=== PATIENT | female | born 1970 | race Caucasian/White ===

== ENCOUNTER 2024-07-15 10:44 | Inpatient (IN) ==
[2024-07-15] MEDS ORDERED: VANCOMYCIN CONSULT ACTIVE PRN (10:53)
--- NOTE | 2024-07-15 10:59 | Emergency Department Note ---
Impression & Plan Sepsis, Hyperosmolar hyperglycemic state (HHS), AGUILAR (acute kidney injury), Pyelonephritis, Cerebral palsy ED Provider Note NAME: ZARINA BARCENAS AGE: 54 SEX: F : 1970 ARRIVES VIA: Ambulance INFORMANT: EMS report, prior records, nursing report ED PROVIDER(S): Manish Lawson MD CHIEF COMPLAINT: Increased work of breathing hypotensive, tachycardic MEDICAL DECISION MAKING: Limited history obtained but patient reportedly was coming from [place] to set her care recently. Reportedly full code. Patient reportedly did have elevated heart rate yesterday so they increased her metoprolol. Patient was hypotensive today. EMS was called. They checked blood sugar which is read as high. Patient reportedly will squeeze her hand or sometimes nod to questioning. Unknown baseline but EMS has not reported any verbal responses. Patient was noted to be tachypneic and working to breathe and they did place her on CPAP prior to arrival. Sepsis protocols initiated with broad-spectrum antibiotics and IV fluids. Swskm-fs-[id number] BMP obtained along with Givens catheter. CT angiography of the chest along with abdomen and pelvis ordered. After getting the initial [id number] blood sugar did speak with ED pharmacy and insulin drip was ordered. Patient's initial creat of 2.[address] chest abdomen pelvis ordered noncontrast. Bedside ultrasound was performed which shows a very flat IVC likely volume deficient. Clear lung sounds and the patient does not have any B-lines on exam. Patient was ordered a total of 4 L of IV fluids as I do believe that she would tolerated this. Patient likely has had symptoms since yesterday when the patient was tachycardic but the patient was not resuscitated at that time but only had an increase in her beta-vicki given. Patient's blood work does show a white count of 15 with normal hemoglobin platelet count is elevated 577. Patient sodium 155 initial [id number] glucose was 600 sugar of 689. Initial troponin 97 likely demand related. Urinalysis does show concerns for infection. Initial lactate of 3.8. VBG with a pH is 7-8 pCO2 of 39. Patient was reassessed numerous times. The patient did have improvement in the patient's heart rate blood pressure and fever. After the patient did receive just over 3 L hospitalist wanted to slow down hydration to maintenance until repeat labs drawn due to concern for possible osmolar shifts. Patient's chest x-ray does not show obvious pneumonia. The patient's CT chest abdomen pelvis shows mild right-sided hydroureteronephrosis with urothelial thickening. No stranding. May be secondary to infection versus recently passed calculus. No bowel obstruction G-tube in place. No acute intrathoracic abnormality noted. Repeat troponin of 88.1. Repeat lactate did downtrend from 3.8 to 3.5. Once repeat labs were obtained and the hospitalist agreed with continuing hydration. Patient's blood pressure at the time of admission had improved into the 100s over 70s and 80s. Critical Care: I have personally spent 185 minutes of critical care time in direct management of this patient. This includes bedside care, interpretation of diagnostic studies, and testing, discussion with consultants, patient, and family members, and other require inpatient management activities. This 185 minutes is in excess of all separately billable procedures. Procedures: Limited Point of Care Cardiac Ultrasound performed by Dr. Lawson Indication: Hypotension and tachycardia Findings: Limited echocardiography revealed no obvious pericardial fluid. Technically difficult study unable to visualize overall EF. HR 160s. Additional findings: IVC very flat. No B-lines in the bilateral lung blas. Impression: Concern for volume depletion, no evidence of obvious tamponade Discussion w/ other healthcare providers: Dr. Hayes inpatient hospitalist service Prior /Outside records reviewed: I reviewed part of any HPI that was brought from her packet. Per the patient Dr. Powell recently admitted and treated for altered mental status secondary to multifactorial call causes including UTI multifocal pneumonia. Was unable to provide care for PEG tube. Adult aging services got involved. Patient was not having her tube feeds completed at that time. Explained review of past medical history shows infantile cerebral palsy, neurogenic bladder, renal calculi, hypertension, hyperlipidemia and type 2 diabetes. Past surgical history CRUDS, colonoscopy bilateral foot surgery, bilateral leg surgery and bilateral cataract removal. No reported prior history of alcohol tobacco or drug use. Appears ago that this visit note was created from July 09. Differential diagnosis: Dehydration, UTI, pneumonia, metabolic derangment, electrolyte abnormalities, hypovolemia, anemia, cellulitis among others were considered. Diagnostics, as interpreted by me: ECG: Sinus tachycardia, rate 163, short UT, normal QRS duration, nonspecific ST abnormality noted. Cardiac monitoring: An order was placed for continuous cardiac monitoring. The monitor shows a rate of 165 with tachycardic and regular rhythm. Patient was placed on pulse oximetry Medical decision rules: None Imaging studies: I informally interpreted the patient's chest x-ray does not show obvious pneumonia or pneumothorax with formal report to follow. HPI: Patient presents from [facility] due to concern for worsening respiratory difficulty tachycardia and low blood pressure. Reportedly patient did have elevated heart rate yesterday and her metoprolol was increased. No reported cough. Patient reportedly is a type II diabetic. PAST MEDICAL HISTORY: infantile cerebral palsy, neurogenic bladder, renal calculi, hypertension, hyperlipidemia and type 2 diabetes. PAST SURGICAL HISTORY: CR UDS, colonoscopy bilateral foot surgery, bilateral leg surgery and bilateral cataract removal SOCIAL HISTORY: See Below HOME MEDICATIONS: Metoprolol, Lokelma, baclofen, empagliflozin, lisinopril, metoprolol, atorvastatin, insulin, Lovenox, Calmoseptine ALLERGIES: See Below VITALS: See Below PHYSICAL EXAMINATION: GENERAL: Significant distress, BiPAP in place, EYE EXAM: Normal conjunctiva. PERRL, no anisocoria and EOM's grossly intact w/o pain. OROPHARYNX: Dry mucous membranes, grossly normal dentition. NECK: Trachea midline, no stridor. LUNGS: Clear to auscultation. Normal chest wall mechanics. HEART: Tachycardic and regular, no MRG. ABDOMEN: Abdomen soft, G-tube noted in the mid abdomen, non-tender, no masses, no rebound or guarding. BACK: No CVA TTP. SKIN: No rashes and no bruising. UPPER EXTREMITIES: Upper extremities are grossly normal. LOWER EXTREMITIES: Grossly normal, no edema. NEURO EXAM: A&O x3, cranial nerves II-XII grossly intact, normal speech, moves all 4 extremities. Past Med/Surg History Problem List (Updated 07/17/24 @ 11:44 by Manish Lawson MD) Sepsis (Acute) Pyelonephritis (Acute) AGUILAR (acute kidney injury) (Acute) Septic shock Status post insertion of percutaneous endoscopic gastrostomy (PEG) tube Cerebral palsy (Acute) DM2 (diabetes mellitus, type 2) Hyperosmolar hyperglycemic state (HHS) (Acute) Medical History (Updated 07/17/24 @ 11:44 by Manish Lawson MD) Neurogenic bladder Aspiration into airway HLD (hyperlipidemia) HTN (hypertension) Social History Smoking Status: Never smoker Hx Alcohol Use: No Hx Substance Use: No Preferred Language: Latvian Communication Ability: Effective Professor Of Sociology Required: No Beliefs That Will Affect Care: None Current Living Situation: Personal Care Facility Assistive Devices: Mechanical Lift, Scooter/Electric Scooter and Other Allergies Allergies Allergy/AdvReac Type Severity Reaction Status Date / Time sulfamethoxazole Allergy Unknown Unknown Unverified 07/15/24 12:34 [From Bactrim] trimethoprim [From Bactrim] Allergy Unknown Unknown Unverified 07/15/24 12:34 Home Meds Home Medications Medication Instructions Recorded Confirmed Glucagon Emergency Kit 1 dose IM .15MINS PRN Hypoglycemia 07/15/24 07/15/24 baclofen 5 mg tablet 5 mg feeding tube Q8H PRN Muscle 07/15/24 07/15/24 Spasm bisacodyl 10 mg rectal suppository 10 mg UT DAILY PRN Constipation 07/15/24 07/15/24 (Dulcolax (bisacodyl)) empagliflozin 25 mg tablet 25 mg PO DAILY 07/15/24 07/15/24 (Jardiance) insulin glargine 100 unit/mL (3 30 unit subcut BID 07/15/24 07/15/24 mL) subcutaneous pen (Lantus Solostar U-100 Insulin) metformin 1,000 mg tablet 1,000 mg PO BID 07/15/24 07/15/24 metoprolol tartrate 50 mg tablet 50 mg PO BID 07/15/24 07/15/24 multivitamin 1 tab PO DAILY 07/15/24 07/15/24 omega 9-[id number]-[id number]-fish oil 1,000 mg 1 cap PO DAILY 07/15/24 07/15/24 (120 mg-180 mg) capsule (Fish Oil) sodium phosphates 19 gram-7 118 ml UT DAILY PRN Constipation 07/15/24 07/15/24 gram/118 mL enema (Enema) vibegron 75 mg tablet 75 mg PO DAILY 07/15/24 07/15/24 Results & Data (ED) Vital Signs Vital Signs - 24 hr 07/15/24 10:48 07/15/24 10:48 07/15/24 10:48 Pulse Rate 165 H Pulse Rate [Apical] Pulse Rhythm Regular Pulse Rhythm [Apical] Pulse Strength Bounding Pulse Strength [Apical] Respiratory Rate 54 H Respiratory Effort / Characteristics Labored Labored Respiratory Depth Shallow Respiratory Pattern Tachypnea Tachypnea Blood Pressure 103/72 Blood Pressure [Right Arm] Blood Pressure Mean 82 Blood Pressure Mean [Right Arm] Blood Pressure Position Lying Pulse Oximetry 98 Oxygen Delivery Method BiPAP BiPAP BiPAP Fraction of Inspired Oxygen 50 50 50 SaO2/FiO2 Ratio 196 Sepsis Recent Fever Within 48 Hours Yes Sepsis New/Unexplained Change in Mental Status No Sepsis Action Taken by Nursing Physician Notified Pulse Oximetry Post Tiitration 98 07/15/24 10:48 07/15/24 10:53 Pulse Rate 165 H Pulse Rate [Apical] 165 H Pulse Rhythm Regular Pulse Rhythm [Apical] Regular Pulse Strength Pulse Strength [Apical] Normal Respiratory Rate 57 H 57 H Respiratory Effort / Characteristics Labored Respiratory Depth Shallow Respiratory Pattern Tachypnea Blood Pressure Blood Pressure [Right Arm] 103/72 Blood Pressure Mean Blood Pressure Mean [Right Arm] 82 Blood Pressure Position Pulse Oximetry 99 99 Oxygen Delivery Method BiPAP BiPAP Fraction of Inspired Oxygen 50 50 SaO2/FiO2 Ratio 198 198 Sepsis Recent Fever Within 48 Hours Sepsis New/Unexplained Change in Mental Status Sepsis Action Taken by Nursing Pulse Oximetry Post Tiitration Home Medications Current Medication List: was personally reviewed by me Laboratory Data Attestation: I reviewed the patient's lab results. 07/15/24 10:50 07/17/24 05:36 Lab Results 07/15/24 07/15/24 07/15/24 Range/Units 10:50 10:54 11:07 WBC 15.28 H (4.8-10.8) K/ul RBC 4.29 (4.20-5.40) M/uL Hgb 13.1 (12.0-16.0) g/dl Hct 43.0 (37.0-47.0) % MCV 100.2 H (80.0-100.0) fL MCH 30.5 (25.0-34.0) pg MCHC 30.5 L (32.0-36.0) g/dL RDW Std Deviation 60.0 H (36.4-46.3) fL RDW Coeff of Vivien 16.5 H (11.5-14.5) % Plt Count 577 H (130-400) K/uL MPV 12.1 (9.4-12.4) fL Immature Gran % (Auto) 0.4 % Neut % (Auto) 86.4 % Lymph % (Auto) 5.2 % Wirt % (Auto) 7.7 % Eos % (Auto) 0.0 % Baso % (Auto) 0.3 % Neut # (Auto) 13.20 H (1.40-6.50) K/uL Lymph # (Auto) 0.79 L (1.20-3.40) K/uL Wirt # (Auto) 1.18 H (0.11-0.59) K/uL Eos # (Auto) 0.00 (0.00-0.50) K/uL Baso # (Auto) 0.05 (0.00-0.20) K/uL Immature Gran # (Auto) 0.06 (0.01-0.20) K/uL PT Cancelled INR Cancelled APTT Cancelled PTT Ratio Cancelled VBG pH (7.36-7.41) VBG pCO2 (38-50) mmHg VBG pO2 mmHg VBG HCO3 mmol/L VBG O2 Saturation % VBG Base Excess mEq/L Sodium 155 H (136-145) mmol/L Potassium 5.5 H (3.5-5.1) mmol/L Chloride 111 H (98-107) mmol/L Carbon Dioxide 23 (21-32) mmol/L Anion Gap 21 H (3-11) BUN 62 H (6-23) mg/dl Creatinine 2.12 H (0.6-1.2) mg/dl Est Cr Clr Drug Dosing 27.7 ml/min eGFR 26.84 BUN/Creatinine Ratio 29.2 H (10-20) Glucose 689 H* (70-99(Fasting)) mg/dl POC Glucose > 600 H* (70-99) mg/dl Osmolality 387 H* (280-300) mOsm/kg Lactate (0.4-2.0) mmol/L Calcium 10.2 (8.6-10.3) mg/dl Phosphorus 6.8 H (2.5-4.9) mg/dl Magnesium 2.6 H (1.7-2.4) mg/dl Total Bilirubin 0.3 (0.2-1.0) mg/dl Direct Bilirubin 0.0 (0-0.2) mg/dl AST 19 (13-39) U/L ALT 16 (7-52) U/L Alkaline Phosphatase 99 (34-104) U/L Troponin I High Sens 97.6 H* (0-14) pg/ml Total Protein 9.2 H (6.0-8.3) gm/dl Albumin 4.1 (3.4-5.0) gm/dl Procalcitonin 1.90 H (0-0.5) ng/ml Urine Color Yellow Urine Appearance Turbid A (Clear) Urine pH 5.0 (4.5-7.5) Ur Specific [place] 1.025 (1.000-1.030) Urine Protein 2+ H (Negative) Urine Glucose (UA) 3+ H (Negative) Urine Ketones Trace H (Negative) Urine Blood 3+ H (Negative) Urine Nitrite Negative (Negative) Urine Bilirubin Negative (Negative) Urine Urobilinogen Negative (Negative) Ur Leukocyte Esterase 3+ H (Negative) Urine WBC (Auto) >50 H (0-5) /hpf Urine RBC (Auto) >20 H (0-2) /hpf U Hyaline Cast (Auto) >20 H (0-2) /lpf U Epithel Cells (Auto) 6-10 H (0-2) /hpf Urine Bacteria (Auto) 3+ H (None Seen) Nasal Screen MRSA (PCR) (Negative) 07/15/24 07/15/24 07/15/24 Range/Units 11:14 11:32 11:56 WBC (4.8-10.8) K/ul RBC (4.20-5.40) M/uL Hgb (12.0-16.0) g/dl Hct (37.0-47.0) % MCV (80.0-100.0) fL MCH (25.0-34.0) pg MCHC (32.0-36.0) g/dL RDW Std Deviation (36.4-46.3) fL RDW Coeff of Vivien (11.5-14.5) % Plt Count (130-400) K/uL MPV (9.4-12.4) fL Immature Gran % (Auto) % Neut % (Auto) % Lymph % (Auto) % Wirt % (Auto) % Eos % (Auto) % Baso % (Auto) % Neut # (Auto) (1.40-6.50) K/uL Lymph # (Auto) (1.20-3.40) K/uL Wirt # (Auto) (0.11-0.59) K/uL Eos # (Auto) (0.00-0.50) K/uL Baso # (Auto) (0.00-0.20) K/uL Immature Gran # (Auto) (0.01-0.20) K/uL PT 11.4 INR 1.1 APTT 25 PTT Ratio 0.9 VBG pH (7.36-7.41) VBG pCO2 (38-50) mmHg VBG pO2 mmHg VBG HCO3 mmol/L VBG O2 Saturation % VBG Base Excess mEq/L Sodium (136-145) mmol/L Potassium (3.5-5.1) mmol/L Chloride (98-107) mmol/L Carbon Dioxide (21-32) mmol/L Anion Gap (3-11) BUN (6-23) mg/dl Creatinine (0.6-1.2) mg/dl Est Cr Clr Drug Dosing ml/min eGFR BUN/Creatinine Ratio (10-20) Glucose (70-99(Fasting)) mg/dl POC Glucose 583 H* (70-99) mg/dl Osmolality (280-300) mOsm/kg Lactate 3.8 H* (0.4-2.0) mmol/L Calcium (8.6-10.3) mg/dl Phosphorus (2.5-4.9) mg/dl Magnesium (1.7-2.4) mg/dl Total Bilirubin (0.2-1.0) mg/dl Direct Bilirubin (0-0.2) mg/dl AST (13-39) U/L ALT (7-52) U/L Alkaline Phosphatase (34-104) U/L Troponin I High Sens (0-14) pg/ml Total Protein (6.0-8.3) gm/dl Albumin (3.4-5.0) gm/dl Procalcitonin (0-0.5) ng/ml Urine Color Urine Appearance (Clear) Urine pH (4.5-7.5) Ur Specific [place] (1.000-1.030) Urine Protein (Negative) Urine Glucose (UA) (Negative) Urine Ketones (Negative) Urine Blood (Negative) Urine Nitrite (Negative) Urine Bilirubin (Negative) Urine Urobilinogen (Negative) Ur Leukocyte Esterase (Negative) Urine WBC (Auto) (0-5) /hpf Urine RBC (Auto) (0-2) /hpf U Hyaline Cast (Auto) (0-2) /lpf U Epithel Cells (Auto) (0-2) /hpf Urine Bacteria (Auto) (None Seen) Nasal Screen MRSA (PCR) (Negative) 07/15/24 07/15/24 07/15/24 Range/Units 12:23 12:27 13:14 WBC (4.8-10.8) K/ul RBC (4.20-5.40) M/uL Hgb (12.0-16.0) g/dl Hct (37.0-47.0) % MCV (80.0-100.0) fL MCH (25.0-34.0) pg MCHC (32.0-36.0) g/dL RDW Std Deviation (36.4-46.3) fL RDW Coeff of Vivien (11.5-14.5) % Plt Count (130-400) K/uL MPV (9.4-12.4) fL Immature Gran % (Auto) % Neut % (Auto) % Lymph % (Auto) % Wirt % (Auto) % Eos % (Auto) % Baso % (Auto) % Neut # (Auto) (1.40-6.50) K/uL Lymph # (Auto) (1.20-3.40) K/uL Wirt # (Auto) (0.11-0.59) K/uL Eos # (Auto) (0.00-0.50) K/uL Baso # (Auto) (0.00-0.20) K/uL Immature Gran # (Auto) (0.01-0.20) K/uL PT INR APTT PTT Ratio VBG pH 7.28 L (7.36-7.41) VBG pCO2 39 (38-50) mmHg VBG pO2 45 mmHg VBG HCO3 18 mmol/L VBG O2 Saturation 64.5 % VBG Base Excess -7.9 mEq/L Sodium (136-145) mmol/L Potassium (3.5-5.1) mmol/L Chloride (98-107) mmol/L Carbon Dioxide (21-32) mmol/L Anion Gap (3-11) BUN (6-23) mg/dl Creatinine (0.6-1.2) mg/dl Est Cr Clr Drug Dosing ml/min eGFR BUN/Creatinine Ratio (10-20) Glucose (70-99(Fasting)) mg/dl POC Glucose 492 H* (70-99) mg/dl Osmolality (280-300) mOsm/kg Lactate (0.4-2.0) mmol/L Calcium (8.6-10.3) mg/dl Phosphorus (2.5-4.9) mg/dl Magnesium (1.7-2.4) mg/dl Total Bilirubin (0.2-1.0) mg/dl Direct Bilirubin (0-0.2) mg/dl AST (13-39) U/L ALT (7-52) U/L Alkaline Phosphatase (34-104) U/L Troponin I High Sens 88.1 H* (0-14) pg/ml Total Protein (6.0-8.3) gm/dl Albumin (3.4-5.0) gm/dl Procalcitonin (0-0.5) ng/ml Urine Color Urine Appearance (Clear) Urine pH (4.5-7.5) Ur Specific [place] (1.000-1.030) Urine Protein (Negative) Urine Glucose (UA) (Negative) Urine Ketones (Negative) Urine Blood (Negative) Urine Nitrite (Negative) Urine Bilirubin (Negative) Urine Urobilinogen (Negative) Ur Leukocyte Esterase (Negative) Urine WBC (Auto) (0-5) /hpf Urine RBC (Auto) (0-2) /hpf U Hyaline Cast (Auto) (0-2) /lpf U Epithel Cells (Auto) (0-2) /hpf Urine Bacteria (Auto) (None Seen) Nasal Screen MRSA (PCR) (Negative) 07/15/24 07/15/24 07/15/24 Range/Units 13:19 13:24 13:54 WBC (4.8-10.8) K/ul RBC (4.20-5.40) M/uL Hgb (12.0-16.0) g/dl Hct (37.0-47.0) % MCV (80.0-100.0) fL MCH (25.0-34.0) pg MCHC (32.0-36.0) g/dL RDW Std Deviation (36.4-46.3) fL RDW Coeff of Vivien (11.5-14.5) % Plt Count (130-400) K/uL MPV (9.4-12.4) fL Immature Gran % (Auto) % Neut % (Auto) % Lymph % (Auto) % Wirt % (Auto) % Eos % (Auto) % Baso % (Auto) % Neut # (Auto) (1.40-6.50) K/uL Lymph # (Auto) (1.20-3.40) K/uL Wirt # (Auto) (0.11-0.59) K/uL Eos # (Auto) (0.00-0.50) K/uL Baso # (Auto) (0.00-0.20) K/uL Immature Gran # (Auto) (0.01-0.20) K/uL PT INR APTT PTT Ratio VBG pH 7.25 L (7.36-7.41) VBG pCO2 50 (38-50) mmHg VBG pO2 32 mmHg VBG HCO3 22 mmol/L VBG O2 Saturation < 60.0 % VBG Base Excess -5.6 mEq/L Sodium 157 H* (136-145) mmol/L Potassium 4.3 D (3.5-5.1) mmol/L Chloride 125 H (98-107) mmol/L Carbon Dioxide 21 (21-32) mmol/L Anion Gap 11 (3-11) BUN 54 H (6-23) mg/dl Creatinine 1.74 H D (0.6-1.2) mg/dl Est Cr Clr Drug Dosing 33.8 ml/min eGFR 34.02 BUN/Creatinine Ratio 31.0 H (10-20) Glucose 399 H* (70-99(Fasting)) mg/dl POC Glucose 393 H* (70-99) mg/dl Osmolality 363 H* (280-300) mOsm/kg Lactate 3.5 H* (0.4-2.0) mmol/L Calcium 7.4 L D (8.6-10.3) mg/dl Phosphorus 5.0 H D (2.5-4.9) mg/dl Magnesium 2.0 (1.7-2.4) mg/dl Total Bilirubin (0.2-1.0) mg/dl Direct Bilirubin (0-0.2) mg/dl AST (13-39) U/L ALT (7-52) U/L Alkaline Phosphatase (34-104) U/L Troponin I High Sens (0-14) pg/ml Total Protein (6.0-8.3) gm/dl Albumin (3.4-5.0) gm/dl Procalcitonin (0-0.5) ng/ml Urine Color Urine Appearance (Clear) Urine pH (4.5-7.5) Ur Specific [place] (1.000-1.030) Urine Protein (Negative) Urine Glucose (UA) (Negative) Urine Ketones (Negative) Urine Blood (Negative) Urine Nitrite (Negative) Urine Bilirubin (Negative) Urine Urobilinogen (Negative) Ur Leukocyte Esterase (Negative) Urine WBC (Auto) (0-5) /hpf Urine RBC (Auto) (0-2) /hpf U Hyaline Cast (Auto) (0-2) /lpf U Epithel Cells (Auto) (0-2) /hpf Urine Bacteria (Auto) (None Seen) Nasal Screen MRSA (PCR) Positive A (Negative) 07/15/24 Range/Units 14:04 WBC (4.8-10.8) K/ul RBC (4.20-5.40) M/uL Hgb (12.0-16.0) g/dl Hct (37.0-47.0) % MCV (80.0-100.0) fL MCH (25.0-34.0) pg MCHC (32.0-36.0) g/dL RDW Std Deviation (36.4-46.3) fL RDW Coeff of Vivien (11.5-14.5) % Plt Count (130-400) K/uL MPV (9.4-12.4) fL Immature Gran % (Auto) % Neut % (Auto) % Lymph % (Auto) % Wirt % (Auto) % Eos % (Auto) % Baso % (Auto) % Neut # (Auto) (1.40-6.50) K/uL Lymph # (Auto) (1.20-3.40) K/uL Wirt # (Auto) (0.11-0.59) K/uL Eos # (Auto) (0.00-0.50) K/uL Baso # (Auto) (0.00-0.20) K/uL Immature Gran # (Auto) (0.01-0.20) K/uL PT INR APTT PTT Ratio VBG pH (7.36-7.41) VBG pCO2 (38-50) mmHg VBG pO2 mmHg VBG HCO3 mmol/L VBG O2 Saturation % VBG Base Excess mEq/L Sodium (136-145) mmol/L Potassium (3.5-5.1) mmol/L Chloride (98-107) mmol/L Carbon Dioxide (21-32) mmol/L Anion Gap (3-11) BUN (6-23) mg/dl Creatinine (0.6-1.2) mg/dl Est Cr Clr Drug Dosing ml/min eGFR BUN/Creatinine Ratio (10-20) Glucose (70-99(Fasting)) mg/dl POC Glucose 358 H* (70-99) mg/dl Osmolality (280-300) mOsm/kg Lactate (0.4-2.0) mmol/L Calcium (8.6-10.3) mg/dl Phosphorus (2.5-4.9) mg/dl Magnesium (1.7-2.4) mg/dl Total Bilirubin (0.2-1.0) mg/dl Direct Bilirubin (0-0.2) mg/dl AST (13-39) U/L ALT (7-52) U/L Alkaline Phosphatase (34-104) U/L Troponin I High Sens (0-14) pg/ml Total Protein (6.0-8.3) gm/dl Albumin (3.4-5.0) gm/dl Procalcitonin (0-0.5) ng/ml Urine Color Urine Appearance (Clear) Urine pH (4.5-7.5) Ur Specific [place] (1.000-1.030) Urine Protein (Negative) Urine Glucose (UA) (Negative) Urine Ketones (Negative) Urine Blood (Negative) Urine Nitrite (Negative) Urine Bilirubin (Negative) Urine Urobilinogen (Negative) Ur Leukocyte Esterase (Negative) Urine WBC (Auto) (0-5) /hpf Urine RBC (Auto) (0-2) /hpf U Hyaline Cast (Auto) (0-2) /lpf U Epithel Cells (Auto) (0-2) /hpf Urine Bacteria (Auto) (None Seen) Nasal Screen MRSA (PCR) (Negative) Administered Medications Baclofen (Baclofen 10 Mg Tab) 5 mg PEG Q8H PRN PRN Reason: Muscle Spasm Stop: 08/14/24 17:23 Last Admin: 07/17/24 03:45 Dose: 5 mg Documented By: Admin: 07/16/24 08:19 Dose: 5 mg Documented By: Admin: 07/15/24 21:24 Dose: 5 mg Documented By: DEVIN Enteral Nutritional Formula (Peptamen 1.5 Ken 1,000 Ml Bag) 1,000 ml PEG UD [facility]; Protocol Stop: 08/15/24 11:29 Last Admin: 07/16/24 12:31 Dose: 1,000 ml Documented By: DUANE Heparin Sodium (Porcine) (Heparin Sod 5,000 Unit/0.5 Ml Vial) 5,000 units SQ Q8 [facility] Stop: 08/15/24 07:59 Last Admin: 07/17/24 04:57 Dose: 5,000 units Documented By: Admin: 07/16/24 21:31 Dose: 5,000 units Documented By: Admin: 07/16/24 16:14 Dose: 5,000 units Documented By: Admin: 07/16/24 08:19 Dose: 5,000 units Documented By: DUANE Thiamine HCl 100 mg/ Syringe 10 mls @ 2 mls/min IV QAM [facility] Stop: 08/15/24 08:59 Last Admin: 07/17/24 09:29 Dose: 2 mls/min Documented By: Admin: 07/16/24 08:19 Dose: 2 mls/min Documented By: DUANE Ceftriaxone Sodium (Rocephin) 1,000 mg in 50 mls @ 100 mls/hr IV Q24H [facility] Stop: 07/22/24 07:59 Last Infusion: 07/17/24 10:45 Dose: Infused Documented By: Admin: 07/17/24 09:29 Dose: 100 mls/hr Documented By: DUANE Insulin Aspart (Insulin Aspart Per Unit Charge) 0 units SC Q4 [facility] Stop: 08/15/24 00:29 Last Admin: 07/17/24 08:46 Dose: Not Given Documented By: Admin: 07/17/24 04:56 Dose: Not Given Documented By: Admin: 07/17/24 00:33 Dose: Not Given Documented By: Admin: 07/16/24 21:24 Dose: Not Given Documented By: Admin: 07/16/24 16:15 Dose: Not Given Documented By: Admin: 07/16/24 12:45 Dose: 1 units Documented By: DUANE Co-signed By: NANCY Admin: 07/16/24 08:22 Dose: 2 units Documented By: DUANE Co-signed By: JEY Admin: 07/16/24 04:13 Dose: 2 units Documented By: DUANE(2) Co-signed By: DEVIN Admin: 07/16/24 00:50 Dose: 1 units Documented By: DEVIN Co-signed By: DUANE(2) Insulin Glargine (Lantus Per Unit Charge) 0 units SQ BID ARIANA; Protocol Stop: 08/16/24 08:59 Last Admin: 07/17/24 08:47 Dose: Not Given Documented By: DUANE Sterile Water (Tube Feeding Water Flush) 400 ml GT Q4H ARIANA Stop: 08/15/24 07:29 Last Admin: 07/17/24 07:34 Dose: 400 ml Documented By: Admin: 07/17/24 03:00 Dose: 400 ml Documented By: Admin: 07/17/24 00:30 Dose: 400 ml Documented By: Admin: 07/16/24 21:23 Dose: 400 ml Documented By: Admin: 07/16/24 16:14 Dose: 400 ml Documented By: Admin: 07/16/24 11:43 Dose: 400 ml Documented By: Admin: 07/16/24 08:19 Dose: 400 ml Documented By: DUANE Vibegron (Vibegron 75 Mg Tab) 75 mg PO DAILY ARIANA Stop: 08/15/24 08:59 Last Admin: 07/17/24 09:29 Dose: 75 mg Documented By: Admin: 07/16/24 08:19 Dose: 75 mg Documented By: DUANE Discontinued Medications Heparin Sodium (Porcine) (Heparin Sod 5,000 Unit/0.5 Ml Vial) 5,000 units SQ Q12 ARIANA Stop: 08/14/24 20:59 Last Admin: 07/15/24 20:36 Dose: 5,000 units Documented By: DEVIN Sodium Chloride (Nss) 1,000 mls @ 999 mls/hr IV .Q1H1M ARIANA Stop: 07/15/24 13:00 Last Infusion: 07/15/24 17:47 Dose: Infused Documented By: Infusion: 07/15/24 13:36 Dose: 0 mls/hr Documented By: [facility] [place] Admin: 07/15/24 12:36 Dose: 999 mls/hr Documented By: [facility] [place] Infusion: 07/15/24 12:31 Dose: Infused Documented By: [facility] [facility] Admin: 07/15/24 11:30 Dose: 999 mls/hr Documented By: [facility] Vancomycin HCl 1,250 mg/ (Sodium Chloride) 500 mls @ 200 mls/hr IV NOW STA Stop: 07/15/24 13:22 Last Infusion: 07/15/24 15:52 Dose: Infused Documented By: Admin: 07/15/24 12:06 Dose: 200 mls/hr Documented By: [facility] Piperacillin Sod/Tazobactam Sod (Zosyn) 4.5 gm in 100 mls @ 200 mls/hr IV NOW ONE; Protocol Stop: 07/15/24 11:22 Last Infusion: 07/15/24 13:05 Dose: Infused Documented By: [facility] Admin: 07/15/24 11:52 Dose: 200 mls/hr Documented By: [facility] Insulin Human Regular 250 (units/ Sodium Chloride) 250 mls @ 0 mls/hr IV .Q0M [facility]; Protocol Stop: 08/14/24 11:14 Last Titration: 07/16/24 10:33 Dose: Infused Documented By: DUANE Co-signed By: [facility] Titration: 07/15/24 23:17 Dose: 0 unit/hr, 0 mls/hr Documented By: DEVIN Co-signed By: DUANE(2) Titration: 07/15/24 22:20 Dose: 1.7 unit/hr, 1.7 mls/hr Documented By: SG Co-signed By: DUANE(2) Titration: 07/15/24 21:20 Dose: 2.1 unit/hr, 2.1 mls/hr Documented By: SG Co-signed By: DUANE(2) Titration: 07/15/24 20:20 Dose: 2.6 unit/hr, 2.6 mls/hr Documented By: SG Co-signed By: DUANE(2) Titration: 07/15/24 19:35 Dose: 2.6 unit/hr, 2.6 mls/hr Documented By: DEVIN Co-signed By: AMS(2) Titration: 07/15/24 19:02 Dose: 3.2 unit/hr, 3.2 mls/hr Documented By: DEVIN Co-signed By: AMS Titration: 07/15/24 18:23 Dose: 3.2 unit/hr, 3.2 mls/hr Documented By: AMS Co-signed By: LAF Titration: 07/15/24 16:22 Dose: 4 unit/hr, 4 mls/hr Documented By: MARIA C Co-signed By: MNE Titration: 07/15/24 15:25 Dose: 4 unit/hr, 4 mls/hr Documented By: MARIA C Co-signed By: SNS Titration: 07/15/24 15:00 Dose: 4 unit/hr, 4 mls/hr Documented By: YORDAN Co-signed By: ASHISH Titration: 07/15/24 13:30 Dose: 0 unit/hr, 0 mls/hr Documented By: ASHISH Co-signed By: MARIA C Titration: 07/15/24 12:55 Dose: 4 unit/hr, 4 mls/hr Documented By: [facility] Co-signed By: MWS Titration: 07/15/24 12:33 Dose: 6.5 unit/hr, 6.5 mls/hr Documented By: [facility] Co-signed By: MNE Titration: 07/15/24 12:28 Dose: 7.8 unit/hr, 7.8 mls/hr Documented By: [facility] Co-signed By: THEO Admin: 07/15/24 11:24 Dose: 6.5 unit/hr, 6.5 mls/hr Documented By: [facility] Co-signed By: KAPIL Sodium Chloride (Nss) 1,000 mls @ 999 mls/hr IV .Q1H1M ONE Stop: 07/15/24 12:04 Last Infusion: 07/15/24 12:14 Dose: Infused Documented By: [facility] Admin: 07/15/24 11:11 Dose: 999 mls/hr Documented By: [facility] Acetaminophen (Ofirmev) 1,000 mg in 100 mls @ 400 mls/hr IV NOW STA Stop: 07/15/24 11:21 Last Infusion: 07/15/24 11:48 Dose: Infused Documented By: [facility] Admin: 07/15/24 11:28 Dose: 400 mls/hr Documented By: ASHISH Sodium Chloride (Nss) 1,000 mls @ 999 mls/hr IV .Q1H1M ONE Stop: 07/15/24 13:28 Last Infusion: 07/15/24 13:58 Dose: Infused Documented By: Admin: 07/15/24 12:57 Dose: 999 mls/hr Documented By: [facility] Piperacillin Sod/Tazobactam Sod (Zosyn) 4.5 gm in 100 mls @ 25 mls/hr IV Q8H [facility]; Protocol Stop: 07/25/24 16:59 Last Infusion: 07/17/24 04:52 Dose: Infused Documented By: Admin: 07/17/24 00:30 Dose: 25 mls/hr Documented By: Infusion: 07/16/24 21:54 Dose: Infused Documented By: Admin: 07/16/24 17:54 Dose: 25 mls/hr Documented By: Infusion: 07/16/24 12:35 Dose: Infused Documented By: Admin: 07/16/24 08:19 Dose: 25 mls/hr Documented By: Infusion: 07/16/24 05:00 Dose: Infused Documented By: DUANE(2) Admin: 07/16/24 01:00 Dose: 25 mls/hr Documented By: Infusion: 07/15/24 21:55 Dose: Infused Documented By: DUANE(2) Admin: 07/15/24 17:55 Dose: 25 mls/hr Documented By: DUANE Acetaminophen (Ofirmev) 1,000 mg in 100 mls @ 400 mls/hr IV Q8H PRN PRN Reason: pain/fever Stop: 07/18/24 18:59 Last Infusion: 07/15/24 23:16 Dose: Infused Documented By: Admin: 07/15/24 22:52 Dose: 400 mls/hr Documented By: AMS(2) Lactated Ringer's (Lr) 1,000 mls @ 999 mls/hr IV .Q1H1M ONE Stop: 07/15/24 15:34 Last Infusion: 07/15/24 15:42 Dose: Infused Documented By: Admin: 07/15/24 14:59 Dose: 999 mls/hr Documented By: YORDAN Lactated Ringer's (Lr) 1,000 mls @ 125 mls/hr IV .Q8H [facility] Stop: 07/16/24 15:29 Last Infusion: 07/15/24 17:48 Dose: Infused Documented By: Infusion: 07/15/24 16:12 Dose: 999 mls/hr Documented By: Admin: 07/15/24 15:39 Dose: 125 mls/hr Documented By: Potassium Chloride 40 meq/ (Dextrose/Sodium Chloride) 1,020 mls @ 175 mls/hr IV .Q5H50M [facility] Stop: 07/16/24 15:44 Last Admin: 07/16/24 11:59 Dose: Not Given Documented By: Infusion: 07/16/24 11:59 Dose: Infused Documented By: Admin: 07/16/24 05:45 Dose: 175 mls/hr Documented By: DUANE(2) Infusion: 07/16/24 05:45 Dose: Infused Documented By: DUANE(2) Admin: 07/15/24 23:59 Dose: 175 mls/hr Documented By: Infusion: 07/15/24 23:59 Dose: Infused Documented By: Infusion: 07/15/24 23:49 Dose: 175 mls/hr Documented By: Admin: 07/15/24 15:55 Dose: 125 mls/hr Documented By: MARIA C Potassium Chloride (K Jose Ramon / Wtr) 10 meq in 100 mls @ 100 mls/hr IV Q1H [facility] Stop: 07/15/24 20:59 Last Infusion: 07/15/24 21:36 Dose: Infused Documented By: DUANE(2) Admin: 07/15/24 20:36 Dose: 100 mls/hr Documented By: Infusion: 07/15/24 20:26 Dose: Infused Documented By: Admin: 07/15/24 19:26 Dose: 100 mls/hr Documented By: DEVIN Thiamine HCl 200 mg/ Sodium (Chloride) 52 mls @ 210 mls/hr IV NOW STA Stop: 07/15/24 19:27 Last Infusion: 07/15/24 20:02 Dose: Infused Documented By: DUANE(2) Admin: 07/15/24 19:47 Dose: 210 mls/hr Documented By: DEVIN Insulin Human Regular 4 units/ (Syringe) 4 mls @ 0 mls/hr IV NOW ONE Stop: 07/16/24 11:32 Last Admin: 07/16/24 11:48 Dose: 4 mls/hr Documented By: DUANE Co-signed By: ANTOINETTE Potassium Chloride 40 meq/ (Sodium Chloride) 1,020 mls @ 175 mls/hr IV .Q5H50M [facility] Stop: 07/17/24 11:59 Last Admin: 07/16/24 12:15 Dose: Not Given Documented By: DUANE Sodium Chloride (1/2 Nss) 1,000 mls @ 150 mls/hr IV .Q6H40M [facility] Stop: 08/15/24 12:14 Last Infusion: 07/17/24 07:26 Dose: Infused Documented By: Admin: 07/17/24 04:59 Dose: 150 mls/hr Documented By: Infusion: 07/17/24 04:03 Dose: Infused Documented By: Admin: 07/16/24 21:22 Dose: 150 mls/hr Documented By: Infusion: 07/16/24 21:04 Dose: Infused Documented By: Infusion: 07/16/24 18:23 Dose: 150 mls/hr Documented By: Admin: 07/16/24 12:31 Dose: 150 mls/hr Documented By: DUANE Insulin Aspart (Insulin Aspart Per Unit Charge) 0 units SC ACHS [facility] Stop: 08/14/24 11:29 Last Admin: 07/15/24 20:26 Dose: Not Given Documented By: Admin: 07/15/24 17:23 Dose: Not Given Documented By: Admin: 07/15/24 11:42 Dose: Not Given Documented By: [facility] Insulin Glargine (Lantus Per Unit Charge) 20 units SQ NOW STA Stop: 07/15/24 23:51 Last Admin: 07/16/24 00:00 Dose: 20 units Documented By: DEVIN Co-signed By: DUANE(2) Insulin Glargine (Lantus Per Unit Charge) 20 units SQ BID [facility] Stop: 08/15/24 20:59 Last Admin: 07/16/24 21:29 Dose: Not Given Documented By: KIMBERLEE Insulin Glargine (Lantus Per Unit Charge) 10 units SQ ONE ONE Stop: 07/16/24 11:27 Last Admin: 07/16/24 11:42 Dose: 10 units Documented By: DUANE Co-signed By: JEY Insulin Glargine (Lantus Per Unit Charge) 10 units SQ ONE ONE Stop: 07/16/24 21:31 Last Admin: 07/16/24 21:31 Dose: 10 units Documented By: KIMBERLEE Co-signed By: LOIS Arias (Dka Goal Range 150-250 Mg/Dl) 1 each N/A ONE ONE Stop: 07/15/24 11:06 Last Admin: 07/15/24 12:36 Dose: Not Given Documented By: HMS Miscellaneous (Hhs Goal Range 250-350 Mg/Dl) 1 each N/A ONE ONE Stop: 07/15/24 12:33 Last Admin: 07/15/24 17:23 Dose: 1 each Documented By: AMS Miscellaneous (Hhs Goal Range 250-350 Mg/Dl) 1 each N/A CONT ARIANA Stop: 08/14/24 19:44 Last Admin: 07/15/24 21:26 Dose: 1 each Documented By: DEVIN Potassium Chloride (Potassium Chloride 20 Meq/15 Ml Udc) 40 meq PO NOW STA Stop: 07/15/24 19:07 Last Admin: 07/15/24 19:47 Dose: 40 meq Documented By: SG Imaging Data Radiologist's Impression: Chest X-Ray 07/15/24 10:53 XR chest 1V portable HISTORY: 54 years-old Female Sepsis acute sepsis COMPARISON: None TECHNIQUE: AP view of the chest FINDINGS: Cardiomediastinal and hilar silhouettes are within normal limits. No pneumothorax, pleural effusion or airspace consolidation. Degenerative changes of the shoulders and spine. IMPRESSION: No acute process. ACT 112: Negative or not required by law. The above report was generated using voice recognition software. It may contain grammatical, syntax or spelling errors. Electronically signed by: Dmitry Moran M.D. 07/15/2024 12:05 PM Abdomen/Pelvis CT 07/15/24 11:04 CT chest diagnostic wo con, CT abd pelvis wo con CT DOSE: 2024.82 mGy.cm CLINICAL HISTORY: 54 years-old Female with sob. Acute shortness of breath with chest and abdominal pain TECHNIQUE: Multiaxial CT images of the chest, abdomen and pelvis were performed without contrast. A dose lowering technique was utilized adhering to the principles of ALARA. COMPARISON: None. FINDINGS: CT CHEST: Multinodular thyroid goiter extends into the mediastinum superiorly. No lymphadenopathy. Heart is normal in size without pericardial effusion. Moderate coronary artery calcifications. No thoracic aortic aneurysm. No pneumothorax, pleural effusion, airspace consolidation or pulmonary edema. Linear scarring of the superior segment right lower lobe. No suspicious pulmonary nodules or masses. Subcentimeter calcified granuloma the left lung on image 101 series 6. Unremarkable soft tissues. No acute fracture. CT ABDOMEN/PELVIS: No pneumatosis or pneumoperitoneum. Limited evaluation of the solid abdominal organs without IV contrast. The unenhanced spleen, pancreas, gallbladder, adrenal glands unenhanced liver appear unremarkable. Unremarkable left kidney. There is mild right-sided hydroureteronephrosis with perinephric stranding and urothelial thickening. No obstructing ureteral calculus or lesion identified on this exam. Urinary bladder wall thickening with Givens catheter in place. Air noted within the bladder lumen. Unremarkable uterus. Aorta is within normal limits. Subcentimeter retroperitoneal lymph nodes. Distal esophageal wall thickening with small hiatal hernia. Gastrostomy tube in place. Moderate fecal retention. No ascites or mesenteric pericolonic inflammation. Normal appendix. No acute fracture. IMPRESSION: 1. Mild right-sided hydroureteronephrosis with urothelial thickening and perinephric stranding. Findings may be secondary to an ascending infection versus recently passed calculus. Correlate with urinalysis. 2. No acute intrathoracic abnormality. 3. No bowel obstruction or bowel wall thickening. 4. Gastrostomy tube in place. ACT 112: Negative or not required by law. Electronically signed by: Dmitry Moran M.D. 07/15/2024 1:[address] 07/15/24 11:04 CT chest diagnostic wo con, CT abd pelvis wo con CT DOSE: 2024.82 mGy.cm CLINICAL HISTORY: 54 years-old Female with sob. Acute shortness of breath with chest and abdominal pain TECHNIQUE: Multiaxial CT images of the chest, abdomen and pelvis were performed without contrast. A dose lowering technique was utilized adhering to the principles of ALARA. COMPARISON: None. FINDINGS: CT CHEST: Multinodular thyroid goiter extends into the mediastinum superiorly. No lymphadenopathy. Heart is normal in size without pericardial effusion. Moderate coronary artery calcifications. No thoracic aortic aneurysm. No pneumothorax, pleural effusion, airspace consolidation or pulmonary edema. Linear scarring of the superior segment right lower lobe. No suspicious pulmonary nodules or masses. Subcentimeter calcified granuloma the left lung on image 101 series 6. Unremarkable soft tissues. No acute fracture. CT ABDOMEN/PELVIS: No pneumatosis or pneumoperitoneum. Limited evaluation of the solid abdominal organs without IV contrast. The unenhanced spleen, pancreas, gallbladder, adrenal glands unenhanced liver appear unremarkable. Unremarkable left kidney. There is mild right-sided hydroureteronephrosis with perinephric stranding and urothelial thickening. No obstructing ureteral calculus or lesion identified on this exam. Urinary bladder wall thickening with Givens catheter in place. Air noted within the bladder lumen. Unremarkable uterus. Aorta is within normal limits. Subcentimeter retroperitoneal lymph nodes. Distal esophageal wall thickening with small hiatal hernia. Gastrostomy tube in place. Moderate fecal retention. No ascites or mesenteric pericolonic inflammation. Normal appendix. No acute fracture. IMPRESSION: 1. Mild right-sided hydroureteronephrosis with urothelial thickening and perinephric stranding. Findings may be secondary to an ascending infection versus recently passed calculus. Correlate with urinalysis. 2. No acute intrathoracic abnormality. 3. No bowel obstruction or bowel wall thickening. 4. Gastrostomy tube in place. ACT 112: Negative or not required by law. Electronically signed by: Dmitry Moran M.D. 07/15/2024 1:22 PM Discharge Plan Visit Data Chief Complaint: Shortness of Breath/Dyspnea Stated Complaint: HYPERGLYCEMIA, SOB, HYPOTENSION, TACHYCARDIA ED Provider: Manish Lawson Discharge Problem: Sepsis, Hyperosmolar hyperglycemic state (HHS), AGUILRA (acute kidney injury), Pyelonephritis, Cerebral palsy Patient Disposition: Admitted As Inpatient Discharge Instructions Interventions: ED Discharge Assessment Last Done: 07/15/24 16:54 Discharge Problem: Sepsis Qualifiers: Sepsis type: sepsis due to unspecified organism Sepsis acute organ dysfunction status: with acute organ dysfunction Severe sepsis acute organ dysfunction type: acute renal failure Acute renal failure type: unspecified Severe sepsis shock status: unspecified Qualified Code(s): A41.9 - Sepsis, unspecified organism; R65.20 - Severe sepsis without septic shock; N17.9 - Acute kidney failure, unspecified Cerebral palsy Qualifiers: Cerebral palsy type: unspecified type Qualified Code(s): G80.9 - Cerebral palsy, unspecified
[2024-07-15] MEDS ORDERED: GLUCOSE 10 TAB/TUBE PO PRN (11:01)
[2024-07-15] MEDS ORDERED: GLUCAGON FOR INJ 1 MG VIAL SQ PRN (11:01)
[2024-07-15] MEDS ORDERED: DEXTROSE 50% 50 ML SYRINGE IV PRN (11:01)
[2024-07-15] MEDS ORDERED: STAT IV Infusion **Titration per Protocol STA (11:01)
[2024-07-15] MEDS ORDERED: GLUCOSE 40% GEL 15 GM TUBE PO PRN (11:01)
[2024-07-15] MEDS: SODIUM CHLORIDE 0.9% 1,000 ML IV ONE ×2 (11:11→12:57)
[2024-07-15] MEDS: INSULIN REGULAR 250 UNITS in SODIUM CHLORIDE 0.9% 247.5 ML IV SCH (11:24)
[2024-07-15 11:27] LABS: Hemoglobin 13.1 g/dl (12.0-16.0); Mean Corpuscular Hemoglobin 30.5 pg (25.0-34.0); Mean Corpuscular Hgb Conc 30.5 g/dL (32.0-36.0); Mean Corpuscular Volume 100.2 fL (80.0-100.0); Mean Platelet Volume 12.1 fL (9.4-12.4); Platelet Count 577 K/uL (130-400); RDW Coefficient of Variation 16.5 % (11.5-14.5); Red Blood Count 4.29 M/uL (4.20-5.40); White Blood Count 15.28 K/ul (4.8-10.8)
[2024-07-15 11:28] LABS: Appearance Urine Turbid (Clear); Bacteria Urine Automated 3+ (None Seen); Bilirubin Urine Negative (Negative); Blood Urine 3+ (Negative); Cast Urine Automated >20 /lpf (0-2); Color Urine Yellow; Glucose Urine UA 3+ (Negative); Ketones Urine Trace (Negative); Leukocyte Esterase Urine 3+ (Negative); Nitrite Urine Negative (Negative); Protein Urine 2+ (Negative); RBC Urine Automated >20 /hpf (0-2); Specific Gravity Urine 1.025 (1.000-1.030); Urobilinogen Urine Negative (Negative); WBC Urine Automated >50 /hpf (0-5)
[2024-07-15] MEDS: ACETAMINOPHEN 1,000 MG/100 ML VIAL IV STA (11:28)
[2024-07-15] MEDS: SODIUM CHLORIDE 0.9% 1,000 ML IV SCH (11:30)
[2024-07-15] MEDS: INSULIN ASPART PER UNIT CHARGE SC SCH (11:42)
[2024-07-15 11:44] LABS: BUN Creatinine Ratio 29.2 (10-20); Calcium 10.2 mg/dl (8.6-10.3); Creatinine Clr Calc Pharmacy 27.7 ml/min; Potassium 5.5 mmol/L (3.5-5.1)
[2024-07-15 11:45] LABS: Albumin Level 4.1 gm/dl (3.4-5.0); Bilirubin,Total 0.3 mg/dl (0.2-1.0); Magnesium 2.6 mg/dl (1.7-2.4); Phosphorus 6.8 mg/dl (2.5-4.9); Total Protein 9.2 gm/dl (6.0-8.3); Troponin I High Sensitivity 97.6 pg/ml (0-14)
[2024-07-15] MEDS: PIPERACILLIN/TAZOBACTAM 4.5 GM/100 ML BAG IV ONE (11:52)
[2024-07-15 11:54] LABS: Basophils # (auto) 0.05 K/uL (0.00-0.20); Basophils % (auto) 0.3 %; Immature Granulocytes # (auto) 0.06 K/uL (0.01-0.20); Immature Granulocytes % (auto) 0.4 %; Lymphocytes # (auto) 0.79 K/uL (1.20-3.40); Lymphocytes % (auto) 5.2 %; Monocytes # (auto) 1.18 K/uL (0.11-0.59); Monocytes % (auto) 7.7 %; Neutrophils % (auto) 86.4 %
[2024-07-15] MEDS: VANCOMYCIN HCL 1,250 MG in SODIUM CHLORIDE 0.9% 500 ML IV STA (12:06)
--- NOTE | 2024-07-15 12:06 | XRay Report ---
XR chest 1V portable HISTORY: 54 years-old Female Sepsis acute sepsis COMPARISON: None TECHNIQUE: AP view of the chest FINDINGS: Cardiomediastinal and hilar silhouettes are within normal limits. No pneumothorax, pleural effusion o r airspace consolidation. Degenerative changes of the shoulders and spine. IMPRESSION: No acute process. ACT 112: Negative or not required by law. The above report was generated using voice recognition software. It may contain grammatical, syntax o r spelling errors. Electronically signed by: Dmitry Moran M.D. 07/15/2024 12:05 PM
--- NOTE | 2024-07-15 12:23 | History & Physical Report ---
Date of Service July 15, 2024 Assessment & Plan (1) Hyperosmolar hyperglycemic state (HHS): Plan: 54-year-old female with history of cerebral palsy, type II DM, dysphagia with PEG tube placement who presents with severe volume contraction, HHS, and complicated UTI. She is critically ill on initial assessment. HHS treatment complicated by concurrent hypernatremia. HHS Profoundly volume completed with flat IVC on ER provider POCUS BSG 689, Phos 6.8, mag 2.6, potassium 5.5 Anion gap 21, bicarb 23 Lactate 3.8 VB.2 ///18. Trended. - BMP, Mg, Phos, VBG q4h - BMP q1h BSG trend on admission: 1050: 689 / 1114: 583 / 1223: 492 Target BG goal range HHS [id number]. Insulin dose decreased from 6.7 at tiem of assessment 4.0. Suspect both her volume and HHS are acute and precipitated by acute UTI. Was normal on discharge from [place] 5 days ago however unclear over what timeframe after this her blood sugar jamil and sodium dropped so will slow rate of correction to minimize osmotic stress. Initial osmolality added to 10am labs 387mOSm/kg. Repeat labs pending. - s/p 2L NSS bolus in ER - Switch to LR vs [id number] per protocol Hypernatremia Sodium 155, profoundly volume contracted. When corrected for glucose by this corrects to a true sodium of 110850 Last value from [facility] on 07/10 was normal at 140. -Concurrent rate of glucose correction slowed to minimize osmotic stress. Repeat BMP ordered. Monitor for signs of cerebral edema UTI - CT-C: naf - CT-A/P: 1. Mild right-sided hydroureteronephrosis with urothelial thickening and perinephric stranding. Findings may be secondary to an ascending infection versus recently passed calculus. Correlate with urinalysis.2. No acute intrathoracic abnormality.3. No bowel obstruction or bowel wall thickening.4. Gastrostomy tube in place. Leukocytosis of 15, Pro-Ken 1.9, lactic elevated. Tachypneic, hypotensive, febrile 39.1 on admission UA infected appearing with bacteria, leukocyte esterase UC, BC pending Zosyn/vancomycin given in the ER MRSA nare pending Zosyn continued on admission, narrow once clinically improved and/or deviations available DM2 RECYCLER on basal Lantus 30 units (was previously 55 units and decreased after recent admission [place]), metformin, Jardiance Home antiglycemic's held for HHS and while on insulin gtt. Management as otherwise noted, resume SQ basal bolus when able per protocol (pH, bicarb, BSG all within goal ranges) Elevated troponin, suspect demand ischemia Troponin 97.6, repeat pending. In the setting of tachycardia and profound volume contraction EKG on admission: Sinus tachycardia Heart rate improving to 120s following initial fluid bolus Suspect demand Cerebral palsy New PEG tube placed 06/29/2024. C/D/I on assessment. No abdominal tenderness Placed for dysphagia/ability to swallow Dietary consulted Contact/Social: - Reviewed case w/ [facility]. Per their stuff have only had her for a short time after discharge from [facility]. [facility] on arrival was verbal and a ble to ask some questions, but became nonverbal today. She is not nonverbal at baseline. - Scott smith asks for her mother, but they had no emergency contact information. She is DNR per their records but was a full code at [facility]. No POLST available. - Discussed w/ [facility] nurse. If any calls or they are able to locate any contact information at all will contact us via the switchboard at [facility] - Called [facility] to review/request contact information. Per their medical records chart was reviewed. POLST form was completed on their records and was signed only by physician and the patient. POLST was marked DNR. On review of their records and outside records from 2019 did not have any secondary contact information. They will continue to search their rercords and call provider's cell phone directly or [facility] switchboard if any additional info is able to be located DVT prophylaxis: Heparin due to AGUILAR Disposition: PCU CODE STATUS: DNR Diet: N.p.o. Advance PEG feeds once able to transition to SQ insulin per protocol (2) DM2 (diabetes mellitus, type 2): (3) Cerebral palsy: (4) Status post insertion of percutaneous endoscopic gastrostomy (PEG) tube: History of Present Illness Primary Care Provider: Emmett Kahn is a 54-year-old female with a past medical history of cerebral palsy, neurogenic bladder, renal calculi, hypertension, hyperlipidemia, type II DM who presents with sepsis and DKA. Presents from [facility] febrile, hypotensive, tachycardic with respiratory distress on BiPAP, tachycardia, hypotension, tachypnea and nonverbal but following commands on initial ER assessment. Patient was recently admitted and treated for altered mental status due to UTI and multifocal pneumonia. Adult services were involved as patient was unable to care for PEG tube and was not having PEG feeds completed. Limited history is available from patient due to level of illness. She does follow commands including squeezing fingers on command. Meds per facility: Baclofen, enteral feeds, gemtesa 75, Jardiance 25, metoprolol tartrate 50 mg twice daily, metformin 1 g twice daily, Lantus 30 units at bedtime. Compared to prior metoprolol dose was increased. Per last note review patient had been somewhat resistant to SNF placement with a goal of returning home to home and home health, but at time of last evaluation she was otherwise stable and was able to communicate and express preferences to providers. No contact information available. DNR/DNI CODE STATUS listed. Medical History: Reviewed on paperwork Medications: Reviewed on paperwork Surgical History: Reviewed on paperwork Family history: Reviewed on paperwork Allergies: Reviewed on paperwork Code Status: DNR per paperwork. On reassessment following CT scan completion patient is more alert. Continues to follow commands, tracks with eyes. Does not speak in sentences but nods and shakes head appropriately to give affirmation/deformations appropriately and consistently to questions. Nods to dysuria, shakes head no to fevers/chills, nods yes to feeling tired/sick. Denies pain at time of reassessment. Affirms that she knows she is in the hospital. Affirms DNR status. Shakes head no to whether she would like anyone called. Nods head to affirm that is feeling better on initial reassessment. Nods head no to indicate she does not have any vision change or headache. Reviewed case w/ [facility]. Per their stuff have only had her for a short time after discharge from [facility]. Scott maycolito on arrival was verbal and able to ask some questions, but became nonverbal today. She is not nonverbal at baseline. [facility] asks for her mother, but they had no emergency contact information. She is DNR per their records but was a full code at [facility]. No POLST available. - Discussed w/ [facility] nurse. If any calls or they are able to locate any contact information at all will contact us via the switchboard at [facility] - Called [facility] to review/request contact information. Per their medical records chart was reviewed. POLST form was completed on their records and was signed only by physician and the patient. POLST was marked DNR. On review of their records and outside records from 2019 did not have any secondary contat information. Allergies Allergy/AdvReac Type Severity Reaction Status Date / Time sulfamethoxazole Allergy Unknown Unknown Unverified 07/15/24 12:34 [From Bactrim] trimethoprim [From Bactrim] Allergy Unknown Unknown Unverified 07/15/24 12:34 Home Medications Medication Instructions Recorded Confirmed Type Glucagon Emergency Kit 1 dose IM .15MINS PRN Hypoglycemia 07/15/24 07/15/24 History baclofen 5 mg tablet 5 mg feeding tube Q8H PRN Muscle 07/15/24 07/15/24 History Spasm bisacodyl 10 mg rectal suppository 10 mg UT DAILY PRN Constipation 07/15/24 07/15/24 History (Dulcolax (bisacodyl)) empagliflozin 25 mg tablet 25 mg PO DAILY 07/15/24 07/15/24 History (Jardiance) insulin glargine 100 unit/mL (3 30 unit subcut DIRECTED 07/15/24 07/15/24 History mL) subcutaneous pen (Lantus Solostar U-100 Insulin) metformin 1,000 mg tablet 1,000 mg PO DIRECTED 07/15/24 07/15/24 History metoprolol tartrate 50 mg tablet 50 mg PO BID 07/15/24 07/15/24 History multivitamin 1 tab PO DAILY 07/15/24 07/15/24 History omega 1-bxm-dvb-fish oil 1,000 mg 1 cap PO DAILY 07/15/24 07/15/24 History (120 mg-180 mg) capsule (Fish Oil) sodium phosphates 19 gram-7 118 ml UT DAILY PRN Constipation 07/15/24 07/15/24 History gram/118 mL enema (Enema) vibegron 75 mg tablet 75 mg PO DAILY 07/15/24 07/15/24 History Past Med/Surg History Problem List Status post insertion of percutaneous endoscopic gastrostomy (PEG) tube Cerebral palsy DM2 (diabetes mellitus, type 2) Hyperosmolar hyperglycemic state (HHS) Social History Smoking Status: Unknown if ever smoked Physical Exam Physical Exam: General: Opens eyes and tracks around the room. Does not answer questions on BiPAP at time of assessment. Squeezes fingers on command. HEENT: Atraumatic, normocephalic. Mucous membranes dry. Pulm: Tachypneic. Lungs are clear and without wheezes/rales Cardiac: Regular, tachycardic. Abdominal: Nontender, nondistended, soft. PEG tube is in place, site without erythema/warmth/discharge. Extremities: Lower extremities with chronic cerebral palsy deformities Results & Data Results & Data Vital Signs (Past 12 Hours) Vital Signs Temp Pulse Pulse Resp BP BP Pulse Ox 07/15/24 12:15 142 H 38 H 105/75 100 07/15/24 12:10 100/62 07/15/24 12:10 100/62 07/15/24 12:05 107/74 07/15/24 12:00 97/73 L 07/15/24 11:57 39.1 C H 148 H 50 H 82/68 L 100 07/15/24 11:56 149 H 07/15/24 11:54 39.1 C H 150 H 42 H 88/69 L 100 07/15/24 11:45 39.4 C H 151 H 46 H 107/77 99 07/15/24 11:39 39.7 C H 154 H 52 H 93/72 L 100 07/15/24 11:31 39.9 C H 156 H 45 H 100 07/15/24 11:18 39.6 C H 163 H 56 H 100 07/15/24 11:15 167 H 51 H 97 07/15/24 10:53 165 H 57 H 99 07/15/24 10:48 165 H 57 H 103/72 99 07/15/24 10:48 07/15/24 10:48 07/15/24 10:48 165 H 54 H 103/72 98 O2 Del Method FiO2 07/15/24 12:15 BiPAP 50 07/15/24 12:10 07/15/24 12:10 07/15/24 12:05 07/15/24 12:00 07/15/24 11:57 BiPAP 50 07/15/24 11:56 07/15/24 11:54 BiPAP 50 07/15/24 11:45 BiPAP 50 07/15/24 11:39 BiPAP 50 07/15/24 11:31 BiPAP 50 07/15/24 11:18 BiPAP 50 07/15/24 11:15 50 07/15/24 10:53 BiPAP 50 07/15/24 10:48 BiPAP 50 07/15/24 10:48 BiPAP 50 07/15/24 10:48 BiPAP 50 07/15/24 10:48 BiPAP 50 PG Care Time/CCT Total # of Minutes Spent Total Time Spent with Patient: Total time spent is greater than 50% in coordination of care (as documented) at patient's floor/unit and/or counseling patient: Coding Level of Care Code 17001 INT INP/OBS CARE 3/75MIN Diagnoses Hyperosmolar hyperglycemic state (HHS) E11.00 DM2 (diabetes mellitus, type 2) E11.9 Cerebral palsy G80.9 Status post insertion of percutaneous endoscopic gastrostomy (PEG) tube Z93.1
[2024-07-15 12:31] LABS: Base Excess VBG -7.9 mEq/L; HCO3 VBG 18 mmol/L; Oxygen Saturation VBG 64.5 %; PCO2 VBG 39 mmHg (38-50); PO2 VBG 45 mmHg; pH VBG 7.28 (7.36-7.41)
[2024-07-15 12:35] LABS: INR 1.1 (0.9-1.1); Partial Thromboplastin Ratio 0.9; Partial Thromboplastin Time 25 Seconds (21-31); Prothrombin Time 11.4 Seconds (9.0-12.0)
[2024-07-15] MEDS: DKA GOAL RANGE 150-250 mg/dl ONE (12:36)
[2024-07-15 13:10] LABS: Adenovirus PCR Not Detected (NotDetected); Bordetella parapertussis PCR Not Detected (NotDetected); Bordetella pertussis PCR Not Detected (NotDetected); Chlamydia pneumoniae PCR Not Detected (NotDetected); Coronavirus 229E PCR Not Detected (NotDetected); Coronavirus CoV-2 (COVID19)PCR Not Detected (NotDetected); Coronavirus HKU1 PCR Not Detected (NotDetected); Coronavirus NL63 PCR Not Detected (NotDetected); Coronavirus OC43PCR Not Detected (NotDetected); Human Metapneumovirus PCR Not Detected (NotDetected); Influenza A PCR Not Detected (NotDetected); Influenza B PCR Not Detected (NotDetected); Mycoplasma pneumoniae PCR Not Detected (NotDetected); Parainfluenza Virus 1 PCR Not Detected (NotDetected); Parainfluenza Virus 2 PCR Not Detected (NotDetected); Parainfluenza Virus 3 PCR Not Detected (NotDetected); Parainfluenza Virus 4 PCR Not Detected (NotDetected); Respiratory Syncytial VirusPCR Not Detected (NotDetected); Rhinovirus/Enterovirus PCR Not Detected (NotDetected)
--- NOTE | 2024-07-15 13:25 | CT Scan Report ---
CT chest diagnostic wo con, CT abd pelvis wo con CT DOSE: 2024.82 mGy.cm CLINICAL HISTORY: 54 years-old Female with sob. Acute shortness of breath with chest and abdominal p ain TECHNIQUE: Multiaxial CT images of the chest, abdomen and pelvis were performed without contrast. A dose lowering technique was utilized adhering to the principles of ALARA. COMPARISON: None. FINDINGS: CT CHEST: Multinodular thyroid goiter extends into the mediastinum superiorly. No lymphadenopathy. He art is normal in size without pericardial effusion. Moderate coronary artery calcifications. No thora cic aortic aneurysm. No pneumothorax, pleural effusion, airspace consolidation or pulmonary edema. Li near scarring of the superior segment right lower lobe. No suspicious pulmonary nodules or masses. Watt bcentimeter calcified granuloma the left lung on image 101 series 6. Unremarkable soft tissues. No ac jude fracture. CT ABDOMEN/PELVIS: No pneumatosis or pneumoperitoneum. Limited evaluation of the solid abdominal orga ns without IV contrast. The unenhanced spleen, pancreas, gallbladder, adrenal glands unenhanced liver appear unremarkable. Unremarkable left kidney. There is mild right-sided hydroureteronephrosis with perinephric stranding and urothelial thickening. No obstructing ureteral calculus or lesion identifie d on this exam. Urinary bladder wall thickening with Givens catheter in place. Air noted within the bl adder lumen. Unremarkable uterus. Aorta is within normal limits. Subcentimeter retroperitoneal lymph nodes. Distal esophageal wall thickening with small hiatal hernia. Gastrostomy tube in place. Moderate fecal retention. No ascites or mesenteric pericolonic inflammation. Normal appendix. No acute fracture. IMPRESSION: 1. Mild right-sided hydroureteronephrosis with urothelial thickening and perinephric stranding. Findi ngs may be secondary to an ascending infection versus recently passed calculus. Correlate with urinal ysis. 2. No acute intrathoracic abnormality. 3. No bowel obstruction or bowel wall thickening. 4. Gastrostomy tube in place. ACT 112: Negative or not required by law. Electronically signed by: Dmitry Moran M.D. 07/15/2024 1:22 PM
[2024-07-15] MEDS ORDERED: PENDING D5 1/2NS+20mEq KCL IVF SCH (13:45)
[2024-07-15 14:01] LABS: Base Excess VBG -5.6 mEq/L; HCO3 VBG 22 mmol/L; Oxygen Saturation VBG < 60.0 %; PCO2 VBG 50 mmHg (38-50); PO2 VBG 32 mmHg; pH VBG 7.25 (7.36-7.41)
--- NOTE | 2024-07-15 14:02 | Billing Data ---
Date of Service July 15, 2024 Coding Level of Care Code 84315 CRITICAL CARE 1ST 30-74M Time Spent (min) 40 Comment Addendum July 15, 2024 13:59 BSG continues to decrease, insulin gtt. has been temporarily paused, bolus fluids paused. Repeat osmolality pending. Gtt. and fluids remain paused to prevent overly rapid osmotic shift. Will continue with [id number] glucose checks. On repeat labs osmolality within upper limit of goal change of 8mOsm/kg/hr. Fluids and gtt resumed. 40 minutes of additional critical care time has been spent in addition to separately billable time noted on H&P. Additional time spent including evaluation of the osmolality and electrolytes, and provider adjustment of insulin gtt + fluids.
[2024-07-15 14:30] LABS: Calcium 7.4 mg/dl (8.6-10.3); Creatinine Clr Calc Pharmacy 33.8 ml/min; Potassium 4.3 mmol/L (3.5-5.1)
[2024-07-15] MEDS: LACTATED RINGER'S 1,000 ML IV ONE (14:59)
[2024-07-15] MEDS: LACTATED RINGER'S 1,000 ML IV SCH (15:39)
[2024-07-15] MEDS ORDERED: POTASSIUM CHLORIDE 40 MEQ in SODIUM CHLORIDE 0.45 % 1,000 ML IV SCH (15:45)
[2024-07-15] MEDS: POTASSIUM CHLORIDE 40 MEQ in D5W AND 1/2NSS 1,000 ML IV SCH (15:55)
[2024-07-15 16:18] LABS: Base Excess VBG -3.7 mEq/L; HCO3 VBG 20 mmol/L; Oxygen Saturation VBG 98.6 %; PCO2 VBG 32 mmHg (38-50); PO2 VBG 181 mmHg; pH VBG 7.41 (7.36-7.41)
[2024-07-15] MEDS: HHS GOAL RANGE 250-350 mg/dl ONE (17:23)
[2024-07-15] MEDS: PIPERACILLIN/TAZOBACTAM 4.5 GM/100 ML BAG IV SCH (17:55)
[2024-07-15 18:16] LABS: Base Excess VBG -2.9 mEq/L; HCO3 VBG 23 mmol/L; Oxygen Saturation VBG < 60.0 %; PCO2 VBG 42 mmHg (38-50); PO2 VBG 26 mmHg; pH VBG 7.34 (7.36-7.41)
--- NOTE | 2024-07-15 18:37 | Critical Care Consultation ---
Date of Consultation July 15, 2024 Assessment & Plan (1) Hyperosmolar hyperglycemic state (HHS): (2) DM2 (diabetes mellitus, type 2): (3) Cerebral palsy: (4) Status post insertion of percutaneous endoscopic gastrostomy (PEG) tube: (5) Septic shock: (6) AGUILAR (acute kidney injury): Plan Reason Critically Ill: 54 YOF with cerebral palsy, presents with hypotension, tachycardia, hypoxia- found to be in HHS secondary to likely complicated UTI/pyelonephritis and septic shock. She is to the ICU for hemodynamic monitoring, continued support for HHNS and monitoring fluid volume/acid base/electrolyte disturbances. Neuro - CP, metabolic encephalopathy - Metabolic encephalopathy improved and patient now communicating appropriately- continue to follow with osmolar shifts - Will provide 200mg IV Thiamine now and then 100mg daily as unsure of her nutritional intake - re-assuring at this time that her neuroexam has improved - CP chronic problem- reports at baseline that she is able to walk with walker and perform ADLS with assistance Cardiac - Shock, Hx: HTN, HLD Shock- multifactorial to include but not limited to septic and hypovolemia secondary to HHS state - Septic shock- secondary to urinary source - She has received 4 liters of crystalloid in support of both sepsis and hyperosmolar state - Continue with hypotonic fluids at this time- she appears to be at this time intravascular replaced - Follow urine output, end organ perfusion labs, lactate and hemodynamics with NIBP and POCUS if needed - Hypovolemia as above see ENDO section for further delineation - Hold home metoprolol doses Respiratory - Hypoxia improved, HX of aspiration - imaging personally reviewed no opacities or mucous plugging noted - she has been weaned down to room air at this point - Hypoxia was likely perfusion related as well as hypoventilation from shock state GI - No acute needs, PEG in place - Use PEG tube at this time for electrolyte replacement and can likely add in free water in the morning RENAL/LYTES - AGUILAR, Metabolic Acidosis,, multiple electrolyte abnormalities, hyperosmolar hypernatremia, Likely pyelonephritis - AGUILAR at this time likely multifactorial to include ascending UTI as well as shock from sepsis and hypovolemia - continue with volume resuscitation and replacement - electrolytes replete for goal of K 4-4.5 while on insulin infusion and MG ~ 2.0 - HCO3 has remained stable with her volume replacement- Acidosis improved - now with likely hyperchloremic acidosis lingering as her GAP is now closed - Hyperosmolar hypernatremia- will follow her serum osmols expect her NA levels to increase initially as her tonicity is corrected -Complicated UTI see ID section - continue david while in ICU and 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 - HHS, HX: DMII - [facility]- received 4L of crystalloid in form of 0.9% saline and LR- at this time appears intravascular repleted - Continue with hypotonic fluids at this time current rate 125- follow q4 hour BMP and osmo and tonicity - Triggering event likely secondary to sepsis from UTI - Insulin infusion- 0.025--0.1 unit/kg/hour- currently her rate of correction has been <100mg/DL/hour- and is on 0.025units/kg- goal would be glucose 250-350 - If remains with glucose ranges at or below 200- can likely stop the infusion and cover with basal dose of SQ insulin HEME - No acute needs ID - Septic Shock, UTI/Pyelonephritis - Sepsis with source and with organ dysfunction - currently without need for vasopressors - has responded to volume - continue to trend BMP and lactate for end organ perfusion - Follow hemodynamics and urine output- consider POCUS evaluation as needed to further evaluate volume status - MRSA screen + - contact precautions, Has received Vancomycin IV load in ER- can change in AM if sensitives aren't resulted - Continue Zosyn for UTI and await sensitivities LINES/IV ACCESS - PIV, David Continue use of these lines DVT PROPHYLAXIS - SCDS, Heparin 5000 units subq q12 DISPO: ICU while on insulin infusion and until mental status and hemodynamics proven stable I have personally spent 40 minutes of critical care time in the direct management of this patient. This is a life/limb threatening event. This includes time spent evaluating patient, direct bedside care, chart review, placing orders, interpretation of diagnostic studies, discussion with consultants, patient, and family members, as well as other required patient management activities. This time is exclusive of all separately billable procedures, and teaching time and separate from and in addition to any other critical care service time. Thank you for allowing us to participate in the care of this patient. Please refer to my attending physician's documentation for any further recommendations. History of Present Illness Reason for Consultation: [facility] Requesting Physician: Jose Angel Hayes MD Attending Physician: Jose Angel Hayes MD History of Present Illness 54YOF with hx of: Cerebral palsy, PEG tube, Neurogenic bladder, kidney stones, HTN,, HLD, DMII. Patient is limited in history gathering secondary to her CP. Essentially via chart review, the patient presented from [facility] with fever, tachycardia, hypotension, and hypoxia, she was transported on CPAP to the EMD. Appears by review of EMD note that the tachycardia and fever may have been ongoing for a few days. She was brought to the ER for concerns of hypotension that developed this morning. Patient had routine labs performed to include HsCTNI, Blood cx, UA with culture, CT chest, abd/pelvis both without contrast was completed in the ER as well as CXR. Patient was given crystalloid resuscitation wtih 0.9% NSS x2 liters and appears 2 Liters of LR as well. She was initiated on broad spectrum abx for likely UTI with possible pyelonephritis. She was placed on insulin infusion per protocol and this was adjusted per the admitting team to slow her correction. At this time patient is awake and conversant in the ICU, she is on minimal NC. She is able to answer simple questions appropriately, she currently wishes to eat and drink. We will hold on this secondary to review of chart appears that she is chronic aspirator as well as her current HHS status. CODE Status: DNR/DNI Allergies Allergy/AdvReac Type Severity Reaction Status Date / Time sulfamethoxazole Allergy Unknown Unknown Unverified 07/15/24 12:34 [From Bactrim] trimethoprim [From Bactrim] Allergy Unknown Unknown Unverified 07/15/24 12:34 Home Medications Medication Instructions Recorded Confirmed Type Glucagon Emergency Kit 1 dose IM .15MINS PRN Hypoglycemia 07/15/24 07/15/24 History baclofen 5 mg tablet 5 mg feeding tube Q8H PRN Muscle 07/15/24 07/15/24 History Spasm bisacodyl 10 mg rectal suppository 10 mg HI DAILY PRN Constipation 07/15/24 07/15/24 History (Dulcolax (bisacodyl)) empagliflozin 25 mg tablet 25 mg PO DAILY 07/15/24 07/15/24 History (Jardiance) insulin glargine 100 unit/mL (3 30 unit subcut BID 07/15/24 07/15/24 History mL) subcutaneous pen (Lantus Solostar U-100 Insulin) metformin 1,000 mg tablet 1,000 mg PO BID 07/15/24 07/15/24 History metoprolol tartrate 50 mg tablet 50 mg PO BID 07/15/24 07/15/24 History multivitamin 1 tab PO DAILY 07/15/24 07/15/24 History omega 5-zwn-avm-fish oil 1,000 mg 1 cap PO DAILY 07/15/24 07/15/24 History (120 mg-180 mg) capsule (Fish Oil) sodium phosphates 19 gram-7 118 ml HI DAILY PRN Constipation 07/15/24 07/15/24 History gram/118 mL enema (Enema) vibegron 75 mg tablet 75 mg PO DAILY 07/15/24 07/15/24 History Patient History Medical History (Updated 07/15/24 @ 19:15 by YEYO Peace) Neurogenic bladder Aspiration into airway HLD (hyperlipidemia) HTN (hypertension) Social History Smoking Status: Never smoker Hx Alcohol Use: No Hx Substance Use: No Preferred Language: Montserratian Communication Ability: Impaired Roll 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 Required: No Beliefs That Will Affect Care: None Current Living Situation: Personal Care Facility Assistive Devices: Glasses Review of Systems Review of Systems: REVIEW OF SYSTEMS: Limited by chart review secondary to Patient's limited ability to present history of illness or symptoms- see previous notes Physical Exam Physical Exam: PHYSICAL EXAM: General: awake, alert, able to answer simple questions Head: Normocephalic, atraumatic ENT: PERRLA, EOMI, moist voice with upper airway secretions, mucous membranes- dry Neuro: AAO x 2, speech clear and appropriate, strength intact bilaterally 5/5, moves all extremities Chest: equal rise and fall of the chest, no accessory muscle use, clear in lung blas, upper airway secretions noted with moist voice Cardiac: Regular rate and rhythm, telemetry reviewed- sinus tachycardia, skin warm dry, cap refill <3 seconds, peripheral pulses +2 no JVD, no murmur GI: NABS x 4 quadrants, soft, nontender to palpation, no rebound, guarding or tenderness : David to gravity Results & Data Results & Data Vital Signs (Past 12 Hours) Vital Signs Temp Pulse Pulse Resp BP BP BP 07/15/24 18:24 37.4 C 128 H 21 113/53 L 07/15/24 18:00 92/57 L 07/15/24 18:00 92/57 L 07/15/24 18:00 92/57 L 07/15/24 18:00 92/57 L 07/15/24 18:00 37.4 C 128 H 20 07/15/24 17:40 07/15/24 17:27 37 C 128 H 18 101/70 07/15/24 16:21 07/15/24 15:45 37.5 C 130 H 31 H 103/74 07/15/24 15:09 37.8 C H 132 H 36 H 104/72 07/15/24 15:03 37.8 C H 133 H 30 H 106/86 07/15/24 14:51 37.9 C H 134 H 37 H 100/67 07/15/24 14:32 135 H 35 H 104/84 07/15/24 14:31 90/71 L 07/15/24 14:25 90/74 L 07/15/24 14:20 95/65 L 07/15/24 14:18 38.0 C H 135 H 33 H 07/15/24 14:15 38.0 C H 135 H 34 H 07/15/24 14:15 101/61 07/15/24 14:15 101/61 07/15/24 14:15 101/61 07/15/24 14:12 37.9 C H 135 H 35 H 07/15/24 14:10 95/71 L 07/15/24 14:10 37.9 C H 135 H 30 H 95/71 L 07/15/24 13:57 37.9 C H 135 H 28 H 97/69 L 07/15/24 13:57 137 H 36 H 07/15/24 13:39 37.8 C H 132 H 34 H 104/70 07/15/24 13:25 101/67 07/15/24 13:15 38.0 C H 133 H 40 H 106/71 07/15/24 13:09 38.1 C H 133 H 38 H 100/74 07/15/24 13:00 110/76 07/15/24 13:00 38.3 C H 135 H 38 H 110/76 07/15/24 12:36 38.5 C H 140 H 45 H 124/57 L 07/15/24 12:33 38.5 C H 141 H 45 H 101/66 07/15/24 12:27 38.5 C H 142 H 44 H 104/66 07/15/24 12:15 105/75 07/15/24 12:15 142 H 38 H 105/75 07/15/24 12:10 100/62 07/15/24 12:10 100/62 07/15/24 12:05 107/74 07/15/24 12:00 97/73 L 07/15/24 11:57 39.1 C H 148 H 50 H 82/68 L 07/15/24 11:56 149 H 07/15/24 11:54 39.1 C H 150 H 42 H 88/69 L 07/15/24 11:45 39.4 C H 151 H 46 H 107/77 07/15/24 11:39 39.7 C H 154 H 52 H 93/72 L 07/15/24 11:31 39.9 C H 156 H 45 H 07/15/24 11:18 39.6 C H 163 H 56 H 07/15/24 11:15 167 H 51 H 07/15/24 10:53 165 H 57 H 07/15/24 10:48 165 H 57 H 103/72 07/15/24 10:48 07/15/24 10:48 07/15/24 10:48 165 H 54 H 103/72 Pulse Ox O2 Del Method O2 Flow Rate FiO2 07/15/24 18:24 97 Room Air 07/15/24 18:00 07/15/24 18:00 07/15/24 18:00 07/15/24 18:00 07/15/24 18:00 99 07/15/24 17:40 Nasal Cannula 3 07/15/24 17:27 99 Nasal Cannula 3 07/15/24 16:21 30 07/15/24 15:45 99 BiPAP 07/15/24 15:09 98 BiPAP 40 07/15/24 15:03 94 BiPAP 40 07/15/24 14:51 93 BiPAP 40 07/15/24 14:32 98 BiPAP 07/15/24 14:31 07/15/24 14:25 07/15/24 14:20 07/15/24 14:18 100 07/15/24 14:15 100 07/15/24 14:15 07/15/24 14:15 07/15/24 14:15 07/15/24 14:12 100 07/15/24 14:10 07/15/24 14:10 100 BiPAP 50 07/15/24 13:57 100 BiPAP 50 07/15/24 13:57 100 50 07/15/24 13:39 100 BiPAP 50 07/15/24 13:25 07/15/24 13:15 94 BiPAP 50 07/15/24 13:09 96 BiPAP 50 07/15/24 13:00 07/15/24 13:00 97 BiPAP 50 07/15/24 12:36 100 BiPAP 50 07/15/24 12:33 100 BiPAP 50 07/15/24 12:27 100 BiPAP 50 07/15/24 12:15 07/15/24 12:15 100 BiPAP 50 07/15/24 12:10 07/15/24 12:10 07/15/24 12:05 07/15/24 12:00 07/15/24 11:57 100 BiPAP 50 07/15/24 11:56 07/15/24 11:54 100 BiPAP 50 07/15/24 11:45 99 BiPAP 50 07/15/24 11:39 100 BiPAP 50 07/15/24 11:31 100 BiPAP 50 07/15/24 11:18 100 BiPAP 50 07/15/24 11:15 97 50 07/15/24 10:53 99 BiPAP 50 07/15/24 10:48 99 BiPAP 50 07/15/24 10:48 BiPAP 50 07/15/24 10:48 BiPAP 50 07/15/24 10:48 98 BiPAP 50 Laboratory Results Abnormal lab results 07/15/24 07/15/24 07/15/24 Range/Units 10:50 10:54 11:07 WBC 15.28 H (4.8-10.8) K/ul MCV 100.2 H (80.0-100.0) fL MCHC 30.5 L (32.0-36.0) g/dL RDW Std Deviation 60.0 H (36.4-46.3) fL RDW Coeff of Vivien 16.5 H (11.5-14.5) % Plt Count 577 H (130-400) K/uL Neut # (Auto) 13.20 H (1.40-6.50) K/uL Lymph # (Auto) 0.79 L (1.20-3.40) K/uL [place] # (Auto) 1.18 H (0.11-0.59) K/uL VBG pH (7.36-7.41) VBG pCO2 (38-50) mmHg Sodium 155 H (136-145) mmol/L Potassium 5.5 H (3.5-5.1) mmol/L Chloride 111 H (98-107) mmol/L Anion Gap 21 H (3-11) BUN 62 H (6-23) mg/dl Creatinine 2.12 H (0.6-1.2) mg/dl BUN/Creatinine Ratio 29.2 H (10-20) Glucose 689 H* (70-99(Fasting)) mg/dl POC Glucose > 600 H* (70-99) mg/dl Osmolality 387 H* (280-300) mOsm/kg Lactate (0.4-2.0) mmol/L Calcium (8.6-10.3) mg/dl Phosphorus 6.8 H (2.5-4.9) mg/dl Magnesium 2.6 H (1.7-2.4) mg/dl Troponin I High Sens 97.6 H* (0-14) pg/ml Total Protein 9.2 H (6.0-8.3) gm/dl Procalcitonin 1.90 H (0-0.5) ng/ml Urine Appearance Turbid A (Clear) Urine Protein 2+ H (Negative) Urine Glucose (UA) 3+ H (Negative) Urine Ketones Trace H (Negative) Urine Blood 3+ H (Negative) Ur Leukocyte Esterase 3+ H (Negative) Urine WBC (Auto) >50 H (0-5) /hpf Urine RBC (Auto) >20 H (0-2) /hpf U Hyaline Cast (Auto) >20 H (0-2) /lpf U Epithel Cells (Auto) 6-10 H (0-2) /hpf Urine Bacteria (Auto) 3+ H (None Seen) Nasal Screen MRSA (PCR) (Negative) 03/02/25 03/02/25 03/02/25 Range/Units 11:14 11:32 12:23 WBC (4.8-10.8) K/ul MCV (80.0-100.0) fL MCHC (32.0-36.0) g/dL RDW Std Deviation (36.4-46.3) fL RDW Coeff of Vivien (11.5-14.5) % Plt Count (130-400) K/uL Neut # (Auto) (1.40-6.50) K/uL Lymph # (Auto) (1.20-3.40) K/uL [place] # (Auto) (0.11-0.59) K/uL VBG pH (7.36-7.41) VBG pCO2 (38-50) mmHg Sodium (136-145) mmol/L Potassium (3.5-5.1) mmol/L Chloride (98-107) mmol/L Anion Gap (3-11) BUN (6-23) mg/dl Creatinine (0.6-1.2) mg/dl BUN/Creatinine Ratio (10-20) Glucose (70-99(Fasting)) mg/dl POC Glucose 583 H* 492 H* (70-99) mg/dl Osmolality (280-300) mOsm/kg Lactate 3.8 H* (0.4-2.0) mmol/L Calcium (8.6-10.3) mg/dl Phosphorus (2.5-4.9) mg/dl Magnesium (1.7-2.4) mg/dl Troponin I High Sens (0-14) pg/ml Total Protein (6.0-8.3) gm/dl Procalcitonin (0-0.5) ng/ml Urine Appearance (Clear) Urine Protein (Negative) Urine Glucose (UA) (Negative) Urine Ketones (Negative) Urine Blood (Negative) Ur Leukocyte Esterase (Negative) Urine WBC (Auto) (0-5) /hpf Urine RBC (Auto) (0-2) /hpf U Hyaline Cast (Auto) (0-2) /lpf U Epithel Cells (Auto) (0-2) /hpf Urine Bacteria (Auto) (None Seen) Nasal Screen MRSA (PCR) (Negative) 07/15/24 07/15/24 07/15/24 Range/Units 12:27 13:14 13:19 WBC (4.8-10.8) K/ul MCV (80.0-100.0) fL MCHC (32.0-36.0) g/dL RDW Std Deviation (36.4-46.3) fL RDW Coeff of Vivien (11.5-14.5) % Plt Count (130-400) K/uL Neut # (Auto) (1.40-6.50) K/uL Lymph # (Auto) (1.20-3.40) K/uL [place] # (Auto) (0.11-0.59) K/uL VBG pH 7.28 L (7.36-7.41) VBG pCO2 (38-50) mmHg Sodium (136-145) mmol/L Potassium (3.5-5.1) mmol/L Chloride (98-107) mmol/L Anion Gap (3-11) BUN (6-23) mg/dl Creatinine (0.6-1.2) mg/dl BUN/Creatinine Ratio (10-20) Glucose (70-99(Fasting)) mg/dl POC Glucose (70-99) mg/dl Osmolality (280-300) mOsm/kg Lactate (0.4-2.0) mmol/L Calcium (8.6-10.3) mg/dl Phosphorus (2.5-4.9) mg/dl Magnesium (1.7-2.4) mg/dl Troponin I High Sens 88.1 H* (0-14) pg/ml Total Protein (6.0-8.3) gm/dl Procalcitonin (0-0.5) ng/ml Urine Appearance (Clear) Urine Protein (Negative) Urine Glucose (UA) (Negative) Urine Ketones (Negative) Urine Blood (Negative) Ur Leukocyte Esterase (Negative) Urine WBC (Auto) (0-5) /hpf Urine RBC (Auto) (0-2) /hpf U Hyaline Cast (Auto) (0-2) /lpf U Epithel Cells (Auto) (0-2) /hpf Urine Bacteria (Auto) (None Seen) Nasal Screen MRSA (PCR) Positive A (Negative) 07/15/24 07/15/24 07/15/24 Range/Units 13:24 13:54 14:04 WBC (4.8-10.8) K/ul MCV (80.0-100.0) fL MCHC (32.0-36.0) g/dL RDW Std Deviation (36.4-46.3) fL RDW Coeff of Vivien (11.5-14.5) % Plt Count (130-400) K/uL Neut # (Auto) (1.40-6.50) K/uL Lymph # (Auto) (1.20-3.40) K/uL [place] # (Auto) (0.11-0.59) K/uL VBG pH 7.25 L (7.36-7.41) VBG pCO2 (38-50) mmHg Sodium 157 H* (136-145) mmol/L Potassium (3.5-5.1) mmol/L Chloride 125 H (98-107) mmol/L Anion Gap (3-11) BUN 54 H (6-23) mg/dl Creatinine 1.74 H D (0.6-1.2) mg/dl BUN/Creatinine Ratio 31.0 H (10-20) Glucose 399 H* (70-99(Fasting)) mg/dl POC Glucose 393 H* 358 H* (70-99) mg/dl Osmolality 363 H* (280-300) mOsm/kg Lactate 3.5 H* (0.4-2.0) mmol/L Calcium 7.4 L D (8.6-10.3) mg/dl Phosphorus 5.0 H D (2.5-4.9) mg/dl Magnesium (1.7-2.4) mg/dl Troponin I High Sens (0-14) pg/ml Total Protein (6.0-8.3) gm/dl Procalcitonin (0-0.5) ng/ml Urine Appearance (Clear) Urine Protein (Negative) Urine Glucose (UA) (Negative) Urine Ketones (Negative) Urine Blood (Negative) Ur Leukocyte Esterase (Negative) Urine WBC (Auto) (0-5) /hpf Urine RBC (Auto) (0-2) /hpf U Hyaline Cast (Auto) (0-2) /lpf U Epithel Cells (Auto) (0-2) /hpf Urine Bacteria (Auto) (None Seen) Nasal Screen MRSA (PCR) (Negative) 07/15/24 07/15/24 07/15/24 Range/Units 15:12 16:13 16:16 WBC (4.8-10.8) K/ul MCV (80.0-100.0) fL MCHC (32.0-36.0) g/dL RDW Std Deviation (36.4-46.3) fL RDW Coeff of Vivien (11.5-14.5) % Plt Count (130-400) K/uL Neut # (Auto) (1.40-6.50) K/uL Lymph # (Auto) (1.20-3.40) K/uL [place] # (Auto) (0.11-0.59) K/uL VBG pH (7.36-7.41) VBG pCO2 32 L (38-50) mmHg Sodium (136-145) mmol/L Potassium (3.5-5.1) mmol/L Chloride (98-107) mmol/L Anion Gap (3-11) BUN (6-23) mg/dl Creatinine (0.6-1.2) mg/dl BUN/Creatinine Ratio (10-20) Glucose (70-99(Fasting)) mg/dl POC Glucose 334 H* 339 H* (70-99) mg/dl Osmolality (280-300) mOsm/kg Lactate (0.4-2.0) mmol/L Calcium (8.6-10.3) mg/dl Phosphorus (2.5-4.9) mg/dl Magnesium (1.7-2.4) mg/dl Troponin I High Sens (0-14) pg/ml Total Protein (6.0-8.3) gm/dl Procalcitonin (0-0.5) ng/ml Urine Appearance (Clear) Urine Protein (Negative) Urine Glucose (UA) (Negative) Urine Ketones (Negative) Urine Blood (Negative) Ur Leukocyte Esterase (Negative) Urine WBC (Auto) (0-5) /hpf Urine RBC (Auto) (0-2) /hpf U Hyaline Cast (Auto) (0-2) /lpf U Epithel Cells (Auto) (0-2) /hpf Urine Bacteria (Auto) (None Seen) Nasal Screen MRSA (PCR) (Negative) 07/15/24 07/15/24 07/15/24 Range/Units 16:19 17:19 18:11 WBC (4.8-10.8) K/ul MCV (80.0-100.0) fL MCHC (32.0-36.0) g/dL RDW Std Deviation (36.4-46.3) fL RDW Coeff of Vivien (11.5-14.5) % Plt Count (130-400) K/uL Neut # (Auto) (1.40-6.50) K/uL Lymph # (Auto) (1.20-3.40) K/uL [place] # (Auto) (0.11-0.59) K/uL VBG pH 7.34 L (7.36-7.41) VBG pCO2 (38-50) mmHg Sodium 158 H* (136-145) mmol/L Potassium 3.4 L D (3.5-5.1) mmol/L Chloride 124 H (98-107) mmol/L Anion Gap 12 H (3-11) BUN 45 H (6-23) mg/dl Creatinine 1.42 H D (0.6-1.2) mg/dl BUN/Creatinine Ratio 31.7 H (10-20) Glucose 256 H (70-99(Fasting)) mg/dl POC Glucose 298 H 258 H (70-99) mg/dl Osmolality 350 H (280-300) mOsm/kg Lactate (0.4-2.0) mmol/L Calcium 8.2 L (8.6-10.3) mg/dl Phosphorus (2.5-4.9) mg/dl Magnesium (1.7-2.4) mg/dl Troponin I High Sens (0-14) pg/ml Total Protein (6.0-8.3) gm/dl Procalcitonin (0-0.5) ng/ml Urine Appearance (Clear) Urine Protein (Negative) Urine Glucose (UA) (Negative) Urine Ketones (Negative) Urine Blood (Negative) Ur Leukocyte Esterase (Negative) Urine WBC (Auto) (0-5) /hpf Urine RBC (Auto) (0-2) /hpf U Hyaline Cast (Auto) (0-2) /lpf U Epithel Cells (Auto) (0-2) /hpf Urine Bacteria (Auto) (None Seen) Nasal Screen MRSA (PCR) (Negative) 07/15/24 Range/Units 18:17 WBC (4.8-10.8) K/ul MCV (80.0-100.0) fL MCHC (32.0-36.0) g/dL RDW Std Deviation (36.4-46.3) fL RDW Coeff of Vivien (11.5-14.5) % Plt Count (130-400) K/uL Neut # (Auto) (1.40-6.50) K/uL Lymph # (Auto) (1.20-3.40) K/uL [place] # (Auto) (0.11-0.59) K/uL VBG pH (7.36-7.41) VBG pCO2 (38-50) mmHg Sodium (136-145) mmol/L Potassium (3.5-5.1) mmol/L Chloride (98-107) mmol/L Anion Gap (3-11) BUN (6-23) mg/dl Creatinine (0.6-1.2) mg/dl BUN/Creatinine Ratio (10-20) Glucose (70-99(Fasting)) mg/dl POC Glucose 238 H (70-99) mg/dl Osmolality (280-300) mOsm/kg Lactate (0.4-2.0) mmol/L Calcium (8.6-10.3) mg/dl Phosphorus (2.5-4.9) mg/dl Magnesium (1.7-2.4) mg/dl Troponin I High Sens (0-14) pg/ml Total Protein (6.0-8.3) gm/dl Procalcitonin (0-0.5) ng/ml Urine Appearance (Clear) Urine Protein (Negative) Urine Glucose (UA) (Negative) Urine Ketones (Negative) Urine Blood (Negative) Ur Leukocyte Esterase (Negative) Urine WBC (Auto) (0-5) /hpf Urine RBC (Auto) (0-2) /hpf U Hyaline Cast (Auto) (0-2) /lpf U Epithel Cells (Auto) (0-2) /hpf Urine Bacteria (Auto) (None Seen) Nasal Screen MRSA (PCR) (Negative) Diagnostic Findings Chest X-Ray 07/15/24 10:53 XR chest 1V portable HISTORY: 54 years-old Female Sepsis acute sepsis COMPARISON: None TECHNIQUE: AP view of the chest FINDINGS: Cardiomediastinal and hilar silhouettes are within normal limits. No pneumothorax, pleural effusion or airspace consolidation. Degenerative changes of the shoulders and spine. IMPRESSION: No acute process. ACT 112: Negative or not required by law. The above report was generated using voice recognition software. It may contain grammatical, syntax or spelling errors. Electronically signed by: Dmitry Moran M.D. 07/15/2024 12:05 PM Abdomen/Pelvis CT 07/15/24 11:04 CT chest diagnostic wo con, CT abd pelvis wo con CT DOSE: 2024.82 mGy.cm CLINICAL HISTORY: 54 years-old Female with sob. Acute shortness of breath with chest and abdominal pain TECHNIQUE: Multiaxial CT images of the chest, abdomen and pelvis were performed without contrast. A dose lowering technique was utilized adhering to the principles of ALARA. COMPARISON: None. FINDINGS: CT CHEST: Multinodular thyroid goiter extends into the mediastinum superiorly. No lymphadenopathy. Heart is normal in size without pericardial effusion. Moderate coronary artery calcifications. No thoracic aortic aneurysm. No pneumothorax, pleural effusion, airspace consolidation or pulmonary edema. Linear scarring of the superior segment right lower lobe. No suspicious pulmonary nodules or masses. Subcentimeter calcified granuloma the left lung on image 101 series 6. Unremarkable soft tissues. No acute fracture. CT ABDOMEN/PELVIS: No pneumatosis or pneumoperitoneum. Limited evaluation of the solid abdominal organs without IV contrast. The unenhanced spleen, pancreas, gallbladder, adrenal glands unenhanced liver appear unremarkable. Unremarkable left kidney. There is mild right-sided hydroureteronephrosis with perinephric stranding and urothelial thickening. No obstructing ureteral calculus or lesion identified on this exam. Urinary bladder wall thickening with David catheter in place. Air noted within the bladder lumen. Unremarkable uterus. Aorta is within normal limits. Subcentimeter retroperitoneal lymph nodes. Distal esophageal wall thickening with small hiatal hernia. Gastrostomy tube in place. Moderate fecal retention. No ascites or mesenteric pericolonic inflammation. Normal appendix. No acute fracture. IMPRESSION: 1. Mild right-sided hydroureteronephrosis with urothelial thickening and perinephric stranding. Findings may be secondary to an ascending infection versus recently passed calculus. Correlate with urinalysis. 2. No acute intrathoracic abnormality. 3. No bowel obstruction or bowel wall thickening. 4. Gastrostomy tube in place. ACT 112: Negative or not required by law. Electronically signed by: Dmitry Moran M.D. 07/15/2024 1:[address] 07/15/24 11:04 CT chest diagnostic wo con, CT abd pelvis wo con CT DOSE: 2024.82 mGy.cm CLINICAL HISTORY: 54 years-old Female with sob. Acute shortness of breath with chest and abdominal pain TECHNIQUE: Multiaxial CT images of the chest, abdomen and pelvis were performed without contrast. A dose lowering technique was utilized adhering to the principles of ALARA. COMPARISON: None. FINDINGS: CT CHEST: Multinodular thyroid goiter extends into the mediastinum superiorly. No lymphadenopathy. Heart is normal in size without pericardial effusion. Moderate coronary artery calcifications. No thoracic aortic aneurysm. No pneumothorax, pleural effusion, airspace consolidation or pulmonary edema. Linear scarring of the superior segment right lower lobe. No suspicious pulmonary nodules or masses. Subcentimeter calcified granuloma the left lung on image 101 series 6. Unremarkable soft tissues. No acute fracture. CT ABDOMEN/PELVIS: No pneumatosis or pneumoperitoneum. Limited evaluation of the solid abdominal organs without IV contrast. The unenhanced spleen, pancreas, gallbladder, adrenal glands unenhanced liver appear unremarkable. Unremarkable left kidney. There is mild right-sided hydroureteronephrosis with perinephric stranding and urothelial thickening. No obstructing ureteral calculus or lesion identified on this exam. Urinary bladder wall thickening with David catheter in place. Air noted within the bladder lumen. Unremarkable uterus. Aorta is within normal limits. Subcentimeter retroperitoneal lymph nodes. Distal esophageal wall thickening with small hiatal hernia. Gastrostomy tube in place. Moderate fecal retention. No ascites or mesenteric pericolonic inflammation. Normal appendix. No acute fracture. IMPRESSION: 1. Mild right-sided hydroureteronephrosis with urothelial thickening and perinephric stranding. Findings may be secondary to an ascending infection versus recently passed calculus. Correlate with urinalysis. 2. No acute intrathoracic abnormality. 3. No bowel obstruction or bowel wall thickening. 4. Gastrostomy tube in place. ACT 112: Negative or not required by law. Electronically signed by: Dmitry Moran M.D. 07/15/2024 1:22 PM Medications Administered Insulin Human Regular 250 (units/ Sodium Chloride) 250 mls @ 3.2 mls/hr IV .Q24H ARIANA; Protocol Stop: 08/14/24 11:14 Last Titration: 07/15/24 19:02 Dose: 3.2 unit/hr, 3.2 mls/hr Documented By: SG Co-signed By: AMS Titration: 07/15/24 18:23 Dose: 3.2 unit/hr, 3.2 mls/hr Documented By: AMS Co-signed By: LAF Titration: 07/15/24 16:22 Dose: 4 unit/hr, 4 mls/hr Documented By: MARIA C Co-signed By: MNE Titration: 07/15/24 15:25 Dose: 4 unit/hr, 4 mls/hr Documented By: MH Co-signed By: SNS Titration: 07/15/24 15:00 Dose: 4 unit/hr, 4 mls/hr Documented By: YORDAN Co-signed By: [facility] Titration: 07/15/24 13:30 Dose: 0 unit/hr, 0 mls/hr Documented By: [facility] Co-signed By: Titration: 07/15/24 12:55 Dose: 4 unit/hr, 4 mls/hr Documented By: [facility] Co-signed By: MWS Titration: 07/15/24 12:33 Dose: 6.5 unit/hr, 6.5 mls/hr Documented By: [facility] Co-signed By: MNE Titration: 07/15/24 12:28 Dose: 7.8 unit/hr, 7.8 mls/hr Documented By: [facility] Co-signed By: THEO Admin: 07/15/24 11:24 Dose: 6.5 unit/hr, 6.5 mls/hr Documented By: [facility] Co-signed By: KAPIL Piperacillin Sod/Tazobactam Sod (Zosyn) 4.5 gm in 100 mls @ 25 mls/hr IV Q8H ARIANA; Protocol Stop: 07/25/24 16:59 Last Admin: 07/15/24 17:55 Dose: 25 mls/hr Documented By: AMS Potassium Chloride 40 meq/ (Dextrose/Sodium Chloride) 1,020 mls @ 125 mls/hr IV .Q8H10M ARIANA Stop: 07/16/24 15:44 Last Admin: 07/15/24 15:55 Dose: 125 mls/hr Documented By: MARIA C Insulin Aspart (Insulin Aspart Per Unit Charge) 0 units SC ACHS [facility] Stop: 08/14/24 11:29 Last Admin: 07/15/24 17:23 Dose: Not Given Documented By: [facility] Admin: 07/15/24 11:42 Dose: Not Given Documented By: [facility] Discontinued Medications Sodium Chloride (Nss) 1,000 mls @ 999 mls/hr IV .Q1H1M ARIANA Stop: 07/15/24 13:00 Last Infusion: 07/15/24 17:47 Dose: Infused Documented By: [facility] Infusion: 07/15/24 13:36 Dose: 0 mls/hr Documented By: [facility] Admin: 07/15/24 12:36 Dose: 999 mls/hr Documented By: [facility] Infusion: 07/15/24 12:31 Dose: Infused Documented By: [facility] Admin: 07/15/24 11:30 Dose: 999 mls/hr Documented By: [facility] Vancomycin HCl 1,250 mg/ (Sodium Chloride) 500 mls @ 200 mls/hr IV NOW STA Stop: 07/15/24 13:22 Last Infusion: 07/15/24 15:52 Dose: Infused Documented By: Admin: 07/15/24 12:06 Dose: 200 mls/hr Documented By: [facility] Piperacillin Sod/Tazobactam Sod (Zosyn) 4.5 gm in 100 mls @ 200 mls/hr IV NOW ONE; Protocol Stop: 07/15/24 11:22 Last Infusion: 07/15/24 13:05 Dose: Infused Documented By: [facility] Admin: 07/15/24 11:52 Dose: 200 mls/hr Documented By: [facility] Sodium Chloride (Nss) 1,000 mls @ 999 mls/hr IV .Q1H1M ONE Stop: 07/15/24 12:04 Last Infusion: 07/15/24 12:14 Dose: Infused Documented By: [facility] Admin: 07/15/24 11:11 Dose: 999 mls/hr Documented By: [facility] Acetaminophen (Ofirmev) 1,000 mg in 100 mls @ 400 mls/hr IV NOW STA Stop: 07/15/24 11:21 Last Infusion: 07/15/24 11:48 Dose: Infused Documented By: [facility] Admin: 07/15/24 11:28 Dose: 400 mls/hr Documented By: [facility] Sodium Chloride (Nss) 1,000 mls @ 999 mls/hr IV .Q1H1M ONE Stop: 07/15/24 13:28 Last Infusion: 07/15/24 13:58 Dose: Infused Documented By: Admin: 07/15/24 12:57 Dose: 999 mls/hr Documented By: ASHISH Lactated Ringer's (Lr) 1,000 mls @ 999 mls/hr IV .Q1H1M ONE Stop: 07/15/24 15:34 Last Infusion: 07/15/24 15:42 Dose: Infused Documented By: Admin: 07/15/24 14:59 Dose: 999 mls/hr Documented By: YORDAN Lactated Ringer's (Lr) 1,000 mls @ 125 mls/hr IV .Q8H ARIANA Stop: 07/16/24 15:29 Last Infusion: 07/15/24 17:48 Dose: Infused Documented By: Infusion: 07/15/24 16:12 Dose: 999 mls/hr Documented By: Admin: 07/15/24 15:39 Dose: 125 mls/hr Documented By: MARIA C Miscellaneous (Dka Goal Range 150-250 Mg/Dl) 1 each N/A ONE ONE Stop: 07/15/24 11:06 Last Admin: 07/15/24 12:36 Dose: Not Given Documented By: [facility] Miscellaneous (Hhs Goal Range 250-350 Mg/Dl) 1 each N/A ONE ONE Stop: 07/15/24 12:33 Last Admin: 07/15/24 17:23 Dose: 1 each Documented By: DUANE Coding Level of Care Code 20974 CRITICAL CARE 1ST 30-74M Diagnoses Hyperosmolar hyperglycemic state (HHS) E11.00 DM2 (diabetes mellitus, type 2) E11.9 Cerebral palsy G80.9 Status post insertion of percutaneous endoscopic gastrostomy (PEG) tube Z93.1 Septic shock A41.9; R65.21 AGUILAR (acute kidney injury) N17.9
[2024-07-15 18:49] LABS: BUN Creatinine Ratio 31.7 (10-20); Calcium 8.2 mg/dl (8.6-10.3); Creatinine Clr Calc Pharmacy 41.4 ml/min; Phosphorus 3.7 mg/dl (2.5-4.9); Potassium 3.4 mmol/L (3.5-5.1)
[2024-07-15] MEDS: POTASSIUM CHLORIDE / WTR 10 MEQ/100 ML PLCT IV SCH (19:26)
[2024-07-15] MEDS: THIAMINE HCL 200 MG in SODIUM CHLORIDE 0.9% 50 ML IV STA (19:47)
[2024-07-15] MEDS: POTASSIUM CHLORIDE 20 MEQ/15 ML UDC PO STA (19:47)
[2024-07-15] MEDS: HEPARIN SOD 5,000 UNIT/0.5 ML VIAL SQ SCH (20:36)
[2024-07-15] MEDS: BACLOFEN 10 MG TAB PEG PRN (21:24)
[2024-07-15] MEDS: HHS GOAL RANGE 250-350 mg/dl SCH (21:26)
[2024-07-15] MEDS: ACETAMINOPHEN 1,000 MG/100 ML VIAL IV PRN (22:52)
[2024-07-15] MEDS ORDERED: Nursing to Pharmacy Communication SCH (23:15)
[2024-07-15 23:19] LABS: Base Excess VBG -3.5 mEq/L; HCO3 VBG 23 mmol/L; Oxygen Saturation VBG < 60.0 %; PCO2 VBG 44 mmHg (38-50); PO2 VBG 33 mmHg; pH VBG 7.32 (7.36-7.41)
[2024-07-15 23:45] LABS: BUN Creatinine Ratio 33.6 (10-20); Calcium 8.3 mg/dl (8.6-10.3); Creatinine Clr Calc Pharmacy 50.7 ml/min; Magnesium 1.9 mg/dl (1.7-2.4); Phosphorus 2.7 mg/dl (2.5-4.9); Potassium 4.3 mmol/L (3.5-5.1)
[2024-07-16] MEDS: LANTUS PER UNIT CHARGE SQ STA
[2024-07-16] MEDS: INSULIN ASPART PER UNIT CHARGE SC SCH (00:50)
[2024-07-16 03:09] LABS: HCO3 VBG 23 mmol/L; Oxygen Saturation VBG < 60.0 %; PCO2 VBG 42 mmHg (38-50); PO2 VBG 26 mmHg; pH VBG 7.34 (7.36-7.41)
[2024-07-16 03:34] LABS: BUN Creatinine Ratio 31.5 (10-20); Calcium 8.2 mg/dl (8.6-10.3); Magnesium 1.8 mg/dl (1.7-2.4); Phosphorus 2.7 mg/dl (2.5-4.9); Potassium 4.1 mmol/L (3.5-5.1)
--- NOTE | 2024-07-16 07:25 | Critical Care Progress Note ---
Date of Service July 16, 2024 Assessment & Plan (1) Hyperosmolar hyperglycemic state (HHS): (2) AGUILAR (acute kidney injury): (3) Septic shock: (4) Pyelonephritis: Plan Impression: 54-year-old female with cerebral palsy admitted with unresponsive state and hyperosmolar nonketotic state with potential urosepsis after extensive stay at hospital in [place]. She is clinically improved. Recommendations: 1. Neurologic: Unresponsive state now resolved. Continue supportive care. No role for physical therapy or occupational therapy at this point time. Wound care for skin. Continue outpatient baclofen 2. Cardiovascular: Hypotension resolved. Likely secondary to profound hypovolemia in the setting of hyperosmolar nonketotic state. 3. Pulmonary: Continue pulmonary toilet and suctioning. Patient has effective cough. 4. Endocrine: Hyperosmolar nonketotic state: Anion gap closed. Off insulin drip. Continue subcutaneous insulin. Would hold off on metformin. 5. GI: PEG tube in place during last hospitalization in [place]. No records available. Recommend obtaining records from that hospitalization to determine rationale behind PEG tube. For now we will continue to use PEG tube. Dietary consultation for initiation of tube feeding. 6. Renal: Acute renal failure resolved. She remains hypernatremic. [place] free water replacement with 400 mL via PEG tube every 4 hours. 7. ID: Probable urosepsis. Gram-negative rods identified in urine culture. Blood cultures pending. Continue Zosyn. Discontinue vancomycin. 8. Heme-onc: Leukocytosis secondary to infection. Continue to trend. Patient's critical care issues. Resolved. She can transfer to the floor under the care of the hospitalist. Critical care services will sign off. Feel free to contact us with questions or concerns Admission and Anticipated Discharge Date Admission Date: July 15, 2024 Subjective Patient seen and examined. EMR reviewed. Discussed with overnight critical care FRED as well as with bedside critical care nurse and on multidisciplinary rounds. The patient is awake alert and conversant this morning. She has no recollection of the prior 24-hour events. Her biggest complaint currently is wanting to eat although apparently she has been n.p.o. since dysphagia evaluation in [facility]. Her medications and nutrition have been provided through PEG tube. She is very thirsty. She denies abdominal pain. No fevers chills or night sweats. Her insulin drip has been discontinued. Electrolytes are improved. Renal function back to normal Review of Systems Review of Systems: All systems reviewed & are unremarkable except as noted in Subjective Physical Exam Physical Exam: PHYSICAL EXAM: General: awake, alert, able to answer questions Head: Normocephalic, atraumatic ENT: PERRLA, EOMI, moist voice with upper airway secretions, mucous membranes- dry Neuro: AAO x 2, speech clear and appropriate, significant cerebral palsy with contractions Chest: equal rise and fall of the chest, no accessory muscle use, clear in lung blas, upper airway secretions noted with moist voice Cardiac: Regular rate and rhythm, telemetry reviewed- sinus tachycardia, skin warm dry, cap refill <3 seconds, peripheral pulses +2 no JVD, no murmur GI: NABS x 4 quadrants, soft, nontender to palpation, no rebound, guarding or tenderness. PEG site clean dry and intact : Givens to gravity Results & Data Results & Data Vital Signs (Past 12 Hours) Vital Signs Temp Pulse Resp BP Pulse Ox O2 Del Method 07/16/24 06:12 36.7 C 109 H 18 125/75 99 Room Air 07/16/24 05:00 36.7 C 115 H 18 132/69 97 Room Air 07/16/24 04:00 36.8 C 115 H 22 104/65 97 Room Air 07/16/24 03:00 37.0 C 124 H 21 113/63 100 Room Air 07/16/24 02:00 37.2 C 125 H 24 103/73 99 Room Air 07/16/24 01:00 37.4 C 127 H 20 115/71 98 Room Air 07/16/24 00:00 37.4 C 128 H 23 136/56 L 99 Room Air 07/15/24 23:45 37.4 C 128 H 23 102/61 99 Room Air 07/15/24 23:00 37.4 C 125 H 21 86/57 L 98 Room Air 07/15/24 22:00 37.4 C 128 H 18 97/61 L 98 Room Air 07/15/24 21:00 37.4 C 130 H 20 92/62 L 96 Room Air 07/15/24 20:02 37.5 C 130 H 26 H 123/58 L 92 Room Air 07/15/24 20:00 Room Air Critical Care Results & Data Vital Signs (Past 12 Hours) Vital Signs Temp Pulse Resp BP Pulse Ox O2 Del Method 07/16/24 06:12 36.7 C 109 H 18 125/75 99 Room Air 07/16/24 05:00 36.7 C 115 H 18 132/69 97 Room Air 07/16/24 04:00 36.8 C 115 H 22 104/65 97 Room Air 07/16/24 03:00 37.0 C 124 H 21 113/63 100 Room Air 07/16/24 02:00 37.2 C 125 H 24 103/73 99 Room Air 07/16/24 01:00 37.4 C 127 H 20 115/71 98 Room Air 07/16/24 00:00 37.4 C 128 H 23 136/56 L 99 Room Air 07/15/24 23:45 37.4 C 128 H 23 102/61 99 Room Air 07/15/24 23:00 37.4 C 125 H 21 86/57 L 98 Room Air 07/15/24 22:00 37.4 C 128 H 18 97/61 L 98 Room Air 07/15/24 21:00 37.4 C 130 H 20 92/62 L 96 Room Air 07/15/24 20:02 37.5 C 130 H 26 H 123/58 L 92 Room Air 07/15/24 20:00 Room Air Lab & Micro Results (Past 24 Hours) RBC 4.29 M/uL (4.20-5.40) 07/15/24 WBC 15.28 K/ul (4.8-10.8) H 07/15/24 Hgb 13.1 g/dl (12.0-16.0) 07/15/24 Hct 43.0 % (37.0-47.0) 07/15/24 MCV 100.2 fL (80.0-100.0) H 07/15/24 MCH 30.5 pg (25.0-34.0) 07/15/24 MCHC 30.5 g/dL (32.0-36.0) L 07/15/24 RDW Standard Deviation 60.0 fL (36.4-46.3) H 07/15/24 RDW Coefficient of Variation 16.5 % (11.5-14.5) H 07/15/24 Plt Count 577 K/uL (130-400) H 07/15/24 MPV 12.1 fL (9.4-12.4) 07/15/24 Neutrophils (%) (Auto) 86.4 % 07/15/24 Lymphocytes (%) (Auto) 5.2 % 07/15/24 Monocytes # (Auto) 1.18 K/uL (0.11-0.59) H 07/15/24 Eosinophils # (Auto) 0.00 K/uL (0.00-0.50) 07/15/24 Immature Granulocyte % (Auto) 0.4 % 07/15/24 Neutrophils # (Auto) 13.20 K/uL (1.40-6.50) H 07/15/24 Lymphocytes # (Auto) 0.79 K/uL (1.20-3.40) L 07/15/24 Monocytes # (Auto) 1.18 K/uL (0.11-0.59) H 07/15/24 Eosinophils # (Auto) 0.00 K/uL (0.00-0.50) 07/15/24 Basophils # (Auto) 0.05 K/uL (0.00-0.20) 07/15/24 Immature Granulocyte # (Auto) 0.06 K/uL (0.01-0.20) 5 Na 154 mmol/L (136-145) H 07/16/24 K 4.1 mmol/L (3.5-5.1) 07/16/24 Cl 127 mmol/L (98-107) H 07/16/24 CO2 24 mmol/L (21-32) 07/16/24 Anion Gap 3 (3-11) 07/16/24 BUN 35 mg/dl (6-23) H 07/16/24 Creatinine 1.11 mg/dl (0.6-1.2) 07/16/24 BUN/Creatinine Ratio 31.5 (10-20) H 07/16/24 Glu 245 mg/dl (70-99(Fasting)) H 07/16/24 Ca 8.2 mg/dl (8.6-10.3) L 07/16/24 Phosphorus Level 2.7 mg/dl (2.5-4.9) 07/16/24 Total Bilirubin 0.3 mg/dl (0.2-1.0) 07/15/24 Direct Bilirubin 0.0 mg/dl (0-0.2) 07/15/24 AST 19 U/L (13-39) 07/15/24 ALT 16 U/L (7-52) 07/15/24 Alkaline Phosphatase 99 U/L (34-104) 07/15/24 TP 9.2 gm/dl (6.0-8.3) H 07/15/24 Albumin 4.1 gm/dl (3.4-5.0) 07/15/24 Mg 1.8 mg/dl (1.7-2.4) 07/16/24 02:53 Calcium Level 8.2 mg/dl (8.6-10.3) L 07/16/24 02:53 Prothromb Time International Ratio 1.1 (0.9-1.1) 07/15/24 11:5 6 Venous Blood pH 7.34 (7.36-7.41) L 07/16/24 02:53 Venous Blood Partial Pressure CO2 42 mmHg (38-50) 07/16/24 02:5 3 Venous Blood Partial Pressure O2 26 mmHg 07/16/24 02:53 Venous Blood HCO3 23 mmol/L 07/16/24 02:53 Venous Blood Base Excess -3.0 mEq/L 07/16/24 02:53 Venous Blood Oxygen Saturation < 60.0 % 07/16/24 02:53 Microbiology 07/15/24 11:07 Urine Culture - Preliminary Urine,Clean Catch Gram negative bacilli Diagnostic Findings (Past 24 Hours) Chest X-Ray 07/15/24 10:53 XR chest 1V portable HISTORY: 54 years-old Female Sepsis acute sepsis COMPARISON: None TECHNIQUE: AP view of the chest FINDINGS: Cardiomediastinal and hilar silhouettes are within normal limits. No pneumothorax, pleural effusion or airspace consolidation. Degenerative changes of the shoulders and spine. IMPRESSION: No acute process. ACT 112: Negative or not required by law. The above report was generated using voice recognition software. It may contain grammatical, syntax or spelling errors. Electronically signed by: Dmitry Moran M.D. 07/15/2024 12:05 PM Abdomen/Pelvis CT 07/15/24 11:04 CT chest diagnostic wo con, CT abd pelvis wo con CT DOSE: 2024.82 mGy.cm CLINICAL HISTORY: 54 years-old Female with sob. Acute shortness of breath with chest and abdominal pain TECHNIQUE: Multiaxial CT images of the chest, abdomen and pelvis were performed without contrast. A dose lowering technique was utilized adhering to the principles of ALARA. COMPARISON: None. FINDINGS: CT CHEST: Multinodular thyroid goiter extends into the mediastinum superiorly. No lymphadenopathy. Heart is normal in size without pericardial effusion. Moderate coronary artery calcifications. No thoracic aortic aneurysm. No pneumothorax, pleural effusion, airspace consolidation or pulmonary edema. Linear scarring of the superior segment right lower lobe. No suspicious pulmonary nodules or masses. Subcentimeter calcified granuloma the left lung on image 101 series 6. Unremarkable soft tissues. No acute fracture. CT ABDOMEN/PELVIS: No pneumatosis or pneumoperitoneum. Limited evaluation of the solid abdominal organs without IV contrast. The unenhanced spleen, pancreas, gallbladder, adrenal glands unenhanced liver appear unremarkable. Unremarkable left kidney. There is mild right-sided hydroureteronephrosis with perinephric stranding and urothelial thickening. No obstructing ureteral calculus or lesion identified on this exam. Urinary bladder wall thickening with Givens catheter in place. Air noted within the bladder lumen. Unremarkable uterus. Aorta is within normal limits. Subcentimeter retroperitoneal lymph nodes. Distal esophageal wall thickening with small hiatal hernia. Gastrostomy tube in place. Moderate fecal retention. No ascites or mesenteric pericolonic inflammation. Normal appendix. No acute fracture. IMPRESSION: 1. Mild right-sided hydroureteronephrosis with urothelial thickening and perinephric stranding. Findings may be secondary to an ascending infection versus recently passed calculus. Correlate with urinalysis. 2. No acute intrathoracic abnormality. 3. No bowel obstruction or bowel wall thickening. 4. Gastrostomy tube in place. ACT 112: Negative or not required by law. Electronically signed by: Dmitry Moran M.D. 07/15/2024 1:[address] 07/15/24 11:04 CT chest diagnostic wo con, CT abd pelvis wo con CT DOSE: 2024. mGy.cm CLINICAL HISTORY: 54 years-old Female with sob. Acute shortness of breath with chest and abdominal pain TECHNIQUE: Multiaxial CT images of the chest, abdomen and pelvis were performed without contrast. A dose lowering technique was utilized adhering to the principles of ALARA. COMPARISON: None. FINDINGS: CT CHEST: Multinodular thyroid goiter extends into the mediastinum superiorly. No lymphadenopathy. Heart is normal in size without pericardial effusion. Moderate coronary artery calcifications. No thoracic aortic aneurysm. No pneumothorax, pleural effusion, airspace consolidation or pulmonary edema. Linear scarring of the superior segment right lower lobe. No suspicious pulmonar y nodules or masses. Subcentimeter calcified granuloma the left lung on image 101 series 6. Unremarkable soft tissues. No acute fracture. CT ABDOMEN/PELVIS: No pneumatosis or pneumoperitoneum. Limited evaluation of the solid abdominal organs without IV contrast. The unenhanced spleen, pancreas, gallbladder, adrenal glands unenhanced liver appear unremarkable. Unremarkable left kidney. There is mild right-sided hydroureteronephrosis with perinephric stranding and urothelial thickening. No obstructing ureteral calculus or lesion identified on this exam. Urinary bladder wall thickening with Givens catheter in place. Air noted within the bladder lumen. Unremarkable uterus. Aorta is within normal limits. Subcentimeter retroperitoneal lymph nodes. Distal esophageal wall thickening with small hiatal hernia. Gastrostomy tube in place. Moderate fecal retention. No ascites or mesenteric pericolonic inflammation. Normal appendix. No acute fracture. IMPRESSION: 1. Mild right-sided hydroureteronephrosis with urothelial thickening and perinephric stranding. Findings may be secondary to an ascending infection versus recently passed calculus. Correlate with urinalysis. 2. No acute intrathoracic abnormality. 3. No bowel obstruction or bowel wall thickening. 4. Gastrostomy tube in place. ACT 112: Negative or not required by law. Electronically signed by: Dmitry Moran M.D. 07/15/2024 1:22 PM I & O Totals 24 Hours 07/15/24 07/16/24 07/17/24 06:59 06:59 06:59 Intake Total 9314.772 / 9314.772 Output Total 2134 / 213 Balance 7179.772 / 7179.772 Cumulative 07/15/24 10:37 thru 07/16/24 06:00 Intake Total 9314.772 Output Total 5 Balance 7179.772 RT Ventilator Mngmt (Last Documented) Ventilator Ordered Settings Respiratory Rate 18 07/16/24 06:12 Fraction of Inspired Oxygen 30 07/15/24 16:21 Ventilator - PT Measurements Respiratory Rate 18 Coding Level of Care Code 00935 SUB INP/OBS CARE 3/50MIN Diagnoses Hyperosmolar hyperglycemic state (HHS) E11.00 AGUILAR (acute kidney injury) N17.9 Septic shock A41.9; R65.21 Pyelonephritis N12
[2024-07-16] MEDS: TUBE FEEDING WATER FLUSH GT SCH (08:19)
[2024-07-16] MEDS: THIAMINE HCL 100 MG in SYRINGE 9 ML IV SCH (08:19)
[2024-07-16] MEDS: VIBEGRON 75 MG TAB PO SCH (08:19)
[2024-07-16] MEDS: HEPARIN SOD 5,000 UNIT/0.5 ML VIAL SQ SCH (08:19)
--- NOTE | 2024-07-16 09:44 | Hospitalist Progress Note ---
Date of Service July 16, 2024 Assessment & Plan (1) Hyperosmolar hyperglycemic state (HHS): Plan: 54-year-old female with history of cerebral palsy, type II DM, dysphagia with PEG tube placement who presents with severe volume contraction, HHS, and complicated UTI. She is critically ill on initial assessment. HHS treatment complicated by concurrent hypernatremia. HHS, DM2 Improving Transitioning to subcu insulin. Lantus twice daily ordered. Per note review was on 30 units Lantus twice daily recently trialed on 20 units twice daily. Will continue 20 twice daily dosing and adjust as needed. 10 units Lantus x 1 ordered to bridge to twice daily dosing. Fluids adjusted to HNS. Add or subtract potassium based on serial BMP measurements Remains volume contracted but improving. Treatment of hyponatremia as noted Glucose checks every 4 hours, dietary following for tube feeds. 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 Concurrently treated for HHS which is resolving Hyponatremia is improving now 154. Acceptable rate of change. Improving not yet at goal continue half-normal saline with or without potassium supplementation depending on BMP UTI - CT-C: naf - CT-A/P: 1. Mild right-sided hydroureteronephrosis with urothelial thickening and perinephric stranding. Findings may be secondary to an ascending infection versus recently passed calculus. Correlate with urinalysis.2. No acute intrathoracic abnormality.3. No bowel obstruction or bowel wall thickening.4. Gastrostomy tube in place. Leukocytosis of 15, Pro-Ken 1.9, lactic elevated. Tachypneic, hypotensive, febrile 39.1 on admission UA infected appearing with bacteria, leukocyte esterase Urine culture pending. GNB prelim positive, vancomycin discontinued. Zosyn continued pending speciation Elevated troponin 2/2 demand ischemia, sinus tachycardia Troponin 97.6, EKG sinus tachycardia Downtrending. Suspect demand with severe volume depletion/HHS. No chest pain On review of prior records baseline heart rate appears to be around 110-130. Exacerbating by profound volume depletion now improving, but also like 2/2 underlying thyroid disorder. TSH is suppressed, free T4 pending. Cerebral palsy New PEG tube placed 06/29/2024. C/D/I on assessment. No abdominal tenderness Patient previously with assistive caregivers at home however she no longer has these. Reports she is wheelchair-bound but has had difficulty finding caregivers that can help manage her tube feeds. Adamant that she does not want to return to [facility], prefers to return home but is aware of her current care needs which without additional services at home preclude live safely. Case management consulted Dysphagia Oropharyngeal dysphagia worsened by thyroid mass with impingement on the esophagus. 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 intake and should be kept strict NPO. PEG tube is available for alternative route for nutrition. Long-term will need assessment of thyroid mass and surgery however has not been medically stable enough to pursue this and requires ongoing outpatient workup. S/p PEG tube placement 06/29 at [facility]. Dietary consulted for assistance. Was discharged on Jevity 1.5 goal 400 cc per bolus 3 times daily 1200 cc daily, 900 cc free water flushing total per day split up every 4 hours. Banatrol twice daily as needed via feeding tube suggested. Patient's home nursing team was unable to provide care for her PEG tube and was discharged to [facility] however patient rapidly declined at that facility. Patient refuses placement back, case management consulted to facilitate alternative options ? Thyroid mass/cancer Noted on prior imaging. Recommend for outpatient follow-up has not been medically stable enough to progress to this at time of admission TSH is significantly suppressed, free T4 pending. Thyroid ultrasound pending Will likely need FNA as next step for follow-up. Given obstructive symptoms and patient's desire to eat even if workup is benign would want to pursue resection for possible symptomatic improvement to her swallowing. Given her underlying multiple comorbidities, surgical risk, and frailty will need to follow-up ENT and should have this done at tertiary care center if possible Keep n.p.o., PEG tube is available for nutrition and meds Recent hospital records reviewed from [facility] documents: Speech pathology: Oropharyngeal phase dysphagia. Limited to no awareness of swallowing impairment. Patient is not appropriate for p.o. intake due to thyroid mass, inability to manage secretions, and immediate aspiration. PEG tube is in place as alternative route for nutrition. Was recommended for strict n.p.o. Palliative care consultation review: Patient frustrated by having lack of support at home. Values independence but due to ongoing needs has been told that she had to go to SNF. Frustrated due to bad experience at SNF's and felt like she would be stuck there. Also redirect frequently being thirsty although could not take p.o. due to being clearly unsafe to swallow. Ethics consultation reviewed: Patient did demonstrate decision-making capacity. No surrogate decision maker available. Patient has a sister with significant health challenges and not able to act as a surrogate/advocate. Recommendations at that time were that it was medically defensible to have an informed consent discussion about discharging her home without medical services but analogous to voluntary ceasing to eat and drink with a life expectancy of days and significant risk of . Ethics team at that time felt that this was not the unanimous opinion noting that could cause harm to medical providers who discharged her. Recommended that patient be placed in a correction facility with a goal of getting stronger to progress eventually to thyroid surgery and eventually progress back home with home health services. Likely timeframe for this would be weeks to months at best. If she had declined SNF placement it was felt to be ethical to pursue a limited mandate through courts to compel her to except SNF placement temporarily even if she did not wish to. Was noted that this did not honor her autonomy but was defensible through beneficence. Did personally discuss above with the patient and review. She does redirect to wanting to go home valuing her independence and did not want to go back to [facility], but also expresses that she does not want to focus on palliative/hospice goals of need and does want full treatment for all issues outside of being full code in the event of a cardiopulmonary arrest. Some incongruence between her expression of wanting to be independent full measures and extend her life even with a compromised quality, and expressing that she wants something such as to eat and drink which have a clear recurrent aspiration risk and wanting to return home without caregivers despite not being strong enough to transfer independently or perform activities of daily living. DVT prophylaxis: Heparin due to renal dysfunction Disposition: PCU CODE STATUS: DNR Diet: N.p.o. PEG feeds (2) DM2 (diabetes mellitus, type 2): (3) Cerebral palsy: (4) Status post insertion of percutaneous endoscopic gastrostomy (PEG) tube: Admission and Anticipated Discharge Date Admission Date: July 15, 2024 Subjective Greatly improved mentation and clinical appearance today. She is very communicative, remembers many of the previous events yesterday although notes the day prior that is fuzzy. Reports she will not go back to "[facility] "under any circumstances. Does express frustration over having very dry mouth and mucous membranes. She does have a history of thyroid nodules pending outpatient follow-up. She was seen at [facility] and was not able to swallow safely. She reports frustration with this and notes that she would like to eat and drink but is also aware that she has had immediate and obvious aspiration with any attempts to do so and is not safe to swallow safely. She reports she is not interested in quality based goals of care and is also frustrated by inability to eat. She notes that because of her PEG tube she no longer has caregivers at home as they are not able to manage this which is why she was referred to [facility]. Ultimately she would like to return home however she acknowledges that she is too weak to transfer on her own, and previously had limited caregiver use and now has none at home due to the changes with her PEG tube and requirements. She is adamant that she will not return to [facility], and while would like to return home if this is not an option would potentially consider other alternatives to have side. Did review palliative conversations with her as documented from [facility] to which she affirms DNR/DNI however does not want to in any way consider palliative/hospice. Physical Exam Physical Exam: General: Alert and oriented to name, hospital, town. Linear thought process. HEENT: Atraumatic, normocephalic. Mucous membranes remain dry but greatly improved from prior. Pulm: Lungs clear. Greatly improved work of breathing, normalized with respirations 19 this morning Cardiac: Regular, tachycardic. Improved from prior. Abdominal: Nontender, nondistended, soft. PEG tube is in place, site without erythema/warmth/discharge. Extremities: Lower extremities with chronic cerebral palsy deformities Results & Data Results & Data Vital Signs (Past 12 Hours) Vital Signs Temp Pulse Resp BP Pulse Ox O2 Del Method 07/16/24 08:46 Room Air 07/16/24 08:03 36.9 C 116 H 19 100 07/16/24 08:01 112/79 07/16/24 07:37 113 H 07/16/24 07:18 36.7 C 113 H 23 100 07/16/24 07:00 97/84 L 07/16/24 07:00 97/84 L 07/16/24 06:12 36.7 C 109 H 18 125/75 99 Room Air 07/16/24 05:00 36.7 C 115 H 18 132/69 97 Room Air 07/16/24 04:00 36.8 C 115 H 22 104/65 97 Room Air 07/16/24 03:00 37.0 C 124 H 21 113/63 100 Room Air 07/16/24 02:00 37.2 C 125 H 24 103/73 99 Room Air 07/16/24 01:00 37.4 C 127 H 20 115/71 98 Room Air 07/16/24 00:00 37.4 C 128 H 23 136/56 L 99 Room Air 07/15/24 23:45 37.4 C 128 H 23 102/61 99 Room Air 07/15/24 23:00 37.4 C 125 H 21 86/57 L 98 Room Air 07/15/24 22:00 37.4 C 128 H 18 97/61 L 98 Room Air PG Care Time/CCT Total # of Minutes Spent Total Time Spent with Patient: Total time spent is greater than 50% in coordination of care (as documented) at patient's floor/unit and/or counseling patient: Coding Level of Care Code 57013 SUB INP/OBS CARE 3/50MIN Diagnoses Hyperosmolar hyperglycemic state (HHS) E11.00 DM2 (diabetes mellitus, type 2) E11.9 Cerebral palsy G80.9 Status post insertion of percutaneous endoscopic gastrostomy (PEG) tube Z93.1
[2024-07-16] MEDS ORDERED: PHARMACY GLYCEMIC MGMT CONSULT PRN (10:28)
[2024-07-16 11:21] LABS: Anion Gap 3 (3-11); BUN Creatinine Ratio 27.7 (10-20); Blood Urea Nitrogen 26 mg/dl (6-23); Calcium 7.9 mg/dl (8.6-10.3); Carbon Dioxide 24 mmol/L (21-32); Chloride 124 mmol/L (98-107); Creatinine Clr Calc Pharmacy 62.6 ml/min; Glucose 352 mg/dl (70-99(Fasting)); Potassium 5.3 mmol/L (3.5-5.1); Sodium 151 mmol/L (136-145)
[2024-07-16] MEDS: LANTUS PER UNIT CHARGE SQ ONE ×2 (11:42→21:31)
[2024-07-16] MEDS: INSULIN HUMAN REGULAR PER UNIT 4 UNITS in SYRINGE 3.96 ML IV ONE (11:48)
[2024-07-16] MEDS: POTASSIUM CHLORIDE 40 MEQ in SODIUM CHLORIDE 0.45 % 1,000 ML IV SCH (12:15)
[2024-07-16] MEDS: PEPTAMEN 1.5 CAL 1,000 ML BAG PEG SCH (12:31)
[2024-07-16] MEDS: SODIUM CHLORIDE 0.45 % 1,000 ML IV SCH (12:31)
--- NOTE | 2024-07-16 13:26 | Pharmacy Report ---
Pharmacy Glycemic Short Note 2 - Date of Service July 16, 2024 - Glycemic Short BSG Results (Last 24 hours): 07/15/24 07/15/24 07/15/24 13:24 13:54 14:04 Glucose 399 H* POC Glucose 393 H* 358 H* 07/15/24 07/15/24 07/15/24 15:12 16:16 16:19 Glucose POC Glucose 334 H* 339 H* 298 H 07/15/24 07/15/24 07/15/24 17:19 18:11 18:17 Glucose 256 H POC Glucose 258 H 238 H 07/15/24 07/15/24 07/15/24 19:28 20:21 21:21 Glucose POC Glucose 221 H 226 H 215 H 07/15/24 07/15/24 07/15/24 22:18 23:09 23:11 Glucose 204 H POC Glucose 211 H 182 H 07/16/24 07/16/24 07/16/24 00:00 02:53 03:11 Glucose 245 H POC Glucose 195 H 224 H 07/16/24 07/16/24 07/16/24 04:07 08:14 10:37 Glucose 352 H* POC Glucose 235 H 225 H 07/16/24 12:34 Glucose POC Glucose 148 H OUTPATIENT ANTIDIABETIC REGIMEN: * Lantus 30 units SQ BID * metformin 1gm PO BID * empagliflozin 25mg PO daily HbA1C: ____ ASSESSMENT: * Pt is a 54 year old female with history of DM2 on insulin therapy at home admitted with HHS and UTI. Pharmacy consulted to assist with glycemic management. * Initiated on an insulin infusion yesterday per DKA/HHS protocol and transitioned to SQ insulin last night by provider. * BSGs today [phone]/dL. * Received 20 units of Lantus ~ midnight last night. Today, IVF adjusted to remove dextrose and tube feeds initiated this afternoon (PEG/TF dependent). * Lantus 10 units X 1 dose today around lunch (also received a 4 unit IV bolus per hospitalist for BSG 352 on 1100 BMP) and then begin 20 units BID tonight. Novolog q4 with coverage for tube feeds. PLAN FOR INPATIENT GLYCEMIC CONTROL: * Hold outpatient oral diabetes medications * Basal insulin * Lantus 10 units SQ X 1 dose today ~ noon and then 20 units BID * Bolus insulin * NovoLog per scale ACHS or Q6hrs while NPO * Goal Range: Low 110 mg/dL - High 140 mg/dL * Correction Factor: 25 mg/dL/unit * Nutritional / Prandial insulin per carb ratio of 1 unit per 13 grams CHO consumed
[2024-07-16 13:33] LABS: Thyroid Stimulating Hormone < 0.010 uIu/ml (0.300-4.500)
--- NOTE | 2024-07-16 15:31 | Ultrasound Report ---
US thyroid CLINICAL HISTORY: 54 years-old Female with thyroid mass. Follow-up study in a patient with thyroid g oiter COMPARISON: Chest CT July 15, 2024 TECHNIQUE: Multiple real time sonographic images of the thyroid were obtained accessing nazario scale ap pearance and color doppler flow. FINDINGS: MEASUREMENTS: Right lobe: 4.3 x 1.6 x 1.7 cm Left lobe: 1.5 x 5.3 x 5.5 cm Isthmus: 0.3 cm PARENCHYMA: The thyroid parenchymal echotexture is heterogeneous. NODULES: Subcentimeter low suspicion hypoechoic nodules of the right thyroid. The left lobe of the th yroid is diffusely heterogeneous, which appears to contain numerous nodules, individual nodule margin s not well visualized and therefore cannot be measured. IMPRESSION: Left thyroid lobe goiter. ACT 112: Negative or not required by law. The above report was generated using voice recognition software. It may contain grammatical, syntax o r spelling errors. Electronically signed by: Dmitry Moran M.D. 07/16/2024 3:29 PM
[2024-07-16 15:53] LABS: BUN Creatinine Ratio 31.6 (10-20); Calcium 8.4 mg/dl (8.6-10.3); Creatinine Clr Calc Pharmacy 77.4 ml/min
[2024-07-16] MEDS: LANTUS PER UNIT CHARGE SQ SCH (21:29)
[2024-07-16 21:58] LABS: BUN Creatinine Ratio 31.4 (10-20); Calcium 8.4 mg/dl (8.6-10.3); Potassium 4.2 mmol/L (3.5-5.1)
[2024-07-17 06:35] LABS: BUN Creatinine Ratio 27.5 (10-20); Calcium 7.9 mg/dl (8.6-10.3); Creatinine Clr Calc Pharmacy 85.2 ml/min
[2024-07-17 08:39] LABS: Estimated Average Glucose 151 mg/dl; Hemoglobin A1C 6.9 % (4.5-5.6)
[2024-07-17] MEDS: LANTUS PER UNIT CHARGE SQ SCH (08:47)
[2024-07-17] MEDS ORDERED: LANTUS PER UNIT CHARGE SQ SCH (09:00)
[2024-07-17] MEDS: cefTRIAXone SODIUM 1,000 MG/50 ML BAG IV SCH (09:29)
--- NOTE | 2024-07-17 11:00 | Pharmacy Report ---
Pharmacy Glycemic Short Note 2 - Date of Service July 17, 2024 - Glycemic Short BSG Results (Last 24 hours): 07/16/24 07/16/24 07/16/24 10:37 12:34 15:17 Glucose 352 H* 100 H POC Glucose 148 H 07/16/24 07/16/24 07/16/24 16:10 21:12 21:13 Glucose 88 POC Glucose 83 80 07/17/24 07/17/24 07/17/24 00:20 04:54 05:36 Glucose 120 H POC Glucose 114 H 114 H 07/17/24 07:13 Glucose POC Glucose 106 H OUTPATIENT ANTIDIABETIC REGIMEN: * Lantus 30 units SQ BID * metformin 1gm PO BID * empagliflozin 25mg PO daily HbA1C: 6.9% 07/17/24 ASSESSMENT: 07/17 * BSGs well controlled over last 24 hours. Many however less than 110 - will lessen both basal and prandial insulin doses * 25 units of SQ insulin given over last 24 hours. * Patient is receiving Peptamen 1.5 @30cc/hr this AM. 07/16 * Pt is a 54 year old female with history of DM2 on insulin therapy at home admitted with HHS and UTI. Pharmacy consulted to assist with glycemic management. * Initiated on an insulin infusion yesterday per DKA/HHS protocol and transitioned to SQ insulin last night by provider. * BSGs today [phone]/dL. * Received 20 units of Lantus ~ midnight last night. Today, IVF adjusted to remove dextrose and tube feeds initiated this afternoon (PEG/TF dependent). * Lantus 10 units X 1 dose today around lunch (also received a 4 unit IV bolus per hospitalist for BSG 352 on 1100 BMP) and then begin 20 units BID tonight. Novolog q4 with coverage for tube feeds. PLAN FOR INPATIENT GLYCEMIC CONTROL: * Hold outpatient oral diabetes medications * Basal insulin * Lantus SQ BID, dosed per scale given BSGs on the lower end of ICU goal: 0 units if BSG less than 110, 10 units if BSG great than 110 * Bolus insulin * NovoLog per scale Q 4 hrs while on continuous TFs via PEG * Goal Range: Low 110 mg/dL - High 140 mg/dL * Correction Factor: 35 mg/dL/unit * Nutritional / Prandial insulin per carb ratio of 1 unit per 15 grams CHO consumed
--- NOTE | 2024-07-17 15:51 | Hospitalist Progress Note ---
Date of Service July 17, 2024 Assessment & Plan (1) Hyperosmolar hyperglycemic state (HHS): Plan: 54-year-old female with history of cerebral palsy, type II DM, dysphagia with PEG tube placement who presents with severe volume contraction, HHS, and complicated UTI. She is critically ill on initial assessment. HHS treatment complicated by concurrent hypernatremia. HHS, DM2 Improving Continue basal bolus insulin. Pharmacy glycemic management following for a djustments. BSG checks every 4 hours with SSI Enteral feeds per nutrition Hypernatremia Profoundly volume contracted on admission. Concurrently treated for HHS which is resolving Normalized, stable UTI - CT-C: naf - CT-A/P: 1. Mild right-sided hydroureteronephrosis with urothelial thickening and perinephric stranding. Findings may be secondary to an ascending infection versus recently passed calculus. Correlate with urinalysis.2. No acute intrathoracic abnormality.3. No bowel obstruction or bowel wall thickening.4. Gastrostomy tube in place. Leukocytosis of 15, Pro-Ken 1.9, lactic elevated. Tachypneic, hypotensive, febrile 39.1 on admission UA infected appearing with bacteria, leukocyte esterase UCx speciated E. coli, Rocephin continued. Target 5-7-day total course of antibiotics Elevated troponin 2/2 demand ischemia, sinus tachycardia Troponin 97.6, EKG sinus tachycardia Downtrending. Suspect demand with severe volume depletion/HHS. No chest pain Now in the 90s, greatly improved. No evidence of elevated free T4, thyroid testing shows goiter Cerebral palsy New PEG tube placed 06/29/2024. C/D/I on assessment. No abdominal tenderness Patient previously with assistive caregivers at home however she no longer has these. Reports she is wheelchair-bound but has had difficulty finding caregivers that can help manage her tube feeds. Adamant that she does not want to return to [facility], prefers to return home but is aware of her current care needs which without additional services at home preclude live safely. Case management consulted Dysphagia Oropharyngeal dysphagia worsened by thyroid mass with impingement on the esophagus. 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 intake and should be kept strict NPO. PEG tube is available for alternative route for nutrition. Long-term will need assessment of thyroid mass and surgery however has not been medically stable enough to pursue this and requires ongoing outpatient workup. S/p PEG tube placement 06/29 at [facility]. Continue PEG feeds, nutrition following Patient's home nursing team was unable to provide care for her PEG tube and was discharged to [facility] however patient rapidly declined at that facility. Patient refuses placement back, case management consulted to facilitate alternat arianne options. Ultimately patient's long-term goals would be to have surgical intervention of her thyroid if there was any chance that she could swallow any type of food or liquid safely, and to arrange home caregivers that could manage a PEG tube if this is still required. ? Thyroid mass/cancer Noted on prior imaging. Recommend for outpatient follow-up has not been medically stable enough to progress to this at time of admission TSH is significantly suppressed, free T4 pending. Thyroid ultrasound consistent with goiter Patient strong preference to pursue surgical intervention if at all possible given her change and suspected contribution of this on her ability to swallow, although she is a increased surgical risk and this would likely need to be done at a tertiary care center. Discussed with case management, possible referrals to ENT at [facility] versus [facility]. Please see progress note from 07/16/2024 for complete summary of ethics consultation, palliative care consultation which was performed at [facility]. These records have also been scanned into the EMR DVT prophylaxis: Heparin due to renal dysfunction Disposition: PCU CODE STATUS: DNR Diet: N.p.o. PEG feeds (2) DM2 (diabetes mellitus, type 2): (3) Cerebral palsy: (4) Status post insertion of percutaneous endoscopic gastrostomy (PEG) tube: Admission and Anticipated Discharge Date Admission Date: July 15, 2024 Subjective She was bedside this morning. Near normal mentation. She feels greatly improved. She is alert oriented to name place her medical history and is active in participation in discussion around goals and future planning. She reports that ultimately her goal is to return home although recognizes that she does need additional care due to her limitations with transferring and daily activities and increased needs with her PEG tube. She does report she would prefer to return home but understands the need for likely temporary placement for this but expresses a clear desire that long-term she would like to return home with caregivers if possible, and if there was any hope that her swallowing could be improved by surgical intervention of her thyroid goiter would like to pursue this. Discussed with case management, possible referrals to either [facility] versus [facility]. Will attempt to facilitate appointment for this as best possible patient is aware that this is not an emergent referral and will likely take some time and stabilization and due to her perioperative risk would at minimum need to be done at a tertiary care system if a surgeon feels she is a appropriate surgical candidate. She is tearful, reporting that she understands the risks bu t as it is her high pressure goals of care would like to pursue this if possible. No other questions at time of bedside assessment. She appears clinically well Physical Exam Physical Exam: General: Alert and oriented x 3, no acute distress. Greatly improved and active in conversation. Appears near normal mentation with linear thought process HEENT: Atraumatic, normocephalic. Dukas membranes remain tacky Pulm: Clear to station bilaterally, no increased work of breathing Cardiac: Regular, tachycardic. Continue to improve and now less than 100 Abdominal: Nontender, nondistended, soft. PEG tube is in place, site without erythema/warmth/discharge. Extremities: Lower extremities with chronic cerebral palsy deformities Results & Data Results & Data Vital Signs (Past 12 Hours) Vital Signs Temp Pulse Pulse Resp BP BP Pulse Ox 07/17/24 15:41 97/65 L 07/17/24 11:36 36.8 C 93 H 18 102/67 99 07/17/24 08:08 07/17/24 08:00 83 07/17/24 07:37 36.9 C 93 H 18 97/60 L 100 07/17/24 06:30 80 8 L 100 07/17/24 05:00 88 12 99 07/17/24 04:03 85 9 L 98 07/17/24 04:00 106/74 07/17/24 03:57 35.8 C L 90 17 97 O2 Del Method 07/17/24 15:41 07/17/24 11:36 Room Air 07/17/24 08:08 Room Air 07/17/24 08:00 07/17/24 07:37 Room Air 07/17/24 06:30 07/17/24 05:00 07/17/24 04:03 07/17/24 04:00 07/17/24 03:57 PG Care Time/CCT Total # of Minutes Spent Total Time Spent with Patient: Total time spent is greater than 50% in coordination of care (as documented) at patient's floor/unit and/or counseling patient: Coding Level of Care Code 17553 SUB INP/OBS CARE 350MIN Diagnoses Hyperosmolar hyperglycemic state (HHS) E11.00 DM2 (diabetes mellitus, type 2) E11.9 Cerebral palsy G80.9 Cerebral palsy type: unspecified type Status post insertion of percutaneous endoscopic gastrostomy (PEG) tube Z93.1 (3) Cerebral palsy Cerebral palsy type: unspecified type Qualified Code(s): G80.9 - Cerebral palsy, unspecified
[2024-07-17] MEDS: LACTATED RINGER'S 1,000 ML IV SCH (16:46)
[2024-07-18 05:30] LABS: BUN Creatinine Ratio 27.3 (10-20); Calcium 8.4 mg/dl (8.6-10.3); Creatinine Clr Calc Pharmacy 133.6 ml/min; Magnesium 1.4 mg/dl (1.7-2.4); Phosphorus 3.4 mg/dl (2.5-4.9); Potassium 4.1 mmol/L (3.5-5.1)
[2024-07-18] MEDS: LANTUS PER UNIT CHARGE SQ SCH (08:56)
[2024-07-18] MEDS: MAGNESIUM SULFATE / D5W 1 GM/100 ML BAG IV SCH (11:01)
[2024-07-18] MEDS: SODIUM CHLORIDE 0.9% 1,000 ML IV ONE (11:02)
[2024-07-18] MEDS: TUBE FEEDING WATER FLUSH PEG SCH (11:15)
[2024-07-18] MEDS: FIBERSOURCE HN 1.2 CAL 1000 ML BAG GT SCH (16:07)
--- NOTE | 2024-07-18 16:08 | Hospitalist Progress Note ---
Date of Service July 18, 2024 Assessment & Plan (1) Hyperosmolar hyperglycemic state (HHS): (2) DM2 (diabetes mellitus, type 2): (3) Cerebral palsy: (4) Status post insertion of percutaneous endoscopic gastrostomy (PEG) tube: Plan 54-year-old woman with cerebral palsy, type II DM, dysphagia with PEG tube placement who was admitted with HHS and sepsis from complicated UTI. she was critically ill at the time she was admitted. HHS treatment was complicated by concurrent hypernatremia. HHS, DM2 Improving - she is tachycardic today and is likely volume depleted ordered normal saline 1 L bolus Continue basal bolus insulin. Pharmacy glycemic management following for a djustments. BSG checks every 4 hours with SSI Enteral feeds per nutrition via G-tube mental status seems to be at her baseline Replacing hypomagnesemia of 1.4 with 3g IV. Check K/Mag in am. K normal today. Hypernatremia Profoundly volume contracted on admission. Concurrently treated for HHS. Normalized, stable UTI/pyelonephritis, mild right hydroureteronephrosis UCx speciated E. coli, Rocephin continued. Target 5-7-day total course of antibiotics Elevated troponin 2/2 myocardial demand ischemia Cerebral palsy New PEG tube placed 06/29/2024. healing as expected, last examined 3/ Patient previously with assistive caregivers at home however she no longer has these. Reports she is wheelchair-bound but has had difficulty finding caregivers that can help manage her tube feeds. Adamant that she does not want to return to [facility], prefers to return home but is aware of her current care needs which without additional services at home preclude live safely. Case m anagement consulted Dysphagia Oropharyngeal dysphagia worsened by thyroid mass with impingement on the esophagus. 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 intake and should be kept strict NPO. PEG tube is available for alternative route for nutrition. Long-term will need assessment of thyroid mass and surgery however has not been medically stable enough to pursue this and requires ongoing outpatient workup. S/p PEG tube placement 06/29 at [facility]. Continue PEG feeds, nutrition following Patient's home nursing team was unable to provide care for her PEG tube and was discharged to [facility] however patient rapidly declined at that facility. Patient refuses placement back, case management consulted to facilitate alt ernative options. goiter Noted on prior imaging. Recommend for outpatient follow-up with ENT, has not been medically stable enough to progress to this at time of admission TSH is significantly suppressed, free T4 normal 1.5. Thyroid ultrasound consistent with goiter Patient strong preference to pursue surgical intervention if at all possible given her change and suspected contribution of this on her ability to swallow, although she is a increased surgical risk and this would likely need to be done at a tertiary care center. Discussed with case management, possible referrals to ENT at [facility] versus [place]. AGUILAR (present on admission) - resolved. Cr 0.44 Sepsis due to UTI/pyelonephritis (present on admission) - resolved Please see progress note from 07/16/2024 for complete summary of ethics consultation, palliative care consultation which was performed at [facility]. These records have also been scanned into the EMR DVT prophylaxis: Heparin due to renal dysfunction Ultimately patient's long-term goals are to have surgical intervention of her thyroid if there was any chance that she could swallow any type of food or liquid safely, and to arrange home caregivers that could manage a PEG tube if this is still required. Admission and Anticipated Discharge Date Admission Date: July 15, 2024 Subjective Criss is feeling much better than a few days ago, she does not have any abdominal pain or dysuria. She has mild consistent nausea and asks for some antiemetic, no vomiting she states that she wants to go home and that she wants to start eating. We had a discussion about why both of these things would be a poor idea right now that would put her at significant risk of complications, however it is good to have long-term goals. we discussed the goiter and how it is affecting her swallowing Physical Exam Physical Exam: PHYSICAL EXAMINATION Last 24h vital signs reviewed, see documentation in flowsheet General: comfortable appearing, no distress, resting in bed HEENT: Normocephalic, atraumatic, pupils round and equal, sclerae anicteric, no conjunctival injection, moist mucus membranes Lungs: Normal respiratory effort. Clear to auscultation bilaterally. No RRW Heart: Regular rate and rhythm, no murmurs. No JVD Abdomen: Soft, nontender, nondistended. Bowel sounds present. G-tube site left upper quadrant some minor discharge no surrounding erythema does not appear infected Extremities: lower extremities are both cool but upper extremities are warm. No extremity edema. Neuro: Alert and oriented x 4, though seems to have limited understanding of the implications of her current medical problems, impaired insight and judgment. 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 - has not been ambulatory for many years Psych: Normal affect and behavior Results & Data Results & Data Vital Signs (Past 12 Hours) Vital Signs Temp Pulse Pulse Resp BP BP Pulse Ox 07/18/24 11:10 109/74 07/18/24 11:06 99 H 18 109/74 98 07/18/24 10:06 103 H 30 H 07/18/24 08:23 07/18/24 08:00 102 H 07/18/24 07:00 07/18/24 07:00 36.5 C 78 20 96/79 L 99 O2 Del Method 07/18/24 11:10 07/18/24 11:06 07/18/24 10:06 07/18/24 08:23 Room Air 07/18/24 08:00 07/18/24 07:00 Room Air 07/18/24 07:00 Room Air Laboratory Results magnesium is 1.4 which is low, potassium normal at 4.1, creatinine 0.44 I reviewed the blood glucoses which are much improved in the past 24 hours, [place] from [id number] PG Care Time/CCT Total # of Minutes Spent Total Time Spent with Patient: Total time spent is greater than 50% in coordination of care (as documented) at patient's floor/unit and/or counseling patient: Coding Level of Care Code 23236 SUB INP/OBS CARE 3/50MIN Diagnoses Hyperosmolar hyperglycemic state (HHS) E11.00 DM2 (diabetes mellitus, type 2) E11.9 Cerebral palsy G80.9 Cerebral palsy type: unspecified type Status post insertion of percutaneous endoscopic gastrostomy (PEG) tube Z93.1 (3) Cerebral palsy Cerebral palsy type: unspecified type Qualified Code(s): G80.9 - Cerebral palsy, unspecified
--- NOTE | 2024-07-18 16:42 | Electrocardiogram Report ---
Test Reason : Blood Pressure : */* mmHG Vent. Rate : 163 BPM Atrial Rate : 163 BPM P-R Int : 96 ms QRS Dur : 54 ms QT Int : 274 ms P-R-T Axes : 62 69 75 degrees QTcB Int : 451 ms Sinus tachycardia with short [place] Nonspecific ST abnormality Abnormal ECG No previous ECGs available Confirmed by Jimmy Arroyo ([id number]) on 07/18/2024 4:41:28 PM Referred By: Heide Heartzander Confirmed By: Jimmy Arroyo
[2024-07-18] MEDS: BANATROL TF 60 ML LIQUID PKT PEG SCH (21:25)
[2024-07-19 08:21] LABS: BUN Creatinine Ratio 14.6 (10-20); Calcium 9.1 mg/dl (8.6-10.3); Creatinine Clr Calc Pharmacy 143.4 ml/min; Magnesium 1.8 mg/dl (1.7-2.4); Phosphorus 3.6 mg/dl (2.5-4.9); Potassium 4.2 mmol/L (3.5-5.1)
[2024-07-19] MEDS: THIAMINE HCL 100 MG TAB PEG SCH (08:35)
--- NOTE | 2024-07-19 14:02 | Hospitalist Progress Note ---
Date of Service July 19, 2024 Assessment & Plan (1) Hyperosmolar hyperglycemic state (HHS): (2) DM2 (diabetes mellitus, type 2): (3) Cerebral palsy: (4) Status post insertion of percutaneous endoscopic gastrostomy (PEG) tube: Plan 54-year-old woman with cerebral palsy, type II DM, dysphagia with PEG tube placement who was admitted from SNF with HHS and sepsis from complicated UTI. she was critically ill at the time she was admitted. HHS treatment was complicated by concurrent hypernatremia. HHS, DM2 HHS resolved Continue basal bolus insulin. Pharmacy glycemic management following for adjustments. BSG checks every 4 hours because of TFs. Reviewed BG's currently at goal Enteral feeds per nutrition via G-tube mental status seems to be at her baseline diarrhea - tube feeds + antibiotics -cont banana flakes -try to add probiotic and prn imodum but unclear if these can be given via peg -interfering with wound care hypomagnesemia - improved to 1.8 today Hypernatremia Profoundly volume contracted on admission. Concurrently treated for HHS. Normalized, 142 UTI/pyelonephritis, mild right hydroureteronephrosis UCx rivas-sensitive Klebsiella d3 ceftriaxone - change to cephalexin via gtube through 07/26 Elevated troponin 2/2 myocardial demand ischemia Cerebral palsy New PEG tube placed 06/29/2024. healing as expected, last examined / Patient previously with assistive caregivers at home however she no longer has these. Reports she is wheelchair-bound but has had difficulty finding caregivers that can help manage her tube feeds. Adamant that she does not want to return to [facility], prefers to return home but is aware of her current care needs which without additional services at home preclude live safely. Case management consulted Dysphagia Oropharyngeal dysphagia worsened by thyroid mass with impingement on the esophagus. 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 intake and should be kept strict NPO. PEG tube is available for alternative route for nutrition. Long-term will need assessment of thyroid mass and surgery however has not been medically stable enough to pursue this and requires ongoing outpatient workup. S/p PEG tube placement 06/29 at [facility]. Continue PEG feeds, nutrition following Patient's home nursing team was unable to provide care for her PEG tube and was discharged to [facility] however patient rapidly declined at that facility. Patient refuses placement back, case management consulted to facilitate alternative options. goiter Noted on prior imaging. Recommend for outpatient follow-up with ENT, has not been medically stable enough to progress to this at time of admission TSH is significantly suppressed, free T4 normal 1.5. Thyroid ultrasound consistent with goiter Patient strong preference to pursue surgical intervention if at all possible given her change and suspected contribution of this on her ability to swallow, although she is a increased surgical risk and this would likely need to be done at a tertiary care center. Discussed with case management, possible referrals to ENT at [facility] versus [place]. AGUILAR (present on admission) - resolved. Cr 0.44 Sepsis due to UTI/pyelonephritis (present on admission) - resolved Please see progress note from 07/16/2024 for complete summary of ethics consultation, palliative care consultation which was performed at [facility]. These records have also been scanned into the EMR DVT prophylaxis: Heparin due to renal dysfunction Ultimately patient's long-term goals are to have surgical intervention of her thyroid if there was any chance that she could swallow any type of food or liquid safely, and to arrange home caregivers that could manage a PEG tube if this is still required. Admission and Anticipated Discharge Date Admission Date: July 15, 2024 Subjective Criss having loose BM's currently getting cleaned up by nursing. c/o burning pain with current barrier cream sacral ulcers have been there awhile she says (predates [facility] - per report she was only there <24h) has roho cushion for her wc Physical Exam 2 Physical Exam: PHYSICAL EXAMINATION Last 24h vital signs reviewed, see documentation in flowsheet General: christiane on side, irritable, getting cleaned up by RNs HEENT: moist mucus membranes Lungs: Normal respiratory effort. Heart: deferred Abdomen: Soft, nondistended. gtube LUQ brown loose stool. multiple sacral decubitus ulcers, do not appear infected Extremities: LE wwp no edema Neuro: Alert and oriented x 4, though seems to have limited understanding of the implications of her current medical problems, impaired insight and judgment. 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 unchanged Psych: Normal affect and behavior Results & Data Results & Data Vital Signs (Past 12 Hours) Vital Signs Temp Pulse Pulse Resp BP BP Pulse Ox 07/19/24 11:33 36.5 C 106 H 20 108/71 97 07/19/24 07:50 36.0 C L 98 H 20 109/64 99 07/19/24 07:00 96 H 07/19/24 03:08 36.4 C L 106 H 18 110/66 96 O2 Del Method 07/19/24 11:33 Room Air 07/19/24 07:50 Room Air 07/19/24 07:00 07/19/24 03:08 Room Air Laboratory Results 07/15/24 10:50 07/19/24 07:25 PG Care Time/CCT Total # of Minutes Spent Total Time Spent with Patient: Total time spent is greater than 50% in coordination of care (as documented) at patient's floor/unit and/or counseling patient: Coding Level of Care Code 13776 SUB INP/OBS CARE 235MIN Diagnoses Hyperosmolar hyperglycemic state (HHS) E11.00 DM2 (diabetes mellitus, type 2) E11.9 Cerebral palsy G80.9 Cerebral palsy type: unspecified type Status post insertion of percutaneous endoscopic gastrostomy (PEG) tube Z93.1 (3) Cerebral palsy Cerebral palsy type: unspecified type Qualified Code(s): G80.9 - Cerebral palsy, unspecified
[2024-07-19] MEDS ORDERED: bisacodyL 10 MG SUPP PR PRN (16:46)
[2024-07-19] MEDS: METOPROLOL TARTRATE 50 MG TAB PO SCH (20:31)
--- NOTE | 2024-07-20 11:32 | Pharmacy Report ---
Pharmacy Glycemic Short Note 2 - Date of Service July 20, 2024 - Glycemic Short BSG Results (Last 24 hours): 07/19/24 07/19/24 07/19/24 12:19 15:46 19:57 POC Glucose 159 H 120 H 153 H 07/19/24 07/20/24 07/20/24 23:47 03:49 08:06 POC Glucose 145 H 142 H 209 H OUTPATIENT ANTIDIABETIC REGIMEN: * Lantus 30 units SQ BID * metformin 1gm PO BID * empagliflozin 25mg PO daily HbA1C: 6.9% 07/17/24 ASSESSMENT: 07/20: * Criss received a total of 20 units of insulin yesterday (10 were basal and 10 were bolus). BSGs were pretty well controlled ([phone]/dL) so current basal insulin regimen will be continued without change. * BSGs jaiml this morning to 209 and then 195mg/dL so the CR was tightened some. * She continues on Fibersource HN tube feeding (currently at 40ml/hr) with q 4 hour BSG checks. 07/17 * BSGs well controlled over last 24 hours. Many however less than 110 - will lessen both basal and prandial insulin doses * 25 units of SQ insulin given over last 24 hours. * Patient is receiving Peptamen 1.5 @30cc/hr this AM. 07/16 * Pt is a 54 year old female with history of DM2 on insulin therapy at home admitted with HHS and UTI. Pharmacy consulted to assist with glycemic management. * Initiated on an insulin infusion yesterday per DKA/HHS protocol and transitioned to SQ insulin last night by provider. * BSGs today [phone]/dL. * Received 20 units of Lantus ~ midnight last night. Today, IVF adjusted to remove dextrose and tube feeds initiated this afternoon (PEG/TF dependent). * Lantus 10 units X 1 dose today around lunch (also received a 4 unit IV bolus per hospitalist for BSG 352 on 1100 BMP) and then begin 20 units BID tonight. Novolog q4 with coverage for tube feeds. PLAN FOR INPATIENT GLYCEMIC CONTROL: * Hold outpatient oral diabetes medications * Basal insulin * Lantus 5 units SQ BID * Bolus insulin * NovoLog per scale Q 4 hrs while on continuous TFs via PEG * Goal Range: Low 110 mg/dL - High 140 mg/dL * Correction Factor: 35 mg/dL/unit * Nutritional / Prandial insulin per carb ratio of 1 unit per 12 grams CHO consumed
--- NOTE | 2024-07-20 12:57 | Hospitalist Progress Note ---
Date of Service July 20, 2024 Assessment & Plan (1) Hyperosmolar hyperglycemic state (HHS): (2) DM2 (diabetes mellitus, type 2): (3) Cerebral palsy: (4) Status post insertion of percutaneous endoscopic gastrostomy (PEG) tube: Plan 54-year-old woman with cerebral palsy, type II DM, dysphagia with PEG tube placement who was admitted from SNF with HHS and sepsis from complicated UTI. she was critically ill at the time she was admitted. HHS treatment was complicated by concurrent hypernatremia. HHS, DM2 HHS resolved Continue basal bolus insulin. Pharmacy glycemic management following for adjustments. BSG checks every 4 hours because of TFs. Reviewed BG's currently at goal Enteral feeds per nutrition via G-tube mental status seems to be at her baseline diarrhea - tube feeds + antibiotics -cont banana flakes -try to add probiotic and prn imodum but unclear if these can be given via peg -interfering with wound care Hypernatremia Profoundly volume contracted on admission. Concurrently treated for HHS. Normalized, 142 Spot check labs as needed UTI/pyelonephritis, mild right hydroureteronephrosis UCx rivas-sensitive Klebsiella d3 ceftriaxone - change to cephalexin via gtube through 07/26 Elevated troponin: 2/ myocardial demand ischemia Cerebral palsy New PEG tube placed 06/29/2024. healing as expected, last examined 07/18 Patient previously with assistive caregivers at home however she no longer has these. Reports she is wheelchair-bound but has had difficulty finding caregivers that can help manage her tube feeds. Adamant that she does not want to return to [facility], prefers to return home but is aware of her current care needs which without additional services at home preclude live safely. Case management consulted Dysphagia Oropharyngeal dysphagia worsened by thyroid mass with impingement on the esophagus. 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 intake and should be kept strict NPO. PEG tube is available for alternative route for nutrition. Long-term will need assessment of thyroid mass and surgery however has not been medically stable enough to pursue this and requires ongoing outpatient workup. S/p PEG tube placement 06/29 at [facility]. Continue PEG feeds, nutrition following Patient's home nursing team was unable to provide care for her PEG tube and was discharged to [facility] however patient rapidly declined at that facility. Patient refuses placement back, case management consulted to facilitate alternative options. goiter Noted on prior imaging. Recommend for outpatient follow-up with ENT, has not been medically stable enough to progress to this at time of admission TSH is significantly suppressed, free T4 normal 1.5. Thyroid ultrasound consistent with goiter Patient strong preference to pursue surgical intervention if at all possible given her change and suspected contribution of this on her ability to swallow, although she is a increased surgical risk and this would likely need to be done at a tertiary care center. Discussed with case management. Patient can follow- up with Dr. Joel [facility] as an outpatient, referral for this will be placed. AGUILAR (present on admission) - resolved. Cr 0.44 Sepsis due to UTI/pyelonephritis (present on admission) - resolved Please see progress note from 07/16/2024 for complete summary of ethics consultation, palliative care consultation which was performed at [facility]. These records have also been scanned into the EMR DVT prophylaxis: Heparin due to renal dysfunction Ultimately patient's long-term goals are to have surgical intervention of her thyroid if there was any chance that she could swallow any type of food or liquid safely, and to arrange home caregivers that could manage a PEG tube if this is still required. Placement is pending, patient provide number for an additional home health agency today otherwise multiple referrals to SNF facilities are pending. CM following, she is medically stable to discharge when placement is available Admission and Anticipated Discharge Date Admission Date: July 15, 2024 Subjective This is seen at the bedside. She reports that she was given the number of a home health service that may be able to meet some of her needs at [phone]. No other questions or concerns at bedside. Number passed along to case management. Also did discuss her case with ENT at [facility]. Dr. Joel may be able to see her nonemergency as an outpatient. If her goiter is truly contributing to her dysphagia then may benefit from evaluation and treatment for this, although it is not emergent as she has an alternative form of nutrition and her PEG tube and did not appear malignant on prior workup. Referral placed. No fevers chills or sweats. Mentating at her baseline and appears well at bedside. Physical Exam Physical Exam: General: Alert and oriented x 3, no acute distress. Comfortable in bed HEENT: Atraumatic, normocephalic. Dukas membranes moist Pulm: Clear to auscultation bilaterally, no increased work of breathing Cardiac: Regular, mildly tachycardic in the 90s Abdominal: Nontender, nondistended, soft. PEG tube is in place, site without erythema/warmth/discharge. Extremities: Lower extremities with chronic cerebral palsy deformities Results & Data Results & Data Vital Signs (Past 12 Hours) Vital Signs Temp Pulse Resp BP Pulse Ox O2 Del Method 07/20/24 07:49 36.4 C L 96 H 15 122/82 98 Room Air 07/20/24 07:35 Room Air PG Care Time/CCT Total # of Minutes Spent Total Time Spent with Patient: Total time spent is greater than 50% in coordination of care (as documented) at patient's floor/unit and/or counseling patient: Coding Level of Care Code 97755 SUB INP/OBS CARE 2/35MIN Diagnoses Hyperosmolar hyperglycemic state (HHS) E11.00 DM2 (diabetes mellitus, type 2) E11.9 Cerebral palsy G80.9 Cerebral palsy type: unspecified type Status post insertion of percutaneous endoscopic gastrostomy (PEG) tube Z93.1 (3) Cerebral palsy Cerebral palsy type: unspecified type Qualified Code(s): G80.9 - Cerebral palsy, unspecified
[2024-07-21] MEDS: LIDOCAINE 2% JELLY 5 ML TUBE EXT PRN (08:17)
[2024-07-21] MEDS ORDERED: LANTUS PER UNIT CHARGE SQ SCH (09:00)
--- NOTE | 2024-07-21 14:20 | Hospitalist Progress Note ---
Date of Service July 21, 2024 Assessment & Plan (1) Hyperosmolar hyperglycemic state (HHS): (2) DM2 (diabetes mellitus, type 2): (3) Cerebral palsy: (4) Status post insertion of percutaneous endoscopic gastrostomy (PEG) tube: Plan 54-year-old woman with cerebral palsy, type II DM, dysphagia with PEG tube placement who was admitted from SNF with HHS and sepsis from complicated UTI. she had only been at the SNF for 36 hours. she was critically ill at the time she was admitted. HHS treatment was complicated by concurrent hypernatremia. HHS, DM2 HHS resolved Continue basal bolus insulin. Pharmacy glycemic management following for adjustments. BSG checks every 4 hours because of TFs. Reviewed BG's currently Above goal, reviewed pharmacy notes EF: CR was tightened up yesterday afternoon Enteral feeds per nutrition via G-tube mental status resolved to baseline diarrhea - tube feeds + antibiotics -cont banana flakes -try to add probiotic and prn imodum but unclear if these can be given via peg -interfering with wound care sinus tachycardia, mild, has recurred - trial normal saline IV x 1 L to see if this is related to hypovolemia, seems probable since she had diarrhea yesterday - continue oral metoprolol - a.m. BMP Hypernatremia - resolved Profoundly volume contracted on admission. Concurrently treated for HHS. a.m. BMP UTI/pyelonephritis, mild right hydroureteronephrosis UCx rivas-sensitive Klebsiella initially treated with ceftriaxone - changed to cephalexin via gtube through 07/26 Elevated troponin: 2/2 myocardial demand ischemia Cerebral palsy, dysphagia, limited decisional capacity New PEG tube placed 06/29/2024. healing as expected, last examined 07/18 Dysphagia Oropharyngeal dysphagia worsened by thyroid mass with impingement on the esophagus. 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 intake and should be kept strict NPO. PEG tube is available for alternative route for nutrition. Long-term will need assessment of thyroid mass and surgery however has not been medically stable enough to pursue this and requires ongoing outpatient workup. S/p PEG tube placement 06/29 at [facility]. Continue PEG feeds, nutrition following Patient's goiter Noted on prior imaging. Recommend for outpatient follow-up with ENT, has not been medically stable enough to progress to this at time of admission TSH is significantly suppressed, free T4 normal 1.5. Thyroid ultrasound consistent with goiter Patient strong preference to pursue surgical intervention if at all possible given her change and suspected contribution of this on her ability to swallow, although she is a increased surgical risk and this would likely need to be done at a tertiary care center. Discussed with case management. Patient can follow- up with Dr. Joel [facility] as an outpatient, referral for this will be placed. AGUILAR (present on admission) - resolved. Cr 0.44 Sepsis due to UTI/pyelonephritis (present on admission) - resolved Please see progress note from 07/16/2024 for complete summary of ethics consultation, palliative care consultation which was performed at [facility]. These records have also been scanned into the EMR DVT prophylaxis: Heparin due to renal dysfunction Ultimately Criss's long-term goals are to have surgical intervention of her thyroid if there was any chance that she could swallow any type of food or liquid safely, and to arrange home caregivers that could manage a PEG tube if this is still required. Placement is pending, patient provide number for an additional home health agency today otherwise multiple referrals to SNF facilities are pending. CM following, she is medically stable to discharge when placement is available. I had a long discussion with her today, she wants to make clear that her goal is to discharge home not to nursing facility, I stated that we do not have a safe home discharge plan in place at this time so if she chose to leave for home rather than to discharge to SNF it would be AGAINST MEDICAL ADVICE, excepting if she were to discharge with home hospice and caregivers. She again asked about goiter surgery and timeline for that I told her we had made referral to a tertiary care surgeon for outpatient evaluation and that this process would likely take some time at least a few months and would not be a short-term plan. It is not an emergency surgery since she is safely fed by PEG tube, it is not completely clear whether surgery would improve her dysphagia very much or whether she is a surgical candidate, she would need to have improvement in her current medical conditions including healing of her sacral ulcers prior to semielective surgery Admission and Anticipated Discharge Date Admission Date: July 15, 2024 Subjective Criss states that her goal is to go home and she does not understand why she cannot go home she asks for Calmoseptine cream for her bottom, lidocaine gel is only helping a little bit no diarrhea recorded past 24 hours vital signs notable for recurrent mild sinus tachycardia Physical Exam Physical Exam: PHYSICAL EXAMINATION Last 24h vital signs reviewed, see documentation in flowsheet General: awake alert lying in bed HEENT: moist mucus membranes Lungs: normal work of breathing clear to auscultation bilaterally Heart: regular mildly tachycardic no murmurs rubs or gallops Abdomen: Soft, nondistended. gtube LUQ reviewed photos of multiple sacral decubitus ulcers and wound nurse note from 07/20, there is maceration but they do not appear infected Extremities: LE wwp no edema, significant atrophy of musculature bilaterally Neuro: Alert and oriented x 4, reasoning remains circular with impaired insight and judgment. 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 unchanged Psych: Normal affect and behavior Results & Data Results & Data Vital Signs (Past 12 Hours) Vital Signs Temp Pulse Resp BP Pulse Ox O2 Del Method 07/21/24 08:59 Room Air 07/21/24 06:55 36.5 C 104 H 18 102/73 95 Room Air PG Care Time/CCT Total # of Minutes Spent Total Time Spent with Patient: Total time spent is greater than 50% in coordination of care (as documented) at patient's floor/unit and/or counseling patient: Coding Level of Care Code 63620 SUB INP/OBS CARE 2/35MIN Diagnoses Hyperosmolar hyperglycemic state (HHS) E11.00 DM2 (diabetes mellitus, type 2) E11.9 Cerebral palsy G80.9 Cerebral palsy type: unspecified type Status post insertion of percutaneous endoscopic gastrostomy (PEG) tube Z93.1 (3) Cerebral palsy Cerebral palsy type: unspecified type Qualified Code(s): G80.9 - Cerebral palsy, unspecified
[2024-07-21] MEDS: SODIUM CHLORIDE 0.9% 1,000 ML IV SCH (14:45)
[2024-07-21] MEDS: LANTUS PER UNIT CHARGE SQ SCH (21:16)
[2024-07-22 05:46] LABS: Hematocrit (blood only) 29.3 % (37.0-47.0); Hemoglobin 9.1 g/dl (12.0-16.0); Mean Corpuscular Hemoglobin 30.2 pg (25.0-34.0); Mean Corpuscular Hgb Conc 31.1 g/dL (32.0-36.0); Mean Corpuscular Volume 97.3 fL (80.0-100.0); Mean Platelet Volume 11.7 fL (9.4-12.4); Platelet Count 277 K/uL (130-400); RDW Coefficient of Variation 15.7 % (11.5-14.5); RDW Standard Deviation 53.7 fL (36.4-46.3); Red Blood Count 3.01 M/uL (4.20-5.40); White Blood Count 7.97 K/ul (4.8-10.8)
[2024-07-22 06:03] LABS: Calcium 8.6 mg/dl (8.6-10.3); Creatinine Clr Calc Pharmacy 143.4 ml/min; Potassium 4.1 mmol/L (3.5-5.1)
[2024-07-22] MEDS: LOPERAMIDE HCL 2 MG CAP PO PRN (14:51)
--- NOTE | 2024-07-22 16:41 | Hospitalist Progress Note ---
Date of Service July 22, 2024 Assessment & Plan (1) Hyperosmolar hyperglycemic state (HHS): (2) DM2 (diabetes mellitus, type 2): (3) Cerebral palsy: (4) Status post insertion of percutaneous endoscopic gastrostomy (PEG) tube: Plan 54-year-old woman with cerebral palsy, type II DM, dysphagia with PEG tube placement who was admitted from SNF with HHS and sepsis from complicated UTI. she had only been at the SNF for 36 hours. she was critically ill at the time she was admitted. HHS treatment was complicated by concurrent hypernatremia. HHS, DM2 HHS resolved, mental status is at baseline Continue basal bolus insulin. Pharmacy glycemic management following for adjustments. BSG checks every 4 hours because of TFs. CF: CR was tightened up yesterday, blood glucoses currently at goal Enteral feeds per nutrition via G-tube diarrhea - tube feeds + antibiotics -cont banana flakes - she had 2 loose stools this morning, discussed with CORRINA Sommer who will administer Imodium. Criss says she has chronic loose stools since she was a child and does use Imodium as needed with good effect -interfering with wound care sinus tachycardia, mild, has recurred. - a little bit improved after normal saline - continue oral metoprolol - suspect there is a chronic component to this - T4 was normal, we will check a T3 in a.m. Hypernatremia - resolved Profoundly volume contracted on admission. Concurrently treated for HHS. sodium normal at 139 today UTI/pyelonephritis, mild right hydroureteronephrosis UCx rivas-sensitive Klebsiella initially treated with ceftriaxone - changed to cephalexin via gtube through 07/26 Elevated troponin: 2/2 myocardial demand ischemia Cerebral palsy, dysphagia, limited decisional capacity New PEG tube placed 06/29/2024. healing as expected, last examined 07/18 Dysphagia Oropharyngeal dysphagia worsened by thyroid mass with impingement on the esophagus. 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 intake and should be kept strict NPO. PEG tube is available for alternative route for nutrition. Long-term will need assessment of thyroid mass and surgery however has not been medically stable enough to pursue this and requires ongoing outpatient workup. S/p PEG tube placement 06/29 at [facility]. Continue PEG feeds, nutrition following goiter Noted on prior imaging. Recommend for outpatient follow-up with ENT, has not been medically stable enough to progress to this at time of admission TSH is significantly suppressed, free T4 normal 1.5. Thyroid ultrasound consistent with goiter Patient strong preference to pursue surgical intervention if at all possible given her change and suspected contribution of this on her ability to swallow, although she is a increased surgical risk and this would likely need to be done at a tertiary care center. Discussed with case management. Patient can follow- up with Dr. Joel [facility] as an outpatient, referral for this will be placed. AGUILAR (present on admission) - resolved. Cr 0.4 unchanged Sepsis due to UTI/pyelonephritis (present on admission) - resolved Please see progress note from 07/16/2024 for complete summary of ethics consultation, palliative care consultation which was performed at [facility]. These records have also been scanned into the EMR DVT prophylaxis: Heparin due to renal dysfunction Ultimately Criss's long-term goals are to have surgical intervention of her thyroid if there was any chance that she could swallow any type of food or liquid safely, and to arrange home caregivers that could manage a PEG tube if this is still required. Placement is pending, patient provide number for an additional home health agency today otherwise multiple referrals to SNF facilities are pending. CM following, she is medically stable to discharge when placement is available. Admission and Anticipated Discharge Date Admission Date: July 15, 2024 Subjective leases complaint today is that her butt hurts, she wants to lie down, and she wants us to use Calmoseptine cream like she uses at home I explained to her that head of the bed needs to be elevated at 30 degrees to prevent aspiration with tube feeding, in the also we do not use Calmoseptine because it could worsen her current problem with irritation and maceration of the skin on her bottom. the RNs on the unit and the nursing staff development coordinator have already explained the same thing to her several times today Physical Exam 2 Physical Exam: PHYSICAL EXAMINATION Last 24h vital signs reviewed, see documentation in flowsheet no change to exam 07/22 General: awake alert lying in bed HEENT: moist mucus membranes Lungs: normal work of breathing clear to auscultation bilaterally Heart: regular mildly tachycardic no murmurs rubs or gallops Abdomen: Soft, nondistended. gtube LUQ Extremities: LE wwp no edema, significant atrophy of musculature bilaterally Neuro: Alert and oriented x 4, reasoning remains circular with impaired insight and judgment. 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 unchanged Psych: Normal affect and behavior Results & Data Results & Data Vital Signs (Past 12 Hours) Vital Signs Temp Pulse Resp BP BP Pulse Ox O2 Del Method 07/22/24 15:27 Room Air 07/22/24 14:26 36.4 C L 90 18 103/69 99 Room Air 07/22/24 07:31 36.6 C 94 H 18 106/75 96 Room Air Laboratory Results 07/22/24 05:25 07/22/24 05:25 PG Care Time/CCT Total # of Minutes Spent Total Time Spent with Patient: Total time spent is greater than 50% in coordination of care (as documented) at patient's floor/unit and/or counseling patient: Coding Level of Care Code 32471 SUB INP/OBS CARE 2/35MIN Diagnoses Hyperosmolar hyperglycemic state (HHS) E11.00 DM2 (diabetes mellitus, type 2) E11.9 Cerebral palsy G80.9 Cerebral palsy type: unspecified type Status post insertion of percutaneous endoscopic gastrostomy (PEG) tube Z93.1 (3) Cerebral palsy Cerebral palsy type: unspecified type Qualified Code(s): G80.9 - Cerebral palsy, unspecified
[2024-07-23 06:13] LABS: Hematocrit (blood only) 29.9 % (37.0-47.0); Hemoglobin 9.2 g/dl (12.0-16.0); Mean Corpuscular Hemoglobin 30.1 pg (25.0-34.0); Mean Corpuscular Hgb Conc 30.8 g/dL (32.0-36.0); Mean Corpuscular Volume 97.7 fL (80.0-100.0); Mean Platelet Volume 11.9 fL (9.4-12.4); Platelet Count 300 K/uL (130-400); RDW Standard Deviation 55.7 fL (36.4-46.3); Red Blood Count 3.06 M/uL (4.20-5.40); Reticulocyte % 3.91 % (0.50-2.00)
[2024-07-23 06:32] LABS: Ferritin 72.3 ng/ml (8-388)
[2024-07-23] MEDS: LANTUS PER UNIT CHARGE SQ SCH (08:59)
--- NOTE | 2024-07-23 10:34 | Pharmacy Report ---
Pharmacy Glycemic Short Note 2 - Date of Service July 23, 2024 - Glycemic Short BSG Results (Last 24 hours): 07/22/24 07/22/24 07/22/24 11:53 17:01 19:38 POC Glucose 173 H 134 H 150 H 07/22/24 07/23/24 07/23/24 23:19 03:58 07:35 POC Glucose 166 H 190 H 202 H OUTPATIENT ANTIDIABETIC REGIMEN: * Lantus 30 units SQ BID * metformin 1gm PO BID * empagliflozin 25mg PO daily HbA1C: 6.9% 07/17/24 ASSESSMENT: 07/23: * Patient received a total of 37 units of insulin yesterday. (14 units were basal and 23 units were bolus). Most BSGs were above goal yesterday ([phone]/dL) despite tightening CF and increasing Lantus doses. This is most likely due to increasing rate of tube feeds. * AM BSG was 202mg/dL this morning. Lantus was increased to 10units SQ BID. Will continue parameters of bolus insulin without change. 07/20: * Criss received a total of 20 units of insulin yesterday (10 were basal and 10 were bolus). BSGs were pretty well controlled ([phone]/dL) so current basal insulin regimen will be continued without change. * BSGs jamil this morning to 209 and then 195mg/dL so the CR was tightened some. * She continues on Fibersource HN tube feeding (currently at 40ml/hr) with q 4 hour BSG checks. 07/17 * BSGs well controlled over last 24 hours. Many however less than 110 - will lessen both basal and prandial insulin doses * 25 units of SQ insulin given over last 24 hours. * Patient is receiving Peptamen 1.5 @30cc/hr this AM. 07/16 * Pt is a 54 year old female with history of DM2 on insulin therapy at home admitted with HHS and UTI. Pharmacy consulted to assist with glycemic management. * Initiated on an insulin infusion yesterday per DKA/HHS protocol and transitioned to SQ insulin last night by provider. * BSGs today [phone]/dL. * Received 20 units of Lantus ~ midnight last night. Today, IVF adjusted to remove dextrose and tube feeds initiated this afternoon (PEG/TF dependent). * Lantus 10 units X 1 dose today around lunch (also received a 4 unit IV bolus per hospitalist for BSG 352 on 1100 BMP) and then begin 20 units BID tonight. Novolog q4 with coverage for tube feeds. PLAN FOR INPATIENT GLYCEMIC CONTROL: * Hold outpatient oral diabetes medications * Basal insulin * Lantus 10 units SQ BID * Bolus insulin * NovoLog per scale Q 4 hrs while on continuous TFs via PEG * Goal Range: Low 110 mg/dL - High 140 mg/dL * Correction Factor: 35 mg/dL/unit * Nutritional / Prandial insulin per carb ratio of 1 unit per 12 grams CHO consumed
[2024-07-23] MEDS: LACTOBACILLUS ACIDOPHILUS 1 GM PACK GT SCH (16:06)
--- NOTE | 2024-07-23 16:33 | Hospitalist Progress Note ---
Date of Service July 23, 2024 Assessment & Plan (1) Hyperosmolar hyperglycemic state (HHS): (2) DM2 (diabetes mellitus, type 2): (3) Cerebral palsy: (4) Status post insertion of percutaneous endoscopic gastrostomy (PEG) tube: Plan 54-year-old woman with cerebral palsy, type II DM, dysphagia with PEG tube placement who was admitted from SNF with HHS and sepsis from complicated UTI. she had only been at the SNF for 36 hours. prior to that I think she was in the hospital at [facility]. she was critically ill at the time she was admitted. HHS treatment was complicated by concurrent hypernatremia. HHS, DM2 HHS resolved, mental status is at baseline Continue basal bolus insulin. Pharmacy glycemic management following for adjustments. BSG checks every 4 hours because of TFs. Reviewed blood glucoses which are at goal Enteral feeds per nutrition via G-tube diarrhea - tube feeds + antibiotics -cont banana flakes - as needed Imodium - discussed with clinical pharmacist and figured out what probiotic we can use through G-tube, ordered - no stools today thus far sinus tachycardia, mild, has recurred. - a little bit improved after normal saline - continue oral metoprolol - BP too soft for increase - suspect there is a chronic component to this - T4 was normal, free T3 was normal, total T3 is said to be best except this is a send out Hypernatremia - resolved Profoundly volume contracted on admission. Concurrently treated for HHS. sodium remains normal at 139 today UTI/pyelonephritis, mild right hydroureteronephrosis UCx rivas-sensitive Klebsiella initially treated with ceftriaxone - changed to cephalexin via gtube through 07/26 Elevated troponin: 2/2 myocardial demand ischemia Cerebral palsy, dysphagia, limited decisional capacity New PEG tube placed 06/29/2024. healing as expected, last examined 07/18 Dysphagia Oropharyngeal dysphagia worsened by thyroid mass with impingement on the esophagus. 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 intake and should be kept strict NPO. PEG tube is available for alternative route for nutrition. Long-term will need assessment of thyroid mass and surgery however has not been medically stable enough to pursue this and requires ongoing outpatient workup. S/p PEG tube placement 06/29 at [facility]. Continue PEG feeds, nutrition following goiter Noted on prior imaging. Recommend for outpatient follow-up with ENT, has not been medically stable enough to progress to this at time of admission TSH is significantly suppressed, free T4 normal 1.5. Thyroid ultrasound consistent with goiter Patient strong preference to pursue surgical intervention if at all possible given her change and suspected contribution of this on her ability to swallow, although she is a increased surgical risk and this would likely need to be done at a tertiary care center. Discussed with case management. Patient can follow- up with Dr. Joel [facility] as an outpatient, referral for this will be placed. AGUILAR (present on admission) - resolved. creatinine remains 0.4 today Sepsis due to UTI/pyelonephritis (present on admission) - resolved Please see progress note from 07/16/2024 for complete summary of ethics consultation, palliative care consultation which was performed at [facility]. These records have also been scanned into the EMR Sacral decubitus ulcers (present on admission) -WON consulting, continue wound care - her main complaint over this weekend was pain from her sacral ulcers, added viscous lidocaine as needed, she consistently asks for Calmoseptine cream which she says she uses at home however we do not use that since it can cause increased irritation which I explained to her several times, offered acetaminophen or other pain medicine and she declined DVT prophylaxis: Heparin due to renal dysfunction Criss has been refusing to return to [facility] though she was only there for 36 hours, she plans to return home however there has been significant difficulties locating any caregivers who would be able to take care of her and administer tube feeding. APS is involved. Discussed with case management Admission and Anticipated Discharge Date Admission Date: July 15, 2024 Subjective Criss seems to be in pretty good spirits today she says she has not had any diarrhea today and that she is working on plans to return home she is having pain from her buttock wounds, I offered scheduled acetaminophen and pain medicine if that was not effective she said it "was not that bad" and that she does not like to take anything Physical Exam 2 Physical Exam: PHYSICAL EXAMINATION Last 24h vital signs reviewed, see documentation in flowsheet no change to exam 07/23 General: lying a little propped on left side in bed HEENT: moist mucus membranes Lungs: normal work of breathing clear to auscultation bilaterally Heart: regular no murmurs rubs or gallops Abdomen: Soft, nondistended. gtube LUQ Extremities:significant atrophy of musculature bilaterally, both lower extremities remain warm Neuro: Alert and oriented x 4, reasoning remains circular with impaired insight and judgment. 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 unchanged Psych: Normal affect and behavior Results & Data Results & Data Vital Signs (Past 12 Hours) Vital Signs Temp Pulse Pulse Resp BP BP Pulse Ox 07/23/24 15:43 36.6 C 97 H 18 91/60 L 97 07/23/24 14:33 101/60 07/23/24 12:35 36.6 C 94 H 18 96/68 L 100 07/23/24 08:34 07/23/24 07:26 36.8 C 101 H 17 112/66 96 O2 Del Method 07/23/24 15:43 Room Air 07/23/24 14:33 07/23/24 12:35 Room Air 07/23/24 08:34 Room Air 07/23/24 07:26 Room Air Laboratory Results 07/23/24 05:29 07/22/24 05:25 PG Care Time/CCT Total # of Minutes Spent Total Time Spent with Patient: Total time spent is greater than 50% in coordination of care (as documented) at patient's floor/unit and/or counseling patient: Coding Level of Care Code 00201 SUB INP/OBS CARE 2/35MIN Diagnoses Hyperosmolar hyperglycemic state (HHS) E11.00 DM2 (diabetes mellitus, type 2) E11.9 Cerebral palsy G80.9 Cerebral palsy type: unspecified type Status post insertion of percutaneous endoscopic gastrostomy (PEG) tube Z93.1 (3) Cerebral palsy Cerebral palsy type: unspecified type Qualified Code(s): G80.9 - Cerebral palsy, unspecified
--- NOTE | 2024-07-24 11:49 | Hospitalist Progress Note ---
Date of Service July 24, 2024 Assessment & Plan (1) Hyperosmolar hyperglycemic state (HHS): (2) DM2 (diabetes mellitus, type 2): (3) Cerebral palsy: (4) Status post insertion of percutaneous endoscopic gastrostomy (PEG) tube: Plan 54-year-old woman with cerebral palsy, type II DM, dysphagia with PEG tube placement who was admitted from SNF with HHS and sepsis from complicated UTI. she had only been at the SNF for 36 hours. prior to that [facility] she was critically ill at the time she was admitted. HHS treatment was complicated by concurrent hypernatremia. HHS, DM2 HHS resolved, mental status is at baseline Continue basal bolus insulin. Pharmacy glycemic management following for adjustments. BSG checks every 4 hours because of TFs. Enteral feeds per nutrition via G-tube Diarrhea could be from tube feeds + antibiotics -seems to have resolved, no diarrhea today sinus tachycardia, mild, has recurred. - continue oral metoprolol - BP too soft for increase - suspect there is a chronic component to this - T4 was normal, free T3 was normal, total T3 is said to be best except this is a send out UTI/pyelonephritis, mild right hydroureteronephrosis UCx rivas-sensitive Klebsiella initially treated with ceftriaxone - changed to cephalexin via gtube through 07/26 Elevated troponin: 2/2 myocardial demand ischemia Cerebral palsy, dysphagia, New PEG tube placed 06/29/2024. healing as expected, last examined 07/18 Dysphagia Oropharyngeal dysphagia worsened by thyroid mass with impingement on the esophagus. Recent hospital records reviewed, based on necessitation by [employer]ERIFF [employer]ER she is unsafe for any p.o. intake and should be kept strict NPO. PEG tube is available for alternative route for nutrition. Long-term will need assessment of thyroid mass and surgery however has not been medically stable enough to pursue this and requires ongoing outpatient workup. S/p PEG tube placement 06/29 at [facility]. Continue PEG feeds, nutrition following goiter Noted on prior imaging. Recommend for outpatient follow-up with ENT, has not been medically stable enough to progress to this at time of admission TSH is significantly suppressed, free T4 normal 1.5. Thyroid ultrasound consistent with goiter Patient strong preference to pursue surgical intervention if at all possible given her change and suspected contribution of this on her ability to swallow, although she is a increased surgical risk and this would likely need to be done at a tertiary care center. Discussed with case management. Patient can follow- up with Dr. Joel [facility] as an [place], referral for this will be placed. AGUILAR (present on admission) - resolved. Sepsis due to UTI/pyelonephritis (present on admission) - resolved Please see progress note from 07/16/2024 for complete summary of ethics consulta tion, palliative care consultation which [facility] These records have also been scanned into the EMR Sacral decubitus ulcers (present on admission) -WON consulting, continue wound care DVT prophylaxis: Heparin due to renal dysfunction Criss has been refusing to return to [facility] though she was only there for 36 hours, she plans to return home however there has been significant difficulties locating any caregivers who would be able to take care of her and administer tube feeding. APS is involved. Discussed with case management. Although she is aware that there is nobody who will take care of her PEG tube feeding for her. Her fear of losing her home is unfounded because [facility] [employer] has already paid her rent for the month. Admission and Anticipated Discharge Date Admission Date: July 15, 2024 Subjective Patient examined today, she is still insistent that she wants to go home instead of going back to her side. Although she is aware that there is nobody who will take care of her PEG tube feeding for her. Her fear of losing her home is unfounded because [facility] [employer] has already paid her rent for the month. Review of Systems Review of Systems: All systems reviewed are negative, apart from the ones contained in the history. Physical Exam Physical Exam: The patient is awake, alert and oriented 3, well developed and well nourished, normocephalic and atraumatic, lying in bed and in no acute distress. HEENT--PERRL, EOMI, mucous membranes and oropharynx mildly dry Neck--supple. No JVD. No bruits. Thyroid normal, trachea midline, no adenopathy. Heart--normal S1 and S2. No murmurs, rubs or gallops. Lungs--clear bilaterally, no respiratory distress, no accessory muscle use. Abdomen--normal bowel sounds and soft. Extremities--no cyanosis or clubbing. No edema. Dermatologic--normal skin turgor, normal color, no abnormal lymph nodes, no rash. Neurologic--cranial nerves II through XII grossly intact. Rheumatologic--atrophic lower extremities, poor muscle tone Psychiatric--normal affect. Results & Data Results & Data Vital Signs (Past 12 Hours) Vital Signs Temp Pulse Resp BP Pulse Ox O2 Del Method 07/24/24 08:11 Room Air 07/24/24 07:39 98.1 F 100 H 18 111/72 94 Room Air PG Care Time/CCT Total # of Minutes Spent Total Time Spent with Patient: Total time spent is greater than 50% in coordination of care (as documented) at patient's floor/unit and/or counseling patient: Coding Level of Care Code 13401 SUB INP/OBS CARE 2/35MIN Diagnoses Hyperosmolar hyperglycemic state (HHS) E11.00 DM2 (diabetes mellitus, type 2) E11.9 Cerebral palsy G80.9 Cerebral palsy type: unspecified type Status post insertion of percutaneous endoscopic gastrostomy (PEG) tube Z93.1 Time Spent (min) 35 (3) Cerebral palsy Cerebral palsy type: unspecified type Qualified Code(s): G80.9 - Cerebral palsy, unspecified
[2024-07-25 08:13] LABS: Hematocrit (blood only) 31.7 % (37.0-47.0); Hemoglobin 10.2 g/dl (12.0-16.0); Mean Corpuscular Hemoglobin 30.5 pg (25.0-34.0); Mean Corpuscular Hgb Conc 32.2 g/dL (32.0-36.0); Mean Corpuscular Volume 94.9 fL (80.0-100.0); Mean Platelet Volume 11.3 fL (9.4-12.4); Platelet Count 335 K/uL (130-400); RDW Coefficient of Variation 16.3 % (11.5-14.5); RDW Standard Deviation 54.8 fL (36.4-46.3); Red Blood Count 3.34 M/uL (4.20-5.40); White Blood Count 8.38 K/ul (4.8-10.8)
[2024-07-25 08:24] LABS: BUN Creatinine Ratio 27.3 (10-20); Calcium 9.5 mg/dl (8.6-10.3); Creatinine Clr Calc Pharmacy 133.6 ml/min; Potassium 4.3 mmol/L (3.5-5.1)
[2024-07-25] MEDS: LANTUS PER UNIT CHARGE SQ SCH ×2 (08:41→20:05)
--- NOTE | 2024-07-25 11:48 | Hospitalist Progress Note ---
Date of Service July 25, 2024 Assessment & Plan (1) Hyperosmolar hyperglycemic state (HHS): (2) DM2 (diabetes mellitus, type 2): (3) Cerebral palsy: (4) Status post insertion of percutaneous endoscopic gastrostomy (PEG) tube: Plan 54-year-old woman with cerebral palsy, type II DM, dysphagia with PEG tube placement who was admitted from SNF with HHS and sepsis from complicated UTI. she had only been at the SNF for 36 hours. prior to that I think she was in the hospital at [facility]. she was critically ill at the time she was admitted. HHS treatment was complicated by concurrent hypernatremia. HHS, DM2 HHS resolved, mental status is at baseline Continue basal bolus insulin. Pharmacy glycemic management following for adjustments. BSG checks every 4 hours because of TFs. Enteral feeds per nutrition via G-tube Diarrhea could be from tube feeds + antibiotics -still some diarrhea today -wants her PEG tube formula adjusted sinus tachycardia, mild, has recurred. - continue oral metoprolol - BP too soft for increase - suspect there is a chronic component to this - T4 was normal, free T3 was normal, total T3 is said to be best except this is a send out UTI/pyelonephritis, mild right hydroureteronephrosis UCx rivas-sensitive Klebsiella initially treated with ceftriaxone - changed to cephalexin via gtube through 07/26 Elevated troponin: 2/ myocardial demand ischemia trop trended down Cerebral palsy, dysphagia, New PEG tube placed 06/29/2024. healing as expected, Dysphagia Oropharyngeal dysphagia worsened by thyroid mass with impingement on the esophagus. Recent hospital records reviewed, based on necessitation by [employer] C[employer] she is unsafe for any p.o. intake and should be kept strict NPO. PEG tube is available for alternative route for nutrition. Long-term will need assessment of thyroid mass and surgery however has not been medically stable enough to pursue this and requires ongoing outpatient workup. S/p PEG tube placement 06/29 at [facility]. Continue PEG feeds, nutrition following goiter Noted on prior imaging. Recommend for outpatient follow-up with ENT, has not been medically stable enough to progress to this at time of admission TSH is significantly suppressed, free T4 normal 1.5. Thyroid ultrasound consistent with goiter Patient strong preference to pursue surgical intervention if at all possible given her change and suspected contribution of this on her ability to swallow, although she is a increased surgical risk and this would likely need to be done at a tertiary care center. Discussed with case management. Patient can follow- up with Dr. Joel [facility] as an outpatient, referral for this will be placed. AGUILAR (present on admission) - resolved. Sepsis due to UTI/pyelonephritis (present on admission) - resolved Please see progress note from 07/16/2024 for complete summary of ethics consultation, palliative care consultation which was performed at [facility]. These records have also been scanned into the EMR Sacral decubitus ulcers (present on admission) -WON consulting, continue wound care DVT prophylaxis: Heparin due to renal dysfunction Criss has been refusing to return to [facility] though she was only there for 36 hours, she plans to return home however there has been significant difficulties locating any caregivers who would be able to take care of her and administer tube feeding. APS is involved. Discussed with case management. Although she is aware that there is nobody who will take care of her PEG tube feeding for her. Her fear of losing her home is unfounded because [facility] has already paid her rent for the month. Admission and Anticipated Discharge Date Admission Date: July 15, 2024 Subjective Patient examined today, still having some diarrhea, wants her PEG tube formula adjusted Review of Systems Review of Systems: All systems reviewed are negative, apart from the ones contained in the history. Physical Exam Physical Exam: The patient is awake, alert and oriented 3, well developed and well nourished, normocephalic and atraumatic, lying in bed and in no acute distress. HEENT--PERRL, EOMI, mucous membranes and oropharynx mildly dry Neck--supple. No JVD. No bruits. Thyroid normal, trachea midline, no adenopathy. Heart--normal S1 and S2. No murmurs, rubs or gallops. Lungs--clear bilaterally, no respiratory distress, no accessory muscle use. Abdomen--normal bowel sounds and soft. Extremities--no cyanosis or clubbing. No edema. Dermatologic--normal skin turgor, normal color, no abnormal lymph nodes, no rash. Neurologic--cranial nerves II through XII grossly intact. Rheumatologic--atrophic lower extremities, poor muscle tone Psychiatric--normal affect. Results & Data Results & Data Vital Signs (Past 12 Hours) Vital Signs Temp Pulse Resp BP Pulse Ox O2 Del Method 07/25/24 08:14 Room Air 07/25/24 07:42 98.1 F 107 H 18 101/64 98 Room Air PG Care Time/CCT Total # of Minutes Spent Total Time Spent with Patient: Total time spent is greater than 50% in coordination of care (as documented) at patient's floor/unit and/or counseling patient: Coding Level of Care Code 60429 SUB INP/OBS CARE 2/35MIN Diagnoses Hyperosmolar hyperglycemic state (HHS) E11.00 DM2 (diabetes mellitus, type 2) E11.9 Cerebral palsy G80.9 Cerebral palsy type: unspecified type Status post insertion of percutaneous endoscopic gastrostomy (PEG) tube Z93.1 Time Spent (min) 35 (3) Cerebral palsy Cerebral palsy type: unspecified type Qualified Code(s): G80.9 - Cerebral palsy, unspecified
[2024-07-25] MEDS: [UNRECOGNIZED DRUG - REMARK] ONE (12:53)
--- NOTE | 2024-07-25 14:31 | Pharmacy Report ---
Pharmacy Glycemic Short Note 2 - Date of Service July 25, 2024 - Glycemic Short BSG Results (Last 24 hours): 07/24/24 07/24/24 07/24/24 16:33 20:27 23:48 Glucose POC Glucose 198 H 146 H 194 H 07/25/24 07/25/24 07/25/24 03:45 07:34 07:47 Glucose 217 H POC Glucose 127 H 215 H 07/25/24 12:03 Glucose POC Glucose 235 H OUTPATIENT ANTIDIABETIC REGIMEN: * Lantus 30 units SQ BID * metformin 1gm PO BID * empagliflozin 25mg PO daily HbA1C: 6.9% 07/17/24 ASSESSMENT: 07/25: * Criss received 45 units of insulin yesterday (20 were basal) * Some BSGs still elevated with FIbersource tube feeds, planed to increase basal by ~30% to help cover. Tube feeds switched to more concentrated Nutren 2.0 bolus (titrating up to goal 220mL QID over next 24 Hours) due to patient preference and overnight diarrhea. Will adjust basal to a scale at bedtime based on BSGs aiming for yesterday's basal dose. * Tightened carbohydrate ratio to also try and prevent BSG rises. 07/23: * Patient received a total of 37 units of insulin yesterday. (14 units were basal and 23 units were bolus). Most BSGs were above goal yesterday ([phone]/dL) despite tightening CF and increasing Lantus doses. This is most likely due to increasing rate of tube feeds. * AM BSG was 202mg/dL this morning. Lantus was increased to 10units SQ BID. Will continue parameters of bolus insulin without change. 07/20: * Criss received a total of 20 units of insulin yesterday (10 were basal and 10 were bolus). BSGs were pretty well controlled ([phone]/dL) so current basal insulin regimen will be continued without change. * BSGs jamil this morning to 209 and then 195mg/dL so the CR was tightened some. * She continues on Fibersource HN tube feeding (currently at 40ml/hr) with q 4 hour BSG checks. 07/17 * BSGs well controlled over last 24 hours. Many however less than 110 - will lessen both basal and prandial insulin doses * 25 units of SQ insulin given over last 24 hours. * Patient is receiving Peptamen 1.5 @30cc/hr this AM. 07/16 * Pt is a 54 year old female with history of DM2 on insulin therapy at home admitted with HHS and UTI. Pharmacy consulted to assist with glycemic management. * Initiated on an insulin infusion yesterday per DKA/HHS protocol and transitioned to SQ insulin last night by provider. * BSGs today [phone]/dL. * Received 20 units of Lantus ~ midnight last night. Today, IVF adjusted to remove dextrose and tube feeds initiated this afternoon (PEG/TF dependent). * Lantus 10 units X 1 dose today around lunch (also received a 4 unit IV bolus per hospitalist for BSG 352 on 1100 BMP) and then begin 20 units BID tonight. Novolog q4 with coverage for tube feeds. PLAN FOR INPATIENT GLYCEMIC CONTROL: * Hold outpatient oral diabetes medications * Basal insulin * Lantus 10 units SQ BID * Bolus insulin * NovoLog per scale Q 4 hrs while on continuous TFs via PEG * Goal Range: Low 110 mg/dL - High 140 mg/dL * Correction Factor: 35 mg/dL/unit * Nutritional / Prandial insulin per carb ratio of 1 unit per 10 grams CHO consumed PLEASE COVER TUBE FEEDS BOLUS WHEN GIVEN Nutren 2.0 dianne = 216 g CHO/L 120 mL = 25 g CHO 180 mL = 39 g CHO 220 mL = 48 g CHO
[2024-07-25] MEDS ORDERED: NUTREN LIQD 2.0 1,000 ML BAG GT SCH (16:00)
[2024-07-25] MEDS: TUBE FEEDING WATER FLUSH PEG SCH ×2 (16:18→16:56)
[2024-07-25] MEDS: NUTREN LIQD 2.0 1,000 ML BAG GT SCH (16:19)
[2024-07-25] MEDS: INSULIN ASPART PER UNIT CHARGE SC SCH ×2 (17:03→20:05)
[2024-07-25] MEDS ORDERED: LANTUS PER UNIT CHARGE SQ SCH (21:00)
[2024-07-26 07:44] LABS: BUN Creatinine Ratio 23.4 (10-20); Calcium 9.7 mg/dl (8.6-10.3); Creatinine Clr Calc Pharmacy 125.1 ml/min; Magnesium 1.5 mg/dl (1.7-2.4); Phosphorus 4.8 mg/dl (2.5-4.9); Potassium 3.9 mmol/L (3.5-5.1)
[2024-07-26] MEDS: MAGNESIUM SULFATE / D5W 1 GM/100 ML BAG IV SCH (08:34)
[2024-07-26] MEDS: NUTREN LIQD 2.0 1,000 ML BAG GT SCH ×2 (08:57→12:10)
[2024-07-26] MEDS: LANTUS PER UNIT CHARGE SQ SCH ×2 (09:17→19:52)
--- NOTE | 2024-07-26 11:23 | Hospitalist Progress Note ---
Date of Service July 26, 2024 Assessment & Plan (1) Hyperosmolar hyperglycemic state (HHS): (2) DM2 (diabetes mellitus, type 2): (3) Cerebral palsy: (4) Status post insertion of percutaneous endoscopic gastrostomy (PEG) tube: Plan 54-year-old woman with cerebral palsy, type II DM, dysphagia with PEG tube placement who was admitted from SNF with HHS and sepsis from complicated UTI. she had only been at the SNF for 36 hours. prior to that I think she was in the hospital at [facility]. she was critically ill at the time she was admitted. HHS treatment was complicated by concurrent hypernatremia. HHS, DM2 HHS resolved, mental status is at baseline Continue basal bolus insulin. Pharmacy glycemic management following for adjustments. BSG checks every 4 hours because of TFs. Enteral feeds per nutrition via G-tube Diarrhea could be from tube feeds + antibiotics -still some diarrhea today, but improved following change of PEG tube to bolus feeds sinus tachycardia, mild, has recurred. - continue oral metoprolol - BP too soft for increase - suspect there is a chronic component to this - T4 was normal, free T3 was normal, total T3 is said to be best except this is a send out UTI/pyelonephritis, mild right hydroureteronephrosis UCx rivas-sensitive Klebsiella initially treated with ceftriaxone - changed to cephalexin via gtube through 07/26 Elevated troponin: 2/ myocardial demand ischemia trop trended down Cerebral palsy, dysphagia, New PEG tube placed 06/29/2024. healing as expected, Dysphagia Oropharyngeal dysphagia worsened by thyroid mass with impingement on the esophagus. 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 intake and should be kept strict NPO. PEG tube is available for alternative route for nutrition. Long-term will need assessment of thyroid mass and surgery however has not been medically stable enough to pursue this and requires ongoing outpatient workup. S/p PEG tube placement 06/29 at [facility]. Continue PEG feeds, nutrition following goiter Noted on prior imaging. Recommend for outpatient follow-up with ENT, has not been medically stable enough to progress to this at time of admission TSH is significantly suppressed, free T4 normal 1.5. Thyroid ultrasound consistent with goiter Patient strong preference to pursue surgical intervention if at all possible given her change and suspected contribution of this on her ability to swallow, although she is a increased surgical risk and this would likely need to be done at a tertiary care center. Discussed with case management. Patient can follow- up with Dr. Joel [facility] as an outpatient, referral for this will be placed. AGUILAR (present on admission) - resolved. Sepsis due to UTI/pyelonephritis (present on admission) - resolved Please see progress note from 07/16/2024 for complete summary of ethics consultation, palliative care consultation which was performed at [facility]. These records have also been scanned into the EMR Sacral decubitus ulcers (present on admission) -WON consulting, continue wound care Hypomagnesemia Replace DVT prophylaxis: Heparin due to renal dysfunction Criss has been refusing to return to [facility] though she was only there for 36 hours, she plans to return home however there has been significant difficulties locating any caregivers who would be able to take care of her and administer tube feeding. APS is involved. Discussed with case management. Although she is aware that there is nobody who will take care of her PEG tube feeding for her. Her fear of losing her home is unfounded because [place] [facility] has already paid her rent for the month. Admission and Anticipated Discharge Date Admission Date: July 15, 2024 Subjective Patient examined today, says diarrhea has improved, after PEG tube formula was adjusted Review of Systems Review of Systems: All systems reviewed are negative, apart from the ones contained in the history. Physical Exam Physical Exam: The patient is awake, alert and oriented 3, well developed and well nourished, normocephalic and atraumatic, lying in bed and in no acute distress. HEENT--PERRL, EOMI, mucous membranes and oropharynx mildly dry Neck--supple. No JVD. No bruits. Thyroid normal, trachea midline, no adenopathy. Heart--normal S1 and S2. No murmurs, rubs or gallops. Lungs--clear bilaterally, no respiratory distress, no accessory muscle use. Abdomen--normal bowel sounds and soft. Extremities--no cyanosis or clubbing. No edema. Dermatologic--normal skin turgor, normal color, no abnormal lymph nodes, no rash. Neurologic--cranial nerves II through XII grossly intact. Rheumatologic--atrophic lower extremities, poor muscle tone Psychiatric--normal affect. Results & Data Results & Data Vital Signs (Past 12 Hours) Vital Signs Temp Pulse Resp BP Pulse Ox O2 Del Method 07/26/24 10:49 97.9 F 98 H 16 101/69 95 Room Air 07/26/24 08:26 97.7 F 112 H 18 100/58 L 93 Room Air PG Care Time/CCT Total # of Minutes Spent Total Time Spent with Patient: Total time spent is greater than 50% in coordination of care (as documented) at patient's floor/unit and/or counseling patient: Coding Level of Care Code 73749 SUB INP/OBS CARE 2/35MIN Diagnoses Hyperosmolar hyperglycemic state (HHS) E11.00 DM2 (diabetes mellitus, type 2) E11.9 Cerebral palsy G80.9 Cerebral palsy type: unspecified type Status post insertion of percutaneous endoscopic gastrostomy (PEG) tube Z93.1 Time Spent (min) 35 (3) Cerebral palsy Cerebral palsy type: unspecified type Qualified Code(s): G80.9 - Cerebral palsy, unspecified
--- NOTE | 2024-07-26 12:13 | Pharmacy Report ---
Pharmacy Glycemic Short Note 2 - Date of Service July 26, 2024 - Glycemic Short BSG Results (Last 24 hours): 07/25/24 07/25/24 07/26/24 16:09 19:41 06:32 Glucose 168 H POC Glucose 85 158 H 07/26/24 07/26/24 07/26/24 08:01 11:43 11:45 Glucose POC Glucose 179 H 326 H* 313 H* OUTPATIENT ANTIDIABETIC REGIMEN: * Lantus 30 units SQ BID * metformin 1gm PO BID * empagliflozin 25mg PO daily HbA1C: 6.9% 07/17/24 ASSESSMENT: 07/26: * Criss received 40 units of insulin yesterday (20 were basal) * Fasting BSG this AM slightly elevated, bolus Nutren feeds will be at goal with lunchtime, will continue with 30% increase in basal insulin today. * BSG over 300 today with lunch, carbohydrate ratio adjusted yesterday, will tighten further tomorrow if BSGs continue to trend up with increase in basal insulin. 07/25: * Criss received 45 units of insulin yesterday (20 were basal) * Some BSGs still elevated with Fibersource tube feeds, planed to increase basal by ~30% to help cover. Tube feeds switched to more concentrated Nutren 2.0 bolus (titrating up to goal 220mL QID over next 24 Hours) due to patient preference and overnight diarrhea. Will adjust basal to a scale at bedtime based on BSGs aiming for yesterday's basal dose. * Tightened carbohydrate ratio to also try and prevent BSG rises. 07/23: * Patient received a total of 37 units of insulin yesterday. (14 units were basal and 23 units were bolus). Most BSGs were above goal yesterday ([phone]/dL) despite tightening CF and increasing Lantus doses. This is most likely due to increasing rate of tube feeds. * AM BSG was 202mg/dL this morning. Lantus was increased to 10units SQ BID. Will continue parameters of bolus insulin without change. 07/20: * Criss received a total of 20 units of insulin yesterday (10 were basal and 10 were bolus). BSGs were pretty well controlled ([phone]/dL) so current basal insulin regimen will be continued without change. * BSGs jamil this morning to 209 and then 195mg/dL so the CR was tightened some. * She continues on Fibersource HN tube feeding (currently at 40ml/hr) with q 4 hour BSG checks. 07/17 * BSGs well controlled over last 24 hours. Many however less than 110 - will lessen both basal and prandial insulin doses * 25 units of SQ insulin given over last 24 hours. * Patient is receiving Peptamen 1.5 @30cc/hr this AM. 07/16 * Pt is a 54 year old female with history of DM2 on insulin therapy at home admitted with HHS and UTI. Pharmacy consulted to assist with glycemic management. * Initiated on an insulin infusion yesterday per DKA/HHS protocol and transit ioned to SQ insulin last night by provider. * BSGs today [phone]/dL. * Received 20 units of Lantus ~ midnight last night. Today, IVF adjusted to remove dextrose and tube feeds initiated this afternoon (PEG/TF dependent). * Lantus 10 units X 1 dose today around lunch (also received a 4 unit IV bolus per hospitalist for BSG 352 on 1100 BMP) and then begin 20 units BID tonight. Novolog q4 with coverage for tube feeds. PLAN FOR INPATIENT GLYCEMIC CONTROL: * Hold outpatient oral diabetes medications * Basal insulin * Lantus 15 units SQ BID * Bolus insulin * NovoLog per scale QID@ 08,12,16,20 with 220mL Nutren bolus feeds * Goal Range: Low 110 mg/dL - High 140 mg/dL * Correction Factor: 30 mg/dL/unit * Nutritional / Prandial insulin per carb ratio of 1 unit per 10 grams CHO consumed PLEASE COVER TUBE FEEDS BOLUS WHEN GIVEN Nutren 2.0 dianne = 216 g CHO/L 120 mL = 25 g CHO 180 mL = 39 g CHO 220 mL = 48 g CHO
[2024-07-26] MEDS: ONDANSETRON INJ 2 MG/ML 2 ML VIAL IV PRN (16:37)
--- NOTE | 2024-07-27 10:49 | Hospitalist Progress Note ---
Date of Service July 27, 2024 Assessment & Plan (1) Hyperosmolar hyperglycemic state (HHS): (2) DM2 (diabetes mellitus, type 2): (3) Cerebral palsy: (4) Status post insertion of percutaneous endoscopic gastrostomy (PEG) tube: Plan 54-year-old woman with cerebral palsy, type II DM, dysphagia with PEG tube placement who was admitted from SNF with HHS and sepsis from complicated UTI. she was critically ill at the time she was admitted. HHS treatment was complicated by concurrent hypernatremia. HHS, DM2 HHS resolved Continue basal bolus insulin. Pharmacy glycemic management following for adjustments. BSG checks every 4 hours because of TFs. Reviewed BG's currently at goal Enteral feeds per nutrition via G-tube mental status seems to be at her baseline diarrhea - tube feeds + antibiotics -Resolving -cont banana flakes -try to add probiotic and prn imodum but unclear if these can be given via peg -interfering with wound care Hypernatremia Resolved UTI/pyelonephritis, mild right hydroureteronephrosis UCx rivas-sensitive Klebsiella completed antibiotics Elevated troponin: 2/2 myocardial demand ischemia Cerebral palsy New PEG tube placed 06/29/2024. Patient previously with assistive caregivers at home however she no longer has these. Reports she is wheelchair-bound but has had difficulty finding caregivers that can help manage her tube feeds. Adamant that she does not want to return to [facility], prefers to return home but is aware of her current care needs which without additional services at home preclude live safely. Case management consulted Dysphagia Oropharyngeal dysphagia worsened by thyroid mass with impingement on the esophagus. 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 intake and should be kept strict NPO. PEG tube is available for alternative route for nutrition. Long-term will need assessment of thyroid mass and surgery however has not been medically stable enough to pursue this and requires ongoing outpatient workup. S/p PEG tube placement 06/29 at [facility]. Continue PEG feeds, nutrition following Patient's home nursing team was unable to provide care for her PEG tube and was discharged to [facility] however patient rapidly declined at that facility. Patient refuses placement back, case management consulted to facilitate alternative options. goiter Noted on prior imaging. Recommend for outpatient follow-up with ENT, has not been medically stable enough to progress to this at time of admission TSH is significantly suppressed, free T4 normal 1.5. Thyroid ultrasound consistent with goiter Patient strong preference to pursue surgical intervention if at all possible given her change and suspected contribution of this on her ability to swallow, although she is a increased surgical risk and this would likely need to be done at a tertiary care center. Discussed with case management. Patient can follow- up with Dr. Joel [facility] as an outpatient, referral for this will be placed. AGUILAR (present on admission) - resolved. Cr 0.44 Sepsis due to UTI/pyelonephritis (present on admission) - resolved Please see progress note from 07/16/2024 for complete summary of ethics consultation, palliative care consultation which was performed at [facility]. These records have also been scanned into the EMR DVT prophylaxis: Heparin due to renal dysfunction Ultimately patient's long-term goals are to have surgical intervention of her thyroid if there was any chance that she could swallow any type of food or liquid safely, and to arrange home caregivers that could manage a PEG tube if this is still required. Placement is pending, patient provide number for an additional home health agency today otherwise multiple referrals to SNF facilities are pending. CM following, she is medically stable to discharge when placement is available Admission and Anticipated Discharge Date Admission Date: July 15, 2024 Subjective Patient examined today, says diarrhea has improved, after PEG tube formula was adjusted, still wants to go home Review of Systems Review of Systems: All systems reviewed are negative, apart from the ones contained in the history. Physical Exam Physical Exam: The patient is awake, alert and oriented 3, well developed and well nourished, normocephalic and atraumatic, lying in bed and in no acute distress. HEENT--PERRL, EOMI, mucous membranes and oropharynx mildly dry Neck--supple. No JVD. No bruits. Thyroid normal, trachea midline, no adenopathy. Heart--normal S1 and S2. No murmurs, rubs or gallops. Lungs--clear bilaterally, no respiratory distress, no accessory muscle use. Abdomen--normal bowel sounds and soft. Extremities--no cyanosis or clubbing. No edema. Dermatologic--normal skin turgor, normal color, no abnormal lymph nodes, no rash. Neurologic--cranial nerves II through XII grossly intact. Rheumatologic--atrophic lower extremities, poor muscle tone Psychiatric--normal affect. Results & Data Results & Data Vital Signs (Past 12 Hours) Vital Signs Temp Pulse Resp BP Pulse Ox O2 Del Method 07/27/24 07:29 97.9 F 107 H 16 123/80 95 Room Air PG Care Time/CCT Total # of Minutes Spent Total Time Spent with Patient: Total time spent is greater than 50% in coordination of care (as documented) at patient's floor/unit and/or counseling patient: Coding Level of Care Code 26189 SUB INP/OBS CARE 2/35MIN Diagnoses Hyperosmolar hyperglycemic state (HHS) E11.00 DM2 (diabetes mellitus, type 2) E11.9 Cerebral palsy G80.9 Cerebral palsy type: unspecified type Status post insertion of percutaneous endoscopic gastrostomy (PEG) tube Z93.1 Time Spent (min) 35 (3) Cerebral palsy Cerebral palsy type: unspecified type Qualified Code(s): G80.9 - Cerebral palsy, unspecified
--- NOTE | 2024-07-27 13:59 | Pharmacy Report ---
Pharmacy Glycemic Short Note 2 - Date of Service July 27, 2024 - Glycemic Short BSG Results (Last 24 hours): 07/26/24 07/26/24 07/27/24 16:08 19:33 11:38 POC Glucose 157 H 179 H 219 H OUTPATIENT ANTIDIABETIC REGIMEN: * Lantus 30 units SQ BID * metformin 1gm PO BID * empagliflozin 25mg PO daily HbA1C: 6.9% 07/17/24 ASSESSMENT: 07/27 * Criss received 62 units of insulin yesterday (20 were basal) * Fasting BSG this AM acceptable, continue current regimen * Nutren TF at goal, post-prandials still increasing, tighten carbohydrate ratio 07/26: * Criss received 40 units of insulin yesterday (20 were basal) * Fasting BSG this AM slightly elevated, bolus Nutren feeds will be at goal with lunchtime, will continue with 30% increase in basal insulin today. * BSG over 300 today with lunch, carbohydrate ratio adjusted yesterday, will tighten further tomorrow if BSGs continue to trend up with increase in basal insulin. 07/25: * Criss received 45 units of insulin yesterday (20 were basal) * Some BSGs still elevated with Fibersource tube feeds, planed to increase basal by ~30% to help cover. Tube feeds switched to more concentrated Nutren 2.0 bolus (titrating up to goal 220mL QID over next 24 Hours) due to patient preference and overnight diarrhea. Will adjust basal to a scale at bedtime based on BSGs aiming for yesterday's basal dose. * Tightened carbohydrate ratio to also try and prevent BSG rises. 07/23: * Patient received a total of 37 units of insulin yesterday. (14 units were basal and 23 units were bolus). Most BSGs were above goal yesterday ([phone]/dL) despite tightening CF and increasing Lantus doses. This is most likely due to increasing rate of tube feeds. * AM BSG was 202mg/dL this morning. Lantus was increased to 10units SQ BID. Will continue parameters of bolus insulin without change. 07/20: * Criss received a total of 20 units of insulin yesterday (10 were basal and 10 were bolus). BSGs were pretty well controlled ([phone]/dL) so current basal insulin regimen will be continued without change. * BSGs jamil this morning to 209 and then 195mg/dL so the CR was tightened some. * She continues on Fibersource HN tube feeding (currently at 40ml/hr) with q 4 hour BSG checks. 07/17 * BSGs well controlled over last 24 hours. Many however less than 110 - will lessen both basal and prandial insulin doses * 25 units of SQ insulin given over last 24 hours. * Patient is receiving Peptamen 1.5 @30cc/hr this AM. 07/16 * Pt is a 54 year old female with history of DM2 on insulin therapy at home admitted with HHS and UTI. Pharmacy consulted to assist with glycemic management. * Initiated on an insulin infusion yesterday per DKA/HHS protocol and transitioned to SQ insulin last night by provider. * BSGs today [phone]/dL. * Received 20 units of Lantus ~ midnight last night. Today, IVF adjusted to remove dextrose and tube feeds initiated this afternoon (PEG/TF dependent). * Lantus 10 units X 1 dose today around lunch (also received a 4 unit IV bolus per hospitalist for BSG 352 on 1100 BMP) and then begin 20 units BID tonight. Novolog q4 with coverage for tube feeds. PLAN FOR INPATIENT GLYCEMIC CONTROL: * Hold outpatient oral diabetes medications * Basal insulin * Lantus 15 units SQ BID * Bolus insulin * NovoLog per scale QID@ 08,12,16,20 with 220mL Nutren bolus feeds * Goal Range: Low 110 mg/dL - High 140 mg/dL * Correction Factor: 30 mg/dL/unit * Nutritional / Prandial insulin per carb ratio of 1 unit per 9 grams CHO consumed PLEASE COVER TUBE FEEDS BOLUS WHEN GIVEN Nutren 2.0 dianne = 216 g CHO/L 120 mL = 25 g CHO 180 mL = 39 g CHO 220 mL = 48 g CHO
[2024-07-28] MEDS: LANTUS PER UNIT CHARGE SQ SCH (09:10)
--- NOTE | 2024-07-28 09:30 | Hospitalist Progress Note ---
Date of Service July 28, 2024 Assessment & Plan (1) Hyperosmolar hyperglycemic state (HHS): (2) DM2 (diabetes mellitus, type 2): (3) Cerebral palsy: (4) Status post insertion of percutaneous endoscopic gastrostomy (PEG) tube: Plan 54-year-old woman with cerebral palsy, type II DM, dysphagia with PEG tube placement who was admitted from SNF with HHS and sepsis from complicated UTI. she was critically ill at the time she was admitted. HHS treatment was complicated by concurrent hypernatremia. HHS, DM2 HHS resolved Continue basal bolus insulin. currently on Glargine 17 units BID and correction Pharmacy glycemic management following for adjustments. BSG checks every 4 hours because of TFs. Reviewed BG's currently at goal Enteral feeds per nutrition via G-tube mental status seems to be at her baseline diarrhea - tube feeds + antibiotics -Resolving -cont banana flakes -try to add probiotic and prn imodum but unclear if these can be given via peg -interfering with wound care Hypernatremia Resolved UTI/pyelonephritis, mild right hydroureteronephrosis UCx rivas-sensitive Klebsiella completed antibiotics Elevated troponin: 2/ myocardial demand ischemia Cerebral palsy New PEG tube placed 06/29/2024. Patient previously with assistive caregivers at home however she no longer has these. Reports she is wheelchair-bound but has had difficulty finding caregivers that can help manage her tube feeds. Adamant that she does not want to return to [facility], prefers to return home but is aware of her current care needs which without additional services at home preclude live safely. Case management consulted Dysphagia Oropharyngeal dysphagia worsened by thyroid mass with impingement on the esophagus. 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 intake and should be kept strict NPO. PEG tube is available for alternative route for nutrition. Long-term will need assessment of thyroid mass and surgery however has not been medically stable enough to pursue this and requires ongoing outpatient workup. S/p PEG tube placement 06/29 at [facility]. Continue PEG feeds, nutrition following Patient's home nursing team was unable to provide care for her PEG tube and was discharged to [facility] however patient rapidly declined at that facility. Patient refuses placement back, case management consulted to facilitate alternative options. goiter Noted on prior imaging. Recommend for outpatient follow-up with ENT, has not been medically stable enough to progress to this at time of admission TSH is significantly suppressed, free T4 normal 1.5. Thyroid ultrasound c onsistent with goiter Patient strong preference to pursue surgical intervention if at all possible given her change and suspected contribution of this on her ability to swallow, although she is a increased surgical risk and this would likely need to be done at a tertiary care center. Discussed with case management. Patient can follow- up with Dr. Joel [facility] as an outpatient, referral for this will be placed. AGUILAR (present on admission) - resolved. Cr 0.44 Sepsis due to UTI/pyelonephritis (present on admission) - resolved Please see progress note from 07/16/2024 for complete summary of ethics consultation, palliative care consultation which was performed at [facility]. These records have also been scanned into the EMR DVT prophylaxis: Heparin due to renal dysfunction Ultimately patient's long-term goals are to have surgical intervention of her thyroid if there was any chance that she could swallow any type of food or liquid safely, and to arrange home caregivers that could manage a PEG tube if this is still required. Placement is pending, patient provide number for an additional home health agency today otherwise multiple referrals to SNF facilities are pending. CM following, she is medically stable to discharge when placement is available Admission and Anticipated Discharge Date Admission Date: July 15, 2024 Subjective Patient examined today, says diarrhea has improved, after PEG tube formula was adjusted, still wants to go home Review of Systems Review of Systems: All systems reviewed are negative, apart from the ones contained in the history. Physical Exam Physical Exam: The patient is awake, alert and oriented 3, well developed and well nourished, normocephalic and atraumatic, lying in bed and in no acute distress. HEENT--PERRL, EOMI, mucous membranes and oropharynx mildly dry Neck--supple. No JVD. No bruits. Thyroid normal, trachea midline, no adenopathy. Heart--normal S1 and S2. No murmurs, rubs or gallops. Lungs--clear bilaterally, no respiratory distress, no accessory muscle use. Abdomen--normal bowel sounds and soft. Extremities--no cyanosis or clubbing. No edema. Dermatologic--normal skin turgor, normal color, no abnormal lymph nodes, no rash. Neurologic--cranial nerves II through XII grossly intact. Rheumatologic--atrophic lower extremities, poor muscle tone Psychiatric--normal affect. Results & Data Results & Data Vital Signs (Past 12 Hours) Vital Signs Temp Pulse Resp BP Pulse Ox O2 Del Method 07/28/24 07:35 98.2 F 108 H 16 111/75 95 Room Air PG Care Time/CCT Total # of Minutes Spent Total Time Spent with Patient: Total time spent is greater than 50% in coordination of care (as documented) at patient's floor/unit and/or counseling patient: Coding Level of Care Code 72493 SUB INP/OBS CARE 2/35MIN Diagnoses Hyperosmolar hyperglycemic state (HHS) E11.00 DM2 (diabetes mellitus, type 2) E11.9 Cerebral palsy G80.9 Cerebral palsy type: unspecified type Status post insertion of percutaneous endoscopic gastrostomy (PEG) tube Z93.1 Time Spent (min) 35 (3) Cerebral palsy Cerebral palsy type: unspecified type Qualified Code(s): G80.9 - Cerebral palsy, unspecified
[2024-07-29 06:57] LABS: Hematocrit (blood only) 32.5 % (37.0-47.0); Hemoglobin 10.5 g/dl (12.0-16.0); Mean Corpuscular Hgb Conc 32.3 g/dL (32.0-36.0); Mean Corpuscular Volume 95.9 fL (80.0-100.0); Mean Platelet Volume 10.7 fL (9.4-12.4); Platelet Count 333 K/uL (130-400); RDW Coefficient of Variation 15.8 % (11.5-14.5); RDW Standard Deviation 55.4 fL (36.4-46.3); Red Blood Count 3.39 M/uL (4.20-5.40); White Blood Count 7.26 K/ul (4.8-10.8)
[2024-07-29 07:25] LABS: BUN Creatinine Ratio 26.5 (10-20); Calcium 9.6 mg/dl (8.6-10.3)
--- NOTE | 2024-07-29 10:18 | Hospitalist Progress Note ---
Date of Service July 29, 2024 Assessment & Plan (1) Hyperosmolar hyperglycemic state (HHS): (2) DM2 (diabetes mellitus, type 2): (3) Cerebral palsy: (4) Status post insertion of percutaneous endoscopic gastrostomy (PEG) tube: Plan 54-year-old woman with cerebral palsy, type II DM, dysphagia with PEG tube placement who was admitted from SNF with HHS and sepsis from complicated UTI. she was critically ill at the time she was admitted. HHS treatment was complicated by concurrent hypernatremia. HHS, DM2 HHS resolved Continue basal bolus insulin. currently on Glargine 17 units BID and correction -Pharmacy glycemic management following for adjustments. BSG checks every 4 hours because of TFs. Reviewed BG's currently at goal Enteral feeds per nutrition via G-tube mental status seems to be at her baseline diarrhea - tube feeds + antibiotics -Resolving -cont banana flakes -try to add probiotic and prn imodum but unclear if these can be given via peg -interfering with wound care Hypernatremia Resolved UTI/pyelonephritis, mild right hydroureteronephrosis UCx rivas-sensitive Klebsiella completed antibiotics Elevated troponin: 2/ myocardial demand ischemia Cerebral palsy New PEG tube placed 06/29/2024. Patient previously with assistive caregivers at home however she no longer has these. Reports she is wheelchair-bound but has had difficulty finding caregivers that can help manage her tube feeds. Adamant that she does not want to return to [facility], prefers to return home but is aware of her current care needs which without additional services at home preclude live safely. Case management consulted Dysphagia Oropharyngeal dysphagia worsened by thyroid mass with impingement on the esophagus. 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 intake and should be kept strict NPO. PEG tube is available for alternative route for nutrition. Long-term will need assessment of thyroid mass and surgery however has not been medically stable enough to pursue this and requires ongoing outpatient workup. S/p PEG tube placement 06/[address] [facility]. Continue PEG feeds, nutrition following Patient's home nursing team was unable to provide care for her PEG tube and was discharged to [facility] however patient rapidly declined at that facility. Patient refuses placement back, case management consulted to facilitate alternative options. goiter Noted on prior imaging. Recommend for outpatient follow-up with ENT, has not been medically stable enough to progress to this at time of admission TSH is significantly suppressed, free T4 normal 1.5. Thyroid ultrasound consistent with goiter Patient strong preference to pursue surgical intervention if at all possible given her change and suspected contribution of this on her ability to swallow, although she is a increased surgical risk and this would likely need to be done at a tertiary care center. Discussed with case management. Patient can follow- up with Dr. Joel [facility] as an outpatient, referral for this will be placed. AGUILAR (present on admission) - resolved. Cr 0.44 Sepsis due to UTI/pyelonephritis (present on admission) - resolved Please see progress note from 07/16/2024 for complete summary of ethics consultation, palliative care consultation which was performed at [facility]. These records have also been scanned into the EMR DVT prophylaxis: Heparin due to renal dysfunction Ultimately patient's long-term goals are to have surgical intervention of her thyroid if there was any chance that she could swallow any type of food or liquid safely, and to arrange home caregivers that could manage a PEG tube if this is still required. Placement is pending, patient provide number for an additional home health agency today otherwise multiple referrals to SNF facilities are pending. CM following, she is medically stable to discharge when placement is available Admission and Anticipated Discharge Date Admission Date: July 15, 2024 Subjective Patient examined today,, still wants to go home Review of Systems Review of Systems: All systems reviewed are negative, apart from the ones contained in the history. Physical Exam Physical Exam: The patient is awake, alert and oriented 3, well developed and well nourished, normocephalic and atraumatic, lying in bed and in no acute distress. HEENT--PERRL, EOMI, mucous membranes and oropharynx mildly dry Neck--supple. No JVD. No bruits. Thyroid normal, trachea midline, no adenopathy. Heart--normal S1 and S2. No murmurs, rubs or gallops. Lungs--clear bilaterally, no respiratory distress, no accessory muscle use. Abdomen--normal bowel sounds and soft. Extremities--no cyanosis or clubbing. No edema. Dermatologic--normal skin turgor, normal color, no abnormal lymph nodes, no rash. Neurologic--cranial nerves II through XII grossly intact. Rheumatologic--atrophic lower extremities, poor muscle tone Psychiatric--normal affect. Results & Data Results & Data Vital Signs (Past 12 Hours) Vital Signs Temp Pulse Resp BP Pulse Ox O2 Del Method 07/29/24 08:30 98.6 F 102 H 20 109/76 95 Room Air PG Care Time/CCT Total # of Minutes Spent Total Time Spent with Patient: Total time spent is greater than 50% in coordination of care (as documented) at patient's floor/unit and/or counseling patient: Coding Level of Care Code 39583 SUB INP/OBS CARE 2/35MIN Diagnoses Hyperosmolar hyperglycemic state (HHS) E11.00 DM2 (diabetes mellitus, type 2) E11.9 Cerebral palsy G80.9 Cerebral palsy type: unspecified type Status post insertion of percutaneous endoscopic gastrostomy (PEG) tube Z93.1 Time Spent (min) 35 (3) Cerebral palsy Cerebral palsy type: unspecified type Qualified Code(s): G80.9 - Cerebral palsy, unspecified
--- NOTE | 2024-07-30 09:43 | Hospitalist Progress Note ---
Date of Service July 30, 2024 Assessment & Plan (1) Hyperosmolar hyperglycemic state (HHS): (2) DM2 (diabetes mellitus, type 2): (3) Cerebral palsy: (4) Status post insertion of percutaneous endoscopic gastrostomy (PEG) tube: Plan 54-year-old woman with cerebral palsy, type II DM, dysphagia with PEG tube placement who was admitted from SNF with HHS and sepsis from complicated UTI. she was critically ill at the time she was admitted. HHS treatment was complicated by concurrent hypernatremia. HHS, DM2 HHS resolved Continue basal bolus insulin. currently on Glargine 17 units BID and correction -Pharmacy glycemic management following for adjustments. BSG checks every 4 hours because of TFs. Reviewed BG's currently at goal Enteral feeds per nutrition via G-tube mental status seems to be at her baseline diarrhea - tube feeds + antibiotics -Resolving -cont banana flakes -try to add probiotic and prn imodum but unclear if these can be given via peg -interfering with wound care Hypernatremia Resolved UTI/pyelonephritis, mild right hydroureteronephrosis UCx rivas-sensitive Klebsiella completed antibiotics Elevated troponin: 2/ myocardial demand ischemia Cerebral palsy New PEG tube placed 06/29/2024. Patient previously with assistive caregivers at home however she no longer has these. Reports she is wheelchair-bound but has had difficulty finding caregivers that can help manage her tube feeds. Adamant that she does not want to return to [facility], prefers to return home but is aware of her current care needs which without additional services at home preclude live safely. Case management consulted Dysphagia Oropharyngeal dysphagia worsened by thyroid mass with impingement on the esophagus. 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 intake and should be kept strict NPO. PEG tube is available for alternative route for nutrition. Long-term will need assessment of thyroid mass and surgery however has not been medically stable enough to pursue this and requires ongoing outpatient workup. S/p PEG tube placement 06/[address] [facility]. Continue PEG feeds, nutrition following Patient's home nursing team was unable to provide care for her PEG tube and was discharged to [facility] however patient rapidly declined at that facility. Patient refuses placement back, case management consulted to facilitate alternative options. goiter Noted on prior imaging. Recommend for outpatient follow-up with ENT, has not been medically stable enough to progress to this at time of admission TSH is significantly suppressed, free T4 normal 1.5. Thyroid ultrasound consistent with goiter Patient strong preference to pursue surgical intervention if at all possible given her change and suspected contribution of this on her ability to swallow, although she is a increased surgical risk and this would likely need to be done at a tertiary care center. Discussed with case management. Patient can follow- up with Dr. Joel [facility] as an outpatient, referral for this will be placed. AGUILAR (present on admission) - resolved. Cr 0.44 Sepsis due to UTI/pyelonephritis (present on admission) - resolved Please see progress note from 07/16/2024 for complete summary of ethics consultation, palliative care consultation which was performed at [facility]. These records have also been scanned into the EMR DVT prophylaxis: Heparin due to renal dysfunction Disposition: Placement is pending, . CM following, she is medically stable to discharge when placement is available, however, seems she is vehemently opposed to placement in a penitentiary, she would rather go home, but she does not have anyone to take care of her PEG tube needs at home Admission and Anticipated Discharge Date Admission Date: July 15, 2024 Subjective Patient examined today,, still wants to go home, very worried about losing her home Review of Systems Review of Systems: All systems reviewed are negative, apart from the ones contained in the history. Physical Exam Physical Exam: The patient is awake, alert and oriented 3, well developed and well nourished, normocephalic and atraumatic, lying in bed and in no acute distress. HEENT--PERRL, EOMI, mucous membranes and oropharynx mildly dry Neck--supple. No JVD. No bruits. Thyroid normal, trachea midline, no adeno li. Heart--normal S1 and S2. No murmurs, rubs or gallops. Lungs--clear bilaterally, no respiratory distress, no accessory muscle use. Abdomen--normal bowel sounds and soft. Extremities--no cyanosis or clubbing. No edema. Dermatologic--normal skin turgor, normal color, no abnormal lymph nodes, no rash. Neurologic--cranial nerves II through XII grossly intact. Rheumatologic--atrophic lower extremities, poor muscle tone Psychiatric--normal affect. Results & Data Results & Data Vital Signs (Past 12 Hours) Vital Signs Temp Pulse Resp BP Pulse Ox O2 Del Method 07/30/24 09:26 98.2 F 92 H 18 108/72 94 Room Air 07/30/24 00:14 Room Air PG Care Time/CCT Total # of Minutes Spent Total Time Spent with Patient: Total time spent is greater than 50% in coordination of care (as documented) at patient's floor/unit and/or counseling patient: Coding Level of Care Code 54694 SUB INP/OBS CARE 2/35MIN Diagnoses Hyperosmolar hyperglycemic state (HHS) E11.00 DM2 (diabetes mellitus, type 2) E11.9 Cerebral palsy G80.9 Cerebral palsy type: unspecified type Status post insertion of percutaneous endoscopic gastrostomy (PEG) tube Z93.1 Time Spent (min) 35 (3) Cerebral palsy Cerebral palsy type: unspecified type Qualified Code(s): G80.9 - Cerebral palsy, unspecified
--- NOTE | 2024-07-30 14:32 | Pharmacy Report ---
Pharmacy Glycemic Short Note 2 - Date of Service July 30, 2024 - Glycemic Short BSG Results (Last 24 hours): 07/29/24 07/29/24 07/30/24 16:41 20:53 08:06 POC Glucose 163 H 163 H 179 H 07/30/24 11:34 POC Glucose 102 H OUTPATIENT ANTIDIABETIC REGIMEN: * Lantus 30 units SQ BID * metformin 1gm PO BID * empagliflozin 25mg PO daily HbA1C: 6.9% 07/17/24 ASSESSMENT: 07/30 * Criss received 57 units of insulin yesterday (34 were basal) * Fasting BSG this AM acceptable, continue current basal regimen * Post-prandials ok, NovoLog adjusted yesterday will continue with those parameters 07/27 * Criss received 62 units of insulin yesterday (20 were basal) * Fasting BSG this AM acceptable, continue current regimen * Nutren TF at goal, post-prandials still increasing, tighten carbohydrate ratio 07/26: * Criss received 40 units of insulin yesterday (20 were basal) * Fasting BSG this AM slightly elevated, bolus Nutren feeds will be at goal with lunchtime, will continue with 30% increase in basal insulin today. * BSG over 300 today with lunch, carbohydrate ratio adjusted yesterday, will tighten further tomorrow if BSGs continue to trend up with increase in basal insulin. 07/25: * Criss received 45 units of insulin yesterday (20 were basal) * Some BSGs still elevated with Fibersource tube feeds, planed to increase basal by ~30% to help cover. Tube feeds switched to more concentrated Nutren 2.0 bolus (titrating up to goal 220mL QID over next 24 Hours) due to patient preference and overnight diarrhea. Will adjust basal to a scale at bedtime based on BSGs aiming for yesterday's basal dose. * Tightened carbohydrate ratio to also try and prevent BSG rises. 07/23: * Patient received a total of 37 units of insulin yesterday. (14 units were basal and 23 units were bolus). Most BSGs were above goal yesterday ([phone]/dL) despite tightening CF and increasing Lantus doses. This is most likely due to increasing rate of tube feeds. * AM BSG was 202mg/dL this morning. Lantus was increased to 10units SQ BID. Will continue parameters of bolus insulin without change. 07/20: * Criss received a total of 20 units of insulin yesterday (10 were basal and 10 were bolus). BSGs were pretty well controlled ([phone]/dL) so current basal insulin regimen will be continued without change. * BSGs jamil this morning to 209 and then 195mg/dL so the CR was tightened some. * She continues on Fibersource HN tube feeding (currently at 40ml/hr) with q 4 hour BSG checks. 07/17 * BSGs well controlled over last 24 hours. Many however less than 110 - will lessen both basal and prandial insulin doses * 25 units of SQ insulin given over last 24 hours. * Patient is receiving Peptamen 1.5 @30cc/hr this AM. 07/16 * Pt is a 54 year old female with history of DM2 on insulin therapy at home admi tted with HHS and UTI. Pharmacy consulted to assist with glycemic management. * Initiated on an insulin infusion yesterday per DKA/HHS protocol and transitioned to SQ insulin last night by provider. * BSGs today [phone]/dL. * Received 20 units of Lantus ~ midnight last night. Today, IVF adjusted to remove dextrose and tube feeds initiated this afternoon (PEG/TF dependent). * Lantus 10 units X 1 dose today around lunch (also received a 4 unit IV bolus per hospitalist for BSG 352 on 1100 BMP) and then begin 20 units BID tonight. Novolog q4 with coverage for tube feeds. PLAN FOR INPATIENT GLYCEMIC CONTROL: * Hold outpatient oral diabetes medications * Basal insulin * Lantus 17 units SQ BID * Bolus insulin * NovoLog per scale QID@ 08,12,16,20 with 220mL Nutren bolus feeds * Goal Range: Low 110 mg/dL - High 140 mg/dL * Correction Factor: 25 mg/dL/unit * Nutritional / Prandial insulin per carb ratio of 1 unit per 9 grams CHO consumed PLEASE COVER TUBE FEEDS BOLUS WHEN GIVEN Nutren 2.0 dianne = 216 g CHO/L 120 mL = 25 g CHO 180 mL = 39 g CHO 220 mL = 48 g CHO
[2024-07-31] MEDS: MENTHOL-ZINC OXIDE 360 APPLN/120 GM TUBE EXT SCH (08:41)
--- NOTE | 2024-07-31 13:34 | Hospitalist Progress Note ---
Date of Service July 31, 2024 Assessment & Plan (1) Hyperosmolar hyperglycemic state (HHS): (2) DM2 (diabetes mellitus, type 2): (3) Cerebral palsy: (4) Status post insertion of percutaneous endoscopic gastrostomy (PEG) tube: (5) Neurogenic bladder: (6) Goiter: Plan 54-year-old female with past medical history of cerebral palsy, insulin- dependent type 2 diabetes mellitus, dysphagia secondary to goiter with PEG tube placement at [facility] with recent hospitalization at [facility] was admitted from care home facility with HHS and sepsis related to urinary tract infection/pyelonephritis. She was critically ill and monitored in the ICU with AGUILAR/hyponatremia. These have all resolved and she has finished a full course of antibiotics for her sepsis and is currently under the care of the hospitalist team awaiting a safe discharge plan. #Type 2 diabetes mellitus A1c 6.9 Pharmacy is managing diabetes management/glycemic control HHS has resolved #Sepsis secondary to UTI/pyelonephritis with mild right hydro ureteric nephro sis: Resolved #AGUILAR: Resolved Renal function is at baseline Patient is finish full course of antibiotics #Cerebral palsy #Neurogenic bladder Patient has Givens catheter She needs full-time care nurse and does not wish to go to SNF. Patient is unable to care for herself on her own Concern from case management that patient does not have capacity to sign out AMA and are requesting psychiatry consult I spoke with the psychiatrist Dr. Alicia Gaytan via secure chat and psychiatry has been consulted: Await psychiatry consult for recommendations #Thyroid goiter #Dysphagia Noted at [facility] during hospital stay Thyroid ultrasound consistent with goiter causing obstructive symptoms leading to dysphagia PEG tube was inserted at [facility] on 06/29/2024 Patient will need follow-up with ENT at [facility] (Dr. Joel at [facility]) Please see progress note from 07/16/[address] Jose Angel Hayes for complete summary of ethics consultation, palliative care consultation which was performed at [facility] CODE STATUS: DNR/DNI DVT prophylaxis: Heparin subcutaneous Care plan discussed with patient, nursing staff and case management Admission and Anticipated Discharge Date Admission Date: July 15, 2024 Subjective Patient seen and examined She denies any new complaints She really wants to go home but is unable to arrange for caregivers. As per nursing staff, she has been threatening on and off leave AMA but is unable to arrange transportation Physical Exam Physical Exam: General: No acute distress Psych: Awake and alert, oriented to place and person HEENT: Anicteric sclera, moist oral mucosa CVS: Regular rate and rhythm Lungs: Bilateral air entry, no wheezing noted Abdomen: Soft, nontender, no rebound, no guarding, PEG tube in place Ext: No lower extremity edema, no calf tenderness Results & Data Results & Data Vital Signs (Past 12 Hours) Vital Signs Temp Pulse Resp BP Pulse Ox O2 Del Method 07/31/24 07:34 36.8 C 96 H 18 118/80 97 Room Air Laboratory Results Laboratory Results - last 24 hr 07/30/24 07/30/24 07/31/24 16:08 20:24 07:33 POC Glucose 178 H 103 H 163 H 07/31/24 11:26 POC Glucose 216 H PG Care Time/CCT Total # of Minutes Spent Total Time Spent with Patient: Total time spent is greater than 50% in coordination of care (as documented) at patient's floor/unit and/or counseling patient: Coding Level of Care Code 18211 SUB INP/OBS CARE 2/35MIN Diagnoses Hyperosmolar hyperglycemic state (HHS) E11.00 DM2 (diabetes mellitus, type 2) E11.9 Cerebral palsy G80.9 Cerebral palsy type: unspecified type Status post insertion of percutaneous endoscopic gastrostomy (PEG) tube Z93.1 Neurogenic bladder N31.9 Goiter E04.9 Time Spent (min) 40 (3) Cerebral palsy Cerebral palsy type: unspecified type Qualified Code(s): G80.9 - Cerebral palsy, unspecified
[2024-08-01] MEDS: CYANOCOBALAMIN 1000 MCG/ML VIAL IM SCH (09:21)
--- NOTE | 2024-08-01 10:24 | Hospitalist Progress Note ---
Date of Service August 01, 2024 Assessment & Plan (1) Hyperosmolar hyperglycemic state (HHS): (2) DM2 (diabetes mellitus, type 2): (3) Cerebral palsy: (4) Status post insertion of percutaneous endoscopic gastrostomy (PEG) tube: (5) Neurogenic bladder: (6) Goiter: Plan 54-year-old female with past medical history of cerebral palsy, insulin- dependent type 2 diabetes mellitus, dysphagia secondary to goiter with PEG tube placement at [facility] with recent hospitalization at [facility] was [facility] with HHS and sepsis related to urinary tract infection/pyelonephritis. She was critically ill and monitored in the ICU with AGUILAR/hyponatremia. These have all resolved and she has finished a full course of antibiotics for her sepsis and is currently under the care of the hospitalist team awaiting a safe discharge plan. 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 Patient is unable to care for herself on her own Concern from case management that patient does not have capacity to sign out AMA and are requesting psychiatry consult Psychiatry to see patient today for recommendations regarding capacity/AMA Trial without catheter as discussed with patient #Thyroid goiter #Dysphagia Noted at [facility] during hospital stay Thyroid ultrasound consistent with goiter causing obstructive symptoms leading to dysphagia PEG tube was inserted at [facility] on 06/29/2024 Patient will need follow-up with ENT at [facility] (Dr. [place] [facility] [place] Please see progress note from 07/16/[address] Jose Angel Hayes for complete summary of ethics consultation, palliative care consultation which was performed at [facility] CODE STATUS: DNR/DNI DVT prophylaxis: Heparin subcutaneous Care plan discussed with patient, nursing staff and case management Admission and Anticipated Discharge Date Admission Date: July 15, 2024 Subjective Patient seen and examined She met with the psych liaison nurse radha Warren She is going to meet with the psychiatrist this afternoon She is concerned about losing her apartment and wants to get back home as soon as possible. She is having a difficult time finding caregivers and has trying to find paid caregivers through help of some family friends She denies any chest pain, shortness of breath, nausea, vomiting, diarrhea, abdominal pain She is agreeable to removing her Givens catheter. Patient states she did not woodall ve a cold Givens catheter at [facility] and Givens catheter was placed here and she is willing to do a trial without catheter to see if she can urinate on her own as she was doing so prior to admission at [facility] Patient had labs done 20 minutes ago, results are still pending: Will follow-up Physical Exam Physical Exam: General: No acute distress Psych: Awake and alert, oriented to place and person HEENT: Anicteric sclera, moist oral mucosa CVS: Regular rate and rhythm Lungs: Bilateral air entry, no wheezing noted Abdomen: Soft, nontender, no rebound, no guarding, PEG tube in place Ext: No lower extremity edema, no calf tenderness : Indwelling Givens catheter in place with clear yellow urine Results & Data Results & Data Vital Signs (Past 12 Hours) Vital Signs Temp Pulse Resp BP Pulse Ox O2 Del Method 08/01/24 09:36 Room Air 08/01/24 08:08 36.7 C 95 H 18 128/78 94 Room Air PG Care Time/CCT Total # of Minutes Spent Total Time Spent with Patient: Total time spent is greater than 50% in coordination of care (as documented) at patient's floor/unit and/or counseling patient: Coding Level of Care Code 21726 SUB INP/OBS CARE 2/35MIN Diagnoses Hyperosmolar hyperglycemic state (HHS) E11.00 DM2 (diabetes mellitus, type 2) E11.9 Cerebral palsy G80.9 Cerebral palsy type: unspecified type Status post insertion of percutaneous endoscopic gastrostomy (PEG) tube Z93.1 Neurogenic bladder N31.9 Goiter E04.9 (3) Cerebral palsy Cerebral palsy type: unspecified type Qualified Code(s): G80.9 - Cerebral palsy, unspecified
[2024-08-01 11:06] LABS: Hematocrit (blood only) 33.5 % (37.0-47.0); Hemoglobin 10.5 g/dl (12.0-16.0); Mean Corpuscular Hemoglobin 30.2 pg (25.0-34.0); Mean Corpuscular Hgb Conc 31.3 g/dL (32.0-36.0); Mean Corpuscular Volume 96.3 fL (80.0-100.0); Mean Platelet Volume 11.4 fL (9.4-12.4); Platelet Count 304 K/uL (130-400); RDW Coefficient of Variation 15.9 % (11.5-14.5); RDW Standard Deviation 55.7 fL (36.4-46.3); Red Blood Count 3.48 M/uL (4.20-5.40)
[2024-08-01 11:30] LABS: BUN Creatinine Ratio 28.8 (10-20); Calcium 9.8 mg/dl (8.6-10.3); Creatinine Clr Calc Pharmacy 113.1 ml/min; Magnesium 1.5 mg/dl (1.7-2.4)
--- NOTE | 2024-08-01 14:56 | Psychiatric Consultation ---
Date of Consultation August 01, 2024 Impression / Recommendations Impression Diagnostically no evidence for any major mood symptoms nor acute psychiatric symptoms. She does have some baseline irritability and sounds like possible cluster B traits/PD given reports of chronic interpersonal challenges with care aids outside of the hospital. From a decision making capacity standpoint I feel she does have decision making capacity to leave AMA and return home should she continue to desire this. This decision seems unwise, especially given her recent decompensation and potential for without appropriate care in place (which currently is the main limitation of returning home to her apartment) but she is allowed to make unwise decisions if a rationale process is used and her ability to speak to her decision, risks/benefits/alternatives, accurately repeated information provided by case management and her preference for autonomy above safety of being in a usp. In terms of decision making capacity it is foremost critical to emphasis that this assessment is task specific, dimensional and DOES NOT REPRESENT NOR CAN IT BE USED A MEANS OF ASSESSING GLOBAL LEGAL COMPETENCY OR NEED FOR GUARDIANSHIP. A LEGAL COMPETENCY ASSESSMENT IS SEPARATE, DISTINCT AND REQUIRES E XTENSIVE EVALUATION TYPICALLY TO INCLUDE FORMAL COGNITIVE ASSESSMENTS INCLUDING NEUROPSYCHOLOGICAL and IQ TESTING, DISCUSSION WITH LONGITUDINAL ASSOCIATES AND PROVIDERS WHO HAVE KNOWN A PATIENT OVER A PERIOD OF MONTHS OR YEARS, COMPREHENSIVE INTERVIEWS AND GENERALLY INVOLVEMENT OF SPECIALIZED FORENSIC PSYCHOLOGISTS OR PSYCHIATRISTS. Assessment of Decision-Making Capacity Criterion Patient Task A YES Communicates a choice Patient is able to clearly indicate preferred treatment option in a clear and consistent manner YES Understands information provided Patient understands their condition and treatment options YES Appreciates consequences Patient shows appropriately nuanced appreciation for the risks & benefits associated with available treatment options, including no treatment YES Manipulates relevant information Patient able to rationally weigh risks & benefits, as well as offer reasons for their decision It is important to note that a patient's decision can be unwise as long as a rational process was used to arrive at it. Decision making capacity determinations are decision and time specific. This patient has capacity with respect to this particular decision-making task at this time. They are able to articulate reasons for their decision and shows no signs of cognitive impairment, delirium, psychosis, or severe depression that could otherwise interfere with their ability to meaningfully understand information and appreciate the risks of refusing treatment. The patient's decision making capacity could change in the future given that their mental status and various other factors can certainly fluctuate over time. Overall, I spent a total of 80 minutes with this case including review of chart records, review of labwork, direct evaluation of the patient at bedside, counseling the patient, discussion of the patient with the hospitalist provider, discussion with the psychiatric liason during clinical rounds, and documentation in the electronic health record. (1) Status post insertion of percutaneous endoscopic gastrostomy (PEG) tube: (2) Cerebral palsy: Cerebral palsy type: unspecified type Qualified Code(s): G80.9 - Cerebral palsy, unspecified (3) Encounter for assessment of decision-making capacity: Plan -At this time felt to have decision making capacity to leave AMA and return home without care aids in place if she continues to desire this -Encourage ongoing efforts to establish some type of care in the home, potentially via private pay if this is possible (she feels it is, unclear if this is realistic) and/or potential to extend her lease/ability to be in the hospital if needed without risk of losing her apartment -Encourage reversal of PEG tube as quickly as possible if this is a feasible option in the future as this seems to be a major barrier to functioning independently at home Psych History Identifying Data Criss is a cerebral palsy, neurogenic bladder, renal calculi, hypertension, hyperlipidemia, type II DM who presents with sepsis and DKA admitted due in part to lack of PEG tube feeds being completed. Psychiatry consulted for decision making capacity for leaving the hospital AMA and returning to her apartment vs usp with constant support. Chief Complaint "I'd rather at home than be sad at a usp". History of Present Illness Criss was seen for psychiatric evaluation to assess decision-making capacity regarding post-discharge placement. She expresses a strong and consistent desire to return to her apartment of 30 years, stating she has 'less than a month to get back.' She is resistant to the recommendation of going to a usp, asserting that 'they eventually take all your money.' and that she feels if she goes there she will be sad and that is no way to live. She states understanding that the team is recommending this to allow for care and PEG tube care but she feels she can find a way to privately pay for care givers to come into her home if home health cannot find anyone. She views risks of going home as "" but states she prefers this to being in a usp where she loses her independence and apartment. She can discuss primary team's concerns about caregiver availability, mentioning a 'lack of caregivers.' She perceives care as primarily benefiting the caregiver, not the patient, and has had issues with caregivers not taking their job seriously. She acknowledges needing caregiver support for PEG tube feedings three times a day but does not want constant care, stating, 'I don't want anybody in there all day.' The patient reports a history of inadequate home care, stating she hasn't 'had good care in years.' She expresses confidence in her ability to arrange for providers upon discharge, saying, 'There will be providers, one way or the other.' She also mentions the possibility of her PEG tube being reversed in the future. Regarding her housing situation, she reports that her lease allows for a 3-month absence due to illness. She believes the lease terms are strict and non- negotiable, despite paying rent. She states that she is personally responsible for paying her rent and does not require assistance. She expresses urgency about returning to her apartment by the end of August to maintain her housing, stating, 'By the end of August, I'll find a way to get back.' She denies any psychiatric symptoms including no major mood symptoms nor SI. Allergies Allergy/AdvReac Type Severity Reaction Status Date / Time sulfamethoxazole Allergy Unknown Unknown Unverified 07/15/24 12:34 [From Bactrim] trimethoprim [From Bactrim] Allergy Unknown Unknown Unverified 07/15/24 12:34 Home Medications Medication Instructions Recorded Confirmed Type Glucagon Emergency Kit 1 dose IM .15MINS PRN Hypoglycemia 07/15/24 07/15/24 History baclofen 5 mg tablet 5 mg feeding tube Q8H PRN Muscle 07/15/24 07/15/24 History Spasm bisacodyl 10 mg rectal suppository 10 mg WI DAILY PRN Constipation 07/15/24 07/15/24 History (Dulcolax (bisacodyl)) empagliflozin 25 mg tablet 25 mg PO DAILY 07/15/24 07/15/24 History (Jardiance) insulin glargine 100 unit/mL (3 30 unit subcut BID 07/15/24 07/15/24 History mL) subcutaneous pen (Lantus Solostar U-100 Insulin) metformin 1,000 mg tablet 1,000 mg PO BID 07/15/24 07/15/24 History metoprolol tartrate 50 mg tablet 50 mg PO BID 07/15/24 07/15/24 History multivitamin 1 tab PO DAILY 07/15/24 07/15/24 History omega 1-hhy-yps-fish oil 1,000 mg 1 cap PO DAILY 07/15/24 07/15/24 History (120 mg-180 mg) capsule (Fish Oil) sodium phosphates 19 gram-7 118 ml WI DAILY PRN Constipation 07/15/24 07/15/24 History gram/118 mL enema (Enema) vibegron 75 mg tablet 75 mg PO DAILY 07/15/24 07/15/24 History Patient History Medical History Neurogenic bladder Aspiration into airway HLD (hyperlipidemia) HTN (hypertension) Social History Smoking Status: Never smoker Hx Alcohol Use: No Hx Substance Use: No Preferred Language: Uzbek Communication Ability: Effective Clay Miller Required: No Beliefs That Will Affect Care: None Current Living Situation: Personal Care Facility Assistive Devices: Mechanical Lift, Scooter/Electric Scooter and Other Physical Exam Psychiatric: Orientation: alert and oriented x 3 Apperance: appropriately dressed Eye Contact: good eye contact Speech: normal rate/rhythm/volume of speech Affect: + irritable affect Mood: + irritable mood Thought Process: goal directed thought process Thought Content: reality based without delusions Suicidal Thoughts: denies suicidal thoughts Homicidal Thoughts: denies homicidal thoughts Hallucinations: no auditory hallucinations and no visual hallucinations Cognition: recent memory grossly intact (she declined to participate with MOCA ), remote memory grossly intact, attention grossly intact and language grossly intact Insight: + fair insight Judgment: + limited judgement Vital Signs (Past 24 Hours): Last Vital Signs Temp 36.8 C 08/01/24 11:28 Pulse 85 08/01/24 11:28 Resp 16 08/01/24 11:28 BP 101/69 08/01/24 11:28 Pulse Ox 94 08/01/24 11:28 O2 Del Method Room Air 08/01/24 11:28 O2 Flow Rate 3 07/15/24 17:40 FiO2 30 07/15/24 16:21 Results & Data (PSY) Medications Administered Baclofen (Baclofen 10 Mg Tab) 5 mg PEG Q8H PRN PRN Reason: Muscle Spasm Stop: 08/14/24 17:23 Last Admin: 08/01/24 08:30 Dose: 5 mg Documented By: Admin: 08/01/24 00:54 Dose: 5 mg Documented By: Admin: 07/31/24 16:53 Dose: 5 mg Documented By: Admin: 07/31/24 08:41 Dose: 5 mg Documented By: Admin: 07/30/24 22:29 Dose: 5 mg Documented By: Admin: 07/29/24 21:14 Dose: 5 mg Documented By: Admin: 07/29/24 13:42 Dose: 5 mg Documented By: Admin: 07/28/24 22:32 Dose: 5 mg Documented By: Admin: 07/27/24 20:54 Dose: 5 mg Documented By: Admin: 07/25/24 00:46 Dose: 5 mg Documented By: Admin: 07/23/24 12:30 Dose: 5 mg Documented By: Admin: 07/22/24 20:11 Dose: 5 mg Documented By: Admin: 07/21/24 20:23 Dose: 5 mg Documented By: Admin: 07/19/24 18:40 Dose: 5 mg Documented By: Admin: 07/17/24 12:31 Dose: 5 mg Documented By: Admin: 07/17/24 03:45 Dose: 5 mg Documented By: Admin: 07/16/24 08:19 Dose: 5 mg Documented By: Admin: 07/15/24 21:24 Dose: 5 mg Documented By: SG Banana Based Medical Food (Banatrol Tf 60 Ml Liquid Pkt) 60 ml PEG BID ARIANA Stop: 08/17/24 20:59 Last Admin: 08/01/24 08:29 Dose: 60 ml Documented By: Admin: 07/31/24 21:03 Dose: 60 ml Documented By: Admin: 07/31/24 08:40 Dose: 60 ml Documented By: Admin: 07/30/24 21:06 Dose: 60 ml Documented By: Admin: 07/30/24 08:11 Dose: 60 ml Documented By: Admin: 07/29/24 21:24 Dose: 60 ml Documented By: Admin: 07/29/24 09:57 Dose: 60 ml Documented By: Admin: 07/28/24 20:52 Dose: 60 ml Documented By: Admin: 07/28/24 09:11 Dose: 60 ml Documented By: Admin: 07/27/24 20:00 Dose: 60 ml Documented By: Admin: 07/27/24 07:47 Dose: 60 ml Documented By: Admin: 07/26/24 20:33 Dose: 60 ml Documented By: Admin: 07/26/24 08:57 Dose: 60 ml Documented By: Admin: 07/25/24 21:03 Dose: 60 ml Documented By: Admin: 07/25/24 08:42 Dose: 60 ml Documented By: Admin: 07/24/24 21:38 Dose: 60 ml Documented By: Admin: 07/24/24 08:38 Dose: 60 ml Documented By: Admin: 07/23/24 22:31 Dose: 60 ml Documented By: Admin: 07/23/24 09:07 Dose: 60 ml Documented By: Admin: 07/22/24 20:11 Dose: 60 ml Documented By: Admin: 07/22/24 09:49 Dose: 60 ml Documented By: Admin: 07/21/24 20:23 Dose: 60 ml Documented By: Admin: 07/21/24 08:18 Dose: 60 ml Documented By: Admin: 07/20/24 20:53 Dose: 60 ml Documented By: Admin: 07/20/24 07:49 Dose: 60 ml Documented By: Admin: 07/19/24 20:31 Dose: 60 ml Documented By: Admin: 07/19/24 08:35 Dose: 60 ml Documented By: Admin: 07/18/24 21:25 Dose: 60 ml Documented By: REYES Calamine/Phenol (Menthol-Zinc Oxide 360 Appln/120 Gm Tube) 1 appln EXT TID ARIANA Stop: 08/30/24 08:59 Last Admin: 08/01/24 13:42 Dose: 1 appln Documented By: Admin: 08/01/24 08:28 Dose: 1 appln Documented By: Admin: 07/31/24 21:04 Dose: 1 appln Documented By: Admin: 07/31/24 14:02 Dose: 1 appln Documented By: Admin: 07/31/24 08:41 Dose: 1 appln Documented By: MUKUND Heparin Sodium (Porcine) (Heparin Sod 5,000 Unit/0.5 Ml Vial) 5,000 units SQ Q8 ARIANA Stop: 08/15/24 07:59 Last Admin: 08/01/24 13:42 Dose: Not Given Documented By: Admin: 08/01/24 06:01 Dose: Not Given Documented By: Admin: 07/31/24 21:04 Dose: 5,000 units Documented By: Admin: 07/31/24 14:01 Dose: Not Given Documented By: Admin: 07/31/24 06:35 Dose: Not Given Documented By: Admin: 07/30/24 21:00 Dose: 5,000 units Documented By: Admin: 07/30/24 14:06 Dose: 5,000 units Documented By: Admin: 07/30/24 05:37 Dose: 5,000 units Documented By: Admin: 07/29/24 21:15 Dose: 5,000 units Documented By: Admin: 07/29/24 13:01 Dose: 5,000 units Documented By: Admin: 07/29/24 05:57 Dose: 5,000 units Documented By: Admin: 07/28/24 21:09 Dose: 5,000 units Documented By: Admin: 07/28/24 16:07 Dose: 5,000 units Documented By: Admin: 07/28/24 05:05 Dose: 5,000 units Documented By: Admin: 07/27/24 21:33 Dose: 5,000 units Documented By: Admin: 07/27/24 16:54 Dose: 5,000 units Documented By: Admin: 07/27/24 05:38 Dose: 5,000 units Documented By: Admin: 07/26/24 22:29 Dose: 5,000 units Documented By: Admin: 07/26/24 13:23 Dose: 5,000 units Documented By: Admin: 07/26/24 05:59 Dose: 5,000 units Documented By: Admin: 07/25/24 22:15 Dose: 5,000 units Documented By: Admin: 07/25/24 13:45 Dose: 5,000 units Documented By: Admin: 07/25/24 06:08 Dose: 5,000 units Documented By: Admin: 07/24/24 21:38 Dose: 5,000 units Documented By: Admin: 07/24/24 13:54 Dose: 5,000 units Documented By: Admin: 07/24/24 06:17 Dose: Not Given Documented By: Admin: 07/23/24 22:29 Dose: 5,000 units Documented By: Admin: 07/23/24 13:36 Dose: 5,000 units Documented By: Admin: 07/23/24 05:58 Dose: 5,000 units Documented By: Admin: 07/22/24 20:12 Dose: 5,000 units Documented By: Admin: 07/22/24 13:23 Dose: 5,000 units Documented By: Admin: 07/22/24 04:45 Dose: 5,000 units Documented By: MJOliver Admin: 07/21/24 20:23 Dose: 5,000 units Documented By: Admin: 07/21/24 13:49 Dose: 5,000 units Documented By: Admin: 07/21/24 06:03 Dose: 5,000 units Documented By: Admin: 07/20/24 20:53 Dose: 5,000 units Documented By: Admin: 07/20/24 13:00 Dose: 5,000 units Documented By: Admin: 07/20/24 06:00 Dose: 5,000 units Documented By: Admin: 07/19/24 21:24 Dose: 5,000 units Documented By: Admin: 07/19/24 15:12 Dose: 5,000 units Documented By: Admin: 07/19/24 06:14 Dose: 5,000 units Documented By: Admin: 07/18/24 21:35 Dose: 5,000 units Documented By: Admin: 07/18/24 15:07 Dose: 5,000 units Documented By: Admin: 07/18/24 05:59 Dose: 5,000 units Documented By: Admin: 07/17/24 22:13 Dose: 5,000 units Documented By: Admin: 07/17/24 14:42 Dose: 5,000 units Documented By: Admin: 07/17/24 04:57 Dose: 5,000 units Documented By: Admin: 07/16/24 21:31 Dose: 5,000 units Documented By: Admin: 07/16/24 16:14 Dose: 5,000 units Documented By: Admin: 07/16/24 08:19 Dose: 5,000 units Documented By: AMS Insulin Aspart (Insulin Aspart Per Unit Charge) 0 units SC QID@0800,1200,1600,2000 ARIANA Stop: 08/24/24 15:59 Last Admin: 08/01/24 12:10 Dose: 7 units Documented By: MUKUND Co-signed By: MART Admin: 08/01/24 08:27 Dose: 6 units Documented By: MUKUND Co-signed By: MERY(2) Admin: 07/31/24 21:13 Dose: 9 units Documented By: DESTINY Co-signed By: ERIC Admin: 07/31/24 16:53 Dose: 6 units Documented By: MUKUND Co-signed By: [facility] Admin: 07/31/24 12:15 Dose: 9 units Documented By: MUKUND Co-signed By: [facility] Admin: 07/31/24 08:37 Dose: 6 units Documented By: MUKUND Co-signed By: MART Admin: 07/30/24 21:21 Dose: 6 units Documented By: DESTINY Co-signed By: PRIMITIVO Admin: 07/30/24 16:17 Dose: 7 units Documented By: KHALIDA Co-signed By: [facility] Admin: 07/30/24 12:02 Dose: 4 units Documented By: KHALIDA Co-signed By: [facility] Admin: 07/30/24 08:26 Dose: 5 units Documented By: KHALIDA Co-signed By: AA Admin: 07/29/24 21:13 Dose: 3 units Documented By: HUSSAIN Co-signed By: EDGARDO Admin: 07/29/24 17:16 Dose: 6 units Documented By: MERY Co-signed By: MARIZA Admin: 07/29/24 12:47 Dose: 8 units Documented By: MERY Co-signed By: CRISTIANA Admin: 07/29/24 09:02 Dose: 6 units Documented By: MERY Co-signed By: CRISTIANA Admin: 07/28/24 21:08 Dose: 6 units Documented By: LUCILA Co-signed By: EDGARDO Admin: 07/28/24 17:37 Dose: 8 units Documented By: MERY Co-signed By: CRISTIANA Admin: 07/28/24 12:25 Dose: 6 units Documented By: MERY Co-signed By: CRISTIANA Admin: 07/28/24 09:11 Dose: 6 units Documented By: MERY Co-signed By: CRISTIANA Admin: 07/27/24 20:19 Dose: 6 units Documented By: LUCILA Co-signed By: MELQUIADES Admin: 07/27/24 16:54 Dose: 6 units Documented By: MART Co-signed By: KAREN Admin: 07/27/24 11:45 Dose: 8 units Documented By: MART Co-signed By: JOSE LUIS Admin: 07/27/24 08:13 Dose: 6 units Documented By: MART Co-signed By: JUNIE Admin: 07/26/24 19:53 Dose: 7 units Documented By: SADI Co-signed By: PRIMITIVO Admin: 07/26/24 16:31 Dose: 6 units Documented By: ROSA Co-signed By: VADIM Admin: 07/26/24 12:30 Dose: 11 units Documented By: ROSA Co-signed By: KAREN Admin: 07/26/24 09:17 Dose: 7 units Documented By: ROSA Co-signed By: KAREN Admin: 07/25/24 20:05 Dose: 4 units Documented By: SADI Co-signed By: TEMO Insulin Glargine (Lantus Per Unit Charge) 17 units SQ BID@0800,2000 [facility] Stop: 08/27/24 07:59 Last Admin: 08/01/24 08:28 Dose: 17 units Documented By: MUKUND Co-signed By: MERY(2) Admin: 07/31/24 21:14 Dose: 17 units Documented By: DESTINY Co-signed By: ERIC Admin: 07/31/24 08:37 Dose: 17 units Documented By: MUKUND Co-signed By: MART Admin: 07/30/24 21:20 Dose: 17 units Documented By: DESTINY Co-signed By: PRIMITIVO Admin: 07/30/24 08:26 Dose: 17 units Documented By: KHALIDA Co-signed By: SARIKA Admin: 07/29/24 21:14 Dose: 17 units Documented By: HUSSAIN Co-signed By: EDGARDO Admin: 07/29/24 09:01 Dose: 17 units Documented By: MERY Co-signed By: CRISTIANA Admin: 07/28/24 21:08 Dose: 17 units Documented By: LUCILA Co-signed By: EDGARDO Admin: 07/28/24 09:10 Dose: 17 units Documented By: MERY Co-signed By: CRISTIANA Lactobacillus Acidophilus (Lactobacillus Acidophilus 1 Gm Pack) 1 packet GT BID ARIANA Stop: 08/22/24 14:09 Last Admin: 08/01/24 08:29 Dose: 1 packet Documented By: Admin: 07/31/24 21:03 Dose: 1 packet Documented By: Admin: 07/31/24 08:40 Dose: 1 packet Documented By: Admin: 07/30/24 21:06 Dose: 1 packet Documented By: Admin: 07/30/24 08:13 Dose: 1 packet Documented By: Admin: 07/29/24 21:24 Dose: 1 packet Documented By: Admin: 07/29/24 09:57 Dose: 1 packet Documented By: Admin: 07/28/24 20:52 Dose: 1 packet Documented By: Admin: 07/28/24 09:12 Dose: 1 packet Documented By: Admin: 07/27/24 20:00 Dose: 1 packet Documented By: Admin: 07/27/24 07:47 Dose: 1 packet Documented By: Admin: 07/26/24 20:33 Dose: 1 packet Documented By: Admin: 07/26/24 09:05 Dose: 1 packet Documented By: Admin: 07/25/24 21:03 Dose: 1 packet Documented By: Admin: 07/25/24 08:42 Dose: 1 packet Documented By: Admin: 07/24/24 21:38 Dose: 1 packet Documented By: Admin: 07/24/24 08:39 Dose: 1 packet Documented By: Admin: 07/23/24 22:30 Dose: 1 packet Documented By: Admin: 07/23/24 16:06 Dose: 1 packet Documented By: ROSA Lidocaine HCl (Lidocaine 2% Jelly 5 Ml Tube) 5 ml EXT BID PRN PRN Reason: sacral pain Stop: 08/18/24 18:14 Last Admin: 07/31/24 21:54 Dose: 5 ml Documented By: Admin: 07/30/24 20:58 Dose: 5 ml Documented By: Admin: 07/30/24 11:13 Dose: 5 ml Documented By: Admin: 07/29/24 21:15 Dose: 5 ml Documented By: Admin: 07/29/24 15:45 Dose: 5 ml Documented By: Admin: 07/27/24 19:36 Dose: 5 ml Documented By: Admin: 07/26/24 17:26 Dose: 5 ml Documented By: Admin: 07/25/24 08:46 Dose: 5 ml Documented By: Admin: 07/25/24 04:22 Dose: 5 ml Documented By: Admin: 07/24/24 10:45 Dose: 5 ml Documented By: Admin: 07/23/24 22:37 Dose: 5 ml Documented By: Admin: 07/22/24 14:46 Dose: 5 ml Documented By: Admin: 07/21/24 08:17 Dose: 5 ml Documented By: STACIE Loperamide HCl (Loperamide Hcl 2 Mg Cap) 2 mg PO BID PRN PRN Reason: diarrhea Stop: 08/18/24 16:45 Last Admin: 07/31/24 21:03 Dose: 2 mg Documented By: Admin: 07/30/24 20:57 Dose: 2 mg Documented By: Admin: 07/30/24 09:39 Dose: 2 mg Documented By: Admin: 07/29/24 21:15 Dose: 2 mg Documented By: Admin: 07/29/24 12:42 Dose: 2 mg Documented By: Admin: 07/28/24 16:03 Dose: 2 mg Documented By: Admin: 07/27/24 20:54 Dose: 2 mg Documented By: Admin: 07/27/24 16:46 Dose: 2 mg Documented By: Admin: 07/27/24 09:43 Dose: 2 mg Documented By: Admin: 07/26/24 09:18 Dose: 2 mg Documented By: Admin: 07/25/24 21:02 Dose: 2 mg Documented By: Admin: 07/24/24 21:52 Dose: 2 mg Documented By: Admin: 07/22/24 14:51 Dose: 2 mg Documented By: VADIM Metoprolol Tartrate (Metoprolol Tartrate 50 Mg Tab) 50 mg PO BID ARIANA Stop: 08/18/24 20:59 Last Admin: 08/01/24 08:29 Dose: 50 mg Documented By: Admin: 07/31/24 21:03 Dose: 50 mg Documented By: Admin: 07/31/24 08:40 Dose: 50 mg Documented By: Admin: 07/30/24 21:06 Dose: 50 mg Documented By: Admin: 07/30/24 08:13 Dose: 50 mg Documented By: Admin: 07/29/24 21:15 Dose: 50 mg Documented By: Admin: 07/29/24 09:57 Dose: 50 mg Documented By: Admin: 07/28/24 20:52 Dose: 50 mg Documented By: Admin: 07/28/24 09:11 Dose: 50 mg Documented By: Admin: 07/27/24 20:03 Dose: Not Given Documented By: Admin: 07/27/24 07:46 Dose: 50 mg Documented By: Admin: 07/26/24 20:27 Dose: Not Given Documented By: Admin: 07/26/24 09:08 Dose: 50 mg Documented By: Admin: 07/25/24 21:04 Dose: 50 mg Documented By: Admin: 07/25/24 08:42 Dose: 50 mg Documented By: Admin: 07/24/24 21:38 Dose: 50 mg Documented By: Admin: 07/24/24 08:39 Dose: 50 mg Documented By: Admin: 07/23/24 22:30 Dose: 50 mg Documented By: Admin: 07/23/24 09:13 Dose: 50 mg Documented By: Admin: 07/22/24 20:11 Dose: 50 mg Documented By: Admin: 07/22/24 09:30 Dose: 50 mg Documented By: Admin: 07/21/24 20:23 Dose: 50 mg Documented By: Admin: 07/21/24 08:18 Dose: 50 mg Documented By: Admin: 07/20/24 20:53 Dose: Not Given Documented By: Admin: 07/20/24 07:52 Dose: 50 mg Documented By: Admin: 07/19/24 20:31 Dose: 50 mg Documented By: TOBY Nutritional Formula (Nutren Liqd 2.0 1,000 Ml Bag) 220 ml GT TODAY@0800 ,1200,1600,2000 ARIANA; Protocol Stop: 08/25/24 11:59 Last Admin: 08/01/24 12:10 Dose: 220 ml Documented By: Admin: 08/01/24 08:28 Dose: 220 ml Documented By: Admin: 07/31/24 21:04 Dose: 220 ml Documented By: Admin: 07/31/24 16:54 Dose: 220 ml Documented By: Admin: 07/31/24 12:16 Dose: 220 ml Documented By: Admin: 07/31/24 08:37 Dose: 220 ml Documented By: Admin: 07/30/24 20:58 Dose: 220 ml Documented By: Admin: 07/30/24 15:29 Dose: 220 ml Documented By: Admin: 07/30/24 12:05 Dose: 220 ml Documented By: Admin: 07/30/24 07:47 Dose: 220 ml Documented By: Admin: 07/29/24 21:35 Dose: 220 ml Documented By: Admin: 07/29/24 17:17 Dose: 220 ml Documented By: Admin: 07/29/24 12:45 Dose: 220 ml Documented By: Admin: 07/29/24 10:04 Dose: 220 ml Documented By: Admin: 07/28/24 20:53 Dose: 220 ml Documented By: Admin: 07/28/24 17:45 Dose: 220 ml Documented By: Admin: 07/28/24 12:23 Dose: 220 ml Documented By: Admin: 07/28/24 09:36 Dose: 220 ml Documented By: Admin: 07/27/24 20:09 Dose: 220 ml Documented By: Admin: 07/27/24 16:49 Dose: 220 ml Documented By: Admin: 07/27/24 11:46 Dose: 220 ml Documented By: Admin: 07/27/24 08:16 Dose: 220 ml Documented By: Admin: 07/26/24 19:43 Dose: 220 ml Documented By: Admin: 07/26/24 16:19 Dose: 220 ml Documented By: Admin: 07/26/24 12:10 Dose: 220 ml Documented By: RSOA Ondansetron HCl (Ondansetron Inj 2 Mg/Ml 2 Ml Vial) 4 mg IV Q6H PRN PRN Reason: Nausea Stop: 08/17/24 14:35 Last Admin: 07/26/24 16:37 Dose: 4 mg Documented By: ROSA Sterile Water (Tube Feeding Water Flush) 135 ml PEG 0730,1130,1530,1930 ARIANA Stop: 08/24/24 15:29 Last Admin: 08/01/24 12:10 Dose: 135 ml Documented By: Admin: 08/01/24 08:28 Dose: 135 ml Documented By: Admin: 07/31/24 20:00 Dose: 135 ml Documented By: Admin: 07/31/24 16:54 Dose: 135 ml Documented By: Admin: 07/31/24 12:16 Dose: 135 ml Documented By: Admin: 07/31/24 08:37 Dose: 135 ml Documented By: Admin: 07/30/24 19:45 Dose: 135 ml Documented By: Admin: 07/30/24 15:19 Dose: 135 ml Documented By: Admin: 07/30/24 11:18 Dose: 135 ml Documented By: Admin: 07/30/24 07:47 Dose: 135 ml Documented By: Admin: 07/29/24 21:14 Dose: 135 ml Documented By: Admin: 07/29/24 17:17 Dose: 135 ml Documented By: Admin: 07/29/24 12:45 Dose: 135 ml Documented By: Admin: 07/29/24 10:05 Dose: 135 ml Documented By: Admin: 07/28/24 19:29 Dose: 135 ml Documented By: Admin: 07/28/24 17:45 Dose: 135 ml Documented By: Admin: 07/28/24 12:23 Dose: 135 ml Documented By: Admin: 07/28/24 08:59 Dose: 135 ml Documented By: Admin: 07/27/24 20:03 Dose: 135 ml Documented By: Admin: 07/27/24 16:46 Dose: 135 ml Documented By: Admin: 07/27/24 11:46 Dose: 135 ml Documented By: Admin: 07/27/24 07:56 Dose: 135 ml Documented By: Admin: 07/26/24 19:37 Dose: 135 ml Documented By: Admin: 07/26/24 16:19 Dose: 135 ml Documented By: Admin: 07/26/24 12:10 Dose: 135 ml Documented By: Admin: 07/26/24 08:37 Dose: 135 ml Documented By: Admin: 07/25/24 19:52 Dose: 135 ml Documented By: Admin: 07/25/24 16:18 Dose: 135 ml Documented By: ROSA Sterile Water (Tube Feeding Water Flush) 135 ml PEG 0830,1230,1630,2030 ARIANA Stop: 08/24/24 16:29 Last Admin: 08/01/24 12:10 Dose: 135 ml Documented By: Admin: 08/01/24 08:28 Dose: 135 ml Documented By: Admin: 07/31/24 21:04 Dose: 135 ml Documented By: Admin: 07/31/24 16:54 Dose: 135 ml Documented By: Admin: 07/31/24 12:16 Dose: 135 ml Documented By: Admin: 07/31/24 08:40 Dose: 135 ml Documented By: Admin: 07/30/24 20:57 Dose: 135 ml Documented By: Admin: 07/30/24 16:19 Dose: 135 ml Documented By: Admin: 07/30/24 12:06 Dose: 135 ml Documented By: Admin: 07/30/24 07:48 Dose: 135 ml Documented By: Admin: 07/29/24 21:14 Dose: 135 ml Documented By: Admin: 07/29/24 17:17 Dose: 135 ml Documented By: Admin: 07/29/24 12:57 Dose: 135 ml Documented By: Admin: 07/29/24 10:05 Dose: 135 ml Documented By: Admin: 07/28/24 21:34 Dose: 135 ml Documented By: Admin: 07/28/24 17:45 Dose: 135 ml Documented By: Admin: 07/28/24 12:24 Dose: 135 ml Documented By: Admin: 07/28/24 09:00 Dose: 135 ml Documented By: Admin: 07/27/24 20:46 Dose: 135 ml Documented By: Admin: 07/27/24 17:37 Dose: 135 ml Documented By: Admin: 07/27/24 12:46 Dose: 135 ml Documented By: Admin: 07/27/24 09:07 Dose: 135 ml Documented By: Admin: 07/26/24 20:27 Dose: 135 ml Documented By: Admin: 07/26/24 17:02 Dose: 135 ml Documented By: Admin: 07/26/24 12:56 Dose: 135 ml Documented By: Admin: 07/26/24 09:50 Dose: 135 ml Documented By: Admin: 07/25/24 20:21 Dose: 135 ml Documented By: Admin: 07/25/24 16:56 Dose: 135 ml Documented By: ROSA Thiamine HCl (Thiamine Hcl 100 Mg Tab) 100 mg PEG DAILY ARIANA Stop: 08/18/24 08:59 Last Admin: 08/01/24 08:29 Dose: 100 mg Documented By: Admin: 07/31/24 08:40 Dose: 100 mg Documented By: Admin: 07/30/24 08:13 Dose: 100 mg Documented By: Admin: 07/29/24 09:57 Dose: 100 mg Documented By: Admin: 07/28/24 09:11 Dose: 100 mg Documented By: Admin: 07/27/24 07:46 Dose: 100 mg Documented By: Admin: 07/26/24 09:06 Dose: 100 mg Documented By: Admin: 07/25/24 08:42 Dose: 100 mg Documented By: Admin: 07/24/24 08:39 Dose: 100 mg Documented By: Admin: 07/23/24 09:13 Dose: 100 mg Documented By: Admin: 07/22/24 09:30 Dose: 100 mg Documented By: Admin: 07/21/24 08:18 Dose: 100 mg Documented By: Admin: 07/20/24 07:50 Dose: 100 mg Documented By: Admin: 07/19/24 08:35 Dose: 100 mg Documented By: SWATI Vibegron (Vibegron 75 Mg Tab) 75 mg PO DAILY ARIANA Stop: 08/15/24 08:59 Last Admin: 08/01/24 08:29 Dose: 75 mg Documented By: Admin: 07/31/24 08:40 Dose: 75 mg Documented By: Admin: 07/30/24 08:13 Dose: 75 mg Documented By: Admin: 07/29/24 09:57 Dose: 75 mg Documented By: Admin: 07/28/24 09:11 Dose: 75 mg Documented By: Admin: 07/27/24 07:46 Dose: 75 mg Documented By: Admin: 07/26/24 09:07 Dose: 75 mg Documented By: JMichaelaM Admin: 07/25/24 08:42 Dose: 75 mg Documented By: JMichaelaM Admin: 07/24/24 08:39 Dose: 75 mg Documented By: JMichaelaM Admin: 07/23/24 09:13 Dose: 75 mg Documented By: JMichaelaM Admin: 07/22/24 09:30 Dose: 75 mg Documented By: Admin: 07/21/24 08:18 Dose: 75 mg Documented By: Admin: 07/20/24 07:50 Dose: 75 mg Documented By: Admin: 07/19/24 08:35 Dose: 75 mg Documented By: Admin: 07/18/24 11:58 Dose: 75 mg Documented By: Admin: 07/17/24 09:29 Dose: 75 mg Documented By: Admin: 07/16/24 08:19 Dose: 75 mg Documented By: DUANE Coding Level of Care Code 23027 IN/OBS CONSULT LVL 5,80M Diagnoses Status post insertion of percutaneous endoscopic gastrostomy (PEG) tube Z93.1 Cerebral palsy G80.9 Cerebral palsy type: unspecified type Encounter for assessment of decision-making capacity Z00.8
[2024-08-01] MEDS: MAGNESIUM SULFATE / D5W 1 GM/100 ML BAG IV SCH (18:07)
[2024-08-02] MEDS: LANTUS PER UNIT CHARGE SQ SCH (08:24)
[2024-08-02] MEDS: CYANOCOBALAMIN (B-12) 500 MCG TABLET PEG SCH (08:33)
--- NOTE | 2024-08-02 10:12 | Pharmacy Report ---
Pharmacy Glycemic Short Note 2 - Date of Service August 02, 2024 - Glycemic Short BSG Results (Last 24 hours): 08/01/24 08/01/24 08/01/24 09:44 11:39 16:45 Glucose 250 H POC Glucose 181 H 120 H 08/01/24 08/02/24 20:01 07:49 Glucose POC Glucose 212 H 174 H OUTPATIENT ANTIDIABETIC REGIMEN: * Lantus 30 units SQ BID * metformin 1gm PO BID * empagliflozin 25mg PO daily HbA1C: 6.9% 07/17/24 ASSESSMENT: 08/02 * Criss received 60 units of SC insulin yesterday (34 units basal, 26 units bolus) * Fasting BSG trending up. Tube feeds have been at goal since 07/26. Will increase Lantus by ~20%. * Variable post prandial BSG control. Slightly tighten correction factor and carb coverage. 07/30 * Criss received 57 units of insulin yesterday (34 were basal) * Fasting BSG this AM acceptable, continue current basal regimen * Post-prandials ok, NovoLog adjusted yesterday will continue with those parameters 07/27 * Criss received 62 units of insulin yesterday (20 were basal) * Fasting BSG this AM acceptable, continue current regimen * Nutren TF at goal, post-prandials still increasing, tighten carbohydrate ratio 07/26: * Criss received 40 units of insulin yesterday (20 were basal) * Fasting BSG this AM slightly elevated, bolus Nutren feeds will be at goal with lunchtime, will continue with 30% increase in basal insulin today. * BSG over 300 today with lunch, carbohydrate ratio adjusted yesterday, will tighten further tomorrow if BSGs continue to trend up with increase in basal insulin. 07/25: * Criss received 45 units of insulin yesterday (20 were basal) * Some BSGs still elevated with Fibersource tube feeds, planed to increase basal by ~30% to help cover. Tube feeds switched to more concentrated Nutren 2.0 bolus (titrating up to goal 220mL QID over next 24 Hours) due to patient preference and overnight diarrhea. Will adjust basal to a scale at bedtime based on BSGs aiming for yesterday's basal dose. * Tightened carbohydrate ratio to also try and prevent BSG rises. 07/23: * Patient received a total of 37 units of insulin yesterday. (14 units were basal and 23 units were bolus). Most BSGs were above goal yesterday ([phone]/dL) despite tightening CF and increasing Lantus doses. This is most likely due to increasing rate of tube feeds. * AM BSG was 202mg/dL this morning. Lantus was increased to 10units SQ BID. Will continue parameters of bolus insulin without change. See previous reports for additional background PLAN FOR INPATIENT GLYCEMIC CONTROL: * Hold outpatient oral diabetes medications * Basal insulin * Lantus 20 units SQ BID * Bolus insulin * NovoLog per scale QID@ 08,12,16,20 with 220mL Nutren bolus feeds * Goal Range: Low 110 mg/dL - High 140 mg/dL * Correction Factor: 20 mg/dL/unit * Nutritional / Prandial insulin per carb ratio of 1 unit per 8 grams CHO consumed PLEASE COVER TUBE FEEDS BOLUS WHEN GIVEN Nutren 2.0 dianne = 216 g CHO/L 120 mL = 25 g CHO 180 mL = 39 g CHO 220 mL = 48 g CHO
[2024-08-02] MEDS: MULTI VIT W/MINERALS LIQUID 15 ML UDC PEG SCH (12:17)
--- NOTE | 2024-08-02 12:44 | Hospitalist Progress Note ---
Date of Service August 02, 2024 Assessment & Plan (1) Hyperosmolar hyperglycemic state (HHS): (2) DM2 (diabetes mellitus, type 2): (3) Cerebral palsy: (4) Status post insertion of percutaneous endoscopic gastrostomy (PEG) tube: (5) Neurogenic bladder: (6) Goiter: Plan 54-year-old female with past medical history of cerebral palsy, insulin- dependent type 2 diabetes mellitus, dysphagia secondary to goiter with PEG tube placement at [facility] with recent hospitalization at [facility] with HHS and sepsis related to urinary tract infection/pyelonephritis. She was critically ill and monitored in the ICU with AGUILAR/hyponatremia. These have all resolved and she has finished a full course of antibiotics for her sepsis and is currently under the care of the hospitalist team awaiting a safe discharge plan. 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 Patient is unable to care for herself on her own Patient was seen by psychiatry and she has capacity to sign out AMA Trial without catheter as discussed with patient #Thyroid goiter #Dysphagia Noted at [facility] during hospital stay Thyroid ultrasound consistent with goiter causing obstructive symptoms leading to dysphagia PEG tube was inserted at [facility] on 06/29/2024 Patient will need follow-up with ENT at [facility] (Dr. Joel at [facility] [place]) Please see progress note from 07/16/[address] Jose Angel Hayes for complete summary of ethics consultation, palliative care consultation which was performed at [facility] CODE STATUS: DNR/DNI DVT prophylaxis: Heparin subcutaneous Care plan discussed with patient, nursing staff and case management Ongoing discharge planning issues. No accepting facility. Also having a hard time finding care as outpatient. Case management working on a safe discharge plan Admission and Anticipated Discharge Date Admission Date: July 15, 2024 Subjective Patient seen and examined Patient refused Givens cath removed yesterday but is agreeable to getting her Givens catheter out this afternoon She denies any chest pain or shortness of breath She is happy about getting a modified barium swallow tomorrow as she would like to attempt to eat again She denies any nausea, vomiting or abdominal pain Physical Exam Physical Exam: General: No acute distress Psych: Awake and alert, oriented to place and person HEENT: Anicteric sclera, moist oral mucosa CVS: Regular rate and rhythm Lungs: Bilateral air entry, no wheezing noted Abdomen: Soft, nontender, no rebound, no guarding, PEG tube in place Ext: No lower extremity edema, no calf tenderness : Indwelling Givens catheter in place with clear yellow urine Results & Data Results & Data Vital Signs (Past 12 Hours) Vital Signs Temp Pulse Resp BP Pulse Ox O2 Del Method 08/02/24 07:51 36.6 C 104 H 18 118/78 98 Room Air Laboratory Results Laboratory Results - last 24 hr 08/01/24 08/01/24 08/02/24 16:45 20:01 07:49 POC Glucose 120 H 212 H 174 H 08/02/24 11:54 POC Glucose 216 H PG Care Time/CCT Total # of Minutes Spent Total Time Spent with Patient: Total time spent is greater than 50% in coordination of care (as documented) at patient's floor/unit and/or counseling patient: Coding Level of Care Code 25013 SUB INP/OBS CARE 06/09MIN Diagnoses Hyperosmolar hyperglycemic state (HHS) E11.00 DM2 (diabetes mellitus, type 2) E11.9 Cerebral palsy G80.9 Cerebral palsy type: unspecified type Status post insertion of percutaneous endoscopic gastrostomy (PEG) tube Z93.1 Neurogenic bladder N31.9 Goiter E04.9 (3) Cerebral palsy Cerebral palsy type: unspecified type Qualified Code(s): G80.9 - Cerebral palsy, unspecified
[2024-08-02] MEDS: MAGNESIUM SULFATE / D5W 1 GM/100 ML BAG IV ONE (18:32)
--- NOTE | 2024-08-03 10:25 | Fluoroscopy Report ---
FL video swallow CLINICAL HISTORY: r/o aspiration. TECHNIQUE: Video fluoroscopic evaluation of swallowing was performed in the AP and lateral projection s by the speech pathology staff. The patient is fed nectar-thick and thin liquid barium, a barium coa chelsy wafer, and barium pudding. FLUOROSCOPY TIME: 2 minutes. COMPARISON: None FINDINGS: There is trace aspiration with thin liquid. IMPRESSION: Trace aspiration with thin liquid. ACT 112: Negative or not required by law. Electronically signed by: Bo Paige M.D. 08/03/2024 10:23 AM
--- NOTE | 2024-08-03 10:56 | Hospitalist Progress Note ---
Date of Service August 03, 2024 Assessment & Plan (1) Hyperosmolar hyperglycemic state (HHS): (2) DM2 (diabetes mellitus, type 2): (3) Cerebral palsy: (4) Status post insertion of percutaneous endoscopic gastrostomy (PEG) tube: (5) Neurogenic bladder: (6) Goiter: Plan 54-year-old female with past medical history of cerebral palsy, insulin- dependent type 2 diabetes mellitus, dysphagia secondary to goiter with PEG tube placement at [facility] with recent hospitalization at [facility] was [facility] with HHS and sepsis related to urinary tract infection/pyelonephritis. She was critically ill and monitored in the ICU with AGUILAR/hyponatremia. These have all resolved and she has finished a full course of antibiotics for her sepsis and is currently under the care of the hospitalist team awaiting a safe discharge plan. #Type 2 diabetes mellitus A1c 6.9 Pharmacy is managing diabetes management/glycemic control HHS has resolved #Sepsis secondary to UTI/pyelonephritis with mild right hydro ureteric nephro sis: Resolved #AGUILAR: Resolved Renal function is at baseline Patient is finish full course of antibiotics #Cerebral palsy #Neurogenic bladder Patient needs cares at home and is unable to find care so far Patient was seen by psychiatry and she has capacity to sign out AMA Givens catheter was removed on 08/02/2024 #Thyroid goiter #Dysphagia Noted at [facility] during hospital stay Thyroid ultrasound consistent with goiter causing obstructive symptoms leading to dysphagia PEG tube was inserted at [facility] on 06/29/2024 Patient will need follow-up with ENT at [facility] (Dr. Joel at [facility]) Patient had a modified barium swallow today and was cleared for diet by speech therapy Start with full liquid diet and advance as tolerated with the view of weaning off tube feeds Please see progress note from 07/16/[address] Jose Angel Hayes for complete summary of ethics consultation, palliative care consultation which was performed at [facility] CODE STATUS: DNR/DNI DVT prophylaxis: Heparin subcutaneous Care plan discussed with patient, nursing staff and case management Ongoing discharge planning issues. No accepting facility. Also having a hard time finding care as outpatient. Case management working on a safe discharge plan: PT/OT consults to see patient's ability to transfer herself in a wheelchair and on the toilet Admission and Anticipated Discharge Date Admission Date: July 15, 2024 Subjective Patient seen and examined She had modified barium swallow today and was cleared for diet by speech therapy After discussion with speech therapy is decided to start patient on a full liquid diet and advance as tolerated while weaning off tube feeds She denies any chest pain or shortness of breath She is pleased about eating She still having a difficult time finding caregivers Givens catheter is out and she is using a pure wick She denies any fever or chills Physical Exam Physical Exam: General: No acute distress Psych: Awake and alert, oriented to place and person HEENT: Anicteric sclera, moist oral mucosa CVS: Regular rate and rhythm Lungs: Bilateral air entry, no wheezing noted Abdomen: Soft, nontender, no rebound, no guarding, PEG tube in place Ext: No lower extremity edema, no calf tenderness Results & Data Results & Data Vital Signs (Past 12 Hours) Vital Signs Temp Pulse Resp BP Pulse Ox O2 Del Method 08/03/24 09:57 Room Air 08/03/24 08:10 35.7 C L 90 16 112/76 94 Room Air PG Care Time/CCT Total # of Minutes Spent Total Time Spent with Patient: Total time spent is greater than 50% in coordination of care (as documented) at patient's floor/unit and/or counseling patient: Coding Level of Care Code 31751 SUB INP/OBS CARE 06/09MIN Diagnoses Hyperosmolar hyperglycemic state (HHS) E11.00 DM2 (diabetes mellitus, type 2) E11.9 Cerebral palsy G80.9 Cerebral palsy type: unspecified type Status post insertion of percutaneous endoscopic gastrostomy (PEG) tube Z93.1 Neurogenic bladder N31.9 Goiter E04.9 (3) Cerebral palsy Cerebral palsy type: unspecified type Qualified Code(s): G80.9 - Cerebral palsy, unspecified
--- NOTE | 2024-08-03 12:13 | Pharmacy Report ---
Pharmacy Glycemic Short Note 2 - Date of Service August 03, 2024 - Glycemic Short BSG Results (Last 24 hours): 08/02/24 08/02/24 08/03/24 16:29 20:03 07:51 POC Glucose 166 H 135 H 188 H 08/03/24 11:46 POC Glucose 187 H OUTPATIENT ANTIDIABETIC REGIMEN: * Lantus 30 units SQ BID * metformin 1gm PO BID * empagliflozin 25mg PO daily HbA1C: 6.9% 07/17/24 ASSESSMENT: 08/03: * BSGs [phone]/dL the last 24h. Received 40 units of basal and 31 units of bolus insulin yesterday. * Nutren modified from QID to BID (@ 0600,2000 per dietary) today and diet advanced to full liquid. * Given elevated fasting BSG (and advancing diet), Lantus increased ~ 15% to 23 units BID starting this evening. Novolog tightened slightly. 08/02 * Criss received 60 units of SC insulin yesterday (34 units basal, 26 units grecia osvaldo) * Fasting BSG trending up. Tube feeds have been at goal since 07/26. Will increase Lantus by ~20%. * Variable post prandial BSG control. Slightly tighten correction factor and carb coverage. 07/30 * Criss received 57 units of insulin yesterday (34 were basal) * Fasting BSG this AM acceptable, continue current basal regimen * Post-prandials ok, NovoLog adjusted yesterday will continue with those p arameters 07/27 * Criss received 62 units of insulin yesterday (20 were basal) * Fasting BSG this AM acceptable, continue current regimen * Nutren TF at goal, post-prandials still increasing, tighten carbohydrate ratio 07/26: * Criss received 40 units of insulin yesterday (20 were basal) * Fasting BSG this AM slightly elevated, bolus Nutren feeds will be at goal with lunchtime, will continue with 30% increase in basal insulin today. * BSG over 300 today with lunch, carbohydrate ratio adjusted yesterday, will tighten further tomorrow if BSGs continue to trend up with increase in basal insulin. 07/25: * Criss received 45 units of insulin yesterday (20 were basal) * Some BSGs still elevated with Fibersource tube feeds, planed to increase basal by ~30% to help cover. Tube feeds switched to more concentrated Nutren 2.0 bolus (titrating up to goal 220mL QID over next 24 Hours) due to patient preference and overnight diarrhea. Will adjust basal to a scale at bedtime based on BSGs aiming for yesterday's basal dose. * Tightened carbohydrate ratio to also try and prevent BSG rises. 07/23: * Patient received a total of 37 units of insulin yesterday. (14 units were basal and 23 units were bolus). Most BSGs were above goal yesterday ([phone]/dL) despite tightening CF and increasing Lantus doses. This is most likely due to increasing rate of tube feeds. * AM BSG was 202mg/dL this morning. Lantus was increased to 10units SQ BID. Will continue parameters of bolus insulin without change. See previous reports for additional background PLAN FOR INPATIENT GLYCEMIC CONTROL: * Hold outpatient oral diabetes medications * Basal insulin * Lantus 23 units SQ BID * Bolus insulin * NovoLog per scale q6 (to cover liquids + Nutren bolus feeds BID) * Goal Range: Low 110 mg/dL - High 140 mg/dL * Correction Factor: 18 mg/dL/unit * Nutritional / Prandial insulin per carb ratio of 1 unit per 7 grams CHO consumed PLEASE COVER TUBE FEEDS BOLUS WHEN GIVEN Nutren 2.0 dianne = 216 g CHO/L 120 mL = 25 g CHO 180 mL = 39 g CHO 220 mL = 48 g CHO
[2024-08-03] MEDS: INSULIN ASPART PER UNIT CHARGE SC SCH (13:04)
[2024-08-03] MEDS ORDERED: LANTUS PER UNIT CHARGE SQ SCH ×2 (18:00→21:00)
[2024-08-03] MEDS ORDERED: NUTREN LIQD 2.0 1,000 ML BAG GT SCH ×2 (20:00)
[2024-08-03] MEDS ORDERED: TUBE FEEDING WATER FLUSH GT SCH ×3 (20:00)
[2024-08-03] MEDS: NUTREN LIQD 2.0 1,000 ML BAG GT SCH (20:57)
[2024-08-03] MEDS: TUBE FEEDING WATER FLUSH GT SCH (20:58)
[2024-08-03] MEDS: LANTUS PER UNIT CHARGE SQ SCH (21:56)
[2024-08-04 06:28] LABS: Hematocrit (blood only) 36.8 % (37.0-47.0); Mean Corpuscular Hemoglobin 30.8 pg (25.0-34.0); Mean Corpuscular Hgb Conc 32.6 g/dL (32.0-36.0); Mean Corpuscular Volume 94.4 fL (80.0-100.0); Platelet Count 283 K/uL (130-400); RDW Coefficient of Variation 15.4 % (11.5-14.5); White Blood Count 5.89 K/ul (4.8-10.8)
[2024-08-04 07:03] LABS: Albumin Globulin Ratio 1.1 (0.9-2); Albumin Level 3.7 gm/dl (3.4-5.0); BUN Creatinine Ratio 26.9 (10-20); Bilirubin,Total 0.4 mg/dl (0.2-1.0); Calcium 10.2 mg/dl (8.6-10.3); Creatinine Clr Calc Pharmacy 113.1 ml/min; Globulin 3.3 gm/dl (2.5-4.0); Magnesium 1.4 mg/dl (1.7-2.4)
[2024-08-04] MEDS: INSULIN ASPART PER UNIT CHARGE SC SCH ×2 (08:52→21:28)
[2024-08-04] MEDS: LANTUS PER UNIT CHARGE SQ SCH ×2 (08:52→21:27)
[2024-08-04] MEDS ORDERED: LANTUS PER UNIT CHARGE SQ SCH (09:00)
--- NOTE | 2024-08-04 11:23 | Hospitalist Progress Note ---
Date of Service August 04, 2024 Assessment & Plan (1) Hyperosmolar hyperglycemic state (HHS): (2) DM2 (diabetes mellitus, type 2): (3) Cerebral palsy: (4) Status post insertion of percutaneous endoscopic gastrostomy (PEG) tube: (5) Neurogenic bladder: (6) Goiter: Plan 54-year-old female with past medical history of cerebral palsy, insulin- dependent type 2 diabetes mellitus, dysphagia secondary to goiter with PEG tube placement at [facility] with recent hospitalization at [facility] with [facility] and sepsis related to urinary tract infection/pyelonephritis. She was critically ill and monitored in the ICU with AGUILAR/hyponatremia. These have all resolved and she has finished a full course of antibiotics for her sepsis and is currently under the care of the hospitalist team awaiting a safe discharge plan. #Type 2 diabetes mellitus A1c 6.9 Pharmacy is managing diabetes management/glycemic control HHS has resolved #Sepsis secondary to UTI/pyelonephritis with mild right hydro ureteric nephro sis: Resolved #AGUILAR: Resolved Renal function is at baseline Patient is finish full course of antibiotics #Cerebral palsy #Neurogenic bladder Patient needs cares at home and is unable to find care so far Patient was seen by psychiatry and she has capacity to sign out AMA Givens catheter was removed on 08/02/2024 #Thyroid goiter #Dysphagia Noted at [facility] during hospital stay Thyroid ultrasound consistent with goiter causing obstructive symptoms leading to dysphagia PEG tube was inserted at [facility] on 06/29/2024 Patient will need follow-up with ENT at [facility]/tertiary [facility] (Dr. oJel at [facility] [place]) Patient had a modified barium swallow today and was cleared for diet by speech therapy Start with full liquid diet and advance as tolerated with the view of weaning off tube feeds Sacral ulcer, stage 2 Present on admission continue wound care Dysphagia Now resolved Repeat barium swallow cleared her for diet Gradually wean her off G tube feeds Please see progress note from 07/16/[address] Jose Angel Hayes for complete summary of ethics consultation, palliative care consultation which was performed at [facility] CODE STATUS: DNR/DNI DVT prophylaxis: Heparin subcutaneous Care plan discussed with patient, nursing staff and case management Ongoing discharge planning issues. No accepting facility. Also having a hard time finding care as outpatient. Case management working on a safe discharge plan: PT/OT consults to see patient's ability to transfer herself in a wheelchair and on the toilet Admission and Anticipated Discharge Date Admission Date: July 15, 2024 Subjective Patient seen and examined, still adamant about leaving and going home however she has not found a caregiver Review of Systems Review of Systems: All systems reviewed are negative, apart from the ones contained in the history. Physical Exam Physical Exam: The patient is awake, alert and oriented 3, well developed and well nourished, normocephalic and atraumatic, lying in bed and in no acute distress. HEENT--PERRL, EOMI, mucous membranes and oropharynx mildly dry Neck--supple. No JVD. No bruits. Thyroid normal, trachea midline, no adenopathy. Heart--normal S1 and S2. No murmurs, rubs or gallops. Lungs--clear bilaterally, no respiratory distress, no accessory muscle use. Abdomen--normal bowel sounds and soft. Extremities--no cyanosis or clubbing. No edema. Dermatologic--normal skin turgor, normal color, no abnormal lymph nodes, no rash. Neurologic--cranial nerves II through XII grossly intact. Rheumatologic--atrophic lower extremities, poor muscle tone Psychiatric--normal affect. Results & Data Results & Data Vital Signs (Past 12 Hours) Vital Signs Temp Pulse Resp BP BP Pulse Ox O2 Del Method 08/04/24 09:03 96 H 127/87 08/04/24 07:45 Room Air 08/04/24 07:14 97.9 F 100 H 16 128/86 96 Room Air PG Care Time/CCT Total # of Minutes Spent Total Time Spent with Patient: Total time spent is greater than 50% in coordination of care (as documented) at patient's floor/unit and/or counseling patient: Coding Level of Care Code 45261 SUB INP/OBS CARE 2/35MIN Diagnoses Hyperosmolar hyperglycemic state (HHS) E11.00 DM2 (diabetes mellitus, type 2) E11.9 Cerebral palsy G80.9 Cerebral palsy type: unspecified type Status post insertion of percutaneous endoscopic gastrostomy (PEG) tube Z93.1 Neurogenic bladder N31.9 Goiter E04.9 Time Spent (min) 35 (3) Cerebral palsy Cerebral palsy type: unspecified type Qualified Code(s): G80.9 - Cerebral palsy, unspecified
[2024-08-04] MEDS: MAGNESIUM SULFATE / D5W 1 GM/100 ML BAG IV SCH (11:33)
--- NOTE | 2024-08-04 13:05 | Communication Note ---
Date of Service: August 04, 2024 Responded to Code Purple @ 1230, patient aspirating food from lunch upon arrival to the room. Patient promptly suctioned and proceeded to productively cough up particles of food and phlegm. Vital signs stabilized and oxygen saturations remained > 95%. Ordered STAT CXR for evaluation of aspiration. Advised that patient should return to NPO and have speech evaluation, patient firmly declined recommendation for further care/evaluation. No additional laboratories ordered by this physician. Contacted patient's rounding hospitalist regarding the case who will manage the imaging and continue further care. Resident Activity Tracking Resident Involvement: Resident Care Provided Care Provided: Adult Hospital Medicine
--- NOTE | 2024-08-04 13:17 | XRay Report ---
XR chest 1V portable CLINICAL HISTORY: Aspiration. COMPARISON STUDY: Chest radiograph and chest CT July 15, 2024. FINDINGS: Lung volumes are normal. Lungs are clear. There is no pneumothorax or pleural effusion. Car diac size is normal. Left upper mediastinal widening is due to a large thyroid goiter with associated rightward displacement of the trachea dimension and CT of July 15, 2024. There is no evidence for pu lmonary edema. IMPRESSION: 1. No acute cardiopulmonary findings. 2. Redemonstration of a large left lobe thyroid goiter. ACT 112: Negative or not required by law. Electronically signed by: Renzo Jarrett M.D. 08/04/2024 1:15 PM
[2024-08-04] MEDS ORDERED: Nursing to Pharmacy Communication SCH ×2 (13:30→15:45)
[2024-08-04] MEDS ORDERED: INSULIN ASPART PER UNIT CHARGE SC SCH (18:00)
[2024-08-05] MEDS: LANTUS PER UNIT CHARGE SQ SCH (09:10)
--- NOTE | 2024-08-05 10:17 | Hospitalist Progress Note ---
Date of Service August 05, 2024 Assessment & Plan (1) Hyperosmolar hyperglycemic state (HHS): (2) DM2 (diabetes mellitus, type 2): (3) Cerebral palsy: (4) Status post insertion of percutaneous endoscopic gastrostomy (PEG) tube: (5) Neurogenic bladder: (6) Goiter: Plan 54-year-old female with past medical history of cerebral palsy, insulin- dependent type 2 diabetes mellitus, dysphagia secondary to goiter with PEG tube placement at [facility] with recent hospitalization at [facility] was admitted from [facility] facility with HHS and sepsis related to urinary tract infection/pyelonephritis. She was critically ill and monitored in the ICU with AGUILAR/hyponatremia. These have all resolved and she has finished a full course of antibiotics for her sepsis and is currently under the care of the hospitalist team awaiting a safe discharge plan. Aspiration A code was called 08/04 for aspiration after she was found choking on her food Per speech, patient did not follow aspiration precaution as she was instructed to she was made NPO and x ray did not show any evidence of aspiration PNA she has been cleared to resume oral feeds, provided she observes aspiration precautions #Type 2 diabetes mellitus A1c 6.9 Pharmacy is managing diabetes management/glycemic control HHS has resolved #Sepsis secondary to UTI/pyelonephritis with mild right hydro ureteric nephrosis: Resolved #AGUILAR: Resolved Renal function is at baseline Patient is finish full course of antibiotics #Cerebral palsy #Neurogenic bladder Patient needs cares at home and is unable to find care so far Patient was seen by psychiatry and she has capacity to sign out AMA Givens catheter was removed on 08/02/2024 #Thyroid goiter #Dysphagia Noted at [facility] during hospital stay Thyroid ultrasound consistent with goiter causing obstructive symptoms leading to dysphagia PEG tube was inserted at [facility] on 06/29/2024 Patient will need follow-up with ENT at [facility]/tertiary [facility] (Dr. Joel at [facility] [place]) Patient had a modified barium swallow today and was cleared for diet by speech therapy Start with full liquid diet and advance as tolerated with the view of weaning off tube feeds Sacral ulcer, stage 2 Present on admission continue wound care Dysphagia Now resolved Repeat barium swallow cleared her for diet Gradually wean her off G tube feeds Please see progress note from 07/16/[address] Jose Angel Hayes for complete summary of ethics consultation, palliative care consultation which was performed at [facility] CODE STATUS: DNR/DNI DVT prophylaxis: Heparin subcutaneous Care plan discussed with patient, nursing staff and case management Ongoing discharge planning issues. No accepting facility. Also having a hard time finding care as outpatient. Case management working on a safe discharge plan: PT/OT consults to see patient's ability to transfer herself in a wheel chair and on the toilet Admission and Anticipated Discharge Date Admission Date: July 15, 2024 Subjective Patient seen and examined, a [place] was called for aspiration yesterday Review of Systems Review of Systems: All systems reviewed are negative, apart from the ones contained in the history. Physical Exam Physical Exam: The patient is awake, alert and oriented 3, well developed and well nourished, normocephalic and atraumatic, lying in bed and in no acute distress. HEENT--PERRL, EOMI, mucous membranes and oropharynx mildly dry Neck--supple. No JVD. No bruits. Thyroid normal, trachea midline, no adenopathy. Heart--normal S1 and S2. No murmurs, rubs or gallops. Lungs--clear bilaterally, no respiratory distress, no accessory muscle use. Abdomen--normal bowel sounds and soft. Extremities--no cyanosis or clubbing. No edema. Dermatologic--normal skin turgor, normal color, no abnormal lymph nodes, no rash. Neurologic--cranial nerves II through XII grossly intact. Rheumatologic--atrophic lower extremities, poor muscle tone Psychiatric--normal affect. Results & Data Results & Data Vital Signs (Past 12 Hours) Vital Signs Temp Pulse Resp BP Pulse Ox O2 Del Method 08/05/24 07:55 97.7 F 98 H 16 119/86 99 Room Air PG Care Time/CCT Total # of Minutes Spent Total Time Spent with Patient: Total time spent is greater than 50% in coordination of care (as documented) at patient's floor/unit and/or counseling patient: Coding Level of Care Code 33839 SUB INP/OBS CARE 2/35MIN Diagnoses Hyperosmolar hyperglycemic state (HHS) E11.00 DM2 (diabetes mellitus, type 2) E11.9 Cerebral palsy G80.9 Cerebral palsy type: unspecified type Status post insertion of percutaneous endoscopic gastrostomy (PEG) tube Z93.1 Neurogenic bladder N31.9 Goiter E04.9 Time Spent (min) 35 (3) Cerebral palsy Cerebral palsy type: unspecified type Qualified Code(s): G80.9 - Cerebral palsy, unspecified
--- NOTE | 2024-08-05 13:08 | Pharmacy Report ---
Pharmacy Glycemic Short Note 2 - Date of Service August 05, 2024 - Glycemic Short BSG Results (Last 24 hours): 08/04/24 08/04/24 08/05/24 16:26 21:34 07:33 POC Glucose 127 H 150 H 133 H 08/05/24 11:43 POC Glucose 141 H OUTPATIENT ANTIDIABETIC REGIMEN: * Lantus 30 units SQ BID * metformin 1gm PO BID * empagliflozin 25mg PO daily HbA1C: 6.9% 07/17/24 ASSESSMENT: 08/05/24 * Blood sugars well-controlled yesterday, ranging 122-150 mg/dL * Received 18 units of insulin (15 units of which were basal) * Blood sugars had been trending down overall so insulin dosing was adjusted to minimize hypoglycemia risk * Code purple in the afternoon due to aspiration event, made NPO for short time, but diet ultimately reordered * Nutren 220 mL bolus tube feed at HS 08/03: * BSGs 176-128-488-187mg/dL the last 24h. Received 40 units of basal and 31 units of bolus insulin yesterday. * Nutren modified from QID to BID (@ 0600,2000 per dietary) today and diet advanced to full liquid. * Given elevated fasting BSG (and advancing diet), Lantus increased ~ 15% to 23 units BID starting this evening. Novolog tightened slightly. 08/02 * Criss received 60 units of SC insulin yesterday (34 units basal, 26 units bolus) * Fasting BSG trending up. Tube feeds have been at goal since 07/26. Will increase Lantus by ~20%. * Variable post prandial BSG control. Slightly tighten correction factor and carb coverage. 07/30 * Criss received 57 units of insulin yesterday (34 were basal) * Fasting BSG this AM acceptable, continue current basal regimen * Post-prandials ok, NovoLog adjusted yesterday will continue with those parameters 07/27 * Criss received 62 units of insulin yesterday (20 were basal) * Fasting BSG this AM acceptable, continue current regimen * Nutren TF at goal, post-prandials still increasing, tighten carbohydrate ratio 07/26: * Criss received 40 units of insulin yesterday (20 were basal) * Fasting BSG this AM slightly elevated, bolus Nutren feeds will be at goal with lunchtime, will continue with 30% increase in basal insulin today. * BSG over 300 today with lunch, carbohydrate ratio adjusted yesterday, will tighten further tomorrow if BSGs continue to trend up with increase in basal insulin. 07/25: * Criss received 45 units of insulin yesterday (20 were basal) * Some BSGs still elevated with [employer]ersource tube feeds, planed to increase basal by ~30% to help cover. Tube feeds switched to more concentrated Nutren 2.0 bolus (titrating up to goal 220mL QID over next 24 Hours) due to patient preference and overnight diarrhea. Will adjust basal to a scale at bedtime based on BSGs aiming for yesterday's basal dose. * Tightened carbohydrate ratio to also try and prevent BSG rises. 07/23: * Patient received a total of 37 units of insulin yesterday. (14 units were basal and 23 units were bolus). Most BSGs were above goal yesterday ([phone]/dL) despite tightening CF and increasing Lantus doses. This is most likely due to increasing rate of tube feeds. * AM BSG was 202mg/dL this morning. Lantus was increased to 10units SQ BID. Will continue parameters of bolus insulin without change. See previous reports for additional background PLAN FOR INPATIENT GLYCEMIC CONTROL: * Hold outpatient oral diabetes medications * Basal insulin * Lantus 10 units SC BID * Bolus insulin * NovoLog per scale q6 (to cover liquids + Nutren bolus feeds BID) * Goal Range: Low 110 mg/dL - High 140 mg/dL * Correction Factor: 25 mg/dL/unit * Nutritional / Prandial insulin per carb ratio of 1 unit per 9 grams CHO consumed PLEASE COVER TUBE FEEDS BOLUS WHEN GIVEN Nutren 2.0 dianne = 216 g CHO/L 120 mL = 25 g CHO 180 mL = 39 g CHO 220 mL = 48 g CHO
[2024-08-06 07:40] LABS: BUN Creatinine Ratio 28.3 (10-20); Calcium 10.5 mg/dl (8.6-10.3)
--- NOTE | 2024-08-06 12:07 | Hospitalist Progress Note ---
Date of Service August 06, 2024 Assessment & Plan (1) Hyperosmolar hyperglycemic state (HHS): (2) DM2 (diabetes mellitus, type 2): (3) Cerebral palsy: (4) Status post insertion of percutaneous endoscopic gastrostomy (PEG) tube: (5) Neurogenic bladder: (6) Goiter: Plan 54-year-old female with past medical history of cerebral palsy, insulin- dependent type 2 diabetes mellitus, dysphagia secondary to goiter with PEG tube placement at [facility] with recent hospitalization at [facility] was admitted from assisted facility with HHS and sepsis related to urinary tract infection/pyelonephritis. She was critically ill and monitored in the ICU with AGUILAR/hyponatremia. These have all resolved and she has finished a full course of antibiotics for her sepsis and is currently under the care of the hospitalist team awaiting a safe discharge plan. Aspiration A code was called 08/04 for aspiration after she was found choking on her food Per speech, patient did not follow aspiration precaution as she was instructed to she was made NPO and x ray did not show any evidence of aspiration PNA she has been cleared to resume oral feeds, provided she observes aspiration precautions #Type 2 diabetes mellitus A1c 6.9 Pharmacy is managing diabetes management/glycemic control HHS has resolved #Sepsis secondary to UTI/pyelonephritis with mild right hydro ureteric nephrosis: Resolved #AGUILAR: Resolved Renal function is at baseline Patient is finish full course of antibiotics #Cerebral palsy #Neurogenic bladder Patient needs cares at home and is unable to find care so far Patient was seen by psychiatry and she has capacity to sign out AMA Givens catheter was removed on 08/02/2024 #Thyroid goiter #Dysphagia Noted at [facility] during hospital stay Thyroid ultrasound consistent with goiter causing obstructive symptoms leading to dysphagia PEG tube was inserted at [facility] on 06/29/2024 Patient will need follow-up with ENT at [facility]/tertiary [facility] (Dr. Joel at [facility] [place]) Patient had a modified barium swallow today and was cleared for diet by speech therapy Start with full liquid diet and advance as tolerated with the view of weaning off tube feeds Sacral ulcer, stage 2 Present on admission continue wound care Dysphagia Now resolved Repeat barium swallow cleared her for diet Gradually wean her off G tube feeds Please see progress note from 07/16/[address] Jose Angel Hayes for complete summary of ethics consultation, palliative care [facility] CODE STATUS: DNR/DNI DVT prophylaxis: Heparin subcutaneous Care plan discussed with patient, nursing staff and case management Ongoing discharge planning issues. No accepting facility. Also having a hard time finding care as outpatient. Case management working on a safe discharge plan: PT/OT consults to see patient's ability to transfer herself in a wheel chair and on the toilet Admission and Anticipated Discharge Date Admission Date: July 15, 2024 Subjective Patient seen and examined, wants her diet changed to only diabetic diet Review of Systems Review of Systems: All systems reviewed are negative, apart from the ones contained in the history. Physical Exam Physical Exam: The patient is awake, alert and oriented 3, well developed and well nourished, normocephalic and atraumatic, lying in bed and in no acute distress. HEENT--PERRL, EOMI, mucous membranes and oropharynx mildly dry Neck--supple. No JVD. No bruits. Thyroid normal, trachea midline, no adenopathy. Heart--normal S1 and S2. No murmurs, rubs or gallops. Lungs--clear bilaterally, no respiratory distress, no accessory muscle use. Abdomen--normal bowel sounds and soft. Extremities--no cyanosis or clubbing. No edema. Dermatologic--normal skin turgor, normal color, no abnormal lymph nodes, no rash. Neurologic--cranial nerves II through XII grossly intact. Rheumatologic--atrophic lower extremities, poor muscle tone Psychiatric--normal affect. Results & Data Results & Data Vital Signs (Past 12 Hours) Vital Signs Temp Pulse Resp BP Pulse Ox O2 Del Method 08/06/24 07:43 97.9 F 91 H 18 133/80 97 Room Air PG Care Time/CCT Total # of Minutes Spent Total Time Spent with Patient: Total time spent is greater than 50% in coordination of care (as documented) at patient's floor/unit and/or counseling patient: Coding Level of Care Code 86494 SUB INP/OBS CARE 2/35MIN Diagnoses Hyperosmolar hyperglycemic state (HHS) E11.00 DM2 (diabetes mellitus, type 2) E11.9 Cerebral palsy G80.9 Cerebral palsy type: unspecified type Status post insertion of percutaneous endoscopic gastrostomy (PEG) tube Z93.1 Neurogenic bladder N31.9 Goiter E04.9 Time Spent (min) 35 (3) Cerebral palsy Cerebral palsy type: unspecified type Qualified Code(s): G80.9 - Cerebral palsy, unspecified
[2024-08-07] MEDS: LANTUS PER UNIT CHARGE SQ SCH ×2 (08:05→21:32)
--- NOTE | 2024-08-07 11:00 | Hospitalist Progress Note ---
Date of Service August 07, 2024 Assessment & Plan (1) Hyperosmolar hyperglycemic state (HHS): (2) DM2 (diabetes mellitus, type 2): (3) Cerebral palsy: (4) Status post insertion of percutaneous endoscopic gastrostomy (PEG) tube: (5) Neurogenic bladder: (6) Goiter: Plan 54-year-old female with past medical history of cerebral palsy, insulin- dependent type 2 diabetes mellitus, dysphagia secondary to goiter with PEG tube placement at [facility] with recent hospitalization at [facility] was [facility] with HHS and sepsis related to urinary tract infection/pyelonephritis. She was critically ill and monitored in the ICU with AGUILAR/hyponatremia. These have all resolved and she has finished a full course of antibiotics for her sepsis and is currently under the care of the hospitalist team awaiting a safe discharge plan. Aspiration A code was called 08/04 for aspiration after she was found choking on her food Per speech, patient did not follow aspiration precaution as she was instructed to she was made NPO and x ray did not show any evidence of aspiration PNA she has been cleared to resume oral feeds, provided she observes aspiration precautions #Type 2 diabetes mellitus A1c 6.9 Pharmacy is managing diabetes management/glycemic control HHS has resolved #Sepsis secondary to UTI/pyelonephritis with mild right hydro ureteric nephrosis: Resolved #AGUILAR: Resolved Renal function is at baseline Patient is finish full course of antibiotics #Cerebral palsy #Neurogenic bladder Patient needs cares at home and is unable to find care so far Patient was seen by psychiatry and she has capacity to sign out AMA Givens catheter was removed on 08/02/2024 #Thyroid goiter #Dysphagia Noted at [facility] during hospital stay Thyroid ultrasound consistent with goiter causing obstructive symptoms leading to dysphagia PEG tube was inserted at [facility] on 06/29/2024 Patient will need follow-up with ENT at [facility] (Dr. Joel at [facility] [place] Patient had a modified barium swallow today and was cleared for diet by speech therapy Start with full liquid diet and advance as tolerated with the view of weaning off tube feeds Sacral ulcer, stage 2 Present on admission continue wound care Dysphagia Now resolved Repeat barium swallow cleared her for diet Gradually wean her off G tube feeds Please see progress note from 07/16/[address] Jose Angel Hayes for complete summary of ethics consultation, palliative care [facility] CODE STATUS: DNR/DNI DVT prophylaxis: Heparin subcutaneous Care plan discussed with patient, nursing staff and case management Ongoing discharge planning issues. No accepting facility. Also having a hard time finding care as outpatient. Case management working on a safe discharge plan: PT/OT consults to see patient's ability to transfer herself in a wheel chair and on the toilet. She is now more open to the idea of SNF Admission and Anticipated Discharge Date Admission Date: July 15, 2024 Subjective Patient seen and examined, wants her diet changed to only regular diabetic diet Review of Systems Review of Systems: All systems reviewed are negative, apart from the ones contained in the history. Physical Exam Physical Exam: The patient is awake, alert and oriented 3, well developed and well nourished, normocephalic and atraumatic, lying in bed and in no acute distress. HEENT--PERRL, EOMI, mucous membranes and oropharynx mildly dry Neck--supple. No JVD. No bruits. Thyroid normal, trachea midline, no adenopathy. Heart--normal S1 and S2. No murmurs, rubs or gallops. Lungs--clear bilaterally, no respiratory distress, no accessory muscle use. Abdomen--normal bowel sounds and soft. Extremities--no cyanosis or clubbing. No edema. Dermatologic--normal skin turgor, normal color, no abnormal lymph nodes, no rash. Neurologic--cranial nerves II through XII grossly intact. Rheumatologic--atrophic lower extremities, poor muscle tone Psychiatric--normal affect. Results & Data Results & Data Vital Signs (Past 12 Hours) Vital Signs Temp Pulse Resp BP Pulse Ox O2 Del Method 08/07/24 07:28 98.4 F 107 H 18 115/77 99 Room Air 08/06/24 23:14 98.2 F 92 H 19 128/85 97 Room Air PG Care Time/CCT Total # of Minutes Spent Total Time Spent with Patient: Total time spent is greater than 50% in coordination of care (as documented) at patient's floor/unit and/or counseling patient: Coding Level of Care Code 65855 SUB INP/OBS CARE 2/35MIN Diagnoses Hyperosmolar hyperglycemic state (HHS) E11.00 DM2 (diabetes mellitus, type 2) E11.9 Cerebral palsy G80.9 Cerebral palsy type: unspecified type Status post insertion of percutaneous endoscopic gastrostomy (PEG) tube Z93.1 Neurogenic bladder N31.9 Goiter E04.9 Time Spent (min) 35 (3) Cerebral palsy Cerebral palsy type: unspecified type Qualified Code(s): G80.9 - Cerebral palsy, unspecified
[2024-08-08] MEDS: LANTUS PER UNIT CHARGE SQ SCH (09:00)
--- NOTE | 2024-08-08 10:48 | Hospitalist Progress Note ---
Date of Service August 08, 2024 Assessment & Plan (1) Hyperosmolar hyperglycemic state (HHS): (2) DM2 (diabetes mellitus, type 2): (3) Cerebral palsy: (4) Status post insertion of percutaneous endoscopic gastrostomy (PEG) tube: (5) Neurogenic bladder: (6) Goiter: Plan 54-year-old female with past medical history of cerebral palsy, insulin- dependent type 2 diabetes mellitus, dysphagia secondary to goiter with PEG tube placement at [facility] with recent hospitalization at [facility] was admitted from long-term facility with HHS and sepsis related to urinary tract infection/pyelonephritis. She was critically ill and monitored in the ICU with AGUILAR/hyponatremia. These have all resolved and she has finished a full course of antibiotics for her sepsis and is currently under the care of the hospitalist team awaiting a safe discharge plan. Aspiration A code was called 08/04 for aspiration after she was found choking on her food Per speech, patient did not follow aspiration precaution as she was instructed to she was made NPO and x ray did not show any evidence of aspiration PNA she has been cleared to resume oral feeds, provided she observes aspiration precautions However, she is refusing her speech approved diet will reconsult speech to re evaluate her, she only wants regular diet #Type 2 diabetes mellitus A1c 6.9 Pharmacy is managing diabetes management/glycemic control HHS has resolved #Sepsis secondary to UTI/pyelonephritis with mild right hydro ureteric nephrosis: Resolved #AGUILAR: Resolved Renal function is at baseline Patient is finish full course of antibiotics #Cerebral palsy #Neurogenic bladder Patient needs cares at home and is unable to find care so far Patient was seen by psychiatry and she has capacity to sign out AMA Givens catheter was removed on 08/02/2024 #Thyroid goiter #Dysphagia Noted at [facility] during hospital stay Thyroid ultrasound consistent with goiter causing obstructive symptoms leading t o dysphagia PEG tube was inserted at [facility] on 06/29/2024 Patient will need follow-up with ENT at [facility] (Dr. Joel at [facility] [place]) Patient had a modified barium swallow today and was cleared for diet by speech therapy Start with full liquid diet and advance as tolerated with the view of weaning off tube feeds Sacral ulcer, stage 2 Present on admission continue wound care Dysphagia Now resolved Repeat barium swallow cleared her for diet Gradually wean her off G tube feeds Please see progress note from 07/16/[address] Jose Angel Hayes for complete summary of ethics consultation, [facility] CODE STATUS: DNR/DNI DVT prophylaxis: Heparin subcutaneous Care plan discussed with patient, nursing staff and case management Ongoing discharge planning issues. No accepting facility. Also having a hard time finding care as outpatient. Case management working on a safe discharge plan: PT/OT consults to see patient's ability to transfer herself in a wheelchair and on the toilet. She is now more open to the idea of SNF Admission and Anticipated Discharge Date Admission Date: July 15, 2024 Subjective Patient seen and examined, wants her diet changed to only regular diabetic diet, will re consult speech to re evaluate her Review of Systems Review of Systems: All systems reviewed are negative, apart from the ones contained in the history. Physical Exam Physical Exam: The patient is awake, alert and oriented 3, well developed and well nourished, normocephalic and atraumatic, lying in bed and in no acute distress. HEENT--PERRL, EOMI, mucous membranes and oropharynx mildly dry Neck--supple. No JVD. No bruits. Thyroid normal, trachea midline, no adenopathy. Heart--normal S1 and S2. No murmurs, rubs or gallops. Lungs--clear bilaterally, no respiratory distress, no accessory muscle use. Abdomen--normal bowel sounds and soft. Extremities--no cyanosis or clubbing. No edema. Dermatologic--normal skin turgor, normal color, no abnormal lymph nodes, no rash. Neurologic--cranial nerves II through XII grossly intact. Rheumatologic--atrophic lower extremities, poor muscle tone Psychiatric--normal affect. Results & Data Results & Data Vital Signs (Past 12 Hours) Vital Signs Temp Pulse Resp BP Pulse Ox O2 Del Method 08/08/24 08:30 97.9 F 98 H 17 124/88 99 Room Air PG Care Time/CCT Total # of Minutes Spent Total Time Spent with Patient: Total time spent is greater than 50% in coordination of care (as documented) at patient's floor/unit and/or counseling patient: Coding Level of Care Code 55604 SUB INP/OBS CARE 2/35MIN Diagnoses Hyperosmolar hyperglycemic state (HHS) E11.00 DM2 (diabetes mellitus, type 2) E11.9 Cerebral palsy G80.9 Cerebral palsy type: unspecified type Status post insertion of percutaneous endoscopic gastrostomy (PEG) tube Z93.1 Neurogenic bladder N31.9 Goiter E04.9 Time Spent (min) 35 (3) Cerebral palsy Cerebral palsy type: unspecified type Qualified Code(s): G80.9 - Cerebral palsy, unspecified
--- NOTE | 2024-08-08 14:56 | Pharmacy Report ---
Pharmacy Glycemic Short Note 2 - Date of Service August 08, 2024 - Glycemic Short BSG Results (Last 24 hours): 08/07/24 08/07/24 08/08/24 16:35 20:15 07:43 POC Glucose 142 H 91 143 H 08/08/24 11:30 POC Glucose 154 H OUTPATIENT ANTIDIABETIC REGIMEN: * Lantus 30 units SQ BID * metformin 1gm PO BID * empagliflozin 25mg PO daily HbA1C: 6.9% 07/17/24 ASSESSMENT: 08/08: * Criss received a total of 23 units of insulin yesterday (18 were basal and 5 were bolus) * BSG were mostly in goal range yesterday but then dropped at HS ([phone]/dL). Am Lantus was decreased to help prevent the lower glucose levels towards the evening. Will leave the HS Lantus dose as is to help cover the evening tube feeds (Nutren 2.0 220ml at HS) * No change to bolus insulin parameters at this time. 08/05/24 * Blood sugars well-controlled yesterday, ranging 122-150 mg/dL * Received 18 units of insulin (15 units of which were basal) * Blood sugars had been trending down overall so insulin dosing was adjusted to minimize hypoglycemia risk * Code purple in the afternoon due to aspiration event, made NPO for short time, but diet ultimately reordered * Nutren 220 mL bolus tube feed at HS 08/03: * BSGs [phone]/dL the last 24h. Received 40 units of basal and 31 units of bolus insulin yesterday. * Nutren modified from QID to BID (@ 0600,2000 per dietary) today and diet advanced to full liquid. * Given elevated fasting BSG (and advancing diet), Lantus increased ~ 15% to 23 units BID starting this evening. Novolog tightened slightly. 08/02 * Criss received 60 units of SC insulin yesterday (34 units basal, 26 units bolus) * Fasting BSG trending up. Tube feeds have been at goal since 07/26. Will increase Lantus by ~20%. * Variable post prandial BSG control. Slightly tighten correction factor and carb coverage. 07/30 * Criss received 57 units of insulin yesterday (34 were basal) * Fasting BSG this AM acceptable, continue current basal regimen * Post-prandials ok, NovoLog adjusted yesterday will continue with those parameters 07/27 * Criss received 62 units of insulin yesterday (20 were basal) * Fasting BSG this AM acceptable, continue current regimen * Nutren TF at goal, post-prandials still increasing, tighten carbohydrate ratio 07/26: * Criss received 40 units of insulin yesterday (20 were basal) * Fasting BSG this AM slightly elevated, bolus Nutren feeds will be at goal with lunchtime, will continue with 30% increase in basal insulin today. * BSG over 300 today with lunch, carbohydrate ratio adjusted yesterday, will tighten further tomorrow if BSGs continue to trend up with increase in basal insulin. 07/25: * Criss received 45 units of insulin yesterday (20 were basal) * Some BSGs still elevated with [employer]ers[employer] tube feeds, planed to increase basal by ~30% to help cover. Tube feeds switched to more concentrated Nutren 2.0 bolus (titrating up to goal 220mL QID over next 24 Hours) due to patient preference and overnight diarrhea. Will adjust basal to a scale at bedtime based on BSGs aiming for yesterday's basal dose. * Tightened carbohydrate ratio to also try and prevent BSG rises. 07/23: * Patient received a total of 37 units of insulin yesterday. (14 units were basal and 23 units were bolus). Most BSGs were above goal yesterday ([phone]/dL) despite tightening CF and increasing Lantus doses. This is most likely due to increasing rate of tube feeds. * AM BSG was 202mg/dL this morning. Lantus was increased to 10units SQ BID. Will continue parameters of bolus insulin without change. See previous reports for additional background PLAN FOR INPATIENT GLYCEMIC CONTROL: * Hold outpatient oral diabetes medications * Basal insulin * Lantus 5 units SQ QAM and 10 units SQ Q HS * Bolus insulin * NovoLog per scale q6 (to cover liquids + Nutren bolus feeds BID) * Goal Range: Low 110 mg/dL - High 140 mg/dL * Correction Factor: 25 mg/dL/unit * Nutritional / Prandial insulin per carb ratio of 1 unit per 9 grams CHO consumed PLEASE COVER TUBE FEEDS BOLUS WHEN GIVEN Nutren 2.0 dianne = 216 g CHO/L 120 mL = 25 g CHO 180 mL = 39 g CHO 220 mL = 48 g CHO
[2024-08-08] MEDS: ACETAMINOPHEN 325 MG TAB PO PRN (21:40)
[2024-08-09 09:56] LABS: Calcium 10.4 mg/dl (8.6-10.3); Potassium 3.9 mmol/L (3.5-5.1)
[2024-08-09 10:02] LABS: BUN Creatinine Ratio 19.3 (10-20); Creatinine Clr Calc Pharmacy 103.2 ml/min
--- NOTE | 2024-08-09 10:16 | Hospitalist Progress Note ---
Date of Service August 09, 2024 Assessment & Plan (1) Hyperosmolar hyperglycemic state (HHS): (2) DM2 (diabetes mellitus, type 2): (3) Cerebral palsy: (4) Status post insertion of percutaneous endoscopic gastrostomy (PEG) tube: (5) Neurogenic bladder: (6) Goiter: Plan 54-year-old female with past medical history of cerebral palsy, insulin- dependent type 2 diabetes mellitus, dysphagia secondary to goiter with PEG tube placement at [facility] with recent hospitalization at [facility] was [facility] from [facility] with HHS and sepsis related to urinary tract infection/pyelonephritis. She was critically ill and monitored in the ICU with AGUILAR/hyponatremia. These have all resolved and she has finished a full course of antibiotics for her sepsis and is currently under the care of the hospitalist team awaiting a safe discharge plan. Aspiration A code was called 08/04 for aspiration after she was found choking on her food Per speech, patient did not follow aspiration precaution as she was instructed to she was made NPO and x ray did not show any evidence of aspiration PNA she has been cleared to resume oral feeds, provided she observes aspiration precautions However, she is refusing her speech approved diet will reconsult speech to re evaluate her, she only wants regular diet #Type 2 diabetes mellitus A1c 6.9 Pharmacy is managing diabetes management/glycemic control HHS has resolved #Sepsis secondary to UTI/pyelonephritis with mild right hydro ureteric nephrosis: Resolved #AGUILAR: Resolved Renal function is at baseline Patient is finish full course of antibiotics #Cerebral palsy #Neurogenic bladder Patient needs cares at home and is unable to find care so far Patient was seen by psychiatry and she has capacity to sign out AMA Givens catheter was removed on 08/02/2024 #Thyroid goiter #Dysphagia Noted at [facility] during hospital stay Thyroid ultrasound consistent with goiter causing obstructive symptoms leading t o dysphagia PEG tube was inserted at [facility] on 06/29/2024 Patient will need follow-up with ENT at [facility] (Dr. Joel at [facility] [place]) Patient had a modified barium swallow today and was cleared for diet by speech therapy Start with full liquid diet and advance as tolerated with the view of weaning off tube feeds Sacral ulcer, stage 2 Present on admission continue wound care Dysphagia Now resolved Repeat barium swallow cleared her for diet Gradually wean her off G tube feeds Please see progress note from 07/16/[address] Jose Angel Hayes for complete summary of ethics consultation, [facility] CODE STATUS: DNR/DNI DVT prophylaxis: Heparin subcutaneous Care plan discussed with patient, nursing staff and case management Ongoing discharge planning issues. No accepting facility. Also having a hard time finding care as outpatient. Case management working on a safe discharge plan: PT/OT consults to see patient's ability to transfer herself in a wheelchair and on the toilet. She is now more open to the idea of SNF Admission and Anticipated Discharge Date Admission Date: July 15, 2024 Subjective Patient seen and examined, still pending placement Review of Systems Review of Systems: All systems reviewed are negative, apart from the ones contained in the history. Physical Exam Physical Exam: The patient is awake, alert and oriented 3, well developed and well nourished, normocephalic and atraumatic, lying in bed and in no acute distress. HEENT--PERRL, EOMI, mucous membranes and oropharynx mildly dry Neck--supple. No JVD. No bruits. Thyroid normal, trachea midline, no adenopathy. Heart--normal S1 and S2. No murmurs, rubs or gallops. Lungs--clear bilaterally, no respiratory distress, no accessory muscle use. Abdomen--normal bowel sounds and soft. Extremities--no cyanosis or clubbing. No edema. Dermatologic--normal skin turgor, normal color, no abnormal lymph nodes, no rash. Neurologic--cranial nerves II through XII grossly intact. Rheumatologic--atrophic lower extremities, poor muscle tone Psychiatric--normal affect. Results & Data Results & Data Vital Signs (Past 12 Hours) Vital Signs Temp Pulse Resp BP Pulse Ox O2 Del Method 08/09/24 08:30 Room Air 08/09/24 07:24 98.6 F 83 18 116/81 100 Room Air PG Care Time/CCT Total # of Minutes Spent Total Time Spent with Patient: Total time spent is greater than 50% in coordination of care (as documented) at patient's floor/unit and/or counseling patient: Coding Level of Care Code 31421 SUB INP/OBS CARE 2/35MIN Diagnoses Hyperosmolar hyperglycemic state (HHS) E11.00 DM2 (diabetes mellitus, type 2) E11.9 Cerebral palsy G80.9 Cerebral palsy type: unspecified type Status post insertion of percutaneous endoscopic gastrostomy (PEG) tube Z93.1 Neurogenic bladder N31.9 Goiter E04.9 Time Spent (min) 35 (3) Cerebral palsy Cerebral palsy type: unspecified type Qualified Code(s): G80.9 - Cerebral palsy, unspecified
--- NOTE | 2024-08-10 13:34 | Hospitalist Progress Note ---
Date of Service August 10, 2024 Assessment & Plan (1) Hyperosmolar hyperglycemic state (HHS): (2) DM2 (diabetes mellitus, type 2): (3) Cerebral palsy: (4) Status post insertion of percutaneous endoscopic gastrostomy (PEG) tube: (5) Neurogenic bladder: (6) Goiter: Plan 54-year-old female with past medical history of cerebral palsy, insulin- dependent type 2 diabetes mellitus, dysphagia secondary to goiter with PEG tube placement at [facility] with recent hospitalization at [facility] with HHS and sepsis related to urinary tract infection/pyelonephritis. She was critically ill and monitored in the ICU with AGUILAR/hyponatremia. These have all resolved and she has finished a full course of antibiotics for her sepsis and is currently under the care of the hospitalist team awaiting a safe discharge plan. Aspiration A code was called 08/04 for aspiration after she was found choking on her food Per speech, patient did not follow aspiration precaution as she was instructed to she was made NPO and x ray did not show any evidence of aspiration PNA she has been cleared to resume oral feeds, provided she observes aspiration precautions However, she is refusing her speech approved diet will reconsult speech to re evaluate her, she only wants regular diet #Type 2 diabetes mellitus A1c 6.9 Pharmacy is managing diabetes management/glycemic control HHS has resolved #Sepsis secondary to UTI/pyelonephritis with mild right hydro ureteric nephrosis: Resolved #AGUILAR: Resolved Renal function is at baseline Patient is finish full course of antibiotics #Cerebral palsy #Neurogenic bladder Patient needs cares at home and is unable to find care so far Patient was seen by psychiatry and she has capacity to sign out AMA Givens catheter was removed on 08/02/2024 #Thyroid goiter #Dysphagia Noted at [facility] during hospital stay Thyroid ultrasound consistent with goiter causing obstructive symptoms leading t o dysphagia PEG tube was inserted at [facility] on 06/29/2024 Patient will need follow-up with ENT at [facility] (Dr. Joel at [facility] [place]) Patient had a modified barium swallow today and was cleared for diet by speech therapy Start with full liquid diet and advance as tolerated with the view of weaning off tube feeds Sacral ulcer, stage 2 Present on admission continue wound care Dysphagia Now resolved Repeat barium swallow cleared her for diet Gradually wean her off G tube feeds Please see progress note from 07/16/[address] Jose Angel Hayes for complete summary of ethics consultation, palliative care consultation which was performed at [facility] CODE STATUS: DNR/DNI DVT prophylaxis: Heparin subcutaneous Care plan discussed with patient, nursing staff and case management Ongoing discharge planning issues. No accepting facility. Also having a hard time finding care as outpatient. Case management working on a safe discharge plan: PT/OT consults to see patient's ability to transfer herself in a wheelchair and on the toilet. She is now more open to the idea of SNF Admission and Anticipated Discharge Date Admission Date: July 15, 2024 Subjective Patient seen and examined, still pending placement, said she called a transport company to come pick her up from the hospital and take her to [place] Review of Systems Review of Systems: All systems reviewed are negative, apart from the ones contained in the history. Physical Exam Physical Exam: The patient is awake, alert and oriented 3, well developed and well nourished, normocephalic and atraumatic, lying in bed and in no acute distress. HEENT--PERRL, EOMI, mucous membranes and oropharynx mildly dry Neck--supple. No JVD. No bruits. Thyroid normal, trachea midline, no adenopathy. Heart--normal S1 and S2. No murmurs, rubs or gallops. Lungs--clear bilaterally, no respiratory distress, no accessory muscle use. Abdomen--normal bowel sounds and soft. Extremities--no cyanosis or clubbing. No edema. Dermatologic--normal skin turgor, normal color, no abnormal lymph nodes, no rash. Neurologic--cranial nerves II through XII grossly intact. Rheumatologic--atrophic lower extremities, poor muscle tone Psychiatric--normal affect. Results & Data Results & Data Vital Signs (Past 12 Hours) Vital Signs Temp Pulse Resp BP BP Pulse Ox O2 Del Method 08/10/24 11:51 97.7 F 90 16 106/68 99 Room Air 08/10/24 09:48 Room Air 08/10/24 07:28 97.9 F 92 H 16 138/82 96 Room Air PG Care Time/CCT Total # of Minutes Spent Total Time Spent with Patient: Total time spent is greater than 50% in coordination of care (as documented) at patient's floor/unit and/or counseling patient: Coding Level of Care Code 37885 SUB INP/OBS CARE 2/35MIN Diagnoses Hyperosmolar hyperglycemic state (HHS) E11.00 DM2 (diabetes mellitus, type 2) E11.9 Cerebral palsy G80.9 Cerebral palsy type: unspecified type Status post insertion of percutaneous endoscopic gastrostomy (PEG) tube Z93.1 Neurogenic bladder N31.9 Goiter E04.9 Time Spent (min) 35 (3) Cerebral palsy Cerebral palsy type: unspecified type Qualified Code(s): G80.9 - Cerebral palsy, unspecified
[2024-08-11 07:30] LABS: Hematocrit (blood only) 37.7 % (37.0-47.0); Hemoglobin 12.3 g/dl (12.0-16.0); Mean Corpuscular Hemoglobin 30.9 pg (25.0-34.0); Mean Corpuscular Hgb Conc 32.6 g/dL (32.0-36.0); Mean Corpuscular Volume 94.7 fL (80.0-100.0); Mean Platelet Volume 11.6 fL (9.4-12.4); Platelet Count 275 K/uL (130-400); RDW Coefficient of Variation 14.7 % (11.5-14.5); RDW Standard Deviation 50.6 fL (36.4-46.3); Red Blood Count 3.98 M/uL (4.20-5.40); White Blood Count 5.58 K/ul (4.8-10.8)
[2024-08-11 07:38] LABS: BUN Creatinine Ratio 35.4 (10-20); Calcium 9.9 mg/dl (8.6-10.3); Creatinine Clr Calc Pharmacy 122.5 ml/min; Potassium 4.1 mmol/L (3.5-5.1)
--- NOTE | 2024-08-11 11:11 | Hospitalist Progress Note ---
Date of Service August 11, 2024 Assessment & Plan (1) Hyperosmolar hyperglycemic state (HHS): (2) DM2 (diabetes mellitus, type 2): (3) Cerebral palsy: (4) Status post insertion of percutaneous endoscopic gastrostomy (PEG) tube: (5) Neurogenic bladder: (6) Goiter: Plan 54-year-old female with past medical history of cerebral palsy, insulin- dependent type 2 diabetes mellitus, dysphagia secondary to goiter with PEG tube placement at [facility] with recent hospitalization at [facility] was admitted from [facility] facility with HHS and sepsis related to urinary tract infection/pyelonephritis. She was critically ill and monitored in the ICU with AGUILAR/hyponatremia. These have all resolved and she has finished a full course of antibiotics for her sepsis and is currently under the care of the hospitalist team awaiting a safe discharge plan. Aspiration A code was called 08/04 for aspiration after she was found choking on her food Per speech, patient did not follow aspiration precaution as she was instructed to she was made NPO and x ray did not show any evidence of aspiration PNA she has been cleared to resume oral feeds, provided she observes aspiration precautions #Type 2 diabetes mellitus A1c 6.9 Pharmacy is managing diabetes management/glycemic control HHS has resolved #Sepsis secondary to UTI/pyelonephritis with mild right hydro ureteric nephrosis: Resolved #AGUILAR: Resolved Renal function is at baseline Patient is finish full course of antibiotics #Cerebral palsy #Neurogenic bladder Patient needs cares at home and is unable to find care so far Patient was seen by psychiatry and she has capacity to sign out AMA Givens catheter was removed on 08/02/2024 #Thyroid goiter #Dysphagia Noted at [facility] during hospital stay Thyroid ultrasound consistent with goiter causing obstructive symptoms leading to dysphagia PEG tube was inserted at [facility] on 06/29/2024 Patient will need follow-up with ENT at [facility] (Dr. Joel at [facility] [place]) Has been weaned off tube feeds, now tolerating regular diet Sacral ulcer, stage 2 Present on admission continue wound care Dysphagia Now resolved Repeat barium swallow cleared her for diet Gradually wean her off G tube feeds Please see progress note from 07/16/[address] Jose Angel Hayes for complete summary of ethics consultation, palliative care consultation which was performed at [facility] CODE STATUS: DNR/DNI DVT prophylaxis: Heparin subcutaneous Care plan discussed with patient, nursing staff and case management Ongoing discharge planning issues. No accepting facility. Also having a hard time finding care as outpatient. Case management working on a safe discharge plan: PT/OT consults to see patient's ability to transfer herself in a wheelchair and on the toilet. She is now more open to the idea of SNF Admission and Anticipated Discharge Date Admission Date: July 15, 2024 Subjective Patient seen and examined, still pending placement, said she called a transport company to come pick her up from the hospital and take her to [place] Review of Systems Review of Systems: All systems reviewed are negative, apart from the ones contained in the history. Physical Exam Physical Exam: The patient is awake, alert and oriented 3, well developed and well nourished, normocephalic and atraumatic, lying in bed and in no acute distress. HEENT--PERRL, EOMI, mucous membranes and oropharynx mildly dry Neck--supple. No JVD. No bruits. Thyroid normal, trachea midline, no adenopathy. Heart--normal S1 and S2. No murmurs, rubs or gallops. Lungs--clear bilaterally, no respiratory distress, no accessory muscle use. Abdomen--normal bowel sounds and soft. Extremities--no cyanosis or clubbing. No edema. Dermatologic--normal skin turgor, normal color, no abnormal lymph nodes, no rash. Neurologic--cranial nerves II through XII grossly intact. Rheumatologic--atrophic lower extremities, poor muscle tone Psychiatric--normal affect. Results & Data Results & Data Vital Signs (Past 12 Hours) Vital Signs Temp Pulse Resp BP Pulse Ox O2 Del Method 08/11/24 07:58 97.7 F 98 H 18 130/75 97 Room Air PG Care Time/CCT Total # of Minutes Spent Total Time Spent with Patient: Total time spent is greater than 50% in coordination of care (as documented) at patient's floor/unit and/or counseling patient: Coding Level of Care Code 82030 SUB INP/OBS CARE 2/35MIN Diagnoses Hyperosmolar hyperglycemic state (HHS) E11.00 DM2 (diabetes mellitus, type 2) E11.9 Cerebral palsy G80.9 Cerebral palsy type: unspecified type Status post insertion of percutaneous endoscopic gastrostomy (PEG) tube Z93.1 Neurogenic bladder N31.9 Goiter E04.9 Time Spent (min) 35 (3) Cerebral palsy Cerebral palsy type: unspecified type Qualified Code(s): G80.9 - Cerebral palsy, unspecified
--- NOTE | 2024-08-12 10:20 | Hospitalist Progress Note ---
Date of Service August 12, 2024 Assessment & Plan (1) Hyperosmolar hyperglycemic state (HHS): (2) DM2 (diabetes mellitus, type 2): (3) Cerebral palsy: (4) Status post insertion of percutaneous endoscopic gastrostomy (PEG) tube: (5) Neurogenic bladder: (6) Goiter: Plan 54-year-old female with past medical history of cerebral palsy, insulin- dependent type 2 diabetes mellitus, dysphagia secondary to goiter with PEG tube placement at [facility] with recent hospitalization at [facility] was admitted from senior living facility with HHS and sepsis related to urinary tract infection/pyelonephritis. She was critically ill and monitored in the ICU with AGUILAR/hyponatremia. These have all resolved and she has finished a full course of antibiotics for her sepsis and is currently under the care of the hospitalist team awaiting a safe discharge plan. Aspiration A code was called 08/04 for aspiration after she was found choking on her food Per speech, patient did not follow aspiration precaution as she was instructed to she was made NPO and x ray did not show any evidence of aspiration PNA she has been cleared to resume oral feeds, provided she observes aspiration precautions #Type 2 diabetes mellitus A1c 6.9 Pharmacy is managing diabetes management/glycemic control HHS has resolved #Sepsis secondary to UTI/pyelonephritis with mild right hydro ureteric nephrosis: Resolved #AGUILAR: Resolved Renal function is at baseline Patient is finish full course of antibiotics #Cerebral palsy #Neurogenic bladder Patient needs cares at home and is unable to find care so far Patient was seen by psychiatry and she has capacity to sign out AMA Givens catheter was removed on 08/02/2024 #Thyroid goiter #Dysphagia Noted at [facility] during hospital stay Thyroid ultrasound consistent with goiter causing obstructive symptoms leading to dysphagia PEG tube was inserted at [facility] on 06/29/2024 Patient will need follow-up with ENT at [facility] (Dr. Joel at [facility] [place]) Has been weaned off tube feeds, now tolerating regular diet Sacral ulcer, stage 2 Present on admission continue wound care Dysphagia Now resolved Repeat barium swallow cleared her for diet Gradually wean her off G tube feeds Please see progress note from 07/16/[address] Jose Angel Hayes for complete summary of ethics consultation, palliative care consultation which was performed at [facility] CODE STATUS: DNR/DNI DVT prophylaxis: Heparin subcutaneous Care plan discussed with patient, nursing staff and case management Ongoing discharge planning issues. No accepting facility. Also having a hard time finding care as outpatient. Case management working on a safe discharge plan: PT/OT consults to see patient's ability to transfer herself in a wheelchair and on the toilet. She is now more open to the idea of SNF, also worried about losing her accommodation Admission and Anticipated Discharge Date Admission Date: July 15, 2024 Subjective Patient seen and examined, still pending placement, worried about losing her accommodation Review of Systems Review of Systems: All systems reviewed are negative, apart from the ones contained in the history. Physical Exam Physical Exam: The patient is awake, alert and oriented 3, well developed and well nourished, normocephalic and atraumatic, lying in bed and in no acute distress. HEENT--PERRL, EOMI, mucous membranes and oropharynx mildly dry Neck--supple. No JVD. No bruits. Thyroid normal, trachea midline, no adenopathy. Heart--normal S1 and S2. No murmurs, rubs or gallops. Lungs--clear bilaterally, no respiratory distress, no accessory muscle use. Abdomen--normal bowel sounds and soft. Extremities--no cyanosis or clubbing. No edema. Dermatologic--normal skin turgor, normal color, no abnormal lymph nodes, no rash. Neurologic--cranial nerves II through XII grossly intact. Rheumatologic--atrophic lower extremities, poor muscle tone Psychiatric--normal affect. Results & Data Results & Data Vital Signs (Past 12 Hours) Vital Signs Pulse Resp BP Pulse Ox O2 Del Method 08/12/24 07:27 86 16 109/73 97 Room Air PG Care Time/CCT Total # of Minutes Spent Total Time Spent with Patient: Total time spent is greater than 50% in coordination of care (as documented) at patient's floor/unit and/or counseling patient: Coding Level of Care Code 43860 SUB INP/OBS CARE 2/35MIN Diagnoses Hyperosmolar hyperglycemic state (HHS) E11.00 DM2 (diabetes mellitus, type 2) E11.9 Cerebral palsy G80.9 Cerebral palsy type: unspecified type Status post insertion of percutaneous endoscopic gastrostomy (PEG) tube Z93.1 Neurogenic bladder N31.9 Goiter E04.9 Time Spent (min) 35 (3) Cerebral palsy Cerebral palsy type: unspecified type Qualified Code(s): G80.9 - Cerebral palsy, unspecified
--- NOTE | 2024-08-13 09:30 | Pharmacy Report ---
Pharmacy Glycemic Short Note 2 - Date of Service August 13, 2024 - Glycemic Short BSG Results (Last 24 hours): 08/12/24 08/12/24 08/12/24 11:40 16:36 20:37 POC Glucose 140 H 216 H 121 H 08/13/24 07:26 POC Glucose 163 H OUTPATIENT ANTIDIABETIC REGIMEN: * Lantus 30 units SQ BID * metformin 1gm PO BID * empagliflozin 25mg PO daily HbA1C: 6.9% 07/17/24 ASSESSMENT: 08/13: * She received a total of 34 units of insulin yesterday (15 units were basal and 19 units were bolus). BSGs were mostly within goal range ([phone]/dL). * Fasting BSG was 163mg/dL this morning. * Basal and bolus insulin regimens to be continue as ordered. * Patient continues on diet and evening tube feeding. 08/08: * Criss received a total of 23 units of insulin yesterday (18 were basal and 5 were bolus) * BSG were mostly in goal range yesterday but then dropped at HS ([phone]/dL). Am Lantus was decreased to help prevent the lower glucose levels towards the evening. Will leave the HS Lantus dose as is to help cover the evening tube feeds (Nutren 2.0 220ml at HS) * No change to bolus insulin parameters at this time. 08/05/24 * Blood sugars well-controlled yesterday, ranging 122-150 mg/dL * Received 18 units of insulin (15 units of which were basal) * Blood sugars had been trending down overall so insulin dosing was adjusted to minimize hypoglycemia risk * Code purple in the afternoon due to aspiration event, made NPO for short time, but diet ultimately reordered * Nutren 220 mL bolus tube feed at HS 08/03: * BSGs [phone]/dL the last 24h. Received 40 units of basal and 31 units of bolus insulin yesterday. * Nutren modified from QID to BID (@ 0600,2000 per dietary) today and diet advanced to full liquid. * Given elevated fasting BSG (and advancing diet), Lantus increased ~ 15% to 23 units BID starting this evening. Novolog tightened slightly. 08/02 * Criss received 60 units of SC insulin yesterday (34 units basal, 26 units bolus) * Fasting BSG trending up. Tube feeds have been at goal since 07/26. Will increase Lantus by ~20%. * Variable post prandial BSG control. Slightly tighten correction factor and carb coverage. 07/30 * Criss received 57 units of insulin yesterday (34 were basal) * Fasting BSG this AM acceptable, continue current basal regimen * Post-prandials ok, NovoLog adjusted yesterday will continue with those parameters 07/27 * Cirss received 62 units of insulin yesterday (20 were basal) * Fasting BSG this AM acceptable, continue current regimen * Nutren TF at goal, post-prandials still increasing, tighten carbohydrate ratio 07/26: * Criss received 40 units of insulin yesterday (20 were basal) * Fasting BSG this AM slightly elevated, bolus Nutren feeds will be at goal with lunchtime, will continue with 30% increase in basal insulin today. * BSG over 300 today with lunch, carbohydrate ratio adjusted yesterday, will tighten further tomorrow if BSGs continue to trend up with increase in basal insulin. 07/25: * Criss received 45 units of insulin yesterday (20 were basal) * Some BSGs still elevated with [employer]ersource tube feeds, planed to increase basal by ~30% to help cover. Tube feeds switched to more concentrated Nutren 2.0 bolus (titrating up to goal 220mL QID over next 24 Hours) due to patient preference and overnight diarrhea. Will adjust basal to a scale at bedtime based on BSGs aiming for yesterday's basal dose. * Tightened carbohydrate ratio to also try and prevent BSG rises. 07/23: * Patient received a total of 37 units of insulin yesterday. (14 units were basal and 23 units were bolus). Most BSGs were above goal yesterday ([phone]/dL) despite tightening CF and increasing Lantus doses. This is most likely due to increasing rate of tube feeds. * AM BSG was 202mg/dL this morning. Lantus was increased to 10units SQ BID. Will continue parameters of bolus insulin without change. See previous reports for additional background PLAN FOR INPATIENT GLYCEMIC CONTROL: * Hold outpatient oral diabetes medications * Basal insulin * Lantus 5 units SQ QAM and 10 units SQ Q HS * Bolus insulin * NovoLog per scale q6 (to cover liquids + Nutren bolus feeds BID) * Goal Range: Low 110 mg/dL - High 140 mg/dL * Correction Factor: 25 mg/dL/unit * Nutritional / Prandial insulin per carb ratio of 1 unit per 9 grams CHO consumed PLEASE COVER TUBE FEEDS BOLUS WHEN GIVEN Nutren 2.0 dianne = 216 g CHO/L 120 mL = 25 g CHO 180 mL = 39 g CHO 220 mL = 48 g CHO
--- NOTE | 2024-08-13 10:26 | Hospitalist Progress Note ---
Date of Service August 13, 2024 Assessment & Plan (1) Hyperosmolar hyperglycemic state (HHS): (2) DM2 (diabetes mellitus, type 2): (3) Cerebral palsy: (4) Status post insertion of percutaneous endoscopic gastrostomy (PEG) tube: (5) Neurogenic bladder: (6) Goiter: Plan 54-year-old female with past medical history of cerebral palsy, insulin- dependent type 2 diabetes mellitus, dysphagia secondary to goiter with PEG tube placement at [facility] with recent hospitalization at [facility] was admitted from senior care facility with HHS and sepsis related to urinary tract infection/pyelonephritis. She was critically ill and monitored in the ICU with AGUILAR/hyponatremia. These have all resolved and she has finished a full course of antibiotics for her sepsis and is currently under the care of the hospitalist team awaiting a safe discharge plan. Aspiration A code was called 08/04 for aspiration after she was found choking on her food Per speech, patient did not follow aspiration precaution as she was instructed to she was made NPO and x ray did not show any evidence of aspiration PNA she has been cleared to resume oral feeds, provided she observes aspiration precautions #Type 2 diabetes mellitus A1c 6.9 Pharmacy is managing diabetes management/glycemic control HHS has resolved #Sepsis secondary to UTI/pyelonephritis with mild right hydro ureteric nephrosis: Resolved #AGUILAR: Resolved Renal function is at baseline Patient is finish full course of antibiotics #Cerebral palsy #Neurogenic bladder Patient needs cares at home and is unable to find care so far Patient was seen by psychiatry and she has capacity to sign out AMA Givens catheter was removed on 08/02/2024 #Thyroid goiter #Dysphagia Noted at [facility] during hospital stay Thyroid ultrasound consistent with goiter causing obstructive symptoms leading to dysphagia PEG tube was inserted at [facility] on 06/29/2024 Patient will need follow-up with ENT at [facility] (Dr. Joel at [facility] [place]) Has been weaned off tube feeds, now tolerating regular diet Sacral ulcer, stage 2 Present on admission continue wound care Dysphagia Now resolved Repeat barium swallow cleared her for diet Gradually wean her off G tube feeds Please see progress note from 07/16/[address] Jose Angel Hayes for complete summary of ethics consultation, palliative care consultation which was performed at [facility] CODE STATUS: DNR/DNI DVT prophylaxis: Heparin subcutaneous Care plan discussed with patient, nursing staff and case management Ongoing discharge planning issues. No accepting facility. Also having a hard time finding care as outpatient. Case management working on a safe discharge plan: PT/OT consults to see patient's ability to transfer herself in a wheelchair and on the toilet. She is now more open to the idea of SNF, also worried about losing her accommodation due to prolonged hospital stay. Very difficult disposition Admission and Anticipated Discharge Date Admission Date: July 15, 2024 Subjective Patient seen and examined, still pending placement, worried about losing her accommodation due to prolonged hospital stay Review of Systems Review of Systems: All systems reviewed are negative, apart from the ones contained in the history. Physical Exam Physical Exam: The patient is awake, alert and oriented 3, well developed and well nourished, normocephalic and atraumatic, lying in bed and in no acute distress. HEENT--PERRL, EOMI, mucous membranes and oropharynx mildly dry Neck--supple. No JVD. No bruits. Thyroid normal, trachea midline, no adenopathy. Heart--normal S1 and S2. No murmurs, rubs or gallops. Lungs--clear bilaterally, no respiratory distress, no accessory muscle use. Abdomen--normal bowel sounds and soft. Extremities--no cyanosis or clubbing. No edema. Dermatologic--normal skin turgor, normal color, no abnormal lymph nodes, no rash. Neurologic--cranial nerves II through XII grossly intact. Rheumatologic--atrophic lower extremities, poor muscle tone Psychiatric--normal affect. Results & Data Results & Data Vital Signs (Past 12 Hours) Vital Signs Temp Pulse Resp BP Pulse Ox O2 Del Method 08/13/24 07:16 98.2 F 87 16 112/80 97 Room Air PG Care Time/CCT Total # of Minutes Spent Total Time Spent with Patient: Total time spent is greater than 50% in coordination of care (as documented) at patient's floor/unit and/or counseling patient: Coding Level of Care Code 66557 SUB INP/OBS CARE 2/35MIN Diagnoses Hyperosmolar hyperglycemic state (HHS) E11.00 DM2 (diabetes mellitus, type 2) E11.9 Cerebral palsy G80.9 Cerebral palsy type: unspecified type Status post insertion of percutaneous endoscopic gastrostomy (PEG) tube Z93.1 Neurogenic bladder N31.9 Goiter E04.9 Time Spent (min) 35 (3) Cerebral palsy Cerebral palsy type: unspecified type Qualified Code(s): G80.9 - Cerebral palsy, unspecified
--- NOTE | 2024-08-14 09:46 | Hospitalist Progress Note ---
Date of Service August 14, 2024 Assessment & Plan (1) Hyperosmolar hyperglycemic state (HHS): (2) DM2 (diabetes mellitus, type 2): (3) Cerebral palsy: (4) Status post insertion of percutaneous endoscopic gastrostomy (PEG) tube: (5) Neurogenic bladder: (6) Goiter: Plan 54-year-old female with past medical history of cerebral palsy, insulin- dependent type 2 diabetes mellitus, dysphagia secondary to goiter with PEG tube placement at [facility] with recent hospitalization at [facility] was admitted from shelter facility with HHS and sepsis related to urinary tract infection/pyelonephritis. She was critically ill and monitored in the ICU with AGUILAR/hyponatremia. These have all resolved and she has finished a full course of antibiotics for her sepsis and is currently under the care of the hospitalist team awaiting a safe discharge plan. Aspiration A code was called 08/04 for aspiration after she was found choking on her food Per speech, patient did not follow aspiration precaution as she was instructed to she was made NPO and x ray did not show any evidence of aspiration PNA she has been cleared to resume oral feeds, provided she observes aspiration precautions #Type 2 diabetes mellitus A1c 6.9 Pharmacy is managing diabetes management/glycemic control HHS has resolved #Sepsis secondary to UTI/pyelonephritis with mild right hydro ureteric nephrosis: Resolved #AGUILAR: Resolved Renal function is at baseline Patient is finish full course of antibiotics #Cerebral palsy #Neurogenic bladder Patient needs cares at home and is unable to find care so far Patient was seen by psychiatry and she has capacity to sign out AMA Givens catheter was removed on 08/02/2024 #Thyroid goiter #Dysphagia Noted at [facility] during hospital stay Thyroid ultrasound consistent with goiter causing obstructive symptoms leading to dysphagia PEG tube was inserted at [facility] on 06/29/2024 Patient will need follow-up with ENT at [facility] ([place] [facility] Has been weaned off tube feeds, now tolerating regular diet Sacral ulcer, stage 2 Present on admission continue wound care Dysphagia Now resolved Repeat barium swallow cleared her for diet Gradually wean her off G tube feeds Please see progress note from 07/16/[address] Jose Angel Hayes for complete summary of ethics consultation, palliative care consultation which was performed at [facility] CODE STATUS: DNR/DNI DVT prophylaxis: Heparin subcutaneous Care plan discussed with patient, nursing staff and case management Ongoing discharge planning issues. No accepting facility. Also having a hard time finding care as outpatient. Case management working on a safe discharge plan: PT/OT consults to see patient's ability to transfer herself in a wheelchair and on the toilet. She is now more open to the idea of SNF, also worried about losing her accommodation due to prolonged hospital stay. Very difficult disposition Admission and Anticipated Discharge Date Admission Date: July 15, 2024 Subjective Patient seen and examined, still pending placement, worried about losing her accommodation due to prolonged hospital stay Review of Systems Review of Systems: All systems reviewed are negative, apart from the ones contained in the history. Physical Exam Physical Exam: The patient is awake, alert and oriented 3, well developed and well nourished, normocephalic and atraumatic, lying in bed and in no acute distress. HEENT--PERRL, EOMI, mucous membranes and oropharynx mildly dry Neck--supple. No JVD. No bruits. Thyroid normal, trachea midline, no adenopathy. Heart--normal S1 and S2. No murmurs, rubs or gallops. Lungs--clear bilaterally, no respiratory distress, no accessory muscle use. Abdomen--normal bowel sounds and soft. Extremities--no cyanosis or clubbing. No edema. Dermatologic--normal skin turgor, normal color, no abnormal lymph nodes, no rash. Neurologic--cranial nerves II through XII grossly intact. Rheumatologic--atrophic lower extremities, poor muscle tone Psychiatric--normal affect. Results & Data Results & Data Vital Signs (Past 12 Hours) Vital Signs Temp Pulse Resp BP Pulse Ox O2 Del Method 08/14/24 07:54 36.7 C 91 H 16 116/80 97 Room Air PG Care Time/CCT Total # of Minutes Spent Total Time Spent with Patient: Total time spent is greater than 50% in coordination of care (as documented) at patient's floor/unit and/or counseling patient: Coding Level of Care Code 15933 SUB INP/OBS CARE 2/35MIN Diagnoses Hyperosmolar hyperglycemic state (HHS) E11.00 DM2 (diabetes mellitus, type 2) E11.9 Cerebral palsy G80.9 Cerebral palsy type: unspecified type Status post insertion of percutaneous endoscopic gastrostomy (PEG) tube Z93.1 Neurogenic bladder N31.9 Goiter E04.9 Time Spent (min) 35 (3) Cerebral palsy Cerebral palsy type: unspecified type Qualified Code(s): G80.9 - Cerebral palsy, unspecified
[2024-08-15] MEDS: LANTUS PER UNIT CHARGE SQ SCH (09:46)
--- NOTE | 2024-08-15 16:09 | Hospitalist Progress Note ---
Date of Service August 15, 2024 Assessment & Plan (1) Hyperosmolar hyperglycemic state (HHS): (2) DM2 (diabetes mellitus, type 2): (3) Cerebral palsy: (4) Status post insertion of percutaneous endoscopic gastrostomy (PEG) tube: (5) Neurogenic bladder: (6) Goiter: Plan 54-year-old female with past medical history of cerebral palsy, insulin- dependent type 2 diabetes mellitus, dysphagia secondary to goiter with PEG tube placement at [facility] with recent hospitalization at [facility] was admitted from long-term facility with HHS and sepsis related to urinary tract infection/pyelonephritis. She was critically ill and monitored in the ICU with AGUILAR/hyponatremia. These have all resolved and she has finished a full course of antibiotics for her sepsis and is currently under the care of the hospitalist team awaiting a safe discharge plan. Aspiration A code was called 08/04 for aspiration after she was found choking on her food Per speech, patient did not follow aspiration precaution as she was instructed to she was made NPO and x ray did not show any evidence of aspiration PNA she has been cleared to resume oral feeds, provided she observes aspiration precautions #Type 2 diabetes mellitus A1c 6.9 Pharmacy is managing diabetes management/glycemic control HHS has resolved #Sepsis secondary to UTI/pyelonephritis with mild right hydro ureteric nephrosis: Resolved #AGUILAR: Resolved Renal function is at baseline Patient is finish full course of antibiotics #Cerebral palsy #Neurogenic bladder Patient needs cares at home and is unable to find care so far Patient was seen by psychiatry and she has capacity to sign out AMA Givens catheter was removed on 08/02/2024 #Thyroid goiter #Dysphagia Noted at [facility] during hospital stay Thyroid ultrasound consistent with goiter causing obstructive symptoms leading to dysphagia PEG tube was inserted at [facility] on 06/29/2024 Patient will need follow-up with ENT at [facility] (Dr. Joel at [facility] [place]) Has been weaned off tube feeds, now tolerating regular diet Sacral ulcer, stage 2 Present on admission continue wound care Dysphagia Now resolved Repeat barium swallow cleared her for diet Gradually wean her off G tube feeds Please see progress note from 07/16/[address] Jose Angel Hayes for complete summary of ethics consultation, palliative care consultation which was performed at [facility] CODE STATUS: DNR/DNI DVT prophylaxis: Heparin subcutaneous Care plan discussed with patient, nursing staff and case management Ongoing discharge planning issues. No accepting facility. Also having a hard time finding care as outpatient. Case management working on a safe discharge plan: PT/OT consults to see patient's ability to transfer herself in a wheelchair and on the toilet. She is now more open to the idea of SNF, also worried about losing her accommodation due to prolonged hospital stay. Very difficult disposition Admission and Anticipated Discharge Date Admission Date: July 15, 2024 Subjective Patient seen and examined, still pending placement, worried about losing her accommodation due to prolonged hospital stay Review of Systems Review of Systems: All systems reviewed are negative, apart from the ones contained in the history. Physical Exam Physical Exam: The patient is awake, alert and oriented 3, well developed and well nourished, normocephalic and atraumatic, lying in bed and in no acute distress. HEENT--PERRL, EOMI, mucous membranes and oropharynx mildly dry Neck--supple. Patient has a goiter Heart--normal S1 and S2. No murmurs, rubs or gallops. Lungs--clear bilaterally, no respiratory distress, no accessory muscle use. Abdomen--normal bowel sounds and soft. Also has a PEG tube this was placed in June consulted general surgery but they want her to go back to the same facility which put that PEG tube in for removal Extremities--no cyanosis or clubbing. No edema. Dermatologic--patient has a sacral wound see the wound care Neurologic--cranial nerves II through XII grossly intact. Rheumatologic--atrophic lower extremities, poor muscle tone Psychiatric--normal affect. Results & Data Results & Data Vital Signs (Past 12 Hours) Vital Signs Temp Pulse Resp BP Pulse Ox O2 Del Method 08/15/24 12:26 36.4 C L 74 17 110/73 98 Room Air 08/15/24 08:19 36.6 C 71 16 105/73 100 Room Air PG Care Time/CCT Total # of Minutes Spent Total Time Spent with Patient: Total time spent is greater than 50% in coordination of care (as documented) at patient's floor/unit and/or counseling patient: Coding Level of Care Code 10570 SUB INP/OBS CARE 2/35MIN Diagnoses Hyperosmolar hyperglycemic state (HHS) E11.00 DM2 (diabetes mellitus, type 2) E11.9 Cerebral palsy G80.9 Cerebral palsy type: unspecified type Status post insertion of percutaneous endoscopic gastrostomy (PEG) tube Z93.1 Neurogenic bladder N31.9 Goiter E04.9 Time Spent (min) 35 (3) Cerebral palsy Cerebral palsy type: unspecified type Qualified Code(s): G80.9 - Cerebral palsy, unspecified
[2024-08-16 11:06] LABS: Albumin Globulin Ratio 1.2 (0.9-2); BUN Creatinine Ratio 34.5 (10-20); Bilirubin,Total 0.3 mg/dl (0.2-1.0); Calcium 10.1 mg/dl (8.6-10.3); Creatinine Clr Calc Pharmacy 99.3 ml/min; Globulin 3.4 gm/dl (2.5-4.0); Potassium 4.4 mmol/L (3.5-5.1); Total Protein 7.4 gm/dl (6.0-8.3)
[2024-08-16 11:19] LABS: Basophils # (auto) 0.05 K/uL (0.00-0.20); Basophils % (auto) 0.9 %; Eosinophils # (auto) 0.28 K/uL (0.00-0.50); Eosinophils % (auto) 5.3 %; Hematocrit (blood only) 40.5 % (37.0-47.0); Hemoglobin 13.4 g/dl (12.0-16.0); Immature Granulocytes # (auto) 0.01 K/uL (0.01-0.20); Immature Granulocytes % (auto) 0.2 %; Lymphocytes # (auto) 1.58 K/uL (1.20-3.40); Lymphocytes % (auto) 29.9 %; Mean Corpuscular Hemoglobin 31.2 pg (25.0-34.0); Mean Corpuscular Hgb Conc 33.1 g/dL (32.0-36.0); Mean Corpuscular Volume 94.4 fL (80.0-100.0); Mean Platelet Volume 11.3 fL (9.4-12.4); Monocytes # (auto) 0.42 K/uL (0.11-0.59); Neutrophils # (auto) 2.94 K/uL (1.40-6.50); Neutrophils % (auto) 55.7 %; Platelet Count 260 K/uL (130-400); Platelet Estimate Normal (Normal); RDW Coefficient of Variation 14.6 % (11.5-14.5); RDW Standard Deviation 50.8 fL (36.4-46.3); Red Blood Count 4.29 M/uL (4.20-5.40); White Blood Count 5.28 K/ul (4.8-10.8)
--- NOTE | 2024-08-16 19:00 | Hospitalist Progress Note ---
Date of Service August 16, 2024 Assessment & Plan (1) Encounter for assessment of decision-making capacity: (2) Goiter: (3) Cerebral palsy: (4) DM2 (diabetes mellitus, type 2): Plan Assessment & Plan (1) Hyperosmolar hyperglycemic state (HHS): (2) DM2 (diabetes mellitus, type 2): (3) Cerebral palsy: (4) Status post insertion of percutaneous endoscopic gastrostomy (PEG) tube: (5) Neurogenic bladder: (6) Goiter: Plan 54-year-old female with past medical history of cerebral palsy, insulin- dependent type 2 diabetes mellitus, dysphagia secondary to goiter with PEG tube placement at [facility] with recent hospitalization at [facility] was admitted from senior care facility with HHS and sepsis related to urinary tract infection/pyelonephritis. She was critically ill and monitored in the ICU with AGUILAR/hyponatremia. These have all resolved and she has finished a full course of antibiotics for her sepsis and is currently under the care of the hospitalist team awaiting a safe discharge plan. Aspiration A code was called 08/04 for aspiration after she was found choking on her food Per speech, patient did not follow aspiration precaution as she was instructed to she was made NPO and x ray did not show any evidence of aspiration PNA she has been cleared to resume oral feeds, provided she observes aspiration precautions #Type 2 diabetes mellitus A1c 6.9 Pharmacy is managing diabetes management/glycemic control HHS has resolved #Sepsis secondary to UTI/pyelonephritis with mild right hydro ureteric nephrosis: Resolved #AGUILAR: Resolved Renal function is at baseline Patient is finish full course of antibiotics #Cerebral palsy #Neurogenic bladder Patient needs cares at home and is unable to find care so far Patient was seen by psychiatry and she has capacity to sign out AMA Givens catheter was removed on 08/02/2024 #Thyroid goiter #Dysphagia Noted at [facility] during hospital stay Thyroid ultrasound consistent with goiter causing obstructive symptoms leading to dysphagia PEG tube was inserted at [facility] on 06/29/2024 Patient will need follow-up with ENT at [facility] ([place] [facility] [place] Has been weaned off tube feeds, now tolerating regular diet Sacral ulcer, stage 2 Present on admission continue wound care Dysphagia Now resolved Repeat barium swallow cleared her for diet Gradually wean her off G tube feeds Please see progress note from 07/16/[address] Jose Angel Hayes for complete summary of ethics consultation, palliative care [facility] CODE STATUS: DNR/DNI DVT prophylaxis: Heparin subcutaneous Care plan discussed with patient, nursing staff and case management Ongoing discharge planning issues. No accepting facility. Also having a hard time finding care as outpatient. Case management working on a safe discharge plan: PT/OT consults to see patient's ability to transfer herself in a wheelchair and on the toilet. She is now more open to the idea of SNF, also worried about losing her accommodation due to prolonged hospital stay. Very difficult disposition Admission and Anticipated Discharge Date Admission Date: July 15, 2024 Subjective Patient seen and examined, still pending placement, worried about losing her accommodation due to prolonged hospital stay Physical Exam Physical Exam: The patient is awake, alert and oriented 3, well developed and well nourished, normocephalic and atraumatic, lying in bed and in no acute distress. HEENT--PERRL, EOMI, mucous membranes and oropharynx mildly dry Neck--supple. Patient has a goiter Heart--normal S1 and S2. No murmurs, rubs or gallops. Lungs--clear bilaterally, no respiratory distress, no accessory muscle use. Abdomen--normal bowel sounds and soft. Also has a PEG tube this was placed in June consulted general surgery but they want her to go back to the same facility which put that PEG tube in for removal Extremities--no cyanosis or clubbing. No edema. Dermatologic--patient has a sacral wound see the wound care Neurologic--cranial nerves II through XII grossly intact. Rheumatologic--atrophic lower extremities, poor muscle tone Psychiatric--normal affect. Results & Data Results & Data Vital Signs (Past 12 Hours) Vital Signs Temp Pulse Resp BP Pulse Ox O2 Del Method 08/16/24 16:11 36.6 C 78 18 96/68 L 98 Room Air 08/16/24 07:30 36.6 C 65 18 117/80 97 Room Air PG Care Time/CCT Total # of Minutes Spent Total Time Spent with Patient: Total time spent is greater than 50% in coordination of care (as documented) at patient's floor/unit and/or counseling patient: Coding Level of Care Code 48330 SUB INP/OBS CARE 2/35MIN Diagnoses Encounter for assessment of decision-making capacity Z00.8 Goiter E04.9 Cerebral palsy G80.9 Cerebral palsy type: unspecified type DM2 (diabetes mellitus, type 2) E11.9 Time Spent (min) 30 (3) Cerebral palsy Cerebral palsy type: unspecified type Qualified Code(s): G80.9 - Cerebral palsy, unspecified
--- NOTE | 2024-08-17 15:24 | Hospitalist Progress Note ---
Date of Service August 17, 2024 Assessment & Plan (1) Encounter for assessment of decision-making capacity: (2) Goiter: (3) Cerebral palsy: (4) DM2 (diabetes mellitus, type 2): Plan Assessment & Plan (1) Hyperosmolar hyperglycemic state (HHS): (2) DM2 (diabetes mellitus, type 2): (3) Cerebral palsy: (4) Status post insertion of percutaneous endoscopic gastrostomy (PEG) tube: (5) Neurogenic bladder: (6) Goiter: Plan 54-year-old female with past medical history of cerebral palsy, insulin- dependent type 2 diabetes mellitus, dysphagia secondary to goiter with PEG tube placement at [facility] with recent hospitalization at [facility] was admitted from halfway facility with HHS and sepsis related to urinary tract infection/pyelonephritis. She was critically ill and monitored in the ICU with AGUILAR/hyponatremia. These have all resolved and she has finished a full course of antibiotics for her sepsis and is currently under the care of the hospitalist team awaiting a safe discharge plan. Aspiration A code was called 08/04 for aspiration after she was found choking on her food Per speech, patient did not follow aspiration precaution as she was instructed to she was made NPO and x ray did not show any evidence of aspiration PNA she has been cleared to resume oral feeds, provided she observes aspiration precautions #Type 2 diabetes mellitus A1c 6.9 Pharmacy is managing diabetes management/glycemic control HHS has resolved #Sepsis secondary to UTI/pyelonephritis with mild right hydro ureteric nephrosis: Resolved #AGUILAR: Resolved Renal function is at baseline Patient is finish full course of antibiotics #Cerebral palsy #Neurogenic bladder Patient needs cares at home and is unable to find care so far Patient was seen by psychiatry and she has capacity to sign out AMA Givens catheter was removed on 08/02/2024 #Thyroid goiter #Dysphagia Noted at [facility] during hospital stay Thyroid ultrasound consistent with goiter causing obstructive symptoms leading to dysphagia PEG tube was inserted at [facility] on 06/29/2024 Patient will need follow-up with ENT at [facility] [place] [facility] [place] Has been weaned off tube feeds, now tolerating regular diet Sacral ulcer, stage 2 Present on admission continue wound care Dysphagia Now resolved Repeat barium swallow cleared her for diet Gradually wean her off G tube feeds Please see progress note from 07/16/[address] Jose Angel Hayes for complete summary of ethics consultation, palliative care consultation which was performed at [facility] CODE STATUS: DNR/DNI DVT prophylaxis: Heparin subcutaneous Care plan discussed with patient, nursing staff and case management Ongoing discharge planning issues. No accepting facility. Also having a hard time finding care as outpatient. Case management working on a safe discharge plan: PT/OT consults to see patient's ability to transfer herself in a wheelchair and on the toilet. She is now more open to the idea of SNF, also worried about losing her accommodation due to prolonged hospital stay. Very difficult disposition Admission and Anticipated Discharge Date Admission Date: July 15, 2024 Subjective Patient seen and examined, still pending placement, worried about losing her accommodation due to prolonged hospital stay / patient was choking on her food, according to the nurse patient was not eating and drinking at the same time very fast, discussed with patient that her PEG tube is not a problem she is still looking for caregiver to go home with Physical Exam Physical Exam: The patient is awake, alert and oriented 3, well developed and well nourished, normocephalic and atraumatic, lying in bed and in no acute distress. HEENT--PERRL, EOMI, mucous membranes and oropharynx mildly dry Neck--supple. Patient has a goiter Heart--normal S1 and S2. No murmurs, rubs or gallops. Lungs--clear bilaterally, no respiratory distress, no accessory muscle use. Abdomen--normal bowel sounds and soft. Also has a PEG tube this was placed in June consulted general surgery but they want her to go back to the same facility which put that PEG tube in for removal Extremities--no cyanosis or clubbing. No edema. Dermatologic--patient has a sacral wound see the wound care Neurologic--cranial nerves II through XII grossly intact. Rheumatologic--atrophic lower extremities, poor muscle tone Psychiatric--normal affect. Results & Data Results & Data Vital Signs (Past 12 Hours) Vital Signs Temp Pulse Pulse Resp BP BP Pulse Ox 08/17/24 14:38 36.5 C 74 18 108/72 94 08/17/24 12:44 36.5 C 80 18 130/80 99 08/17/24 08:00 36.4 C L 69 18 128/88 99 O2 Del Method 08/17/24 14:38 Room Air 08/17/24 12:44 Room Air 08/17/24 08:00 Room Air PG Care Time/CCT Total # of Minutes Spent Total Time Spent with Patient: Total time spent is greater than 50% in coordination of care (as documented) at patient's floor/unit and/or counseling patient: Coding Level of Care Code 69686 SUB INP/OBS CARE 2/35MIN Diagnoses Encounter for assessment of decision-making capacity Z00.8 Goiter E04.9 Cerebral palsy G80.9 Cerebral palsy type: unspecified type DM2 (diabetes mellitus, type 2) E11.9 (3) Cerebral palsy Cerebral palsy type: unspecified type Qualified Code(s): G80.9 - Cerebral palsy, unspecified
--- NOTE | 2024-08-18 17:45 | Hospitalist Progress Note ---
Date of Service August 18, 2024 Assessment & Plan (1) Encounter for assessment of decision-making capacity: (2) Goiter: (3) Cerebral palsy: (4) DM2 (diabetes mellitus, type 2): Plan Assessment & Plan (1) Hyperosmolar hyperglycemic state (HHS): (2) DM2 (diabetes mellitus, type 2): (3) Cerebral palsy: (4) Status post insertion of percutaneous endoscopic gastrostomy (PEG) tube: (5) Neurogenic bladder: (6) Goiter: Plan 54-year-old female with past medical history of cerebral palsy, insulin- dependent type 2 diabetes mellitus, dysphagia secondary to goiter with PEG tube placement at [facility] with recent hospitalization at [facility] was admitted from long-term facility with HHS and sepsis related to urinary tract infection/pyelonephritis. She was critically ill and monitored in the ICU with AGUILAR/hyponatremia. These have all resolved and she has finished a full course of antibiotics for her sepsis and is currently under the care of the hospitalist team awaiting a safe discharge plan. Aspiration A code was called 08/04 for aspiration after she was found choking on her food Per speech, patient did not follow aspiration precaution as she was instructed to she was made NPO and x ray did not show any evidence of aspiration PNA she has been cleared to resume oral feeds, provided she observes aspiration precautions 08/17 and 08/18 again started choking will make her NPO except water and ice chips and ordered CXR and speech and swallow wvaluation #Type 2 diabetes mellitus A1c 6.9 Pharmacy is managing diabetes management/glycemic control HHS has resolved #Sepsis secondary to UTI/pyelonephritis with mild right hydro ureteric nephrosis: Resolved #AGUILAR: Resolved Renal function is at baseline Patient is finish full course of antibiotics #Cerebral palsy #Neurogenic bladder Patient needs cares at home and is unable to find care so far Patient was seen by psychiatry and she has capacity to sign out AMA Givens catheter was removed on 08/02/2024 #Thyroid goiter #Dysphagia Noted at [facility] during hospital stay Thyroid ultrasound consistent with goiter causing obstructive symptoms leading to dysphagia PEG tube was inserted at [facility] on 06/29/2024 Patient will need follow-up with ENT at [facility] (Dr. Joel at [facility] [place] Has been weaned off tube feeds, now tolerating regular diet Sacral ulcer, stage 2 Present on admission continue wound care Dysphagia Now resolved Repeat barium swallow cleared her for diet Gradually wean her off G tube feeds Please see progress note from 07/16/[address] Jose Angel Hayes for complete summary of ethics consultation, palliative care consultation which was performed at [facility] CODE STATUS: DNR/DNI DVT prophylaxis: Heparin subcutaneous Care plan discussed with patient, nursing staff and case management Ongoing discharge planning issues. No accepting facility. Also having a hard time finding care as outpatient. Case management working on a safe discharge plan: PT/OT consults to see patient's ability to transfer herself in a whe elchair and on the toilet. She is now more open to the idea of SNF, also worried about losing her accommodation due to prolonged hospital stay. Very difficult disposition Admission and Anticipated Discharge Date Admission Date: July 15, 2024 Subjective Patient seen and examined, still pending placement, worried about losing her accommodation due to prolonged hospital stay 4/ patient was choking on her food, according to the nurse patient was not eating and drinking at the same time very fast, discussed with patient that her PEG tube is not a problem she is still looking for caregiver to go home with 4/5 patient started choking again so I have made her n.p.o. and ordered a speech and swallow evaluation discussed with patient about chewing her food Review of Systems Review of Systems: no chest pain no shortness of breath no abdominal pain Physical Exam Constitutional: The patient is awake, alert and oriented 3, well developed and well nourished, normocephalic and atraumatic, lying in bed and in no acute distress. HEENT--PERRL, EOMI, mucous membranes and oropharynx mildly dry Neck--supple. Patient has a goiter Heart--normal S1 and S2. No murmurs, rubs or gallops. Lungs--clear bilaterally, no respiratory distress, no accessory muscle use. Abdomen--normal bowel sounds and soft. Also has a PEG tube this was placed in June consulted general surgery but they want her to go back to the same facility which put that PEG tube in for removal Extremities--no cyanosis or clubbing. No edema. Dermatologic--patient has a sacral wound see the wound care Neurologic--cranial nerves II through XII grossly intact. Rheumatologic--atrophic lower extremities, poor muscle tone Psychiatric--normal affect. Results & Data Results & Data Vital Signs (Past 12 Hours) Vital Signs Temp Pulse Resp BP Pulse Ox O2 Del Method 08/18/24 15:03 36.6 C 96 H 16 107/69 92 Room Air 08/18/24 07:45 36.8 C 74 18 124/82 100 Room Air PG Care Time/CCT Total # of Minutes Spent Total Time Spent with Patient: Total time spent is greater than 50% in coordination of care (as documented) at patient's floor/unit and/or counseling patient: Coding Level of Care Code 45505 SUB INP/OBS CARE 2/35MIN Diagnoses Encounter for assessment of decision-making capacity Z00.8 Goiter E04.9 Cerebral palsy G80.9 Cerebral palsy type: unspecified type DM2 (diabetes mellitus, type 2) E11.9 (3) Cerebral palsy Cerebral palsy type: unspecified type Qualified Code(s): G80.9 - Cerebral palsy, unspecified
--- NOTE | 2024-08-18 18:18 | XRay Report ---
Chest radiograph, one view History: Evaluate for aspiration pneumonia. Comparison: [address] chest correlate 15 July 2024. Findings: Again noted is tracheal deviation to the right. This likely represents goiter present on prior CT. Cardiomediastinal silhouette is within normal limits. Pulmonary vasculature is within normal limits. Lungs are clear. Pleural spaces are within normal limits. Impression: No findings to indicate source for patient's symptoms. Consider lateral view. Electronically signed by Glynn Sims 08-18-2024 6:18 PM
[2024-08-19 14:56] LABS: Hematocrit (blood only) 38.4 % (37.0-47.0); Hemoglobin 13.1 g/dl (12.0-16.0); Mean Corpuscular Hemoglobin 31.6 pg (25.0-34.0); Mean Corpuscular Hgb Conc 34.1 g/dL (32.0-36.0); Mean Corpuscular Volume 92.5 fL (80.0-100.0); Mean Platelet Volume 11.3 fL (9.4-12.4); Platelet Count 291 K/uL (130-400); RDW Coefficient of Variation 14.6 % (11.5-14.5); RDW Standard Deviation 49.8 fL (36.4-46.3); Red Blood Count 4.15 M/uL (4.20-5.40); White Blood Count 7.27 K/ul (4.8-10.8)
--- NOTE | 2024-08-19 15:00 | Hospitalist Progress Note ---
Date of Service August 19, 2024 Assessment & Plan (1) Encounter for assessment of decision-making capacity: (2) Goiter: (3) Cerebral palsy: (4) DM2 (diabetes mellitus, type 2): Plan Assessment & Plan (1) Hyperosmolar hyperglycemic state (HHS): (2) DM2 (diabetes mellitus, type 2): (3) Cerebral palsy: (4) Status post insertion of percutaneous endoscopic gastrostomy (PEG) tube: (5) Neurogenic bladder: (6) Goiter: Plan 54-year-old female with past medical history of cerebral palsy, insulin- dependent type 2 diabetes mellitus, dysphagia secondary to goiter with PEG tube placement at [facility] with recent hospitalization at [facility] was admitted from residential facility with HHS and sepsis related to urinary tract infection/pyelonephritis. She was critically ill and monitored in the ICU with AGUILAR/hyponatremia. These have all resolved and she has finished a full course of antibiotics for her sepsis and is currently under the care of the hospitalist team awaiting a safe discharge plan. Aspiration A code was called 08/04 for aspiration after she was found choking on her food Per speech, patient did not follow aspiration precaution as she was instructed to she was made NPO and x ray did not show any evidence of aspiration PNA she has been cleared to resume oral feeds, provided she observes aspiration precautions / and 08/18 again started choking will make her NPO except water and ice chips and ordered CXR and speech and swallow wvaluation #Type 2 diabetes mellitus A1c 6.9 Pharmacy is managing diabetes management/glycemic control HHS has resolved #Sepsis secondary to UTI/pyelonephritis with mild right hydro ureteric nephrosis: Resolved #AGUILAR: Resolved Renal function is at baseline Patient is finish full course of antibiotics #Cerebral palsy #Neurogenic bladder Patient needs cares at home and is unable to find care so far Patient was seen by psychiatry and she has capacity to sign out AMA Givens catheter was removed on 08/02/2024 #Thyroid goiter #Dysphagia Noted at [facility] during hospital stay Thyroid ultrasound consistent with goiter causing obstructive symptoms leading to dysphagia PEG tube was inserted at [facility] on 06/29/2024 Patient will need follow-up with ENT at [facility] (Dr. Joel at [facility] [place] Has been weaned off tube feeds, now tolerating regular diet Sacral ulcer, stage 2 Present on admission continue wound care Dysphagia Now resolved Repeat barium swallow cleared her for diet Gradually wean her off G tube feeds Please see progress note from 07/16/[address] Jose Angel Hayes for complete summary of ethics consultation, palliative care consultation which was performed at [facility] CODE STATUS: DNR/DNI DVT prophylaxis: Heparin subcutaneous Care plan discussed with patient, nursing staff and case management Ongoing discharge planning issues. No accepting facility. Also having a hard time finding care as outpatient. Case management working on a safe discharge plan: PT/OT consults to see patient's ability to transfer herself in a whe elchair and on the toilet. She is now more open to the idea of SNF, also worried about losing her accommodation due to prolonged hospital stay. Very difficult disposition Admission and Anticipated Discharge Date Admission Date: July 15, 2024 Subjective Patient seen and examined, still pending placement, worried about losing her accommodation due to prolonged hospital stay / patient was choking on her food, according to the nurse patient was not eating and drinking at the same time very fast, discussed with patient that her PEG tube is not a problem she is still looking for caregiver to go home with / patient started choking again so I have made her n.p.o. and ordered a speech and swallow evaluation discussed with patient about chewing her food 08/19 : Patient continues to go in circles, she has been joking so was made n.p.o. however regular speech therapy has nothing more to offer they had multiple bedside assessments and a video at the end of the July according to them there is nothing more to learn by completing another evaluation additionally she has been given safe swallowing strategies and recommendations for her to safely eat with the diet she wants but she has refused to use them, recommendation is resuming her prior diet carb count soft diet mildly thickened liquids nectar thickened liquids to continue to reinforce aspiration precaution another thought is to consider palliative care to discuss goals of care she does have the right to choose permissive aspiration she wants her feeding tube out however this was placed in [facility] and general surgery considers that she should consult the same group which has placed her PEG tube Review of Systems Review of Systems: p Physical Exam Physical Exam: The patient is awake, alert and oriented 3, well developed and well nourished, normocephalic and atraumatic, lying in bed and in no acute distress. HEENT--PERRL, EOMI, mucous membranes and oropharynx mildly dry Neck--supple. Patient has a goiter Heart--normal S1 and S2. No murmurs, rubs or gallops. Lungs--clear bilaterally, no respiratory distress, no accessory muscle use. Abdomen--normal bowel sounds and soft. Also has a PEG tube this was placed in June consulted general surgery but they want her to go back to the same facility which put that PEG tube in for removal Extremities--no cyanosis or clubbing. No edema. Dermatologic--patient has a sacral wound see the wound care Neurologic--cranial nerves II through XII grossly intact. Rheumatologic--atrophic lower extremities, poor muscle tone Psychiatric--normal affect Results & Data Results & Data Vital Signs (Past 12 Hours) Vital Signs Temp Pulse Resp BP Pulse Ox O2 Del Method 08/19/24 14:22 36.8 C 109 H 16 115/75 94 Room Air 08/19/24 08:00 Room Air 08/19/24 07:12 36.9 C 98 H 16 115/79 99 Room Air PG Care Time/CCT Total # of Minutes Spent Total Time Spent with Patient: Total time spent is greater than 50% in coordination of care (as documented) at patient's floor/unit and/or counseling patient: Coding Level of Care Code 02823 SUB INP/OBS CARE 2/35MIN Diagnoses Encounter for assessment of decision-making capacity Z00.8 Goiter E04.9 Cerebral palsy G80.9 Cerebral palsy type: unspecified type DM2 (diabetes mellitus, type 2) E11.9 (3) Cerebral palsy Cerebral palsy type: unspecified type Qualified Code(s): G80.9 - Cerebral palsy, unspecified
[2024-08-19 15:12] LABS: Anion Gap 11 (3-11); Bilirubin,Total 0.4 mg/dl (0.2-1.0); Calcium 10.2 mg/dl (8.6-10.3); Carbon Dioxide 23 mmol/L (21-32); Chloride 106 mmol/L (98-107); Sodium 140 mmol/L (136-145)
[2024-08-19 15:18] LABS: Alanine Aminotransferase 17 U/L (7-52); Albumin Globulin Ratio 1.1 (0.9-2); Alkaline Phosphatase 72 U/L (34-104); Aspartate Aminotransferase 21 U/L (13-39); BUN Creatinine Ratio 41.5 (10-20); Blood Urea Nitrogen 22 mg/dl (6-23); Globulin 3.5 gm/dl (2.5-4.0); Glucose 84 mg/dl (70-99(Fasting)); Total Protein 7.5 gm/dl (6.0-8.3)
[2024-08-19 17:05] LABS: C Reactive Protein < 0.50 mg/dl (0-0.5)
[2024-08-19] MEDS: TUBE FEEDING WATER FLUSH PEG SCH (19:03)
[2024-08-19] MEDS: NUTREN LIQD 2.0 1,000 ML BAG PEG SCH (19:03)
[2024-08-20 10:17] LABS: Hematocrit (blood only) 40.2 % (37.0-47.0); Mean Corpuscular Hemoglobin 30.6 pg (25.0-34.0); Mean Corpuscular Hgb Conc 32.3 g/dL (32.0-36.0); Mean Corpuscular Volume 94.6 fL (80.0-100.0); Mean Platelet Volume 11.3 fL (9.4-12.4); Platelet Count 266 K/uL (130-400); RDW Coefficient of Variation 14.7 % (11.5-14.5); RDW Standard Deviation 51.3 fL (36.4-46.3); Red Blood Count 4.25 M/uL (4.20-5.40); White Blood Count 7.91 K/ul (4.8-10.8)
[2024-08-20 10:37] LABS: Albumin Level 3.9 gm/dl (3.4-5.0); Bilirubin,Total 0.4 mg/dl (0.2-1.0); Calcium 10.1 mg/dl (8.6-10.3); Potassium 4.3 mmol/L (3.5-5.1)
[2024-08-20 10:43] LABS: Albumin Globulin Ratio 1.1 (0.9-2); BUN Creatinine Ratio 32.7 (10-20); Creatinine Clr Calc Pharmacy 119.2 ml/min; Globulin 3.4 gm/dl (2.5-4.0); Total Protein 7.3 gm/dl (6.0-8.3)
--- NOTE | 2024-08-20 14:23 | Hospitalist Progress Note ---
Date of Service August 20, 2024 Assessment & Plan (1) Encounter for assessment of decision-making capacity: (2) Goiter: (3) Cerebral palsy: (4) DM2 (diabetes mellitus, type 2): Plan Assessment & Plan (1) Hyperosmolar hyperglycemic state (HHS): (2) DM2 (diabetes mellitus, type 2): (3) Cerebral palsy: (4) Status post insertion of percutaneous endoscopic gastrostomy (PEG) tube: (5) Neurogenic bladder: (6) Goiter: Plan 54-year-old female with past medical history of cerebral palsy, insulin- dependent type 2 diabetes mellitus, dysphagia secondary to goiter with PEG tube placement at [facility] with recent hospitalization at [facility] was admitted from care home facility with HHS and sepsis related to urinary tract infection/pyelonephritis. She was critically ill and monitored in the ICU with AGUILAR/hyponatremia. These have all resolved and she has finished a full course of antibiotics for her sepsis and is currently under the care of the hospitalist team awaiting a safe discharge plan. Aspiration A code was called 08/04 for aspiration after she was found choking on her food Per speech, patient did not follow aspiration precaution as she was instructed to she was made NPO and x ray did not show any evidence of aspiration PNA she has been cleared to resume oral feeds, provided she observes aspiration precautions 08/17 and 08/18 again started choking will make her NPO except water and ice chips and ordered CXR and speech and swallow wvaluation 08/19 patient was made n.p.o. except water and ice chips as she continuously spirit, speech said that they have done multiple evaluations and patient refuses or is unable to follow the strategies 08/20 today patient wanted me to see if she can get surgery for goiter #Type 2 diabetes mellitus A1c 6.9 Pharmacy is managing diabetes management/glycemic control HHS has resolved #Sepsis secondary to UTI/pyelonephritis with mild right hydro ureteric nephrosis: Resolved #AGUILAR: Resolved Renal function is at baseline Patient is finish full course of antibiotics #Cerebral palsy #Neurogenic bladder Patient needs cares at home and is unable to find care so far Patient was seen by psychiatry and she has capacity to sign out AMA Givens catheter was removed on 08/02/2024 #Thyroid goiter #Dysphagia Noted at [facility] during hospital stay Thyroid ultrasound consistent with goiter causing obstructive symptoms leading to dysphagia PEG tube was inserted at [facility] on 06/29/2024 Patient will need follow-up with ENT at [facility] (Dr. Joel at [facility]) Has been weaned off tube feeds, now tolerating regular diet Sacral ulcer, stage 2 Present on admission continue wound care Dysphagia Now resolved Repeat barium swallow cleared her for diet Gradually wean her off G tube feeds Please see progress note from 07/16/[address] Jose Angel Hayes for complete summary of ethics consultation, palliative care consultation which was performed at [facility] CODE STATUS: DNR/DNI DVT prophylaxis: Heparin subcutaneous Care plan discussed with patient, nursing staff and case management Ongoing discharge planning issues. No accepting facility. Also having a hard time finding care as outpatient. Case management working on a safe discharge plan: PT/OT consults to see patient's ability to transfer herself in a wheelchair and on the toilet. She is now more open to the idea of SNF, also worried about losing her accommodation due to prolonged hospital stay. Very difficult disposition Admission and Anticipated Discharge Date Admission Date: July 15, 2024 Subjective Patient seen and examined, still pending placement, worried about losing her accommodation due to prolonged hospital stay 4/ patient was choking on her food, according to the nurse patient was not eating and drinking at the same time very fast, discussed with patient that her PEG tube is not a problem she is still looking for caregiver to go home with 4/5 patient started choking again so I have made her n.p.o. and ordered a speech and swallow evaluation discussed with patient about chewing her food 08/19 : Patient continues to go in circles, she has been joking so was made n.p.o. however regular speech therapy has nothing more to offer they had multiple bedside assessments and a video at the end of the July according to them there is nothing more to learn by completing another evaluation additionally she has been given safe swallowing strategies and recommendations for her to safely eat with the diet she wants but she has refused to use them, recommendation is resuming her prior diet carb count soft diet mildly thickened liquids nectar thickened liquids to continue to reinforce aspiration precaution another thought is to consider palliative care to discuss goals of care she does have the right to choose permissive aspiration she wants her feeding tube out however this was placed in [facility] and general surgery considers that she should consult the same group which has placed her PEG tube 08/20: Patient is n.p.o. except water and ice chips and she is getting tube feeding discussed with patient about her goiter and recommendations that I received from speech that patient is not following instructions patient mentioned that she wants to get her goiter taken care of we do not have general surgery capabilities in this hospital I discussed the case with telephonic nurse case manager Edilia. About her difficult discharge disposition Physical Exam Physical Exam: The patient is awake, alert and oriented 3, well developed and well nourished, normocephalic and atraumatic, lying in bed and in no acute distress. HEENT--PERRL, EOMI, mucous membranes and oropharynx mildly dry Neck--supple. Patient has a goiter on chest x-ray this is diverting her trachea to right side Heart--normal S1 and S2. No murmurs, rubs or gallops. Lungs--clear bilaterally, no respiratory distress, no accessory muscle use. Abdomen--normal bowel sounds and soft. Also has a PEG tube this was placed in June consulted general surgery but they want her to go back to the same facility which put that PEG tube in for removal Extremities--no cyanosis or clubbing. No edema. Lower extremities has decreased muscle mass Dermatologic--patient has a sacral wound see the wound care Neurologic--cranial nerves II through XII grossly intact. Rheumatologic--atrophic lower extremities, poor muscle tone Psychiatric--normal affect Results & Data Results & Data Vital Signs (Past 12 Hours) Vital Signs Temp Pulse Pulse Resp BP BP Pulse Ox 08/20/24 11:06 36.8 C 73 19 130/82 94 08/20/24 07:52 36.4 C L 93 H 20 128/84 93 O2 Del Method 08/20/24 11:06 Room Air 08/20/24 07:52 Room Air PG Care Time/CCT Total # of Minutes Spent Total Time Spent with Patient: Total time spent is greater than 50% in coordination of care (as documented) at patient's floor/unit and/or counseling patient: Coding Level of Care Code 64274 SUB INP/OBS CARE 2/35MIN Diagnoses Encounter for assessment of decision-making capacity Z00.8 Goiter E04.9 Cerebral palsy G80.9 Cerebral palsy type: unspecified type DM2 (diabetes mellitus, type 2) E11.9 (3) Cerebral palsy Cerebral palsy type: unspecified type Qualified Code(s): G80.9 - Cerebral palsy, unspecified
[2024-08-20] MEDS: CARBOHYDRATES FOR HYPOGLYCEMIA PO PRN (17:25)
[2024-08-21 08:31] LABS: Hematocrit (blood only) 39.9 % (37.0-47.0); Hemoglobin 13.3 g/dl (12.0-16.0); Mean Corpuscular Hemoglobin 31.1 pg (25.0-34.0); Mean Corpuscular Hgb Conc 33.3 g/dL (32.0-36.0); Mean Corpuscular Volume 93.4 fL (80.0-100.0); Mean Platelet Volume 10.9 fL (9.4-12.4); Platelet Count 337 K/uL (130-400); RDW Coefficient of Variation 14.6 % (11.5-14.5); RDW Standard Deviation 49.8 fL (36.4-46.3); Red Blood Count 4.27 M/uL (4.20-5.40)
[2024-08-21 09:06] LABS: Albumin Globulin Ratio 1.1 (0.9-2); Albumin Level 4.2 gm/dl (3.4-5.0); BUN Creatinine Ratio 27.1 (10-20); Bilirubin,Total 0.5 mg/dl (0.2-1.0); Calcium 10.5 mg/dl (8.6-10.3); Globulin 3.7 gm/dl (2.5-4.0); Potassium 3.9 mmol/L (3.5-5.1); Total Protein 7.9 gm/dl (6.0-8.3)
[2024-08-21] MEDS ORDERED: PHARMACY GLYCEMIC MGMT CONSULT PRN (10:26)
--- NOTE | 2024-08-21 10:34 | Pharmacy Report ---
Pharmacy Glycemic Short Note 2 - Date of Service August 21, 2024 - Glycemic Short BSG Results (Last 24 hours): 08/20/24 08/20/24 08/20/24 04:44 16:49 16:51 Glucose 129 H POC Glucose 57 L* 51 L* 08/20/24 08/20/24 08/21/24 18:09 20:25 07:40 Glucose POC Glucose 77 82 75 08/21/24 08:11 Glucose 75 POC Glucose OUTPATIENT ANTIDIABETIC REGIMEN: * Lantus 30 units SQ BID * metformin 1gm PO BID * empagliflozin 25mg PO daily HbA1C: 6.9% 07/17/24 ASSESSMENT: 08/21: * Pharmacy signed off of consult 08/15, re-consulted today as patient is having hypoglycemia due to excess basal insulin, NPO status, tube feeds only at trickle rate, dietary to discuss increasing rate with provider. * Hold basal today, decrease to 5 units daily starting tomorrow. * Continue NovoLog parameters which were reduced to 40/13 yesterday, and higher goal range of 140-180mg/dl. 08/13: * She received a total of 34 units of insulin yesterday (15 units were basal and 19 units were bolus). BSGs were mostly within goal range ([phone]/dL). * Fasting BSG was 163mg/dL this morning. * Basal and bolus insulin regimens to be continue as ordered. * Patient continues on diet and evening tube feeding. 08/08: * Criss received a total of 23 units of insulin yesterday (18 were basal and 5 were bolus) * BSG were mostly in goal range yesterday but then dropped at HS ([phone]/dL). Am Lantus was decreased to help prevent the lower glucose levels towards the evening. Will leave the HS Lantus dose as is to help cover the evening tube feeds (Nutren 2.0 220ml at HS) * No change to bolus insulin parameters at this time. 08/05/24 * Blood sugars well-controlled yesterday, ranging 122-150 mg/dL * Received 18 units of insulin (15 units of which were basal) * Blood sugars had been trending down overall so insulin dosing was adjusted to minimize hypoglycemia risk * Code purple in the afternoon due to aspiration event, made NPO for short time, but diet ultimately reordered * Nutren 220 mL bolus tube feed at HS 08/03: * BSGs [phone]/dL the last 24h. Received 40 units of basal and 31 units of bolus insulin yesterday. * Nutren modified from QID to BID (@ 0600,2000 per dietary) today and diet advanced to full liquid. * Given elevated fasting BSG (and advancing diet), Lantus increased ~ 15% to 23 units BID starting this evening. Novolog tightened slightly. 08/02 * Criss received 60 units of SC insulin yesterday (34 units basal, 26 units bolus) * Fasting BSG trending up. Tube feeds have been at goal since 07/26. Will increase Lantus by ~20%. * Variable post prandial BSG control. Slightly tighten correction factor and carb coverage. 07/30 * Criss received 57 units of insulin yesterday (34 were basal) * Fasting BSG this AM acceptable, continue current basal regimen * Post-prandials ok, NovoLog adjusted yesterday will continue with those parameters 07/27 * Criss received 62 units of insulin yesterday (20 were basal) * Fasting BSG this AM acceptable, continue current regimen * Nutren TF at goal, post-prandials still increasing, tighten carbohydrate ratio 07/26: * Criss received 40 units of insulin yesterday (20 were basal) * Fasting BSG this AM slightly elevated, bolus Nutren feeds will be at goal with lunchtime, will continue with 30% increase in basal insulin today. * BSG over 300 today with lunch, carbohydrate ratio adjusted yesterday, will tighten further tomorrow if BSGs continue to trend up with increase in basal insulin. 07/25: * Criss received 45 units of insulin yesterday (20 were basal) * Some BSGs still elevated with Fibersource tube feeds, planed to increase basal by ~30% to help cover. Tube feeds switched to more concentrated Nutren 2.0 bolus (titrating up to goal 220mL QID over next 24 Hours) due to patient preference and overnight diarrhea. Will adjust basal to a scale at bedtime based on BSGs aiming for yesterday's basal dose. * Tightened carbohydrate ratio to also try and prevent BSG rises. 07/23: * Patient received a total of 37 units of insulin yesterday. (14 units were basal and 23 units were bolus). Most BSGs were above goal yesterday ([phone]/dL) despite tightening CF and increasing Lantus doses. This is most likely due to increasing rate of tube feeds. * AM BSG was 202mg/dL this morning. Lantus was increased to 10units SQ BID. Will continue parameters of bolus insulin without change. See previous reports for additional background PLAN FOR INPATIENT GLYCEMIC CONTROL: * Hold outpatient diabetes medications * Basal insulin * Lantus 5 units SQ QAM * Bolus insulin * NovoLog per scale q6 (to cover liquids + Nutren bolus feeds BID) * Goal Range: Low 140 mg/dL - High 180 mg/dL * Correction Factor: 40 mg/dL/unit * Nutritional / Prandial insulin per carb ratio of 1 unit per 13 grams CHO consumed PLEASE COVER TUBE FEEDS BOLUS WHEN GIVEN Nutren 2.0 dianne = 216 g CHO/L 120 mL = 25 g CHO 180 mL = 39 g CHO 220 mL = 48 g CHO
[2024-08-21] MEDS: TUBE FEEDING WATER FLUSH PEG SCH (11:53)
--- NOTE | 2024-08-21 14:10 | Hospitalist Progress Note ---
Date of Service August 21, 2024 Assessment & Plan (1) Encounter for assessment of decision-making capacity: (2) Goiter: (3) Cerebral palsy: (4) DM2 (diabetes mellitus, type 2): Plan 54-year-old female with past medical history of cerebral palsy, insulin- dependent type 2 diabetes mellitus, dysphagia secondary to goiter with PEG tube placement at [facility] with recent hospitalization at [facility] with HHS and sepsis related to urinary tract infection/pyelonephritis. She was critically ill and monitored in the ICU with AGUILAR/hyponatremia. These have all resolved and she has finished a full course of antibiotics for her sepsis and is currently under the care of the hospitalist team awaiting a safe discharge plan. #Thyroid goiter #Dysphagia with recurrent aspiration Noted at [facility] during hospital stay Thyroid ultrasound consistent with goiter causing obstructive symptoms leading to dysphagia PEG tube was inserted at [facility] on 06/29/2024 Patient will need follow-up with ENT at [facility] ([place]. [place] [facility] [place] Patient had aspiration episode on 08/04/2024 and again on 08/18/2024 She has been made n.p.o. and started back on tube feeds #Type 2 diabetes mellitus A1c 6.9 Pharmacy is managing diabetes management/glycemic control HHS has resolved #Sepsis secondary to UTI/pyelonephritis with mild right hydro ureteric nephrosis: Resolved #AGUILAR: Resolved Renal function is at baseline Patient has finished course of antibiotics #Cerebral palsy #Neurogenic bladder Patient needs cares at home and is unable to find care so far Patient was seen by psychiatry and she has capacity to sign out AMA Givens catheter was removed on 08/02/2024 #Sacral ulcer, stage 2 Present on admission continue wound care Please see progress note from 07/16/[address] Jose Angel Hayes for complete summary of ethics consultation, palliative care consultation which was performed at [facility] CODE STATUS: DNR/DNI: Awaiting palliative care consult and recommendations DVT prophylaxis: Heparin subcutaneous Care plan discussed with patient, nursing staff and case management Admission and Anticipated Discharge Date Admission Date: July 15, 2024 Subjective Patient seen and examined She currently denies any chest pain, shortness of breath, nausea, vomiting, abdominal pain She does acknowledge recurrent aspiration but wants to try and eat. She is agreeable to meeting with palliative care She is still looking for cares Physical Exam Physical Exam: General: No acute distress Psych: Awake and alert, oriented to place and person HEENT: Anicteric sclera, moist oral mucosa CVS: Regular rate and rhythm Lungs: Bilateral air entry, no wheezing noted Abdomen: Soft, nontender, no rebound, no guarding, PEG tube in place Ext: No lower extremity edema, no calf tenderness Results & Data Results & Data Vital Signs (Past 12 Hours) Vital Signs Temp Pulse Resp BP Pulse Ox O2 Del Method 08/21/24 07:55 Room Air 08/21/24 07:40 36.5 C 75 18 110/74 97 Room Air Laboratory Results Laboratory Results - last 24 hr 08/20/24 08/20/24 08/20/24 16:49 16:51 18:09 WBC RBC Hgb Hct MCV MCH MCHC RDW Std Deviation RDW Coeff of Vivien Plt Count MPV Sodium Potassium Chloride Carbon Dioxide Anion Gap BUN Creatinine Est Cr Clr Drug Dosing eGFR BUN/Creatinine Ratio Glucose POC Glucose 57 L* 51 L* 77 Calcium Total Bilirubin AST ALT Alkaline Phosphatase Total Protein Albumin Globulin Albumin/Globulin Ratio 08/20/24 08/21/24 08/21/24 20:25 07:40 08:11 WBC 8.00 RBC 4.27 Hgb 13.3 Hct 39.9 MCV 93.4 MCH 31.1 MCHC 33.3 RDW Std Deviation 49.8 H RDW Coeff of Vivien 14.6 H Plt Count 337 MPV 10.9 Sodium 138 Potassium 3.9 Chloride 101 Carbon Dioxide 21 Anion Gap 16 H BUN 13 Creatinine 0.48 L Est Cr Clr Drug Dosing 119.0 eGFR 111.10 BUN/Creatinine Ratio 27.1 H Glucose 75 POC Glucose 82 75 Calcium 10.5 H Total Bilirubin 0.5 AST 27 ALT 19 Alkaline Phosphatase 71 Total Protein 7.9 Albumin 4.2 Globulin 3.7 Albumin/Globulin Ratio 1.1 08/21/24 11:34 WBC RBC Hgb Hct MCV MCH MCHC RDW Std Deviation RDW Coeff of Vivien Plt Count MPV Sodium Potassium Chloride Carbon Dioxide Anion Gap BUN Creatinine Est Cr Clr Drug Dosing eGFR BUN/Creatinine Ratio Glucose POC Glucose 120 H Calcium Total Bilirubin AST ALT Alkaline Phosphatase Total Protein Albumin Globulin Albumin/Globulin Ratio PG Care Time/CCT Total # of Minutes Spent Total Time Spent with Patient: Total time spent is greater than 50% in coordination of care (as documented) at patient's floor/unit and/or counseling patient: Coding Level of Care Code 36918 SUB INP/OBS CARE 2/35MIN Diagnoses Encounter for assessment of decision-making capacity Z00.8 Goiter E04.9 Cerebral palsy G80.9 Cerebral palsy type: unspecified type DM2 (diabetes mellitus, type 2) E11.9 (3) Cerebral palsy Cerebral palsy type: unspecified type Qualified Code(s): G80.9 - Cerebral palsy, unspecified
--- NOTE | 2024-08-21 15:40 | Palliative Care Consultation ---
Date of Consultation August 21, 2024 Assessment & Plan (1) Non-compliant behavior: (2) Advanced care planning/counseling discussion: 70min face to face ACp meetign held with pt at bedside: Criss repeatedly states that she "did not want Pall med, she knows it is hospice, she is not dying, she hates [facility], she hates [place] and she is sick of the hospital trying to dictate what she can and can't do because it is my body and I will live my life the way I want." She insists she can get caregivers arranged at home She states the only option is to return home she has no desire for SNF She states her leases expires in ?"21 days" and then also "4 days" and "come hell or high water I will get myself back home and get my own caregivers, I don't need any of you." She states she will get her goiter surgery "one way or another" and states "I can get a surgeon to do it if I want, trust me." She also states she is not worried about aspiration bc she's been this way for a long time She states if her breathing gets so bad she might then she is open to hospice She reaffirms not wanting to be on life support, she is DNR/DNI. She continues to exhibit reasonable decisional capacity, though with limited insight into her condition. (3) Palliative care by specialist: Introduced Palliative Medicine and explained our role in patient's care. Patient and/or family were receptive to palliative services for goals of care discussions. Reviewed we are different from hospice, a home health nurse visiting service. Plan The patient demonstrates significant non-compliance and a marked degree of contributory negligence, which has exacerbated her overall decline. Despite recommendations from speech-language pathology (GAS METER CHECKER) for safe oral intake, she consistently refuses to adhere to these guidelines, resulting in ongoing episodes of aspiration. The patient consistently denies any personal responsibility for these complications, instead insisting that all healthcare providersincluding physicians, nurses, and SLPare at fault. Given the lack of medical acuity to justify continued hospitalization, a Melissa letter may be considered appropriate. The patient must make a decision regarding her care options. If she is deemed stable and ready for discharge but has not yet arranged for the necessary caregiver support, she may be discharged to a intermediate facility (SNF), where she can continue coordinating her private caregivers. Once her caregiver arrangements are in place, the SNF can facilitate her return home. She continues to exhibit reasonable decisional capacity, though with limited insight into her condition. Palliative care will sign-off, pt does not want our help and has no high intensity inpatient pall med needs. Thank you for allowing us to participate in the ongoing care of this patient. Please page with any additional concerns. Jeff Fox [facility] Director, Palliative Medicine History of Present Illness Reason for Consultation: [facility], Attending Physician: Tiburcio Stevens MD Allergies Allergy/AdvReac Type Severity Reaction Status Date / Time sulfamethoxazole Allergy Unknown Unknown Unverified 07/15/24 12:34 [From Bactrim] trimethoprim [From Bactrim] Allergy Unknown Unknown Unverified 07/15/24 12:34 Home Medications Medication Instructions Recorded Confirmed Type Glucagon Emergency Kit 1 dose IM .15MINS PRN Hypoglycemia 07/15/24 07/15/24 History baclofen 5 mg tablet 5 mg feeding tube Q8H PRN Muscle 07/15/24 07/15/24 History Spasm bisacodyl 10 mg rectal suppository 10 mg MN DAILY PRN Constipation 07/15/24 07/15/24 History (Dulcolax (bisacodyl)) empagliflozin 25 mg tablet 25 mg PO DAILY 07/15/24 07/15/24 History (Jardiance) insulin glargine 100 unit/mL (3 30 unit subcut BID 07/15/24 07/15/24 History mL) subcutaneous pen (Lantus Solostar U-100 Insulin) metformin 1,000 mg tablet 1,000 mg PO BID 07/15/24 07/15/24 History metoprolol tartrate 50 mg tablet 50 mg PO BID 07/15/24 07/15/24 History multivitamin 1 tab PO DAILY 07/15/24 07/15/24 History omega 9-efl-yen-fish oil 1,000 mg 1 cap PO DAILY 07/15/24 07/15/24 History (120 mg-180 mg) capsule (Fish Oil) sodium phosphates 19 gram-7 118 ml MN DAILY PRN Constipation 07/15/24 07/15/24 History gram/118 mL enema (Enema) vibegron 75 mg tablet 75 mg PO DAILY 07/15/24 07/15/24 History Patient History Medical History Neurogenic bladder Aspiration into airway HLD (hyperlipidemia) HTN (hypertension) Social History Smoking Status: Never smoker Hx Alcohol Use: No Hx Substance Use: No Preferred Language: Ukrainian Communication Ability: Effective Hand Outside Cutter Required: No Beliefs That Will Affect Care: None Current Living Situation: Personal Care Facility Assistive Devices: Mechanical Lift, Scooter/Electric Scooter and Other Results & Data Vital Signs (Past 12 Hours) Vital Signs Temp Pulse Resp BP Pulse Ox O2 Del Method 08/21/24 07:55 Room Air 08/21/24 07:40 36.5 C 75 18 110/74 97 Room Air PG Care Time/CCT Total # of Minutes Spent Total Time Spent with Patient: Total time spent is greater than 50% in coordination of care (as documented) at patient's floor/unit and/or counseling patient: I spent 150 minutes overall addressing this case: 20 min in medical data review/discussion with referring provider(s) and/or preparation for the visit 20 min in direct interaction with the patient/exam 75 min in Advance Care Planning/Goals of Care discussions as detailed above in note (must be >16min) 15 min in subsequent review and synthesis of assessment and plan 20 min communicating with other providers regarding the patient's case: [place] [address] IN/OBS CONSULT LVL 5,80M (25 - SIGNIFICANT, SEPARATELY IDENTIFIABLE ) Patient Type New Medical Decision Making High Complexity Diagnoses Non-compliant behavior R46.89 Advanced care planning/counseling discussion Z71.89 Palliative care by specialist Z51.5 Comment [id number]
[2024-08-21] MEDS: INSULIN ASPART PER UNIT CHARGE SC SCH (18:35)
[2024-08-21] MEDS: SODIUM CHLORIDE 0.9% 500 ML IV ONE (18:41)
[2024-08-22] MEDS: MELATONIN 3 MG TAB PO PRN (01:46)
[2024-08-22] MEDS: NUTREN LIQD 2.0 1,000 ML BAG PEG SCH ×2 (05:20→18:11)
[2024-08-22 08:26] LABS: Calcium 10.5 mg/dl (8.6-10.3); Magnesium 1.4 mg/dl (1.7-2.4); Potassium 4.6 mmol/L (3.5-5.1)
[2024-08-22 08:32] LABS: BUN Creatinine Ratio 25.5 (10-20); Creatinine Clr Calc Pharmacy 121.1 ml/min
[2024-08-22] MEDS ORDERED: LANTUS PER UNIT CHARGE SQ SCH (09:00)
[2024-08-22] MEDS: LANTUS PER UNIT CHARGE SQ ONE (10:24)
[2024-08-22] MEDS: MAGNESIUM OXIDE 400 MG TAB PEG SCH (10:30)
--- NOTE | 2024-08-22 13:11 | Hospitalist Progress Note ---
Date of Service August 22, 2024 Assessment & Plan (1) Encounter for assessment of decision-making capacity: (2) Goiter: (3) Cerebral palsy: (4) DM2 (diabetes mellitus, type 2): Plan 54-year-old female with past medical history of cerebral palsy, insulin- dependent type 2 diabetes mellitus, dysphagia secondary to goiter with PEG tube placement at [facility] with recent hospitalization at [facility] was [facility] with HHS and sepsis related to urinary tract infection/pyelonephritis. She was critically ill and monitored in the ICU with AGUILAR/hyponatremia. These have all resolved and she has finished a full course of antibiotics for her sepsis and is currently under the care of the hospitalist team awaiting a safe discharge plan. #Thyroid goiter #Dysphagia with recurrent aspiration Noted at [facility] during hospital stay Thyroid ultrasound consistent with goiter causing obstructive symptoms leading to dysphagia PEG tube was inserted at [facility] on 06/29/2024 Patient will need follow-up with ENT at [facility] (Dr. Joel at [facility] Patient had aspiration episode on 08/04/2024 and again on 08/18/2024 She has been made n.p.o. and started back on tube feeds #Type 2 diabetes mellitus A1c 6.9 Pharmacy is managing diabetes management/glycemic control HHS has resolved #Sepsis secondary to UTI/pyelonephritis with mild right hydro ureteric nephrosis: Resolved #AGUILAR: Resolved Renal function is at baseline Patient has finished course of antibiotics #Cerebral palsy #Neurogenic bladder Patient needs cares at home and is unable to find care so far Patient was seen by psychiatry and she has capacity to sign out AMA Givens catheter was removed on 08/02/2024 #Sacral ulcer, stage 2 Present on admission continue wound care #Hypercalcemia #Hypomagnesemia I suspect hypercalcemia is from patient being dehydrated Continue free water through PEG IV fluid hydration IV magnesium replacement Monitor calcium and magnesium levels Please see progress note from 07/16/[address] Jose Angel Hayes for complete summary of ethics consultation, palliative care consultation which was performed at [facility] CODE STATUS: DNR/DNI DVT prophylaxis: Heparin subcutaneous Care plan discussed with patient, nursing staff and case management Discharge planning when either SNF available or care is available for home care: Case management working on discharge Admission and Anticipated Discharge Date Admission Date: July 15, 2024 Subjective Patient seen and examined She wants to be switched to bolus feeds She is agreeable to IV fluids today after discussion of labs. She is still looking for private caregivers Physical Exam Physical Exam: General: No acute distress Psych: Awake and alert, oriented to place and person HEENT: Anicteric sclera, moist oral mucosa CVS: Regular rate and rhythm Lungs: Bilateral air entry, no wheezing noted Abdomen: Soft, nontender, no rebound, no guarding, PEG tube in place Ext: No lower extremity edema, no calf tenderness Results & Data Results & Data Vital Signs (Past 12 Hours) Vital Signs Temp Pulse Resp BP Pulse Ox O2 Del Method 08/22/24 07:56 36.5 C 82 16 115/79 97 Room Air Laboratory Results Laboratory Results - last 24 hr 08/21/24 08/21/24 08/21/24 16:42 16:46 17:13 Sodium Potassium Chloride Carbon Dioxide Anion Gap BUN Creatinine Est Cr Clr Drug Dosing eGFR BUN/Creatinine Ratio Glucose POC Glucose 53 L* 58 L* 65 L* Calcium Magnesium 08/21/24 08/21/24 08/21/24 17:38 20:31 23:38 Sodium Potassium Chloride Carbon Dioxide Anion Gap BUN Creatinine Est Cr Clr Drug Dosing eGFR BUN/Creatinine Ratio Glucose POC Glucose 97 160 H 108 H Calcium Magnesium 08/22/24 08/22/24 08/22/24 05:12 07:42 12:23 Sodium 138 Potassium 4.6 Chloride 104 Carbon Dioxide 24 Anion Gap 10 BUN 12 Creatinine 0.47 L Est Cr Clr Drug Dosing 121.1 eGFR 111.66 BUN/Creatinine Ratio 25.5 H Glucose 173 H POC Glucose 133 H 204 H Calcium 10.5 H Magnesium 1.4 L PG Care Time/CCT Total # of Minutes Spent Total Time Spent with Patient: Total time spent is greater than 50% in coordination of care (as documented) at patient's floor/unit and/or counseling patient: Coding Level of Care Code 39129 SUB INP/OBS CARE 2/35MIN Diagnoses Encounter for assessment of decision-making capacity Z00.8 Goiter E04.9 Cerebral palsy G80.9 Cerebral palsy type: unspecified type DM2 (diabetes mellitus, type 2) E11.9 (3) Cerebral palsy Cerebral palsy type: unspecified type Qualified Code(s): G80.9 - Cerebral palsy, unspecified
[2024-08-22] MEDS: SODIUM CHLORIDE 0.9% 500 ML IV ONE (16:08)
[2024-08-22] MEDS: SODIUM CHLORIDE 0.9% 500 ML IV SCH (16:08)
[2024-08-22] MEDS: MAGNESIUM SULFATE / D5W 1 GM/100 ML BAG IV SCH (16:13)
[2024-08-22] MEDS: TUBE FEEDING WATER FLUSH PEG SCH (18:11)
[2024-08-22] MEDS: INSULIN ASPART PER UNIT CHARGE SC SCH (18:19)
[2024-08-22] MEDS ORDERED: LANTUS PER UNIT CHARGE SC SCH (21:00)
[2024-08-22] MEDS: LANTUS PER UNIT CHARGE SQ SCH (21:52)
[2024-08-23 07:03] LABS: Albumin Level 3.3 gm/dl (3.4-5.0); Bilirubin,Total 0.2 mg/dl (0.2-1.0); Calcium 9.3 mg/dl (8.6-10.3); Magnesium 1.6 mg/dl (1.7-2.4)
[2024-08-23 07:20] LABS: Albumin Globulin Ratio 1.2 (0.9-2); BUN Creatinine Ratio 28.9 (10-20); Creatinine Clr Calc Pharmacy 126.5 ml/min; Globulin 2.7 gm/dl (2.5-4.0)
[2024-08-23] MEDS: LANTUS PER UNIT CHARGE SQ SCH (08:51)
[2024-08-23] MEDS: INSULIN ASPART PER UNIT CHARGE SC SCH ×2 (08:51→17:16)
[2024-08-23] MEDS: MAGNESIUM SULFATE / D5W 1 GM/100 ML BAG IV SCH (11:09)
--- NOTE | 2024-08-23 12:58 | Hospitalist Progress Note ---
Date of Service August 23, 2024 Assessment & Plan (1) Encounter for assessment of decision-making capacity: (2) Goiter: (3) Cerebral palsy: (4) DM2 (diabetes mellitus, type 2): Plan 54-year-old female with past medical history of cerebral palsy, insulin- dependent type 2 diabetes mellitus, dysphagia secondary to goiter with PEG tube placement at [facility] with recent hospitalization at [facility] was admitted from intermediate facility with HHS and sepsis related to urinary tract infection/pyelonephritis. She was critically ill and monitored in the ICU with AGUILAR/hyponatremia. These have all resolved and she has finished a full course of antibiotics for her sepsis and is currently under the care of the hospitalist team awaiting a safe discharge plan. #Thyroid goiter #Dysphagia with recurrent aspiration Noted at [facility] during hospital stay Thyroid ultrasound consistent with goiter causing obstructive symptoms leading to dysphagia PEG tube was inserted at [facility] on 06/29/2024 Patient will need follow-up with ENT at [facility] (Dr. Joel at [facility]) Patient had aspiration episode on 08/04/2024 and again on 08/18/2024 She has been made n.p.o. and started back on tube feeds #Type 2 diabetes mellitus A1c 6.9 Pharmacy is managing diabetes management/glycemic control HHS has resolved #Sepsis secondary to UTI/pyelonephritis with mild right hydro ureteric nephrosis: Resolved #AGUILAR: Resolved Renal function is at baseline Patient has finished course of antibiotics #Cerebral palsy #Neurogenic bladder Patient needs cares at home and is unable to find care so far Patient was seen by psychiatry and she has capacity to sign out AMA Givens catheter was removed on 08/02/2024 #Sacral ulcer, stage 2 Present on admission continue wound care #Hypercalcemia #Hypomagnesemia Calcium levels improved with IV fluid hydration Continue free water through PEG IV magnesium replacement Monitor calcium and magnesium levels Please see progress note from 07/16/[address] Jose Angel Hayes for complete summary of ethics consultation, palliative care consultation which was performed at [facility] CODE STATUS: DNR/DNI DVT prophylaxis: Heparin subcutaneous Care plan discussed with patient, nursing staff and case management Discharge planning when either SNF available or care is available for home care: Case management working on discharge Admission and Anticipated Discharge Date Admission Date: July 15, 2024 Subjective Patient seen and examined Reports feeling thirsty She is in the process of getting her home wheelchair delivered to the hospital so she can sit in a chair and then hopefully be able to resume oral diet She is in contact with some acquaintances who are helping her find caregivers at home Physical Exam Physical Exam: General: No acute distress Psych: Awake and alert, oriented to place and person HEENT: Anicteric sclera, moist oral mucosa CVS: Regular rate and rhythm Lungs: Bilateral air entry, no wheezing noted Abdomen: Soft, nontender, no rebound, no guarding, PEG tube in place Ext: No lower extremity edema, no calf tenderness Results & Data Results & Data Vital Signs (Past 12 Hours) Vital Signs Temp Pulse Resp BP Pulse Ox O2 Del Method 08/23/24 08:00 Room Air 08/23/24 07:51 36.9 C 86 16 103/71 97 Room Air Laboratory Results Laboratory Results - last 24 hr 08/22/24 08/22/24 08/23/24 18:16 21:51 04:44 Sodium 142 Potassium 4.0 Chloride 109 H Carbon Dioxide 27 Anion Gap 6 BUN 13 Creatinine 0.45 L Est Cr Clr Drug Dosing 126.5 eGFR 112.84 BUN/Creatinine Ratio 28.9 H Glucose 123 H POC Glucose 269 H 129 H Calcium 9.3 Magnesium 1.6 L Total Bilirubin 0.2 AST 14 ALT 11 Alkaline Phosphatase 60 Total Protein 6.0 D Albumin 3.3 L Globulin 2.7 Albumin/Globulin Ratio 1.2 08/23/24 08/23/24 08:24 12:09 Sodium Potassium Chloride Carbon Dioxide Anion Gap BUN Creatinine Est Cr Clr Drug Dosing eGFR BUN/Creatinine Ratio Glucose POC Glucose 124 H 240 H Calcium Magnesium Total Bilirubin AST ALT Alkaline Phosphatase Total Protein Albumin Globulin Albumin/Globulin Ratio PG Care Time/CCT Total # of Minutes Spent Total Time Spent with Patient: Total time spent is greater than 50% in coordination of care (as documented) at patient's floor/unit and/or counseling patient: Coding Level of Care Code 67351 SUB INP/OBS CARE 2/35MIN Diagnoses Encounter for assessment of decision-making capacity Z00.8 Goiter E04.9 Cerebral palsy G80.9 Cerebral palsy type: unspecified type DM2 (diabetes mellitus, type 2) E11.9 (3) Cerebral palsy Cerebral palsy type: unspecified type Qualified Code(s): G80.9 - Cerebral palsy, unspecified
[2024-08-23] MEDS: TUBE FEEDING WATER FLUSH PEG SCH (17:16)
--- NOTE | 2024-08-24 14:03 | Pharmacy Report ---
Pharmacy Glycemic Short Note 2 - Date of Service August 24, 2024 - Glycemic Short BSG Results (Last 24 hours): 08/23/24 08/23/24 16:42 20:30 POC Glucose 169 H 164 H OUTPATIENT ANTIDIABETIC REGIMEN: * Lantus 30 units SQ BID * metformin 1gm PO BID * empagliflozin 25mg PO daily HbA1C: 6.9% 07/17/24 ASSESSMENT: 08/24 * BSGs [phone] mg/dL, with 5 units of basal and 7 units of bolus * Fasting today 127 mg/dL- continue with 5 units of basal * Adjusted novolog administration times QID to match with bolus tube feeds. BSGs acceptable range. Will continue for now 08/21: * Pharmacy signed off of consult 08/15, re-consulted today as patient is having hypoglycemia due to excess basal insulin, NPO status, tube feeds only at trickle rate, dietary to discuss increasing rate with provider. * Hold basal today, decrease to 5 units daily starting tomorrow. * Continue NovoLog parameters which were reduced to 40/13 yesterday, and higher goal range of 140-180mg/dl. 08/13: * She received a total of 34 units of insulin yesterday (15 units were basal and 19 units were bolus). BSGs were mostly within goal range ([phone]/dL). * Fasting BSG was 163mg/dL this morning. * Basal and bolus insulin regimens to be continue as ordered. * Patient continues on diet and evening tube feeding. 08/08: * Criss received a total of 23 units of insulin yesterday (18 were basal and 5 were bolus) * BSG were mostly in goal range yesterday but then dropped at HS ([phone]/dL). Am Lantus was decreased to help prevent the lower glucose levels towards the evening. Will leave the HS Lantus dose as is to help cover the evening tube feeds (Nutren 2.0 220ml at HS) * No change to bolus insulin parameters at this time. 08/05/24 * Blood sugars well-controlled yesterday, ranging 122-150 mg/dL * Received 18 units of insulin (15 units of which were basal) * Blood sugars had been trending down overall so insulin dosing was adjusted to minimize hypoglycemia risk * Code purple in the afternoon due to aspiration event, made NPO for short time, but diet ultimately reordered * Nutren 220 mL bolus tube feed at HS 08/03: * BSGs [phone]/dL the last 24h. Received 40 units of basal and 31 units of bolus insulin yesterday. * Nutren modified from QID to BID (@ 0600,2000 per dietary) today and diet advanced to full liquid. * Given elevated fasting BSG (and advancing diet), Lantus increased ~ 15% to 23 units BID starting this evening. Novolog tightened slightly. 08/02 * Criss received 60 units of SC insulin yesterday (34 units basal, 26 units bolus) * Fasting BSG trending up. Tube feeds have been at goal since 07/26. Will increase Lantus by ~20%. * Variable post prandial BSG control. Slightly tighten correction factor and carb coverage. 07/30 * Criss received 57 units of insulin yesterday (34 were basal) * Fasting BSG this AM acceptable, continue current basal regimen * Post-prandials ok, NovoLog adjusted yesterday will continue with those parameters 07/27 * Criss received 62 units of insulin yesterday (20 were basal) * Fasting BSG this AM acceptable, continue current regimen * Nutren TF at goal, post-prandials still increasing, tighten carbohydrate ratio 07/26: * Criss received 40 units of insulin yesterday (20 were basal) * Fasting BSG this AM slightly elevated, bolus Nutren feeds will be at goal with lunchtime, will continue with 30% increase in basal insulin today. * BSG over 300 today with lunch, carbohydrate ratio adjusted yesterday, will tighten further tomorrow if BSGs continue to trend up with increase in basal insulin. 07/25: * Criss received 45 units of insulin yesterday (20 were basal) * Some BSGs still elevated with [employer]ers[employer] tube feeds, planed to increase basal by ~30% to help cover. Tube feeds switched to more concentrated Nutren 2.0 bolus (titrating up to goal 220mL QID over next 24 Hours) due to patient preference and overnight diarrhea. Will adjust basal to a scale at bedtime based on BSGs aiming for yesterday's basal dose. * Tightened carbohydrate ratio to also try and prevent BSG rises. 07/23: * Patient received a total of 37 units of insulin yesterday. (14 units were basal and 23 units were bolus). Most BSGs were above goal yesterday ([phone]/dL) despite tightening CF and increasing Lantus doses. This is most likely due to increasing rate of tube feeds. * AM BSG was 202mg/dL this morning. Lantus was increased to 10units SQ BID. Will continue parameters of bolus insulin without change. See previous reports for additional background PLAN FOR INPATIENT GLYCEMIC CONTROL: * Hold outpatient diabetes medications * Basal insulin * Lantus 5 units SQ QAM * Bolus insulin * NovoLog per scale q6 (to cover liquids + Nutren bolus feeds BID) * Goal Range: Low 120 mg/dL - High 160 mg/dL * Correction Factor: 35 mg/dL/unit * Nutritional / Prandial insulin per carb ratio of 1 unit per 15 grams CHO consumed PLEASE COVER TUBE FEEDS BOLUS WHEN GIVEN
--- NOTE | 2024-08-24 14:05 | Hospitalist Progress Note ---
Date of Service August 24, 2024 Assessment & Plan (1) Encounter for assessment of decision-making capacity: (2) Goiter: (3) Cerebral palsy: (4) DM2 (diabetes mellitus, type 2): Plan 54-year-old female with past medical history of cerebral palsy, insulin- dependent type 2 diabetes mellitus, dysphagia [facility] and sepsis related to urinary tract infection/pyelonephritis. She was critically ill and monitored in the ICU with AGUILAR/hyponatremia. These have all resolved and she has finished a full course of antibiotics for her sepsis and is currently under the care of the hospitalist team awaiting a safe discharge plan. #Thyroid goiter #Dysphagia with recurrent aspiration [facility]ed at [facility] stay Thyroid ultrasound consistent with goiter causing obstructive symptoms leading to dysphagia PEG tube was inserted at [facility] on 06/29/2024 Patient will need follow-up with ENT at [facility] (Dr. Joel at [facility] [place]) Patient had aspiration episode on 08/04/2024 and again on 08/18/2024 She has been made n.p.o. and started back on tube feeds #Type 2 diabetes mellitus A1c 6.9 Pharmacy is managing diabetes management/glycemic control HHS has resolved #Sepsis secondary to UTI/pyelonephritis with mild right hydro ureteric nephrosis: Resolved #AGUILAR: Resolved Renal function is at baseline Patient has finished course of antibiotics #Cerebral palsy #Neurogenic bladder Patient needs cares at home and is unable to find care so far Patient was seen by psychiatry and she has capacity to sign out AMA Givens catheter was removed on 08/02/2024 #Sacral ulcer, stage 2 Present on admission continue wound care #Hypercalcemia #Hypomagnesemia Calcium levels improved with IV fluid hydration Continue free water through PEG IV magnesium replacement Monitor calcium and magnesium levels Please see progress note from 07/16/[address] Jose Angel Hayes for complete summary of ethics consultation, palliative care consultation which was performed at [facility] CODE STATUS: DNR/DNI DVT prophylaxis: Heparin subcutaneous Care plan discussed with patient, nursing staff and case management Discharge planning when either SNF available or care is available for home care: Case management working on discharge Admission and Anticipated Discharge Date Admission Date: July 15, 2024 Subjective Patient seen and examined No new complaints She still working on finding caregivers She is also working on trying to get her wheelchair into the hospital Physical Exam Physical Exam: General: No acute distress Psych: Awake and alert, oriented to place and person HEENT: Anicteric sclera, moist oral mucosa CVS: Regular rate and rhythm Lungs: Bilateral air entry, no wheezing noted Abdomen: Soft, nontender, no rebound, no guarding, PEG tube in place Ext: No lower extremity edema, no calf tenderness Results & Data Results & Data Vital Signs (Past 12 Hours) Vital Signs Temp Pulse Resp BP Pulse Ox O2 Del Method 08/24/24 11:59 Room Air 08/24/24 07:33 36.7 C 82 16 132/88 95 Room Air PG Care Time/CCT Total # of Minutes Spent Total Time Spent with Patient: Total time spent is greater than 50% in coordination of care (as documented) at patient's floor/unit and/or counseling patient: Coding Level of Care Code 89270 SUB INP/OBS CARE 06/09MIN Diagnoses Encounter for assessment of decision-making capacity Z00.8 Goiter E04.9 Cerebral palsy G80.9 Cerebral palsy type: unspecified type DM2 (diabetes mellitus, type 2) E11.9 (3) Cerebral palsy Cerebral palsy type: unspecified type Qualified Code(s): G80.9 - Cerebral palsy, unspecified
--- NOTE | 2024-08-25 09:17 | Hospitalist Progress Note ---
Date of Service August 25, 2024 Assessment & Plan (1) Encounter for assessment of decision-making capacity: (2) Goiter: (3) Cerebral palsy: (4) DM2 (diabetes mellitus, type 2): Plan 54-year-old female with past medical history of cerebral palsy, insulin- dependent type 2 diabetes mellitus, dysphagia [facility] and sepsis related to urinary tract infection/pyelonephritis. She was critically ill and monitored in the ICU with AGUILAR/hyponatremia. These have all resolved and she has finished a full course of antibiotics for her sepsis and is currently under the care of the hospitalist team awaiting a safe discharge plan. #Thyroid goiter #Dysphagia with recurrent aspiration [facility] Thyroid ultrasound consistent with goiter causing obstructive symptoms leading to dysphagia PEG tube was inserted at [facility] on 06/29/2024 Patient will need follow-up with ENT at [facility] (Dr. Joel at [facility] [place] Patient had aspiration episode on 08/04/2024 and again on 08/18/2024 She has been made n.p.o. and started back on tube feeds Out of bed to chair 3 times a day: Patient agreeable #Type 2 diabetes mellitus A1c 6.9 Pharmacy is managing diabetes management/glycemic control HHS has resolved #Sepsis secondary to UTI/pyelonephritis with mild right hydro ureteric nephrosis: Resolved #AGUILAR: Resolved Renal function is at baseline Patient has finished course of antibiotics #Cerebral palsy #Neurogenic bladder Patient needs cares at home and is unable to find care so far Patient was seen by psychiatry and she has capacity to sign out AMA Givens catheter was removed on 08/02/2024 #Sacral ulcer, stage 2 Present on admission continue wound care #Hypercalcemia #Hypomagnesemia Calcium levels improved with IV fluid hydration Continue free water through PEG IV magnesium replacement Monitor calcium and magnesium levels Please see progress note from 07/16/[address] Jose Angel Hayes for complete summary of ethics consultation, palliative care consultation which [facility] CODE STATUS: DNR/DNI DVT prophylaxis: Heparin subcutaneous Care plan discussed with patient, nursing staff and case management Discharge planning when either SNF available or care is available for home care: Case management working on discharge Admission and Anticipated Discharge Date Admission Date: July 15, 2024 Subjective Patient denies any new complaints She just woke up She is agreeable to sitting in a chair today with the help of nursing staff She denies any chest pain or shortness of breath Physical Exam Physical Exam: General: No acute distress Psych: Awake and alert, oriented to place and person HEENT: Anicteric sclera, moist oral mucosa CVS: Regular rate and rhythm Lungs: Bilateral air entry, no wheezing noted Abdomen: Soft, nontender, no rebound, no guarding, PEG tube in place Ext: No lower extremity edema, no calf tenderness PG Care Time/CCT Total # of Minutes Spent Total Time Spent with Patient: Total time spent is greater than 50% in coordination of care (as documented) at patient's floor/unit and/or counseling patient: Coding Level of Care Code 39886 SUB INP/OBS CARE 1/25MIN Diagnoses Encounter for assessment of decision-making capacity Z00.8 Goiter E04.9 Cerebral palsy G80.9 Cerebral palsy type: unspecified type DM2 (diabetes mellitus, type 2) E11.9 (3) Cerebral palsy Cerebral palsy type: unspecified type Qualified Code(s): G80.9 - Cerebral palsy, unspecified
--- NOTE | 2024-08-26 11:33 | Hospitalist Progress Note ---
Date of Service August 26, 2024 Assessment & Plan (1) Encounter for assessment of decision-making capacity: (2) Goiter: (3) Cerebral palsy: (4) DM2 (diabetes mellitus, type 2): Plan 54-year-old female with past medical history of cerebral palsy, insulin- dependent type 2 diabetes mellitus, dysphagia secondary to goiter with PEG tube placement at [facility] with recent hospitalization at [facility] was admitted from senior care facility with HHS and sepsis related to urinary tract infection/pyelonephritis. She was critically ill and monitored in the ICU with AGUILAR/hyponatremia. These have all resolved and she has finished a full course of antibiotics for her sepsis and is currently under the care of the hospitalist team awaiting a safe discharge plan. #Thyroid goiter #Dysphagia with recurrent aspiration Noted at [facility] during hospital stay Thyroid ultrasound consistent with goiter causing obstructive symptoms leading to dysphagia PEG tube was inserted at [facility] on 06/29/2024 Patient will need follow-up with ENT at [facility] (Dr. Bo Schwartz at [facility]) Patient had aspiration episode on 08/04/2024 and again on 08/18/2024 She has been made n.p.o. and started back on tube feeds Speech therapy reevaluation for diet consistency since patient is agreeable to sitting in a chair for meals and for at least 30 minutes after that #Type 2 diabetes mellitus A1c 6.9 Pharmacy is managing diabetes management/glycemic control #Sepsis secondary to UTI/pyelonephritis with mild right hydro ureteric nephrosis: Resolved #AGUILAR: Resolved Renal function is at baseline Patient has finished course of antibiotics #Cerebral palsy #Neurogenic bladder Patient needs cares at home and is unable to find care so far Patient was seen by psychiatry and she has capacity to sign out AMA Givens catheter was removed on 08/02/2024 #Sacral ulcer, stage 2 Present on admission continue wound care #Hypercalcemia #Hypomagnesemia Calcium levels improved with IV fluid hydration Continue free water through PEG IV magnesium replacement Monitor calcium and magnesium levels Please see progress note from 07/16/[address] Jose Angel Hayes for complete summary of ethics consultation, palliative care consultation which was performed at [facility] CODE STATUS: DNR/DNI DVT prophylaxis: Heparin subcutaneous Care plan discussed with patient, nursing staff and case management Discharge planning when either SNF available or care is available for home care: Case management working on discharge Admission and Anticipated Discharge Date Admission Date: July 15, 2024 Subjective Patient lying flat in bed She wants to eat regular food I discussed speech therapy recommendations and the fact the patient has aspirated twice already during hospital stay. After long discussion with nursing staff present, patient is agreeable to sitting in a chair during the meal and for at least 30 minutes after the meal in the chair prior to going back to bed. Patient in agreement. I have told the patient will get speech therapy to give further recommendations regarding diet consistency before adding oral diet She denies any new complaints Physical Exam Physical Exam: General: No acute distress Psych: Awake and alert, oriented to place and person HEENT: Anicteric sclera, moist oral mucosa CVS: Regular rate and rhythm Lungs: Bilateral air entry, no wheezing noted Abdomen: Soft, nontender, no rebound, no guarding, PEG tube in place Ext: No lower extremity edema, no calf tenderness Results & Data Results & Data Vital Signs (Past 12 Hours) Vital Signs Temp Pulse Resp BP Pulse Ox O2 Del Method 08/26/24 09:14 Room Air 08/26/24 07:41 36.4 C L 74 16 126/73 98 Room Air PG Care Time/CCT Total # of Minutes Spent Total Time Spent with Patient: Total time spent is greater than 50% in coordination of care (as documented) at patient's floor/unit and/or counseling patient: Coding Level of Care Code 25327 SUB INP/OBS CARE 06/09MIN Diagnoses Encounter for assessment of decision-making capacity Z00.8 Goiter E04.9 Cerebral palsy G80.9 Cerebral palsy type: unspecified type DM2 (diabetes mellitus, type 2) E11.9 (3) Cerebral palsy Cerebral palsy type: unspecified type Qualified Code(s): G80.9 - Cerebral palsy, unspecified
[2024-08-27 08:32] LABS: Hematocrit (blood only) 37.7 % (37.0-47.0); Hemoglobin 12.8 g/dl (12.0-16.0); Mean Corpuscular Hemoglobin 31.4 pg (25.0-34.0); Mean Corpuscular Volume 92.6 fL (80.0-100.0); Mean Platelet Volume 11.7 fL (9.4-12.4); Platelet Count 262 K/uL (130-400); RDW Coefficient of Variation 14.3 % (11.5-14.5); RDW Standard Deviation 48.2 fL (36.4-46.3); Red Blood Count 4.07 M/uL (4.20-5.40)
[2024-08-27 08:55] LABS: Calcium 10.4 mg/dl (8.6-10.3); Carbon Dioxide 26 mmol/L (21-32); Chloride 105 mmol/L (98-107)
[2024-08-27 09:13] LABS: BUN Creatinine Ratio 38.9 (10-20); Blood Urea Nitrogen 21 mg/dl (6-23); Creatinine Clr Calc Pharmacy 105.4 ml/min; Glucose 149 mg/dl (70-99(Fasting))
--- NOTE | 2024-08-27 10:12 | Pharmacy Report ---
Pharmacy Glycemic Short Note 2 - Date of Service August 27, 2024 - Glycemic Short BSG Results (Last 24 hours): 08/27/24 08:03 Glucose 149 H OUTPATIENT ANTIDIABETIC REGIMEN: * Lantus 30 units SQ BID * metformin 1gm PO BID * empagliflozin 25mg PO daily HbA1C: 6.9% 07/17/24 ASSESSMENT: 08/27 * BSGs not crossing into MAR, can see on NovoLog order, BSGs acceptable, no changes needed at this time. * NovoLog administration times QID to match with bolus tube feeds 08/24 * BSGs [phone] mg/dL, with 5 units of basal and 7 units of bolus * Fasting today 127 mg/dL- continue with 5 units of basal * Adjusted novolog administration times QID to match with bolus tube feeds. BSGs acceptable range. Will continue for now 08/21: * Pharmacy signed off of consult 08/15, re-consulted today as patient is having hypoglycemia due to excess basal insulin, NPO status, tube feeds only at trickle rate, dietary to discuss increasing rate with provider. * Hold basal today, decrease to 5 units daily starting tomorrow. * Continue NovoLog parameters which were reduced to 40/13 yesterday, and higher goal range of 140-180mg/dl. See previous reports for additional background PLAN FOR INPATIENT GLYCEMIC CONTROL: * Hold outpatient diabetes medications * Basal insulin * Lantus 5 units SQ QAM * Bolus insulin * NovoLog per scale q6 (to cover liquids + Nutren bolus feeds BID) * Goal Range: Low 120 mg/dL - High 160 mg/dL * Correction Factor: 35 mg/dL/unit * Nutritional / Prandial insulin per carb ratio of 1 unit per 15 grams CHO consumed PLEASE COVER TUBE FEEDS BOLUS WHEN GIVEN
[2024-08-27 10:59] LABS: Magnesium 1.6 mg/dl (1.7-2.4); Sodium 138 mmol/L (136-145)
--- NOTE | 2024-08-27 12:09 | Hospitalist Progress Note ---
Date of Service August 27, 2024 Assessment & Plan (1) Encounter for assessment of decision-making capacity: (2) Goiter: (3) Cerebral palsy: (4) DM2 (diabetes mellitus, type 2): Plan 54-year-old female with past medical history of cerebral palsy, insulin- dependent type 2 diabetes mellitus, dysphagia secondary to goiter with PEG tube placement at [facility] with [facility] from halfway facility with HHS and sepsis related to urinary tract infection/pyelonephritis. She was critically ill and monitored in the ICU with AGUILAR/hyponatremia. Patient required 3 or greater nights in the ICU/intermediate care/PCU during this admission. She was in the ICU from 07/15/2024 to 07/16/2024 and then in the PCU with telemetry from 07/16/2024 to 07/19/2024. She has finished a full course of antibiotics for sepsis and is currently under the care of the hospitalist team awaiting a safe discharge plan. #Thyroid goiter #Dysphagia with recurrent aspiration Noted at [facility] during hospital stay Thyroid ultrasound consistent with goiter causing obstructive symptoms leading to dysphagia PEG tube was inserted at [facility] on 06/29/2024 Patient will need follow-up with ENT at [facility] (Dr. Bo Schwartz at [facility]) Patient had aspiration episode on 08/04/2024 and again on 08/18/2024 She has been made n.p.o. and started back on tube feeds Speech therapy reevaluation for diet consistency since patient is agreeable to sitting in a chair for meals and for at least 30 minutes after that. Speech therapy has recommended a soft and bite-size diet with nectar thick liquids as long as patient is willing to comply with swallow precautions. Will try initiating oral diet this afternoon once recliner chair is available and slowly wean tube feeds once she is tolerating oral diet without any issues. Will have nutrition involved to help with weaning off tube feeds #Type 2 diabetes mellitus A1c 6.9 Pharmacy is managing diabetes management/glycemic control #Sepsis secondary to UTI/pyelonephritis with mild right hydro ureteric nephrosis: Resolved #AGUILAR: Resolved Renal function is at baseline Patient has finished course of antibiotics #Cerebral palsy #Neurogenic bladder Patient needs cares at home and is unable to find care so far Patient was seen by psychiatry and she has capacity to sign out AMA Givens catheter was removed on 08/02/2024 #Sacral ulcer, stage 2 Present on admission continue wound care #Hypercalcemia #Hypomagnesemia Calcium levels improved with IV fluid hydration: IV normal saline bolus 500 mL x 1 today and monitor levels Continue free water through PEG IV magnesium replacement Monitor calcium and magnesium levels Patient required 3 or greater nights in the ICU/intermediate care/PCU during this admission. She was in the ICU from 07/15/2024 to 07/16/2024 and then in the PCU with telemetry from 07/16/2024 to 07/19/2024. Please see progress note from 07/16/[address] Jose Angel Hayes for complete summary of ethics consultation, palliative care consultation which was performed at [facility] CODE STATUS: DNR/DNI DVT prophylaxis: Heparin subcutaneous Care plan discussed with patient, nursing staff and case management Complex discharge: Case management working on finding SNF versus LTAC Admission and Anticipated Discharge Date Admission Date: July 15, 2024 Subjective Patient seen and examined Nursing staff at bedside Labs reviewed Patient agreeable to starting another chronic chair once nursing staff find her recliner chair and she is agreeable to eating her meals upright in recliner chair and also staying upright in the recliner chair for 30 minutes after meals. She is aware that if she starts to lay flat then there is a high risk of a spiration and we will have to then stop oral feeds. She understands these instructions and is willing to cooperate She denies any fever, chills, chest pain or shortness of breath Physical Exam Physical Exam: General: No acute distress Psych: Awake and alert, oriented to place and person HEENT: Anicteric sclera, moist oral mucosa CVS: Regular rate and rhythm Lungs: Bilateral air entry, no wheezing noted Abdomen: Soft, nontender, no rebound, no guarding, PEG tube in place Ext: No lower extremity edema, no calf tenderness Results & Data Results & Data Vital Signs (Past 12 Hours) Vital Signs Temp Pulse Resp BP Pulse Ox O2 Del Method 08/27/24 08:13 36.9 C 89 18 130/83 100 Room Air 08/27/24 01:34 Room Air Laboratory Results Laboratory Results - last 24 hr 08/24/24 08/24/24 08/25/24 16:49 20:21 10:12 WBC RBC Hgb Hct MCV MCH MCHC RDW Std Deviation RDW Coeff of Vivien Plt Count MPV Sodium Potassium Chloride Carbon Dioxide Anion Gap BUN Creatinine Est Cr Clr Drug Dosing eGFR BUN/Creatinine Ratio Glucose POC Glucose 164 H 182 H 132 H Calcium Magnesium 08/25/24 08/25/24 08/25/24 11:36 16:55 20:48 WBC RBC Hgb Hct MCV MCH MCHC RDW Std Deviation RDW Coeff of Vivien Plt Count MPV Sodium Potassium Chloride Carbon Dioxide Anion Gap BUN Creatinine Est Cr Clr Drug Dosing eGFR BUN/Creatinine Ratio Glucose POC Glucose 147 H 202 H 134 H Calcium Magnesium 08/26/24 08/26/24 08/26/24 08:36 11:45 13:50 WBC RBC Hgb Hct MCV MCH MCHC RDW Std Deviation RDW Coeff of Vivien Plt Count MPV Sodium Potassium Chloride Carbon Dioxide Anion Gap BUN Creatinine Est Cr Clr Drug Dosing eGFR BUN/Creatinine Ratio Glucose POC Glucose 138 H 187 H 173 H Calcium Magnesium 08/26/24 08/26/24 08/27/24 16:44 20:26 08:03 WBC 5.70 RBC 4.07 L Hgb 12.8 Hct 37.7 MCV 92.6 MCH 31.4 MCHC 34.0 RDW Std Deviation 48.2 H RDW Coeff of Vivien 14.3 Plt Count 262 MPV 11.7 Sodium TNP Potassium TNP Chloride 105 Carbon Dioxide 26 Anion Gap TNP BUN 21 Creatinine 0.54 L Est Cr Clr Drug Dosing 105.4 eGFR 107.99 BUN/Creatinine Ratio 38.9 H Glucose 149 H POC Glucose 177 H 206 H Calcium 10.4 H Magnesium TNP 08/27/24 08/27/24 08/27/24 08:10 10:15 10:29 WBC RBC Hgb Hct MCV MCH MCHC RDW Std Deviation RDW Coeff of Vivien Plt Count MPV Sodium 138 Potassium TNP 5.0 Chloride Carbon Dioxide Anion Gap BUN Creatinine Est Cr Clr Drug Dosing eGFR BUN/Creatinine Ratio Glucose POC Glucose 141 H Calcium Magnesium 1.6 L PG Care Time/CCT Total # of Minutes Spent Total Time Spent with Patient: Total time spent is greater than 50% in coordination of care (as documented) at patient's floor/unit and/or counseling patient: Coding Level of Care Code 34872 SUB INP/OBS CARE 2/35MIN Diagnoses Encounter for assessment of decision-making capacity Z00.8 Goiter E04.9 Cerebral palsy G80.9 Cerebral palsy type: unspecified type DM2 (diabetes mellitus, type 2) E11.9 (3) Cerebral palsy Cerebral palsy type: unspecified type Qualified Code(s): G80.9 - Cerebral palsy, unspecified
[2024-08-27] MEDS: SODIUM CHLORIDE 0.9% 500 ML IV ONE (13:09)
[2024-08-27] MEDS: MAGNESIUM SULFATE / D5W 1 GM/100 ML BAG IV SCH (13:49)
--- NOTE | 2024-08-28 07:19 | Pharmacy Report ---
Pharmacy Glycemic Short Note 2 - Date of Service August 28, 2024 - Glycemic Short BSG Results (Last 24 hours): 08/24/24 08/24/24 08/25/24 16:49 20:21 10:12 Glucose POC Glucose 164 H 182 H 132 H 08/25/24 08/25/24 08/25/24 11:36 16:55 20:48 Glucose POC Glucose 147 H 202 H 134 H 08/26/24 08/26/24 08/26/24 08:36 11:45 13:50 Glucose POC Glucose 138 H 187 H 173 H 08/26/24 08/26/24 08/27/24 16:44 20:26 08:03 Glucose 149 H POC Glucose 177 H 206 H 08/27/24 08/27/24 08:10 11:32 Glucose POC Glucose 141 H 215 H OUTPATIENT ANTIDIABETIC REGIMEN: * Lantus 30 units SQ BID * metformin 1gm PO BID * empagliflozin 25mg PO daily HbA1C: 6.9% 07/17/24 ASSESSMENT: 08/28 * BSGs still not crossing into MAR, can see on NovoLog order, BSGs trending up, requiring ~2 units of correctional insulin at each check. * Increase basal insulin to cover for these needs. * NovoLog administration times QID to match with bolus tube feeds 08/27 * BSGs not crossing into MAR, can see on NovoLog order, BSGs acceptable, no changes needed at this time. * NovoLog administration times QID to match with bolus tube feeds 08/24 * BSGs [phone] mg/dL, with 5 units of basal and 7 units of bolus * Fasting today 127 mg/dL- continue with 5 units of basal * Adjusted novolog administration times QID to match with bolus tube feeds. BSGs acceptable range. Will continue for now 08/21: * Pharmacy signed off of consult 08/15, re-consulted today as patient is having hypoglycemia due to excess basal insulin, NPO status, tube feeds only at trickle rate, dietary to discuss increasing rate with provider. * Hold basal today, decrease to 5 units daily starting tomorrow. * Continue NovoLog parameters which were reduced to 40/13 yesterday, and higher goal range of 140-180mg/dl. See previous reports for additional background PLAN FOR INPATIENT GLYCEMIC CONTROL: * Hold outpatient diabetes medications * Basal insulin * Lantus 10 units SQ QAM * Bolus insulin * NovoLog per scale q6 (to cover liquids + Nutren bolus feeds BID) * Goal Range: Low 120 mg/dL - High 160 mg/dL * Correction Factor: 35 mg/dL/unit * Nutritional / Prandial insulin per carb ratio of 1 unit per 15 grams CHO consumed PLEASE COVER TUBE FEEDS BOLUS WHEN GIVEN
[2024-08-28] MEDS: LANTUS PER UNIT CHARGE SQ SCH (09:37)
--- NOTE | 2024-08-28 12:27 | Discharge Summary ---
Discharge Summary Date of Service date of admission - July 15, 2024 date of discharge - August 28, 2024 Principal Dx & Hospital Course #1 = Principal Diagnosis (1) Encounter for assessment of decision-making capacity: (2) Goiter: (3) Cerebral palsy: (4) DM2 (diabetes mellitus, type 2): (5) Sepsis: (6) Pyelonephritis: (7) AGUILAR (acute kidney injury): (8) Septic shock: (9) Hyperosmolar hyperglycemic state (HHS): (10) Status post insertion of percutaneous endoscopic gastrostomy (PEG) tube: (11) Acute metabolic encephalopathy: (12) Abnormal serum thyroid stimulating hormone (TSH) level: Plan 54-year-old female with past medical history of cerebral palsy, insulin- dependent type 2 diabetes mellitus, dysphagia secondary to goiter with PEG tube placement at [facility] with recent hospitalization at [facility] and sepsis related to urinary tract infection/pyelonephritis. She was critically ill and monitored in the ICU with AGUILAR/hyponatremia. Patient required 3 or greater nights in the ICU/intermediate care/PCU during this admission. She was in the ICU from 07/15/2024 to 07/16/2024 and then in the PCU with telemetry from 07/16/2024 to 07/19/2024. She has finished a full course of antibiotics for sepsis and is currently under the care of the hospitalist team awaiting a safe discharge plan. #Thyroid goiter #Dysphagia with recurrent aspiration Noted at [facility] during hospital stay Thyroid ultrasound consistent with goiter causing obstructive symptoms leading to dysphagia PEG tube was inserted at [facility] on 06/29/2024 Patient will need follow-up with ENT at [facility] ([place] [facility] [place] discussed w/ nurse navigator that patient's accepting facility can coordinate this follow up. Patient had aspiration episode on 08/04/2024 and again on 08/18/2024 Speech therapy reevaluation for diet consistency since patient is agreeable to sitting in a chair for meals and for at least 30 minutes after that. Speech therapy has recommended a soft and bite-size diet with nectar thick liquids as long as patient is willing to comply with swallow precautions. --> continue to encourage these recommendations. Can slowly wean tube feeds once she is tolerating oral diet w/o issues. #Type 2 diabetes mellitus A1c 6.9 on 07/17/2024. Otupatient regimen: Lantus 30 units SQ BID, Metformin 1gm PO BID, empaglifozin 25mg PO daily. #Sepsis secondary to UTI/pyelonephritis with mild right hydro ureteric nephrosis: Resolved #AGUILAR: Resolved Renal function is at baseline Patient has finished course of antibiotics #Cerebral palsy #Neurogenic bladder Patient needs cares at home and is unable to find care so far Patient was seen by psychiatry and she has capacity to sign out AMA Givens catheter was removed on 08/02/2024 #Sacral ulcer, stage 2 Present on admission continue wound care -> clean w/ saline. fill deep ulceration & cover all other open areas w/ Aquacel Ag secure w/ optifoam. Change QOD and prn. #Hypercalcemia #Hypomagnesemia Calcium levels improved with IV fluid hydration Continue free water through PEG s/p IV magnesium replacement Monitor calcium and magnesium levels Patient required 3 or greater nights in the ICU/intermediate care/PCU during this admission. She was in the ICU from 07/15/2024 to 07/16/2024 and then in the PCU with telemetry from 07/16/2024 to 07/19/2024. Please see progress note from 07/16/[address] Jose Angel Hayes for complete summary of ethics consultation, palliative care consultation which was performed at [facility] Patient discharged to LTAC 08/28. Discussed w/ CM 08/28 Admission HPI Per Admitting Provider Criss is a 54-year-old female with a past medical history of cerebral palsy, neurogenic bladder, renal calculi, hypertension, hyperlipidemia, type II DM who presents with sepsis and DKA. Presents from [facility] febrile, hypotensive, tachycardic with respiratory distress on BiPAP, tachycardia, hypotension, tachypnea and nonverbal but following commands on initial ER assessment. Patient was recently admitted and treated for altered mental status due to UTI and multifocal pneumonia. Adult services were involved as patient was unable to care for PEG tube and was not having PEG feeds completed. Limited history is available from patient due to level of illness. She does follow commands including squeezing fingers on command. Meds per facility: Baclofen, enteral feeds, gemtesa 75, Jardiance 25, metoprolol tartrate 50 mg twice daily, metformin 1 g twice daily, Lantus 30 units at bedtime. Compared to prior metoprolol dose was increased. Per last note review patient had been somewhat resistant to SNF placement with a goal of returning home to home and home health, but at time of last evaluation she was otherwise stable and was able to communicate and express preferences to providers. No contact information available. DNR/DNI CODE STATUS listed. Medical History: Reviewed on paperwork Medications: Reviewed on paperwork Surgical History: Reviewed on paperwork Family history: Reviewed on paperwork Allergies: Reviewed on paperwork Code Status: DNR per paperwork. On reassessment following CT scan completion patient is more alert. Continues to follow commands, tracks with eyes. Does not speak in sentences but nods and shakes head appropriately to give affirmation/deformations appropriately and consistently to questions. Nods to dysuria, shakes head no to fevers/chills, nods yes to feeling tired/sick. Denies pain at time of reassessment. Affirms that she knows she is in the hospital. Affirms DNR status. Shakes head no to whether she would like anyone called. Nods head to affirm that is feeling better on initial reassessment. Nods head no to indicate she does not have any vision change or headache. [facility] Per [facility] stuff have only had her for a short time after discharge from [facility]. Scott smith on arrival was verbal and able to ask some questions, but became nonverbal today. She is not nonverbal at baseline. Scott smith asks for her mother, but they had no emergency contact information. She is DNR per their records but was a full code at [facility]. No POLST available. - Discussed w/ Yaz nurse. If any calls or they are able to locate any contact information at all will contact us via the switchboard at [facility] JANE - Called [facility] to review/request contact information. Per their medical records chart was reviewed. POLST form was completed on their records and was signed only by physician and the patient. POLST was marked DNR. On review of their records and outside records from 2020 did not have any secondary contat information. Discharge Exam Constitutional WD/WN, vitals as above Eyes PERRL, conjunctivae normal, anicteric sclerae Respiratory breathing unlabored Cardiovascular well perfused Psychiatric A+Ox3, euthymic affect Discharge Plan Discharge Items Patient Disposition: Transfer to LTAC Reason For Visit: UTI, HHS Discharge Diagnosis: UTI, HHS Activity: Resume your previous activity Non-emergency contact: Primary Care Provider Call non-emergency contact if: you have any medication questions and your symptoms worsen Follow-up/Referrals: Emmett Brown [Primary Care Provider] - Diet: Carb Consistent or DM2 Diet Texture: Dental soft (bite-sized) Liquid Consistency: Hyde thick Addtl Attending Provider Instructions: Ms. Bhatti, You were recently hospitalized for a UTI/sepsis and HHS. HHS is high blood g lucose levels secondary to your diabetes. Your hospital stay has been prolonged secondary to placement issues. Fortunately, we have found a facility for you to be safely discharged to. Please follow up with a ENT doctor upon discharge for management of your thyroid goiter. Please continue tube feeds through your PEG tube until you are adequately able to eat solid foods again. Wound care will be continued on your sacral ulcer at the facility. The remainder of your outpatient medications may be continued. [facility] Pending Studies at Discharge: No Stand-Alone Forms: My [facility] Skilled Items Patient informed of condition?: Yes DNR: Yes Discharge Level of Care: Other Communicable Disease: No Discharge Prognosis: Stable Lines: None Urinary Catheter: No Medications and DC Order Prescriptions: New thiamine HCl (vitamin B1) 100 mg Tablet 100 mg PEG DAILY Qty: 30 0RF cyanocobalamin (vitamin B-12) 500 mcg Tablet 250 mcg PEG QAM Qty: 30 0RF Lactobacillus acidoph-L.bulgar [Floranex] 100 million cell Granules In Packet 1 packet G-tube BID Qty: 12 0RF lidocaine HCl 2 % Jelly In Applicator 5 ml EXT BID PRN (Reason: pain) Qty: 125 0RF Nutren 2.0 0.08 gram-2 kcal/mL Liquid 1 ea PEG QID Qty: 6000 0RF Banatrol TF 5 gram-45 kcal/60 mL Liquid In Packet 60 ml PEG BID Qty: 60 0RF Continued Glucagon Emergency Kit 1 dose IM .15MINS PRN (Reason: Hypoglycemia) multivitamin Tablet 1 tab PO DAILY Qty: 30 0RF bisacodyl [Dulcolax (bisacodyl)] 10 mg Suppository 10 mg AZ DAILY PRN (Reason: Constipation) Qty: 30 0RF metformin 1,000 mg Tablet 1,000 mg PO BID Qty: 60 0RF metoprolol tartrate 50 mg Tablet 50 mg PO BID Qty: 60 0RF Enema 19-7 gram/118 mL Enema 118 ml AZ DAILY PRN (Reason: Constipation) Qty: 6 0RF insulin glargine [Lantus Solostar U-100 Insulin] 100 unit/mL (3 mL) Insulin Pen 30 unit SUBCUT BID Qty: 30 0RF omega 8-wda-liq-fish oil [Fish Oil] 1,000 (120-180) mg Capsule 1 cap PO DAILY Qty: 30 0RF Jardiance 25 mg Tablet 25 mg PO DAILY Qty: 30 0RF baclofen 5 mg Tablet 5 mg feeding tube Q8H PRN (Reason: Muscle Spasm) Qty: 30 0RF vibegron 75 mg Tablet 75 mg PO DAILY Qty: 30 0RF Discharge Orders: Discharge Order (Routine); Ordered 08/28/24 Ordered By: Diana Alvarez/Other Patient Handouts: High Blood Sugar (Hyperglycemia), Managing Type 2 Diabetes Admission Data Admit Date/Time: 07/15/24 14:24 Attending Provider: Dinesh Sánchez Admit Provider: Jose Angel Hayes Primary Care Provider: Emmett Brown Other Providers: Jose Angel Hayes; Jae Prado; Leonides Webb Other Interventions: Discharge Summary Assessment (RN) Last Done: 08/28/24 14:17 Hospital Stay Data Consultations 07/15/24 13:31 ED Decision to Admit Stat 07/15/24 15:34 Consult Profile Shaper Operator Routine 08/10/24 16:03 Consult Patient Rep [Consult Patient Services] Routine 08/21/24 11:33 Consult Palliative Care Routine Diagnostic Imagining Performed 07/15/24 11:04 CT abd pelvis wo con Stat CT chest diagnostic wo con Stat 07/16/24 12:43 US thyroid Routine 08/03/24 09:30 FL video swallow Routine Pending Results Patient Have Any Pending Studies at Discharge: No Discharge Instructions Given to Patient (Per Discharging Provider) Ms. Bhatti, Nasir were recently hospitalized for a UTI/sepsis and HHS. HHS is high blood glucose levels secondary to your diabetes. Your hospital stay has been prolonged secondary to placement issues. Fortunately, we have found a facility for you to be safely discharged to. Please follow up with a ENT doctor upon discharge for management of your thyroid goiter. Please continue tube feeds through your PEG tube until you are adequately able to eat solid foods again. Wound care will be continued on your sacral ulcer at the facility. The remainder of your outpatient medications may be continued. [facility] Supervising Physician Co-Signing Physician Notes Attending Attestation & Discharge Note: Chart reviewed, discharge care plan d/w KATIE Sumner. I agree w/ the lester components of her discharge documentation with the following additions - * acute metabolic encephalopathy 2nd to sepsis/UTI/right-sided pyelonephritis & HHS * abnormal TSH level Of note - I did not perform a bedside visit or perform physical exam on day of discharge. 54yo female with cerebral palsy, neurogenic bladder, renal calculi, hypertension, hyperlipidemia, type II DM - recent prolonged hospitalization at [facility] - who presented from [facility] in [place] with altered mental status and concerns for sepsis. Glucose was elevated at >600 and she had metabolic derangements on labs suggestive of HHS. Early in the stay she required ICU level of care for her HHS and UTI/sepsis/pyelonephritis on the right side. Urine cx grew klebsiella; blood cultures were negative. She completed a course of antibiotics for the klebsiella UTI/right-sided pyelonephritis. Other issues addressed while here - nutrition/tube feedings; electrolyte derangements; sacral decubitus ulcer; placement difficulties. With respect to her goiter which was initially discovered at [facility] - a thyroid u/s was performed here; radiological report --> MEASUREMENTS: Right lobe: 4.3 x 1.6 x 1.7 cm Left lobe: 1.5 x 5.3 x 5.5 cm Isthmus: 0.3 cm PARENCHYMA: The thyroid parenchymal echotexture is heterogeneous. NODULES: Subcentimeter low suspicion hypoechoic nodules of the right thyroid. The left lobe of the thyroid is diffusely heterogeneous, which appears to contain numerous nodules, individual nodule margins not well visualized and therefore cannot be measured. IMPRESSION: Left thyroid lobe goiter. CT chest here at [facility] showed that the left lobe dives into the superior mediastinum. TFTs at [facility] MC: * TSH: <0.010 * FT4: 1.5 (normal) Per records she had seen Dr Fran Paris, ENT in [place], during her stay while at [facility]. Advise jane follow-up with Dr Paris for the goiter. Also advise repeat TSH, FT4, FT3 upon admission to the [facility]. At time of discharge from [facility] she is transferring to [facility] ([facility]) in [place], [place]. Dinesh Sánchez MD Total Time Total Time Spent Total Time Spent (In Minutes): 60 Total Time Includes: Examination of the Patient, Discharge Planning, Medication Reconciliation and Communication With Other Providers Coding Level of Care Code 68083 INP/OBS DISCH >30 MIN Diagnoses Encounter for assessment of decision-making capacity Z00.8 Goiter E04.9 Cerebral palsy G80.9 Cerebral palsy type: unspecified type DM2 (diabetes mellitus, type 2) E11.9 Sepsis A41.9; R65.20; N17.9 Acute renal failure type: unspecified Sepsis acute organ dysfunction status: with acute organ dysfunction Sepsis type: sepsis due to unspecified organism Severe sepsis acute organ dysfunction type: acute renal failure Severe sepsis shock status: unspecified Pyelonephritis N12 AGUILAR (acute kidney injury) N17.9 Septic shock A41.9; R65.21 Hyperosmolar hyperglycemic state (HHS) E11.00 Status post insertion of percutaneous endoscopic gastrostomy (PEG) tube Z93.1 Acute metabolic encephalopathy G93.41 Abnormal serum thyroid stimulating hormone (TSH) level R79.89
== END 2024-08-28 16:06 | DRG 871 ==
LOC: SUATTDRO → ED 10:44 → SUATTDRO 14:24 → 1E 14:24 → 2S 07-18 12:50 → 3E 07-19 16:53
DX: R13.10 Dysphagia, unspecified; N17.9 Acute kidney failure, unspecified; Z79.4 Long term (current) use of insulin; L89.152 Pressure ulcer of sacral region, stage 2; A41.9 Sepsis, unspecified organism; R65.21 Severe sepsis with septic shock; N12 Tubulo-interstitial nephritis, not specified as acute or chronic; T17.900A Unspecified foreign body in respiratory tract, part unspecified causing asphyxiation, initial encounter; X58.XXXA Exposure to other specified factors, initial encounter; E83.52 Hypercalcemia; N31.9 Neuromuscular dysfunction of bladder, unspecified; N13.6 Pyonephrosis; Z91.199 Patient's noncompliance with other medical treatment and regimen due to unspecified reason; E04.9 Nontoxic goiter, unspecified; E78.5 Hyperlipidemia, unspecified; Z93.1 Gastrostomy status; E87.4 Mixed disorder of acid-base balance; Z88.2 Allergy status to sulfonamides; Z66 Do not resuscitate; G93.41 Metabolic encephalopathy; R57.1 Hypovolemic shock; G80.9 Cerebral palsy, unspecified; I10 Essential (primary) hypertension; E11.10 Type 2 diabetes mellitus with ketoacidosis without coma; R41.89 Other symptoms and signs involving cognitive functions and awareness; I24.89 Other forms of acute ischemic heart disease; Y92.230 Patient room in hospital as the place of occurrence of the external cause; E83.42 Hypomagnesemia; E87.0 Hyperosmolality and hypernatremia